=== PATIENT | female | born 1950 | race Caucasian/White ===

== ENCOUNTER 2019-09-25 07:16 | Emergency (ER) | payer MEDICARE, OTHER, SELFPAY ==
[2019-09-25 07:17] VITALS: BP 137/82; PULSE 85; RESP 16; TEMP 36.7; O2SAT 98; BMI 29.0
--- NOTE | 2019-09-25 07:20 | XR_ITS ---
WS: [id number] RIGHT KNEE: 3 VIEW(S) TECHNIQUE: AP, oblique(s) and lateral. HISTORY: injury COMPARISON: 10/19/2010 Severely comminuted fracture involving the metadiaphysis. Bones are osteopenic. There are multiple fr acture fragments in various orientations. 50 degrees angulation between the proximal and distal femur at the fracture site. The distal fragment is posteriorly displaced and oriented. Osteoarthritis at the joint spaces of the knee. Large joint effusion and large amount of soft tissue edema. Vascular calcifications are noted in the distal femoral artery. Femoral artery is being displaced pos teriorly by the fracture. XR/XR knee RT 3V* [id number] IMPRESSION: 1. Severely comminuted, displaced fracture with posterior displacement at the metadiaphysis. 2. Femoral artery is being displaced posteriorly by the fractures.
--- NOTE | 2019-09-25 07:21 | W.ED.EXTPRO ---
HPI - Extremity Problem General: Chief complaint: Extremity Problem,Nontraumatic Stated complaint: POSSIBLE R KNEE DISLOCATION Time Seen by Provider: 09/25/19 07:20 Source: patient and EMS Mode of arrival: EMS History of Present Illness: HPI Narrative: 69-year-old female who has a history of MS and is not ambulatory the nursing staff states this morning her right knee appeared swollen. Very mobile compared to normal. They states it seemed to pop and are worried of dislocation. Patient's had no known injuries. Patient denies any pain. She does have a history dementia as well and is not a great historian. MD Complaint: extremity pain Onset (ago): hour(s) Location: right Relieving factors: nothing Exacerbating factors: nothing Associated symptoms: Deny chest pain, fever(s) or rash Review of Systems Const: Denies: fever, chills, body aches or change in appetite Eyes: Denies: blurry vision or eye discomfort ENMT: Denies: throat pain or dental pain Card: Denies: chest pain Resp: Denies: shortness of breath GI: Denies: abdominal pain, nausea, vomiting or diarrhea : Denies: painful urination Musc: Reports: joint pain; Denies: neck pain or back pain Skin/Breast: Denies: rash Neuro: Denies: headache Psych: Denies: depression Gaston/Lymph: Denies: easy bruising All/Imm: Denies: hives Physical Exam Const: COMMON NORMALS: no apparent distress, oriented x3 and healthy appearing HENMT: COMMON NORMALS: normocephalic and head/scalp atraumatic HEAD & SCALP: normocephalic and atraumatic Eye: COMMON NORMALS: PERRL and EOMs intact bilaterally PUPIL: Yes PERRL Neck/C-Spine: COMMON NORMALS: full ROM and supple Chest: COMMONS NORMALS: inspection of chest normal and palpation of chest normal Resp: COMMON NORMALS: normal respiratory effort, no retractions, no use of accessory muscles and clear to auscultation bilaterally AUSCULTATION: clear to auscultation bilaterally Cardio: COMMON NORMALS: regular rate, regular rhythm and no murmurs RATE: regular rate RHYTHM: regular rhythm GI: COMMON NORMALS: normal to inspection, nondistended, normoactive bowel sounds, soft to palpation, non-tender and no masses PALPATION: Yes soft Extremity: COMMON NORMALS: normal to inspection NARRATIVE EXTREMITY EXAM: Swelling to right knee. Knee joint is very lax on movement with obvious deformity, dp and pt pulses palpable in r foot Neuro: COMMON NORMALS: oriented x3, moves all extremities and no focal motor deficits Psych: COMMON NORMALS: mental status grossly normal, thought process normal and cooperative THOUGHT PROCESS: normal thought process Skin: COMMON NORMALS: no rashes or lesions noted and no wounds GENERAL SKIN EXAM: no rashes or lesions noted Course Vital Signs: Vital signs: Vital Signs Temperature 98.1 F 09/25/19 07:17 Pulse Rate 76 09/25/19 09:39 Respiratory Rate 16 09/25/19 09:39 Blood Pressure 130/78 09/25/19 09:39 Pulse Oximetry 97 09/25/19 09:39 MDM - Extremity (Nontraumatic) MDM Narrative: Medical decision making narrative: Patient presents here with distal femur fracture. Patient has no arterial injury. Patient was placed in a brace along with Tyson wrap. I spoke to Dr. Moore who reviewed the films. He is to follow her up outpatient. She is likely not a surgical candidate as she is nonambulatory. Informed assisted to check her pulse every 8 hours. She is return if worsening. Lab Data: Labs: Lab Results 09/25/19 09/25/19 Range/Units 08:15 08:15 WBC 5.8 (4.0-10.0) 10^3/ uL RBC 3.91 L (4.1-5.3) 10^6/u L Hgb 11.7 (11.5-15.3) g/dL Hct 37.7 (37.0-47.0) % MCV 96.4 (81-99) fL MCH 29.9 (28.0-34.0) pg MCHC 31.0 (30.0-36.0) g/dL RDW 14.8 (12.1-15.1) % Plt Count 295 (130-400) 10^3/c mm MPV 9.0 (7.4-10.4) fL Neut % (Auto) 70.9 % Lymph % (Auto) 22.3 % Carolina % (Auto) 5.3 % Eos % (Auto) 1.0 % Baso % (Auto) 0.3 % Neut # (Auto) 4.1 (1.8-7.7) 10^3/u L Lymph # (Auto) 1.3 (0.8-4.8) 10^3/u L Carolina # (Auto) 0.3 (0.2-0.9) 10^3/u L Eos # (Auto) 0.1 (0.0-0.8) 10^3/u L Baso # (Auto) 0.0 (0.0-0.1) 10^3/u L Nucleated RBC % (a uto) 0 % Nucleated RBCs # 0.0 /100WBC Sodium 139 (136-145) mmol/L Potassium 3.9 (3.5-5.1) mmol/L Chloride 101 (98-107) mmol/L Carbon Dioxide 26 (22-29) mmol/L Anion Gap 15.9 (5-19) BUN 7 L (8-23) mg/dL Creatinine 0.6 (0.5-0.9) mg/dL Glucose 106 (65-115) mg/dL Calculated Osmolal ity 284 L (285-295) mOsm/k g Calcium 9.8 (8.5-10.5) mg/dL Imaging Data^: xr R knee: Radiologist's impression: [address] [address] XRay Report Signed Patient: Kaylynn Calzada Unit #: [id number] : 1950 Age/Sex: 69 / F ADM Date: 09/25/19 Loc: ER Room/Bed: Attending Dr: Ordering Provider/Ordering MD: Tulio Monaco MD Date of Service: 09/25/19 Procedure(s): XR knee RT 3V* [id number] Accession Number(s): [id number] Report Number: [id number] WS: [id number] RIGHT KNEE: 3 VIEW(S) TECHNIQUE: AP, oblique(s) and lateral. HISTORY: injury COMPARISON: 10/19/2010 Severely comminuted fracture involving the metadiaphysis. Bones are osteopenic. There are multiple fracture fragments in various orientations. 50 degrees angulation between the proximal and distal femur at the fracture site. The distal fragment is posteriorly displaced and oriented. Osteoarthritis at the joint spaces of the knee. Large joint effusion and large amount of soft tissue edema. Vascular calcifications are noted in the distal femoral artery. Femoral artery is being displaced posteriorly by the fracture. XR/XR knee RT 3V* [id number] IMPRESSION: 1. Severely comminuted, displaced fracture with posterior displacement at the metadiaphysis. 2. Femoral artery is being displaced posteriorly by the fractures. cta ext: Radiologist's impression: [place] [address] [address] [place] [address] CT Scan Report Signed Patient: Kaylynn Calzada Unit #: [id number] : 1950 Age/Sex: 69 / F ADM Date: 09/25/19 Loc: ER Room/Bed: Attending Dr: Ordering Provider/Ordering MD: Tuloi Monaco MD Date of Service: 09/25/19 Procedure(s): [place] [address] Accession Number(s): [id number] Report Number: [id number] WS: [id number] CT ANGIOGRAPHY WITH RUNOFF TO THE ANKLES HISTORY: right distal femur fx TECHNIQUE: Arterial injection is performed during imaging to evaluate the aorta and runoff vessels to the ankles. MIP and volume rendering imaging has also been performed. All images are reviewed. All CT scans at [facility] use at least one of these dose optimization techniques: automated exposure control; mA and/or kV adjustment per patient size (includes targeted exams where dose is matched to clinical indication); or iterative reconstruction. Contrast: Omnipaque 350; 95 mL IV. DLP: 1409.22 mGy.cm COMPARISON: None available. Distal abdominal aorta is intact. Iliac arteries and femoral arteries and deep profunda are well- opacified. Comminuted fracture in the distal RIGHT femur has several small spicules of bone closely associated with the fracture. There is no active extravasation from the superficial femoral artery. Spicules of bone measures 8 mm from the artery. There is active extravasation noted at the fracture site. Popliteal arteries bilaterally and runoff to the ankles without compromise. No free fluid in the pelvis. Jones catheter present in a nondistended urinary bladder. Markedly comminuted fracture involving the distal femur at the mid diaphysis. This was described radiographically. Large amount of soft tissue edema and joint effusion. Additional plate and screw fixation in the tibia on the RIGHT and fibula on the LEFT. Notified Tulio Monaco MD at 09/25/2019 9:[address]/[place] [id number] IMPRESSION: 1. No RIGHT femoral artery injury or active extravasation at the site of the fracture. 2. There is active extravasation related to the fracture site. Active extravasation is probably due to small muscular branches. The adjacent artery is intact. 3. Markedly comminuted fracture at the RIGHT metadiaphysis. Spicules of bone are within 8mm is at the femoral artery. Discharge Plan Discharge Patient Disposition: Home, Self-Care Clinical Impression: Femoral distal fracture Qualifiers: Encounter type: initial encounter Fracture type: closed Fracture morphology: other fracture Laterality: right Qualified Code(s): S72.491A - Other fracture of lower end of right femur, initial encounter for closed fracture Condition: Stable Prescriptions: No Action furosemide 40 mg Tablet 40 mg PO DAILY RF: 0 acetaminophen 325 mg Tablet 650 mg PO Q6H PRN (Reason: Mild Pain (Scale Score 1-4)) RF: 0 polyethylene glycol 3350 [Miralax] 17 gram Powder In Packet 17 g PO DAILY RF: 0 amitriptyline 75 mg Tablet 75 mg PO DAILY RF: 0 ondansetron HCl [Zofran] 4 mg Tablet 4 mg PO Q4H PRN (Reason: Nausea) RF: 0 hydrocodone-acetaminophen 10-325 mg Tablet 1 tab PO Q4H PRN (Reason: Pain) RF: 0 baclofen 20 mg Tablet 20 mg PO TID PRN (Reason: Muscle Spasm) RF: 0 alprazolam [Xanax] 0.25 mg Tablet 0.25 mg PO BID PRN (Reason: Anxiety) RF: 0 magnesium hydroxide [Milk of Magnesia] 400 mg/5 mL Suspension See Rx Instructions .ROUTE .COMPLEX PRN (Reason: Constipation) RF: 0 bisacodyl [Dulcolax (bisacodyl)] 10 mg Suppository 10 mg [place] DAILY PRN (Reason: Constipation) RF: 0 Fleet Enema 19-7 gram/118 mL Enema 118 ml [place] DAILY PRN (Reason: Constipation) RF: 0 bisacodyl [Dulcolax (bisacodyl)] 5 mg Tablet,Delayed Release (Dr/Ec) 5 mg PO BID RF: 0 albuterol sulfate 90 mcg/actuation Hfa Aerosol Inhaler 1 inh INHALATION Q4H PRN (Reason: Shortness Of Breath) RF: 0 albuterol sulfate [ProAir HFA] 90 mcg/actuation Hfa Aerosol Inhaler 2 inh INHALATION BEDTIME RF: 0 morphine 15 mg Tablet 15 mg PO Q4H PRN (Reason: Pain) RF: 0 Culturelle 10 billion cell Capsule 1 cap PO DAILY RF: 0 Flovent HFA 110 mcg/actuation Hfa Aerosol Inhaler 2 puff INHALATION BEDTIME RF: 0 diazepam 5 mg Tablet 10 mg PO BID PRN (Reason: Agitation) RF: 0 Prilosec OTC 20 mg Tablet,Delayed Release (Dr/Ec) 20 mg PO DAILY RF: 0 kmmwzuhj-znb-HQ-lycopen-lutein 500-300-250 mcg Tablet 1 tab PO DAILY RF: 0 Silver Gel Gel 1 ea TOPICAL DAILY RF: 0 potassium gluconate 600 mg (99 mg) Tablet 600 mg PO DAILY RF: 0 melatonin 10 mg Tablet Extended Release 10 mg PO BEDTIME RF: 0 Renacidin 1,980.6 mg-59.4 mg-980.4mg/30mL Solution 100 ml IRRIGATION DAILY RF: 0 senna 8.6 mg Tablet 17.2 mg PO DAILY RF: 0 Discharge Orders: Discharge Order (Routine); Ordered 09/25/19 Ordered By: Tulio Monaco Referrals: Keshia Claudio MD [Primary Care Provider] - Manny Patel DO [Family Provider] - James Moore DO [Physician] - 1-3 days Discharge Diet: Advance as tolerated Discharge Activity: Resume usual activity Coding Level of Care Code ED Office Helper for Chg Fwd Exam Comprehensive
[2019-09-25 07:42] VITALS: PULSE 80; RESP 18
--- NOTE | 2019-09-25 07:52 | XR_ITS ---
WS: [id number] RIGHT FEMUR: 2 VIEW(S) TECHNIQUE: AP and lateral. HISTORY: injury COMPARISON: None available. Severe osteopenia. No fractures are evident at the RIGHT hip or within the proximal to mid femur. Soft tissues are unremarkable. No foreign body or calcification. XR/XR femur RT min 2V* 15485 Impression: No fracture in the proximal to mid RIGHT femur. Severe osteopenia.
--- NOTE | 2019-09-25 08:05 | CT_ITS ---
WS: [id number] CT ANGIOGRAPHY WITH RUNOFF TO THE ANKLES HISTORY: right distal femur fx TECHNIQUE: Arterial injection is performed during imaging to evaluate the aorta and runoff vessels to the ankles. MIP and volume rendering imaging has also been performed. All images are reviewed. All C T scans at [facility] use at least one of these dose optimization techniques: automated ex posure control; mA and/or kV adjustment per patient size (includes targeted exams where dose is match ed to clinical indication); or iterative reconstruction. Contrast: Omnipaque 350; 95 mL IV. DLP: 1409.22 mGy.cm COMPARISON: None available. Distal abdominal aorta is intact. Iliac arteries and femoral arteries and deep profunda are well-opac ified. Comminuted fracture in the distal RIGHT femur has several small spicules of bone closely asso ciated with the fracture. There is no active extravasation from the superficial femoral artery. Spicu les of bone measures 8 mm from the artery. There is active extravasation noted at the fracture site. Popliteal arteries bilaterally and runoff to the ankles without compromise. No free fluid in the pelvis. Jones catheter present in a nondistended urinary bladder. Markedly comminuted fracture involving the distal femur at the mid diaphysis. This was described radi ographically. Large amount of soft tissue edema and joint effusion. Additional plate and screw fixation in the tibia on the RIGHT and fibula on the LEFT. Notified Tulio Monaco MD at 09/25/2019 9:[address]/CT angio [facility] [address] IMPRESSION: 1. No RIGHT femoral artery injury or active extravasation at the site of the f racture. 2. There is active extravasation related to the fracture site. Active extravas ation is probably due to small muscular branches. The adjacent artery is intact . 3. Markedly comminuted fracture at the RIGHT metadiaphysis. Spicules of bone a re within 8mm is at the femoral artery.
[2019-09-25 08:23] LABS: Basophils % 0.3 %; Eosinophils # 0.1 10^3/uL (0.0-0.8); Hematocrit 37.7 % (37.0-47.0); Hemoglobin 11.7 g/dL (11.5-15.3); Lymphocytes # 1.3 10^3/uL (0.8-4.8); Lymphocytes % 22.3 %; Mean Corpuscular Hemoglobin 29.9 pg (28.0-34.0); Mean Corpuscular Volume 96.4 fL (81-99); Monocytes # 0.3 10^3/uL (0.2-0.9); Monocytes % 5.3 %; Neutrophils # 4.1 10^3/uL (1.8-7.7); Neutrophils % 70.9 %; Nucleated Red Blood Cells % 0 %; Platelet Count 295 10^3/cmm (130-400); Red Blood Count 3.91 10^6/uL (4.1-5.3); Red Cell Distribution Width 14.8 % (12.1-15.1); White Blood Count 5.8 10^3/uL (4.0-10.0)
[2019-09-25 08:39] LABS: Anion Gap 15.9 (5-19); Blood Urea Nitrogen 7 mg/dL (8-23); Calcium 9.8 mg/dL (8.5-10.5); Carbon Dioxide 26 mmol/L (22-29); Chloride 101 mmol/L (98-107); Glucose 106 mg/dL (65-115); Osmolality Calculated 284 mOsm/kg (285-295); Potassium 3.9 mmol/L (3.5-5.1); Sodium 139 mmol/L (136-145)
[2019-09-25] MEDS: iohexol 350 mg/mL 100 mL Btl IV (09:05)
[2019-09-25 09:39] VITALS: BP 130/78; PULSE 76; RESP 16; O2SAT 97
--- NOTE | 2019-09-25 09:49 | PC.NURSE ---
waiting for ride back to alf
--- NOTE | 2019-09-25 13:55 | DCPLANNER ---
manufacturing manager was asked to schedule a follow up appointment for patient with ortho. manufacturing manager called the ortho clinic, spoke with Oriana, gave clinic patients information. manufacturing manager was told that patients information would be printed and reviewed. Clinic will call case folder and patient with appointment information.
--- NOTE | 2019-09-30 15:15 | DCPLANNER ---
Patient has a follow up appointment scheduled for September at 10:[address] Moore. Clinic will call patient with appointment information.
== END 2019-09-25 11:18 | disposition home or self-care (01) ==
PROVIDERS: Emergency Provider Emergency Medicine; Family Provider Family Medicine; PCP Family Medicine
DX: S79.191A Other physeal fracture of lower end of right femur, initial encounter for closed fracture (principal); X58.XXXA Exposure to other specified factors, initial encounter
CPT/HCPCS: 12345; 73552; 73562; 73706; 80048; 85025; 97760; 99281; 99283; L1832; Q9967

== ENCOUNTER → 2019-10-02 10:20 | Outpatient (BNVA) | payer MEDICARE, OTHER, SELFPAY | PROVIDERS: Family Provider Family Medicine; PCP Family Medicine; Referring Provider Emergency Medicine; Visit Provider Orthopaedic Surgery | DX: S72.401A Unspecified fracture of lower end of right femur, initial encounter for closed fracture (principal); X58.XXXA Exposure to other specified factors, initial encounter | CPT/HCPCS: 73560 ==

== ENCOUNTER → 2019-11-02 09:45 | Outpatient (BNVA) | payer MEDICARE, OTHER, SELFPAY | PROVIDERS: Family Provider Family Medicine; PCP Family Medicine; Visit Provider Orthopaedic Surgery | DX: S72.491A Other fracture of lower end of right femur, initial encounter for closed fracture (principal); X58.XXXA Exposure to other specified factors, initial encounter | CPT/HCPCS: 73560 ==

== ENCOUNTER → 2019-12-16 09:54 | Outpatient (BNVA) | payer MEDICARE, OTHER, SELFPAY | PROVIDERS: Family Provider Family Medicine; PCP Family Medicine; Visit Provider Orthopaedic Surgery | DX: S72.491A Other fracture of lower end of right femur, initial encounter for closed fracture (principal); X58.XXXA Exposure to other specified factors, initial encounter; M85.88 Other specified disorders of bone density and structure, other site | CPT/HCPCS: 73560 ==

== ENCOUNTER 2019-12-24 15:13 | Outpatient (CLI) | payer MEDICARE, OTHER, SELFPAY ==
--- NOTE | 2019-12-24 15:20 | XR_ITS ---
WS: [id number] RIGHT KNEE: 3 VIEW(S) TECHNIQUE: AP, oblique(s) and lateral. HISTORY: RIGHT KNEE PAIN PT IN WHEELCHAIR COMPARISON: 12/14/2019 Patient has a known markedly comminuted fracture involving the distal femoral diaphysis. Markedly com minuted fragments. Fracture line is still evident with nonhealing. Severe osteopenia. New since the prior study is mild compression of the lateral tibial plateau suspicious for fracture. These changes could be positional. There is severe osteopenia. Patient was unable to straighten her l eg completely therefore this may cause deformity along the tibial plateau. Small suprapatellar effusion. Extensive soft tissue edema. XR/XR knee RT 3V* [id number] IMPRESSION: 1. Markedly comminuted known fracture with incomplete healing involving the di stal femoral diaphysis. Posterior displacement is similar to the prior study. 2. Indeterminate for minimal depressed fracture involving the lateral tibial p lateau. There is mild depression but this could be related to incomplete straig htening of the knee.
== END 2019-12-24 15:14 | disposition home or self-care (01) ==
LOC: RADWPI 15:16
PROVIDERS: Family Provider Family Medicine; PCP Family Medicine; Visit Provider Family Medicine
DX: M25.561 Pain in right knee (principal); S72.8X1A Other fracture of right femur, initial encounter for closed fracture; X58.XXXA Exposure to other specified factors, initial encounter
CPT/HCPCS: 73562

== ENCOUNTER 2020-04-25 06:41 | Outpatient (CLI) | payer MEDICARE, OTHER, MEDICAID, SELFPAY ==
--- NOTE | 2020-04-25 | US_ITS ---
WS: [id number] ULTRASOUND BLADDER CLINICAL INFORMATION: URINARY INCONTINENCE, MS BLADDER PAIN COMPARISON: None. FINDINGS: Jones catheter in place. Bladder is decompressed. No visualized bladder lesions. Urinary bladder: The urinary bladder appears morphologically normal. No free fluid is seen in the pel vis. / bladder [id number] IMPRESSION: Jones catheter in place. No visualized bladder lesions.
== END 2020-04-25 06:42 | disposition home or self-care (01) ==
PROVIDERS: PCP Family Medicine; Visit Provider Family Medicine
DX: R39.89 Other symptoms and signs involving the genitourinary system (principal); R32 Unspecified urinary incontinence; G35 Multiple sclerosis
CPT/HCPCS: 76857

== ENCOUNTER 2020-09-21 07:56 | Outpatient (CLI) | payer MEDICARE, SELFPAY ==
--- NOTE | 2020-09-21 08:15 | CT_ITS ---
WS: [id number] CT ABDOMEN PELVIS TECHNIQUE: Noncontrast CT of the abdomen and pelvis with coronal and sagittal reformatted images. CLINICAL INFORMATION: NEUROGENIC BLADDER COMPARISON: CT abdomen pelvis 1 26,018 DLP: 1193.[address] scans at [facility] use at least one of these dose optimization techniques: automat ed exposure control; mA and/or kV adjustment per patient size (includes targeted exams where dose is matched to clinical indication); or iterative reconstruction. FINDINGS: Normal adrenal glands. Soft tissue thickening with right renal pelvocaliectasis. Multiple f ragmented clustered calcifications the largest measuring 6.6 mm. Mild right proximal ureterectasis. D istal right ureter is decompressed. No significant hydronephrosis. No obstructing left renal or ureteral calculi. Left ureter is decompressed. Jones catheter in place. Prior hysterectomy. Sigmoid diverticulosis. No evidence of acute diverticulitis. Scattered stool in the colon. Tiny fat-c ontaining umbilical hernia. Fatty atrophy of the pancreas. Normal caliber abdominal aorta. No abdomin al or pelvic lymphadenopathy. No inguinal lymphadenopathy. Grade 1 anterolisthesis L4 on L5. Lumbar s coliosis. Noncontrast liver is unremarkable. Cholecystectomy clips. Mild intrahepatic and common bile duct dila tation is unchanged from previous. Splenic cyst or hemangioma is unchanged. Lung bases are well aerat ed. Subsegmental atelectasis in the lung bases. CT/CT kidney stone [id number] IMPRESSION: 1. Right renal pelvocaliectasis with inflammatory stranding and soft tissue th ickening of the right renal pelvis. Multiple clustered and fragmented calculi i n the right renal pelvis. Soft tissue thickening may be related to calculi but has a suspicious appearance and TCC is an additional consideration. No signific ant hydronephrosis. 2. No hydronephrosis in the left kidney. 3. No abdominal or pelvic lymphadenopathy. 4. Jones catheter. 5. Prior hysterectomy. 6. Prior cholecystectomy with stable intra and extra hepatic biliary duct dila tation.
== END 2020-09-21 07:57 | disposition home or self-care (01) ==
PROVIDERS: PCP Family Medicine; Visit Provider Urology
DX: N31.9 Neuromuscular dysfunction of bladder, unspecified (principal); Z90.49 Acquired absence of other specified parts of digestive tract; Z90.710 Acquired absence of both cervix and uterus; N28.89 Other specified disorders of kidney and ureter
CPT/HCPCS: 74176

== ENCOUNTER → 2020-09-26 08:58 | Outpatient (BNVA) | payer MEDICARE, SELFPAY | PROVIDERS: PCP Family Medicine; Visit Provider Urology | DX: N20.0 Calculus of kidney (principal); Z97.8 Presence of other specified devices; Z11.52 Encounter for screening for COVID-19 | CPT/HCPCS: 87635 ==

== ENCOUNTER 2020-09-29 09:56 | Day surgery (SDC) | payer MEDICARE, SELFPAY ==
[2020-09-27 10:25] VITALS: BMI 27.5
--- NOTE | 2020-09-27 10:41 | ECG_ITS ---
[facility] Test Date: 2020-09-27 Pat Name: Kaylynn Calzada Department: Room: Gender: Female Ase Certified Technician: : 1950 Requested By: Darek Lagos Order Number: [id number] Stephanie MD: Gordon Mcintosh M.D. Measurements Intervals [place] Rate: 65 P: 16 OH: 150 QRS: -28 QRSD: 112 T: 28 QT: 415 QTc: 431 Interpretive Statements SINUS RHYTHM BORDERLINE LEFT AXIS DEVIATION [QRS AXIS < -20] INCOMPLETE RIGHT BUNDLE BRANCH BLOCK [90+ ms QRS DURATION, TERMINAL R IN V1/V2, 40+ ms S IN I/aVL/V4/V5/V6] MINIMAL VOLTAGE CRITERIA FOR LVH, CONSIDER NORMAL VARIANT [MEETS CRITERIA IN ONE OF: R(aVL), S(V1), R(V5), R(V5/V6)+S(V1)] Compared to ECG 11/09/2018 22:41:28 Incomplete right bundle-branch block now present ST (T wave) deviation no longer present Myocardial infarct finding no longer present Electronically Signed On 09-28-2020 10:03:14 CDT by Gordon Mcintosh M.D. [email or web address]
--- NOTE | 2020-09-27 16:06 | ANES.PREANE2 ---
Pre-Anesthetic Assessment Pre-Anesthetic Assessment: Height/Weight: Height 1.73 m Weight 82.1 kg Preop Diagnosis: RIGHT: Renal pelvic stones/mass-effect, neurogenic bladder chronic cath Proposed Procedure: Operation Date: 09/29/20 12:00 Proposed Procedures p Cystoscopy 35046 79853 42157 N20.0 Z97.8(Not Applicable) - Juanjose Virk MD s Poss Laser Lithotripsy(Right) - Juanjose Virk MD s Retrograde Pyelogram(Right) - Juanjose Virk MD s Ureteral Stent Placement(Right) - Juanjose Virk MD Was Beta Kurtis taken within 24 hours: N/A Was Clonidine taken within 24 hours: N/A Social: Social History: No alcohol and No tobacco Exam: Pre-Anes Outpt Exam: alert, oriented x 3, clear to auscultation bilaterally and regular rate & rhythm Airway: Submandibular: WNL Cervical ROM: WNL MP: 2 Dentition: Full Pulmonary: Pulmonary: Asthma : Comments: Neurogenic bladder, acrrera GI: GI: GERD Musc/skel: Musc/skel: Weakness Comments: Severe MS-wheelchair bound, chronic pain/opioid Neuropsych: Neuropsych: Anxiety Anesthetic Plan: ASA status: 3 Anesthesia: General Risk of > 500 ml blood loss (7ml/kg in children): No PFSH Anesthesia PFSH: Medical History (Updated 09/21/20 @ 12:39 by Juanjose Virk MD) Accelerated essential hypertension Anxiety disorder Chronic indwelling Carrera catheter Dementia Dorsalgia H/O fracture of leg rt leg with rods Multiple sclerosis Neurogenic bladder Recurrent kidney stones Surgical History H/O: hysterectomy History of ankle surgery Hx of appendectomy Hx of cholecystectomy Family History Father , at age 87 Cancer cancer behind heart Mother , at age 94 No problems noted. Other Hypertension Denies family history of Diabetes Stroke Social History Smoking and tobacco status: never smoked Alcohol intake: never Marital status: Current occupational status: retired History of recent travel: No Data Anesthesia Cardiac Studies: No Data to Display
[2020-09-29] VITALS (13 sets, daily range): BP systolic 84–151; BP diastolic 60–81; PULSE 69–117; RESP 16–20; TEMP 36.4–37.2; O2SAT 94–100
--- NOTE | 2020-09-29 | SCC_ITS ---
Procedure Done: 1. Cystoscopy, RIGHT: Retrograde, ureteroscopy, laser, stent 2. Percutaneous suprapubic tube placement 54.7 seconds of fluoroscopic guidance, for a cumulative dose of 9.53 mGy, was provided to Dr. Virk by the radiology department. C-arm images of the abdomen were saved for the patient's permanent record. [facility]
--- NOTE | 2020-09-29 10:05 | SC_ITS ---
WS: [id number] C-arm fluoroscopy for right ureteroscopy, 09/29/2020 Clinical Data: Right ureteroscopy and right retrograde urogram. Comparison: KUB, 09/29/2020 Findings: Contrast material fills the right renal pelvis. There are multiple intraluminal filling defects which probably represent ureteral calculi. SC/C-arm FL for Urology Impression: Right retrograde urogram demonstrating multiple right renal calculi..
--- NOTE | 2020-09-29 10:05 | XR_ITS ---
WS: [id number] KUB, AP view, 09/29/2020 Clinical Data: Preop right ureteroscopy Comparison: Flat and upright abdomen, 06/27/2017. CT abdomen and pelvis, 09/21/2020. Findings: No abnormal intraabdominal masses or calcifications are seen. There is no dilatated small bowel or ev idence of obstruction. Fecal material in colon gas obscure detail over both kidneys. There is a dextroscoliosis of the lumba r spine. There are clips in the right upper quadrant from a cholecystectomy. XR/XR KUB [id number] Impression: 1. Large amount of fecal material in the colon which obscures detail over both kidneys. 2. Dextroscoliosis.
--- NOTE | 2020-09-29 10:49 | P.ANESUD_ITS ---
Pre-Anesthetic Update Pre-Anesthetic Assessment: Date of Surgery/Procedure: 09/29/20 Preop Mónica gnosis: RIGHT: Renal pelvic stones/mass-effect, neurogenic bladder chronic cath Proposed Procedure: Operation Date: 09/29/20 12:00 Proposed Procedures p Cystoscopy 90887 19983 07697 N20.0 Z97.8(Not Applicable) - Juanjose Virk MD s Poss Laser Lithotripsy(Right) - Juanjose Virk MD s Retrograde Pyelogram(Right) - MD johny Basurto Ureteral Stent Placement(Right) - Juanjose Virk MD Any changes to Pre-Anesthetic Assessment?: No Last Intake: Intake Last Liquid Date 09/28/20 Last Liquid Time 05:30 Last Solid Date 09/28/20 Last Solid Time 17:30 Vitals: Oxygen Delivery Ms thod 09/29/20 10:41 Exam: Pre-Anes Outpt Exam: alert, oriented x 3, clear to auscultation bilaterally and regular rate & rhythm Cardiac Studies: No Data to Display
[2020-09-29] MEDS: sodium chloride 0.9% 1,000 ML 30 ML IV (10:50)
--- NOTE | 2020-09-29 12:34 | P.HPUD_ITS ---
Surgery/Procedure H&P Update DATE OF PROCEDURE: September 29, 2020 DATE H&P PERFORMED: 09/21/20 H&P UPDATE INFORMATION: I have reviewed H&P completed within last 30 days, I have examined patient prior to procedure, No changes to prior documentation and H&P is in [facility] EMR on date indicated PREOP DIAGNOSIS: RIGHT: Renal pelvic stones/mass-effect, neurogenic bladder chronic cath PLANNED PROCEDURE: Operation Date: 09/29/20 12:00 Proposed Procedures p Cystoscopy [id number] N20.0 Z97.8(Not Applicable) - Juanjose Virk MD s Poss Laser Lithotripsy(Right) - MD johny Basurto Retrograde Pyelogram(Right) - MD johny Basurto Ureteral Stent Placement(Right) - Juanjose Virk MD
[2020-09-29] MEDS: levofloxacin-dextrose 5 % 500 MG/100 ML PREMIX 100 MG IV (12:50)
[2020-09-29] MEDS: iohexol 300 mg/mL 50 mL Btl 30 ML XX (14:08)
--- NOTE | 2020-09-29 14:20 | P.OP_ITS ---
Operative Report Date of procedure: September 29, 2020 Pre-op Diagnosis: RIGHT: Renal pelvic stones/mass-effect, neurogenic bladder chronic cath Post-op diagnosis: same Procedure Done: 1. Cystoscopy, RIGHT: Retrograde, ureteroscopy, laser, stent 2. Percutaneous suprapubic tube placement Surgeon: Sully Anesthesia: General Estimated blood loss: Minimal Urine output: Not measured Complications: None Condition: stable Disposition: PACU Brief History: Mrs. Calzada is a delightful 70-year-old white female with a neurogenic bladder secondary to multiple sclerosis. She developed urinary retention several years ago and tried SCIC but gave up on that due to the difficulty with body habitus and strength. Ultimately she had a Jones catheter placed. Over the years her urethra has become more patulous and leaking around the catheter leading to skin breakdown. Ultimately she has elected to proceed with suprapubic tube. Reviewed the possibility of persistent patulous urethra requiring additional treatment including bulking agent or urethral closure. A preoperative CT scan was performed to evaluate for possible interposing bowel between the bladder and abdominal wall. The right kidney showed some stones and some significant inflammatory changes and possibly thickening of the renal pelvis worrisome for soft tissue mass. She is admitted now for ureteroscopy, examination of the renal pelvis, possible biopsy, laser lithotripsy stent and percutaneous suprapubic tube. Procedure: After routine preoperative evaluation examination and obtaining of informed consent she was taken to the operating suite on 09/29/2020 where general anesthesia was administered without difficulty after appropriate timeout was performed, SCDs confirmed to be functioning, preoperative antibiotics administered, beta-eduardo protocol confirmed. Prepped and draped in usual sterile fashion in dorsolithotomy position paying careful attention to avoiding pressure points. 21 Montserratian cystoscope with 30 degree lens was introduced into the urethra meatus and advanced into the bladder under videoscopy. The right ureteral orifice seemed somewhat patulous. An 8 Montserratian cone-tip catheter was intubated to the right ureteral orifice for RIGHT RETROGRADE URETEROPYELOGRAM: The ureter appeared to be normal throughout. There were some filling defects consistent with stones in the renal pelvis and into the infundibulum to the lower pole as confirmed with CT scan. Flexible tip guidewire was passed without difficulty of the right ureter curling in the area of the upper pole calyx. The distal ureter was dilated with a 15 Montserratian 4 cm balloon and a second guidewire was passed. The first wire was secured to the drapes as a safety wire and the second wire was utilized for a working wire. A 38 cm ureteral access sheath was then advanced over the guidewire to just below the right UPJ utilizing fluoroscopic monitoring. The sheath passage went very well. The inner sheath was removed and the flexible scope was advanced over the guidewire up into the renal pelvis and the guidewire removed. Several stones were identified in the expected position and fragment with a 365 ?m thulium superpulse laser fiber into sand. No large fragments were identified. After completion of the laser lithotripsy inspection revealed no large fragments. There was no active bleeding. The sheath was backloaded onto the hub of the scope and the scope was withdrawn under visualization and the ureter was in good shape. The cystoscope was then backloaded over the safety wire and a 7 Montserratian by 28 cm double-pigtail stent was advanced over the guidewire through the cystoscope into appropriate position as confirmed via fluoroscopy and cystoscopy. A 25 Montserratian continuous-flow resectoscope sheath was then utilized for a cystoscopy of the bladder to help obstruct the urethra to avoid excessive flow around the sheath while the bladder was being filled. The bladder was palpable above the symphysis pubis. About 3 finger breaths above the symphysis pubis a 3 and half inch 22 spinal needle was advanced in the midline toward the bladder into appropriate position as confirmed via cystoscopy. A puncture incision was made at this spot and then a 20 Montserratian Cook suprapubic tube sheath and trocar was advanced in the same tract into the same spot as confirmed via cystoscopy. The trocar was pulled back the sheath further advanced and the trocar removed. A 16 Montserratian Jones catheter was then passed through the sheath and the balloon inflated. The sheath was then withdrawn by peeling it back. Final scope revealed the balloon to be in good position snugged up against the bladder wall loosely. The stent was still in good position and functioning. The Jones catheter in the suprapubic tract was secured with 2 heavy nylon sutures. Sterile dressing was applied. Catheter was placed to dependent drainage and the procedure was completed. She tolerated procedure well without complications and was awakened in the operating room and returned to the cart room in stable condition. PLANS: 1. Follow-up in clinic in about a month with a KUB for the first suprapubic tube change and possibly stent removal. 2. Because of chronic colonization of her bladder I am going to have her take several days of antibiotics to reduce the risk of infection.
[2020-09-29] MEDS: fentaNYL 50 mcg/mL INJ 2mL IVP (14:35)
[2020-09-29] MEDS: HYDROmorphone 1 mg/mL INJ 1 mL 0.5 MG IVP (14:46)
[2020-09-29] MEDS: ondansetron 2 mg/ML SDV 2 mL 4 MG IVP (15:25)
[2020-09-29] MEDS: HYDROcodone-acetaminophen 5-325 mg Tablet 1 TAB PO (15:53)
--- NOTE | 2020-09-29 17:14 | ANE.PACU2 ---
Inpatient post-anesthesia follow up: Airway intact: Yes Vital signs: Temperature 98.3 F Pulse Rate 107 Respiratory Rate 20 Blood Pressure 84/72 Pulse Oximetry 100 Oxygen Delivery Me thod Nasal Cannula Oxygen Flow Rate 2 Fraction of Inspir ed Oxygen Hydration adequate: Yes Nausea and vomiting: No Pain level: 3 Mental status: Baseline
--- NOTE | 2020-09-30 16:52 | PM.CONSULT ---
Providers/Reason For Consult Consulting Physican/Specialty*: Virk/Urology Reason for Consult*: Sepsis/UTI, Malpositioned Right ureteral Stent Attending Physician: Juanjose Virk MD Primary Care Provider: Manny Patel DO History of Present Illness History of Present Illness Kaylynn Calzada is a 70 year old female with debilitating MS, well known to me for chronic neurogenic bladder and recently discovered RIGHT renal pelvic stones and possible soft tissue density in right renal pelvis with differential of inflammatory changes related to stones or possible neoplasia. Yesterday she underwent a right ureterorenoscopy which demonstrated no neoplastic process and confirmed renal pelvic stones with inflammatory changes only. Laser lithotripsy was performed and stent was placed Also had SP tube placed percutaneously uneventfully. SP tube placed to hopefully reduce leakage around carrera and reduce associated problems of wounds. Was covered preoperatively and postoperatively with Levaquin due to concern for chronic bacteriuria associated with chronic carrera cath. This AM noted to be lethargic and unarousable by and HHN found her to be tachycardic and hypotensive. Taken by amublance to [facility] ED. Clinically septic with elevated lactate and WBC (22k+). CT scan performed, I personally reviewed: Showed normally positioned SP tube with no perivesical extravasation or peritoneal process. No free air or fluid It did show however the stent to be malpositioned with the proximal curl extending through the Upper Pole: infundibulum, calyx and parenchyma and just inside the perirenal space. In addition was noted a small Right perirenal hematoma. There was no evidence of urinary extravasation. The renal pelvis appeared to be intact with no renal hilar fluid etc. Obviously the malpositioned stent was unexpected especially with no hint of it intraoperatively being a difficult placement, etc. Based on the lack of local findings associated with stent malposition ( urinoma, hematoma, phlegmon, etc) it appears that the pressing clinical issue is sepsis related to UTI exacerbated by recent instrumentation despite preoperative antibiotics. She has been resusitated and given pressure supportive measures with stabilizing hemodynamic pattern. While the stent does need to be retracted distally back into the collecting system, I would recommending holding until her clinical, infectious picture improves such that her risk under anesthesia is decreased. I do not expect her clinical picture to be negatively impacted by the current stent position in the absence of extravasation. Reviewed with the ED and Hospitalist teams. Will follow closely. Review of Systems General: Reports: ROS unobtainable due to mental status Narrative: stated that she was obtunded this morning. Could not arouse. No other obtainable review of systems Meds/Allergies Home Medications and Allergies Home Medications Medication Instructions Recorded Confirmed Last Taken Type Flovent HFA 2 puff INHALATION BEDTIME 09/25/19 09/30/20 09/29/20 History Silver Gel 1 ea TOPICAL DAILY 09/25/19 09/30/20 09/30/20 History albuterol sulfate 1 inh INHALATION Q4H PRN 09/25/19 09/30/20 09/29/20 History albuterol sulfate [ProAir HFA] 2 inh INHALATION BEDTIME 09/25/19 09/30/20 09/30/20 History alprazolam [Xanax] 0.25 mg PO BID PRN 09/25/19 09/30/20 09/28/20 History baclofen 20 mg PO TID PRN 09/25/19 09/30/20 09/29/20 History bisacodyl [Dulcolax (bisacodyl)] 5 mg PO BID 09/25/19 09/30/20 Unknown History bisacodyl [Dulcolax (bisacodyl)] 10 mg AL DAILY PRN 09/25/19 09/30/20 Unknown History diazepam 10 mg PO BID PRN 09/25/19 09/30/20 09/30/20 History furosemide 40 mg PO DAILY 09/25/19 09/30/20 09/30/20 History hydrocodone-acetaminophen 1 tab PO Q4H PRN 09/25/19 09/30/20 09/30/20 History melatonin 10 mg PO BEDTIME 09/25/19 09/30/20 09/29/20 History morphine 15 mg PO Q4H PRN 09/25/19 09/30/20 09/30/20 History polyethylene glycol 3350 [Miralax] 17 g PO DAILY 09/25/19 09/30/20 09/28/20 History potassium gluconate 600 mg PO DAILY 09/25/19 09/30/20 09/29/20 History albuterol sulfate 90 mcg/actuation 2 puff INHALATION Q6H PRN 09/15/20 09/30/20 09/30/20 History aerosol inhaler amitriptyline 100 mg tablet 100 mg PO DAILY 09/15/20 09/30/20 09/30/20 History levofloxacin 250 mg PO DAILY 5 Days #5 tab 09/29/20 09/30/20 09/29/20 Rx Allergies Allergy/AdvReac Type Severity Reaction Status Date / Time Penicillins Allergy Unknown Verified 09/29/20 10:11 PFSH Acute PFSH: Medical History Accelerated essential hypertension Anxiety disorder Chronic indwelling Carrera catheter Dementia Dorsalgia H/O fracture of leg rt leg with rods Multiple sclerosis Neurogenic bladder Recurrent kidney stones Surgical History H/O: hysterectomy History of ankle surgery Hx of appendectomy Hx of cholecystectomy Family History Father , at age 87 Cancer cancer behind heart Mother , at age 94 No problems noted. Other Hypertension Denies family history of Diabetes Stroke Social History Smoking and tobacco status: never smoked Alcohol intake: never Marital status: Current occupational status: retired History of recent travel: No Vitals/I&O/Wt Last Vital Signs Temp 98.3 F 09/29/20 15:22 Pulse 107 H 09/29/20 15:41 Resp 20 H 09/29/20 15:41 BP 84/72 09/29/20 15:41 Pulse Ox 100 09/29/20 15:41 Physical Exam Const: EXAM LIMITATIONS: altered mental status GENERAL APPEARANCE: lethargic and ill appearing ORIENTATION/CONSCIOUSNESS: Yes patient obtunded and Yes lethargic Lymph: LYMPHATIC: no lymphadenopathy noted Resp: COMMON NORMALS: normal respiratory effort and No use of accessory muscles Cardio: COMMON NORMALS: regular rhythm RATE: tachycardic RHYTHM: regular rhythm GI: COMMON NORMALS: Normal to inspection, nondistended, normoactive bowel sounds present (SP tube site is healthy-appearing. There is no drainage. No evidence of l), Soft to palpation and no masses PALPATION: Yes Soft to palpation Neuro: SENSORIUM/ORIENTATION: Yes lethargic Psych: MEMORY/COGNITION: Yes cognition grossly impaired OTHER: Obtunded Urinary Catheter Management^: Carrera: Cath Placed During This Visit: yes, but has since been removed by the nurse Urinary Catheter Date of Insertion: 09/29/20 Urinary Catheter Time of Insertion: 13:30 Date Urinary Catheter Removed: 08/20/20 Time Urinary Catheter Discontinued: 13:30 Suprapubic: Cath Placed During This Visit: yes Urinary Catheter Date of Insertion: 09/29/20 Urinary Catheter Time of Insertion: 13:45 Data Other Data: Other data: Micro:Microbiology 09/30/20 12:35 Blood Culture - Preliminary Blood SPECIMEN COLLECTED 09/30/20 12:08 Blood Culture - Preliminary Blood SPECIMEN COLLECTED Attestation for Other Data: I personally reviewed and interpreted the following: Other data: Microbiology 09/30/20 12:35 Blood Blood Culture - Preliminary SPECIMEN COLLECTED 09/30/20 12:08 Blood Blood Culture - Preliminary SPECIMEN COLLECTED Laboratory Results WBC 22.8 10^3/uL (4.0-10.0) H 09/30/20 12:35 RBC 3.87 10^6/uL (4.1-5.3) L 09/30/20 12:35 Hgb 11.9 g/dL (11.5-15.3) 09/30/20 12:35 Hct 36.4 % (37.0-47.0) L 09/30/20 12:35 MCV 94.1 fL (81-99) 09/30/20 12:35 MCH 30.7 pg (28.0-34.0) 09/30/20 12:35 MCHC 32.7 g/dL (30.0-36.0) 09/30/20 12:35 RDW 13.1 % (12.1-15.1) 09/30/20 12:35 Plt Count 106 10^3/cmm (130-400) L 09/30/20 12:35 MPV 10.4 fL (7.4-10.4) 09/30/20 12:35 Lymph % (Auto) Not Reportable 09/30/20 12:35 Archer % (Auto) Not Reportable 09/30/20 12:35 Lymph # (Auto) Not Reportable 09/30/20 12:35 Archer # (Auto) Not Reportable 09/30/20 12:35 Total Counted 100 (0-100) 09/30/20 12:35 Atypical Lymphs % 0.0 % (0-5) 09/30/20 12:35 Absolute Neutrophils 22.6 10^3/cmm (1.4-6.5) H 09/30/20 12:35 Segmented Neutrophils 69 % 09/30/20 12:35 Abs Segm Neuts (Man) 15.7 10/cmm (1.6-7.1) H 09/30/20 12:35 Band Neutrophils 30.0 % 09/30/20 12:35 Abs Band Neuts (Man) 6.8 10^3/cmm (0.0-1.2) H 09/30/20 12:35 Absolute Lymphocytes 0.2 10^3/cmm (1.2-3.4) L 09/30/20 12:35 Lymphocytes (Manual) 1 % 09/30/20 12:35 Monocytes (Manual) 0.0 % 09/30/20 12:35 Absolute Monocytes 0.0 10^3/cmm (0.1-0.6) L 09/30/20 12:35 Eosinophils (Manual) 0 % 09/30/20 12:35 Absolute Eosinophils 0.0 10^3/cmm (0.0-0.7) 09/30/20 12:35 Basophils (Manual) 0.0 % 09/30/20 12:35 Absolute Basophils 0.0 10^3/cmm (0.0-0.2) 09/30/20 12:35 Platelet Estimate Decreased (Normal) L 09/30/20 12:35 Specimen Type Arterial 09/30/20 11:18 Sample Site Radial, left 09/30/20 11:18 ABG pH 7.48 (7.35-7.45) H 09/30/20 11:18 ABG pCO2 31.3 mmHg (35-45) L 09/30/20 11:18 ABG pO2 177.0 mmHg (80.0-100.0) H 09/30/20 11:18 ABG HCO3 23.3 mmol/L (22-26) 09/30/20 11:18 ABG O2 Saturation > 100.0 09/30/20 11:18 ABG Base Excess 0.5 mmol/L (-2.0-2.0) 09/30/20 11:18 Addison Test Pos 09/30/20 11:18 A-a O2 Gradient Not Reportable 09/30/20 11:18 Hematocrit 40.4 % (37-47) 09/30/20 11:18 Hgb O2 Saturation 99.4 % (95-100) 09/30/20 11:18 Carboxyhemoglobin 0.4 %THgb (0.4-20.1) 09/30/20 11:18 Methemoglobin 0.2 % (0.4-1.5) L 09/30/20 11:18 Total Hemoglobin 13.2 g/dL (12-16) 09/30/20 11:18 Sodium 140.0 mmol/L (131-143) 09/30/20 11:18 Potassium 3.6 mmol/L (3.5-5.0) 09/30/20 11:18 Glucose 91.0 mg/dL (70-115) 09/30/20 11:18 Ionized Calcium 1.1 mmol/L (1.1-1.4) 09/30/20 11:18 O2 Delivery Device Nrb 09/30/20 11:18 O2 Liters/Min 12.0 % 09/30/20 11:18 Specimen Drawn By Samantha 09/30/20 11:18 Senior Bookkeeper ID [id number] 09/30/20 11:18 Sodium 136 mmol/L (136-145) 09/30/20 12:35 Potassium 3.3 mmol/L (3.5-5.1) L 09/30/20 12:35 Chloride 100 mmol/L (98-107) 09/30/20 12:35 Carbon Dioxide 24 mmol/L (22-29) 09/30/20 12:35 Anion Gap 15.3 (5-19) 09/30/20 12:35 BUN 23 mg/dL (8-23) 09/30/20 12:35 Creatinine 1.2 mg/dL (0.5-0.9) H 09/30/20 12:35 GFR Calculation Not Reportable 09/30/20 12:35 Glucose 81 mg/dL (65-115) 09/30/20 12:35 Calculated Osmolality 285 mOsm/kg (285-295) 09/30/20 12:35 Lactic Acid 3.7 mmol/L (0.5-2.2) H 09/30/20 12:35 Calcium 7.5 mg/dL (8.5-10.5) L 09/30/20 12:35 Total Bilirubin 1.9 mg/dL (0.15-1.2) H 09/30/20 12:35 AST 162 U/L (0-32) H 09/30/20 12:35 ALT 91 U/L (0-33) H 09/30/20 12:35 Alkaline Phosphatase 265 IU/L (35-105) H 09/30/20 12:35 Total Protein 4.8 g/dL (6.6-8.7) L 09/30/20 12:35 Albumin 2.7 g/dL (3.5-5.2) L 09/30/20 12:35 Globulin 2.1 g/dL (1.3-4.6) 09/30/20 12:35 Lipase 10 U/L (13-60) L 09/30/20 12:35 Procalcitonin > 100.00 ng/mL (0-0.5) H 09/30/20 12:35 Impressions Abdomen/Pelvis CT 09/30/20 11:37 IMPRESSION: 1. Moderate-sized RIGHT renal subcapsular hematoma over the superior and mid kidney. Hematoma extends over length of 6.9 cm with a width of 1.6 cm. New since 09/21/2020. 2. Recent placement of a double pigtail RIGHT renal stent. The proximal pigtail is coiled external to the renal pelvis. Pigtail is partially coiled along the superior pole of the RIGHT kidney is most likely the reason for the subcapsular hematoma. 3. There is a very small amount of blood along the RIGHT paracolic gutter. No large hemorrhage. 4. Suprapubic catheter in good position with mild diffuse bladder wall thickening. 5. Continued mild inflammatory changes at the RIGHT renal pelvis and small stone fragments. 6. Marked intrahepatic dilatation, similar to 09/21/2020 with mild progression since 2018. May be age-related due to the cholecystectomy. Common bile duct at the pancreatic head is 11 mm. No obstructing mass or stone identified. 7. Mild ileus. Notified Jay Adamson DO at 09/30/2020 12:51 PM. Chest X-Ray 09/30/20 11:37 Impression: Atherosclerosis. Head CT 09/30/20 11:37 IMPRESSION: 1. No acute intracranial hemorrhage. 2. Mild atrophy with moderate to severe advanced chronic microvascular type changes which are stable. 3. Prior LEFT mastoidectomy. A&P Assessment and plan (1) Septic shock: This appears to be related to instrumentation of a chronically colonized urinary tract with endoscopic laser lithotripsy of right renal calculi and bladder distention for suprapubic tube placement on 09/29/2020. The right ureteral stent has been confirmed to the malpositioned but it there appears to be no local complications related to it currently with no urinary extravasation hematoma etc. Recommend focusing on infectious treatment first for stabilization of hemodynamic status before considering withdrawing the stent slightly for repositioning into the renal pelvis. Consider later in the weekend or early next week ending her clinical status. Status: Acute (2) Ureteral stent displacement: I believe this is a coincidental finding and unexpected. No local complications related to it currently with no evidence of urinary extravasation hematoma etc. associated with it. It appears that it can be repositioned but would require anesthesia and given her hemodynamic status related to sepsis from UTI I think it would make more sense to wait until she is clinically improved given that the stent position does not appear to be contributing currently to her clinical deterioration. Status: Acute Qualifiers: Encounter type: initial encounter Qualified Code(s): T83.122A - Displacement of indwelling ureteral stent, initial encounter (3) Renal hematoma: Subcapsular. Status: Acute Qualifiers: Encounter type: initial encounter Laterality: right Qualified Code(s): S37.011A - Minor contusion of right kidney, initial encounter (4) Pyelonephritis: Status: Acute (5) Neurogenic bladder: Status: Acute (6) Chronic indwelling Carrera catheter: Status: Acute (7) Recurrent kidney stones: Status: Acute Additional A&P Information Malpositioned Right ureteral stent with no urinary extravasation. 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
--- NOTE | 2020-10-01 08:52 | PM.PN ---
Subjective Subjective: Interval history: Urology follow-up: Hospital day #2. Clinically improved. She is now alert and more oriented. Does not appear to be in any distress. Denies any abdominal pain or flank pain. Still having leakage from her patulous urethra. Reviewed with nursing staff recommendations for management and skin protection. Levophed has been weaned down from 10-4 and her blood pressure has improved. White count is still elevated at 25,000. Vitals/I&O/Wt Last Vital Signs Temp 98.3 F 09/29/20 15:22 Pulse 107 H 09/29/20 15:41 Resp 20 H 09/29/20 15:41 BP 84/72 09/29/20 15:41 Pulse Ox 100 09/29/20 15:41 Physical Exam Const: COMMON NORMALS: no acute distress GENERAL APPEARANCE: ill appearing HENMT: COMMON NORMALS: normocephalic and atraumatic HEAD & SCALP: normocephalic and atraumatic Resp: EFFORT & INSPECTION: Yes able to speak in complete sentences, No tachypneic and No respiratory distress GI: COMMON NORMALS: Soft to palpation, non-tender and no masses PALPATION: Yes Soft to palpation OTHER: Suprapubic tube site is healthy. No evidence of cellulitis or drainage. : OTHER: Bladder nondistended. Psych: COMMON NORMALS: cooperative and speech normal ATTITUDE: Yes calm SPEECH: Yes normal speech Urinary Catheter Management^: Jones: Cath Placed During This Visit: yes, but has since been removed by the nurse Urinary Catheter Date of Insertion: 09/29/20 Urinary Catheter Time of Insertion: 13:30 Date Urinary Catheter Removed: 08/20/20 Time Urinary Catheter Discontinued: 13:30 Suprapubic: Cath Placed During This Visit: yes Urinary Catheter Date of Insertion: 09/29/20 Urinary Catheter Time of Insertion: 13:45 A&P Assessment and plan (1) Septic shock: This appears to be related to instrumentation of a chronically colonized urinary tract with endoscopic laser lithotripsy of right renal calculi and bladder distention for suprapubic tube placement on 09/29/2020. The right ureteral stent has been confirmed to the malpositioned but it there appears to be no local complications related to it currently with no urinary extravasation hematoma etc. Appears to have some improvement today regarding being able to reduce her Levophed. Blood pressure is better and her mental status has improved dramatically. White count still elevated though. Status: Acute (2) Ureteral stent displacement: Would continue holding on plans for repositioning waiting for stabilization. Reinstrumentation still runs the risk of further dissemination until infection better control. Status: Acute Qualifiers: Encounter type: initial encounter Qualified Code(s): T83.122A - Displacement of indwelling ureteral stent, initial encounter (3) Renal hematoma: Subcapsular. No treatment required. Status: Acute Qualifiers: Encounter type: initial encounter Laterality: right Qualified Code(s): S37.011A - Minor contusion of right kidney, initial encounter (4) Pyelonephritis: Status: Acute (5) Neurogenic bladder: Status post suprapubic tube placement. Still has patulous urethra which is creating leakage issues which need to be addressed with increased protection. Status: Acute (6) Chronic indwelling Jones catheter: Converted from urethral to suprapubic tube. Status: Acute (7) Recurrent kidney stones: Status post laser lithotripsy. Status: Acute Additional A&P Information Malpositioned Right ureteral stent with no urinary extravasation. Attestations Medical Necessity Statement*: Critically ill. 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
== END 2020-09-29 16:45 | disposition home or self-care (01) ==
PROVIDERS: PCP Family Medicine; Visit Provider Urology
PROC: 0TJB8ZZ Inspection of Bladder, Via Natural or Artificial Opening Endoscopic (ICD-10-PCS; CPT 52000; principal; 2020-09-29 12:00)
PROC: (CPT 74420; 2020-09-29 12:00)
PROC: (CPT 50605; 2020-09-29 12:00)
PROC: (CPT 51102; 2020-09-29 12:00)
DX: N20.0 Calculus of kidney (principal); Z97.8 Presence of other specified devices; A41.9 Sepsis, unspecified organism; R65.21 Severe sepsis with septic shock; T83.122A Displacement of indwelling ureteral stent, initial encounter; S37.011A Minor contusion of right kidney, initial encounter; N12 Tubulo-interstitial nephritis, not specified as acute or chronic; N31.9 Neuromuscular dysfunction of bladder, unspecified; G35 Multiple sclerosis
CPT/HCPCS: 74018; 76000; 93005; 96374; C2625; J1170; J1956; J2370; J2405; J2704; J3010; J7030; Q9967

== ENCOUNTER 2020-09-30 11:26 | Inpatient (IN) | payer MEDICARE, MEDICAID, SELFPAY ==
[2020-09-30] VITALS (26 sets, daily range): BP systolic 78–126; BP diastolic 53–65; PULSE 78–129; RESP 13–25; TEMP 36.6–37.6; O2SAT 94–99; BMI 25.8
--- NOTE | 2020-09-30 11:37 | XR_ITS ---
WS: [id number] Portable AP upright chest, 09/30/2020 Clinical Data: dyspnea/cough Comparison: Portable chest, 02/04/2019. Findings: No nodules, masses or effusions are seen. The heart is normal. The pulmonary vascularity is not increased. No pneumonia or pneumothorax is seen. The aortic arch and descending aorta show tortu osity. There are monitor leads on the chest wall. There is a right ureteral stent. There are clips in the right upper quadrant from a cholecystectomy. XR/XR chest 1V portable [id number] Impression: Atherosclerosis.
--- NOTE | 2020-09-30 11:37 | CT_ITS ---
WS: [id number] CT ABDOMEN AND PELVIS WITH CONTRAST HISTORY: Abdominal pain with hematuria. Suprapubic catheter placed yesterday. TECHNIQUE: Imaging performed of the abdomen and pelvis with IV contrast. Single phase imaging of the abdomen. Coronal and sagittal reformats are submitted. All CT scans at [facility] use at least one of these dose optimization techniques: automated exposure control; mA and/or kV adjustment per patient size (includes targeted exams where dose is matched to clinical indication); or iterativ e reconstruction. IV CONTRAST: Omnipaque 300; 95 mL IV. Oral contrast: No DLP: 1782.4 mGy.cm COMPARISON: 09/21/2020 Lower thorax: Dependent changes at the lung bases bilaterally. Slightly greater atelectasis on the RI GHT. Mild enlargement. Small hiatal hernia. Liver/biliary system: Normal size liver. There is extensive duct dilatation which is been present on prior studies. Present on the study of 06/21/2017 with mild progression. Gallbladder: Status post cholecystectomy. Pancreas: Common bile duct at the pancreatic head is 11 mm, progressed from 9 mm in 2018 but similar to 09/21/2010. Marked atrophy of the pancreas. Spleen: Long-term stability of a low-attenuation mass measuring 2.1 cm in the spleen. Adrenal glands: Normal. Right kidney: Moderate size subcapsular hematoma centered over the upper and mid RIGHT kidney. The di ameter is 1.6 cm in the subcapsular hematoma extends over a length of 6.9 cm. Interval placement of a double pigtail RIGHT ureteral stent. The proximal pigtail is coiled external to the renal parenchyma and in the adjacent subcapsular hematoma. The tip is cold on the superior pole of the kidney. Stent extends along the RIGHT ureter normally and the distal pigtail is cold in the urinary bladder. There is continued mild inflammatory change in the renal pelvis as described on a prior study which is prob ably related to infection. Small residual calcifications are noted in the renal pelvis. Left kidney: Very mild atrophy. Cortical cysts with no obstruction. Aorta: Normal. Lymphadenopathy: None. Free fluid: Small amount of fluid which is probably blood along the RIGHT paracolic gutter.. GI tract: Moderate fluid and air distention of the stomach and small bowel. May be due to mild ileus. Mild fecal retention. There is no obstructive pattern. Prior appendectomy. Abdominal wall: Unremarkable abdominal wall. No hernia. Pelvis: Suprapubic catheter is identified. Balloon is distended in the urinary bladder. There is also a RIGHT pigtail catheter: The RIGHT urinary bladder. Bladder wall appears thickened but this may be exacerbated by nondistention. Bones: Moderate RIGHT curvature lumbar spine. L4 anterolisthesis by 6 mm. Mild anterior wedging of T1 0, T11 and T12. CT/CT abdomen pelvis w con* [id number] IMPRESSION: 1. Moderate-sized RIGHT renal subcapsular hematoma over the superior and mid k idney. Hematoma extends over length of 6.9 cm with a width of 1.6 cm. New since 09/21/2020. 2. Recent placement of a double pigtail RIGHT renal stent. The proximal pigtai l is coiled external to the renal pelvis. Pigtail is partially coiled along the superior pole of the RIGHT kidney is most likely the reason for the subcapsula r hematoma. 3. There is a very small amount of blood along the RIGHT paracolic gutter. No large hemorrhage. 4. Suprapubic catheter in good position with mild diffuse bladder wall thicken ing. 5. Continued mild inflammatory changes at the RIGHT renal pelvis and small sto ne fragments. 6. Marked intrahepatic dilatation, similar to 09/21/2020 with mild progression since 2018. May be age-related due to the cholecystectomy. Common bile duct at the pancreatic head is 11 mm. No obstructing mass or stone identified. 7. Mild ileus. Notified Jay Adamson DO at 09/30/2020 12:51 PM.
--- NOTE | 2020-09-30 11:37 | CT_ITS ---
WS: [id number] CT HEAD NONCONTRAST HISTORY: ams TECHNIQUE: Contiguous axial imaging performed through the brain in 2.5 mm imaging. Bone and soft tiss ue windows. Sagittal and coronal reformats reviewed. All CT scans at [facility] use at le ast one of these dose optimization techniques: automated exposure control; mA and/or kV adjustment pe r patient size (includes targeted exams where dose is matched to clinical indication); or iterative r econstruction. DLP: 902.67 mGy.cm COMPARISON: 12/22/2018 No intracranial hemorrhage or midline shift. There are numerous areas of decreased attenuation noted bilaterally surrounding the ventricles and extending to the subcortical white matter. These lesions a re stable over multiple prior years. No significant progression. Very mild atrophy. Small lacunar infarcts in the medial temporal lobes bilaterally. Ventricles: Normal size with no hydrocephalus. Paranasal sinuses: As visualized are clear. Mastoid air cells: Prior LEFT mastoidectomy. Calvarium and scalp: Skull is intact with no soft tissue edema or swelling. CT/CT head wo con* [id number] IMPRESSION: 1. No acute intracranial hemorrhage. 2. Mild atrophy with moderate to severe advanced chronic microvascular type ch anges which are stable. 3. Prior LEFT mastoidectomy.
--- NOTE | 2020-09-30 11:57 | PC.NURSE ---
pt came in with indwelling catheter already in place. this nurse changed leg bag and will collect urine sample as soon as able.
--- NOTE | 2020-09-30 12:12 | PC.NURSE ---
pt to CT scan by stretcher with tech
[2020-09-30] MEDS: iohexol 300 mg/mL 100 mL Btl IV (12:27)
[2020-09-30] MEDS: sodium chloride 0.9% 2,313.33 ML 2313.3 ML IV (12:37)
[2020-09-30 12:46] LABS: Hematocrit 36.4 % (37.0-47.0); Hemoglobin 11.9 g/dL (11.5-15.3); Mean Corpuscular HGB Conc 32.7 g/dL (30.0-36.0); Mean Corpuscular Hemoglobin 30.7 pg (28.0-34.0); Mean Corpuscular Volume 94.1 fL (81-99); Mean Platelet Volume 10.4 fL (7.4-10.4); Platelet Count 106 10^3/cmm (130-400); Red Blood Count 3.87 10^6/uL (4.1-5.3); Red Cell Distribution Width 13.1 % (12.1-15.1); White Blood Count 22.8 10^3/uL (4.0-10.0)
[2020-09-30 13:00] LABS: Lactic Sepsis W/Reflex 3.7 mmol/L (0.5-2.2)
[2020-09-30 13:21] LABS: Slide Review Slide Review Perform
[2020-09-30 13:22] LABS: Alanine Aminotransferase 91 U/L (0-33); Albumin Level 2.7 g/dL (3.5-5.2); Alkaline Phosphatase 265 IU/L (35-105); Anion Gap 15.3 (5-19); Aspartate Amino Transferase 162 U/L (0-32); Blood Urea Nitrogen 23 mg/dL (8-23); Calcium 7.5 mg/dL (8.5-10.5); Carbon Dioxide 24 mmol/L (22-29); Chloride 100 mmol/L (98-107); Globulin 2.1 g/dL (1.3-4.6); Glucose 81 mg/dL (65-115); Lipase 10 U/L (13-60); Osmolality Calculated 285 mOsm/kg (285-295); Potassium 3.3 mmol/L (3.5-5.1); Sodium 136 mmol/L (136-145); Total Bilirubin 1.9 mg/dL (0.15-1.2); Total Protein 4.8 g/dL (6.6-8.7)
[2020-09-30 13:31] LABS: Procalcitonin > 100.00 ng/mL (0-0.5)
[2020-09-30 13:33] LABS: Absolute Neutrophil 22.6 10^3/cmm (1.4-6.5); Absolute Segmented Neutrophil 15.7 10/cmm (1.6-7.1); Band Neutrophils Absolute 6.8 10^3/cmm (0.0-1.2); Eosinophils 0 %; Lymphocytes 1 %; Lymphocytes Absolute 0.2 10^3/cmm (1.2-3.4); Platelet Estimate Decreased (Normal); Segmented Neutrophils 69 %; Total Cells Counted 100 (0-100)
--- NOTE | 2020-09-30 13:46 | ED_ITS ---
HPI - Altered Mental Status General: Chief Complaint: Altered Mental Status Stated Complaint: LOW BP/ ELEVATED HR/ AMS Time Seen by Provider: 09/30/20 11:37 History of Present Illness: HPI narrative: 70-year-old female presents emergency room with septic appearance altered mental status. Patient had a right renal stent placed in the suprapubic catheter placed yesterday she has been altered since that time. No fever reported. There is no family at the bed side and she was seen initially. Patient is poorly responsive she complains of some abdominal pain she is extremely pale and weak in appearance. Patient has an septic shock on arrival based on clinical exam. Patient has a history of multiple sclerosis. MD complaint: altered mental status Onset (ago): hour(s) Consistency of symptoms: Getting Worse Associated symptoms: Deny auditory hallucinations, visual hallucinations, delusions, depression, homicidal ideation, racing thoughts or suicidal ideation Review of Systems Const: Reports: chills, body aches, change in appetite, fatigue and malaise; Denies: fever(s) ENMT: Denies: throat pain, ear or mastoid pain, nasal discharge or nasal congestion Card: Denies: chest pain, edema, dyspnea on exertion or orthopnea Resp: Reports: dyspnea; Denies: productive cough or non-productive cough GI: Reports: nausea; Denies: abdominal pain, vomiting, hematemesis, coffee ground emesis, diarrhea, constipation, bloating, hematochezia or melena : Reports: flank pain; Denies: difficulty voiding, dysuria, urinary frequency or urinary urgency Skin/Breast: Denies: rash or pruritus Psych: Denies: depression, visual hallucinations, auditory hallucinations, suicidal ideation or homicidal ideation [facility] ED PFSH: Medical History Accelerated essential hypertension Anxiety disorder Chronic indwelling Jones catheter 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 Other Hypertension Denies family history of Diabetes Stroke Social History Smoking and tobacco status: never smoked Alcohol intake: never Marital status: Current occupational status: retired History of recent travel: No Physical Exam Const: GENERAL APPEARANCE: cooperative HENMT: COMMON NORMALS: normocephalic and atraumatic HEAD & SCALP: normocephalic and atraumatic Eye: COMMON NORMALS: Equal, round and reactive pupils present, EOMs intact bilaterally, conjunctivae normal and no scleral icterus CONJUNCTIVA: Yes conjunctivae normal PUPIL: Yes Equal, round and reactive pupils present Neck/C-Spine: COMMON NORMALS: full ROM, no lymphadenopathy, supple and no JVD Resp: COMMON NORMALS: normal respiratory effort, No retractions, No use of accessory muscles and clear to auscultation bilaterally AUSCULTATION: clear to auscultation bilaterally Cardio: COMMON NORMALS: no JVD, regular rate, regular rhythm and No murmurs present (Cardio) RATE: regular rate RHYTHM: regular rhythm GI: COMMON NORMALS: Soft to palpation and No hepatosplenomegaly present AUSCULTATION: Yes normoactive bowel sounds PALPATION: Yes Soft to palpation, No Tenderness to palpation present (GI), No Guarding due to palpation present (GI) and Yes No hepatosplenomegaly present Extremity: COMMON NORMALS: normal to inspection, capillary refill normal, no clubbing, cyanosis or edema, no calf tenderness and no pedal edema Psych: THOUGHT CONTENT: No delusions Skin: COMMON NORMALS: no rashes or lesions noted GENERAL SKIN EXAM: no rashes or lesions noted Course Vital Signs: Vital signs: Vital Signs Temperature 98.0 F 10/04/20 03:19 Pulse Rate 94 10/04/20 03:19 Respiratory Rate 17 10/04/20 03:19 Blood Pressure 144/83 10/04/20 03:19 Pulse Oximetry 100 10/04/20 03:19 MDM - Altered Mental Status MDM Narrative: Medical decision making narrative: Patient acutely septic. Will start on fluid resuscitation started on IV pressors also initiated antibiotics CT shows concern for hematoma in the renal pelvis is a concern that the catheter may have perforated the kidney discussed with Dr. Virk he has been to the ER to see the patient. Discussed Dr. Espino orders written. Lab Data: Labs: Lab Results 09/30/20 09/30/20 09/30/20 Range/Units 11:18 12:35 12:35 WBC 22.8 H (4.0-10.0) 10^3/ uL RBC 3.87 L (4.1-5.3) 10^6/u L Hgb 11.9 (11.5-15.3) g/dL Hct 36.4 L (37.0-47.0) % MCV 94.1 (81-99) fL MCH 30.7 (28.0-34.0) pg MCHC 32.7 (30.0-36.0) g/dL RDW 13.1 (12.1-15.1) % Plt Count 106 L (130-400) 10^3/c mm MPV 10.4 (7.4-10.4) fL Lymph % (Auto) Not Reportable [place] % (Auto) Not Reportable Lymph # (Auto) Not Reportable [place] # (Auto) Not Reportable Total Counted 100 (0-100) Atypical Lymphs % 0.0 (0-5) % Absolute Neutrophi ls 22.6 H (1.4-6.5) 10^3/c mm Segmented Neutroph ils 69 % Abs Segm Neuts (Ma n) 15.7 H (1.6-7.1) 10/cmm Band Neutrophils 30.0 % Abs Band Neuts (Ma n) 6.8 H (0.0-1.2) 10^3/c mm Absolute Lymphocyt es 0.2 L (1.2-3.4) 10^3/c mm Lymphocytes (Manua l) 1 % Monocytes (Manual) 0.0 % Absolute Monocytes 0.0 L (0.1-0.6) 10^3/c mm Eosinophils (Manua l) 0 % Absolute Eosinophi ls 0.0 (0.0-0.7) 10^3/c mm Basophils (Manual) 0.0 % Absolute Basophils 0.0 (0.0-0.2) 10^3/c mm Platelet Estimate Decreased L (Normal) Specimen Type Arterial Sample Site Radial, left ABG pH 7.48 H (7.35-7.45) ABG pCO2 31.3 L (35-45) mmHg ABG pO2 177.0 H (80.0-100.0) mmH g ABG HCO3 23.3 (22-26) mmol/L ABG O2 Saturation Homebirth Midwife ABG Base Excess 0.5 (-2.0-2.0) mmol/ L Addison Test Pos A-a O2 Gradient Not Reportable Hematocrit 40.4 (37-47) % Hgb O2 Saturation 99.4 (95-100) % Carboxyhemoglobin 0.4 (0.4-20.1) %THgb Methemoglobin 0.2 L (0.4-1.5) % Total Hemoglobin 13.2 (12-16) g/dL Sodium 140.0 (131-143) mmol/L Potassium 3.6 (3.5-5.0) mmol/L Glucose 91.0 (70-115) mg/dL Ionized Calcium 1.1 (1.1-1.4) mmol/L O2 Delivery Device Nrb O2 Liters/Min 12.0 % Specimen Drawn By Drupa Certified Nursing Attendant ID Gd Chloride (98-107) mmol/L Carbon Dioxide (22-29) mmol/L Anion Gap (5-19) BUN (8-23) mg/dL Creatinine (0.5-0.9) mg/dL GFR Calculation Calculated Osmolal ity (285-295) mOsm/k g Lactic Acid 3.7 H (0.5-2.2) mmol/L Calcium (8.5-10.5) mg/dL Total Bilirubin (0.15-1.2) mg/dL AST (0-32) U/L ALT (0-33) U/L Alkaline Phosphata se (35-105) IU/L Total Protein (6.6-8.7) g/dL Albumin (3.5-5.2) g/dL Globulin (1.3-4.6) g/dL Lipase (13-60) U/L Procalcitonin (0-0.5) ng/mL 09/30/20 Range/Units 12:35 WBC (4.0-10.0) 10^3/ uL RBC (4.1-5.3) 10^6/u L Hgb (11.5-15.3) g/dL Hct (37.0-47.0) % MCV (81-99) fL MCH (28.0-34.0) pg MCHC (30.0-36.0) g/dL RDW (12.1-15.1) % Plt Count (130-400) 10^3/c mm MPV (7.4-10.4) fL Lymph % (Auto) [place] % (Auto) Lymph # (Auto) [place] # (Auto) Total Counted (0-100) Atypical Lymphs % (0-5) % Absolute Neutrophi ls (1.4-6.5) 10^3/c mm Segmented Neutroph ils % Abs Segm Neuts (Ma n) (1.6-7.1) 10/cmm Band Neutrophils % Abs Band Neuts (Ma n) (0.0-1.2) 10^3/c mm Absolute Lymphocyt es (1.2-3.4) 10^3/c mm Lymphocytes (Manua l) % Monocytes (Manual) % Absolute Monocytes (0.1-0.6) 10^3/c mm Eosinophils (Manua l) % Absolute Eosinophi ls (0.0-0.7) 10^3/c mm Basophils (Manual) % Absolute Basophils (0.0-0.2) 10^3/c mm Platelet Estimate (Normal) Specimen Type Sample Site ABG pH (7.35-7.45) ABG pCO2 (35-45) mmHg ABG pO2 (80.0-100.0) mmH g ABG HCO3 (22-26) mmol/L ABG O2 Saturation ABG Base Excess (-2.0-2.0) mmol/ L Addison Test A-a O2 Gradient Hematocrit (37-47) % Hgb O2 Saturation (95-100) % Carboxyhemoglobin (0.4-20.1) %THgb Methemoglobin (0.4-1.5) % Total Hemoglobin (12-16) g/dL Sodium 136 (131-143) mmol/L Potassium 3.3 L (3.5-5.0) mmol/L Glucose 81 (70-115) mg/dL Ionized Calcium (1.1-1.4) mmol/L O2 Delivery Device O2 Liters/Min % Specimen Drawn By Certified Nursing Attendant ID Chloride 100 (98-107) mmol/L Carbon Dioxide 24 (22-29) mmol/L Anion Gap 15.3 (5-19) BUN 23 (8-23) mg/dL Creatinine 1.2 H (0.5-0.9) mg/dL GFR Calculation Not Reportable Calculated Osmolal ity 285 (285-295) mOsm/k g Lactic Acid (0.5-2.2) mmol/L Calcium 7.5 L (8.5-10.5) mg/dL Total Bilirubin 1.9 H (0.15-1.2) mg/dL AST 162 H (0-32) U/L ALT 91 H (0-33) U/L Alkaline Phosphata se 265 H (35-105) IU/L Total Protein 4.8 L (6.6-8.7) g/dL Albumin 2.7 L (3.5-5.2) g/dL Globulin 2.1 (1.3-4.6) g/dL Lipase 10 L (13-60) U/L Procalcitonin > 100.00 H (0-0.5) ng/mL Critical Care Time Critical Care Time: Critical Care Time: Yes Total Critical Care Time: 60 Attestation: This case had a high probability of a clinically significant, sudden, or life threatening deterioration of this patient's condition which required my full and direct attention, intervention and personal management. Discharge Plan Discharge Patient Disposition: Admitted As Inpatient Admit Provider: Bindu Espino Clinical Impression: Septic shock, Renal hematoma, Suprapubic catheter, History of renal stent, Multiple sclerosis Condition: Stable Coding Level of Care Code ED Dermatology Procedural Physician for Daryl Ansari
--- NOTE | 2020-09-30 13:51 | ECG_ITS ---
[facility] Test Date: 2020-09-30 Pat Name: Kaylynn Calzada Department: Room: Gender: Female [place] Trimmer: : [id number] Requested By: Jay Delarosa Order Number: [id number] Stephanie MD: Lory Jernigan M.D. Measurements Intervals [place] Rate: 130 P: -18 AL: 193 QRS: -54 QRSD: 117 T: 84 QT: 394 QTc: 580 Interpretive Statements SINUS TACHYCARDIA LEFT ANTERIOR FASCICULAR BLOCK [QRS AXIS <= -45, QR IN I, RS IN II] POSSIBLE LATERAL MYOCARDIAL INFARCTION , OF INDETERMINATE AGE MODERATE T-WAVE ABNORMALITY, CONSIDER ANTERIOR ISCHEMIA Compared to ECG 09/27/2020 11:21:12 Left anterior fascicular block now present Myocardial infarct finding now present T-wave abnormality now present Possible ischemia now present Sinus rhythm no longer present Incomplete right bundle-branch block no longer present Electronically Signed On 10-02-2020 12:13:24 CDT by Lory Jernigan M.D. [id number]
[2020-09-30 14:28] LABS: Reflex Lactate Order REFLEX LACTIC ORDERD
[2020-09-30 14:42] LABS: ABG PCO2 31.3 mmHg (35-45); ABG PH Result 7.48 (7.35-7.45); Base Excess ABG 0.5 mmol/L (-2.0-2.0); HCO3 ABG 23.3 mmol/L (22-26)
[2020-09-30 14:43] LABS: Arterial Blood Gas Hematocrit 40.4 % (37-47); Blood Gas Operator Identificat GD; Oxygen Device NRB; Potassium Level - ABG 3.6 mmol/L (3.5-5.0)
[2020-09-30 14:44] LABS: Carboxyhemoglobin 0.4 %THgb (0.4-20.1); HGB O2 Sat 99.4 % (95-100); Methemoglobin 0.2 % (0.4-1.5)
[2020-09-30 15:31] LABS: Blood Gas Allen Test Pos; Blood Gas Sample Site Radial, left; Blood Gas Sample Type Arterial; Ionized Calcium Level - ABG 1.1 mmol/L (1.1-1.4); Total Hemoglobin 13.2 g/dL (12-16)
--- NOTE | 2020-09-30 15:35 | PM.HP ---
Providers/Chief Complaint Admitting Physician: Bindu Espino MD Primary Care Provider: Manny Patel DO Chief Complaint: LOW BP/ ELEVATED HR/ AMS History of Present Illness Kaylynn Calzada is a 70 year old female with past medical history as outlined below who presented to the emergency room today with chief complaint of altered mental status, increasing lethargy. She is status post right-sided cystoscopy with retrograde ureteroscopy laser and stenting yesterday and a percutaneous suprapubic tube placement as a result of neurogenic bladder secondary to multiple sclerosis. Her preop CT scan was performed which had shown the presence of some right renal stones and significant inflammatory changes and thickening of the renal pelvis worrisome for soft tissue mass. Patient is unable to provide much details regarding her history at this time. Upon presentation to the ER she was noted to have sepsis with septic shock, needed to be started on vasopressors, afebrile, saturating 95% on room air, extremely lethargic. Review of Systems General: Reports: ROS unobtainable due to medical condition Medications/Allergies Home Medications Medication Instructions Recorded Confirmed Last Taken Type Flovent HFA 2 puff INHALATION BEDTIME 09/25/19 09/30/20 09/29/20 History Silver Gel 1 ea TOPICAL DAILY 09/25/19 09/30/20 09/30/20 History albuterol sulfate 1 inh INHALATION Q4H PRN 09/25/19 09/30/20 09/29/20 History albuterol sulfate [ProAir HFA] 2 inh INHALATION BEDTIME 09/25/19 09/30/20 09/30/20 History alprazolam [Xanax] 0.25 mg PO BID PRN 09/25/19 09/30/20 09/28/20 History baclofen 20 mg PO TID PRN 09/25/19 09/30/20 09/29/20 History bisacodyl [Dulcolax (bisacodyl)] 5 mg PO BID 09/25/19 09/30/20 Unknown History bisacodyl [Dulcolax (bisacodyl)] 10 mg MD DAILY PRN 09/25/19 09/30/20 Unknown History diazepam 10 mg PO BID PRN 09/25/19 09/30/20 09/30/20 History furosemide 40 mg PO DAILY 09/25/19 09/30/20 09/30/20 History hydrocodone-acetaminophen 1 tab PO Q4H PRN 09/25/19 09/30/20 09/30/20 History melatonin 10 mg PO BEDTIME 09/25/19 09/30/20 09/29/20 History morphine 15 mg PO Q4H PRN 09/25/19 09/30/20 09/30/20 History polyethylene glycol 3350 [Miralax] 17 g PO DAILY 09/25/19 09/30/20 09/28/20 History potassium gluconate 600 mg PO DAILY 09/25/19 09/30/20 09/29/20 History albuterol sulfate 90 mcg/actuation 2 puff INHALATION Q6H PRN 09/15/20 09/30/20 09/30/20 History aerosol inhaler amitriptyline 100 mg tablet 100 mg PO DAILY 09/15/20 09/30/20 09/30/20 History levofloxacin 250 mg PO DAILY 5 Days #5 tab 09/29/20 09/30/20 09/29/20 Rx Allergies Allergy/AdvReac Type Severity Reaction Status Date / Time Penicillins Allergy Unknown Verified 09/29/20 10:11 PFSH Acute PFSH: Medical History Accelerated essential hypertension Anxiety disorder Chronic indwelling Jones catheter Dementia Dorsalgia H/O fracture of leg rt leg with rods Multiple sclerosis Neurogenic bladder Recurrent kidney stones Surgical History H/O: hysterectomy History of ankle surgery Hx of appendectomy Hx of cholecystectomy Family History Father , at age 87 Cancer cancer behind heart Mother , at age 94 No problems noted. Other Hypertension Denies family history of Diabetes Stroke Social History Smoking and tobacco status: never smoked Alcohol intake: never Marital status: Current occupational status: retired History of recent travel: No Vitals/I&O/Wt Last Vital Signs Temp 98.2 F 09/30/20 11:28 Pulse 115 H 09/30/20 15:08 Resp 13 09/30/20 15:08 BP 104/62 09/30/20 15:08 Pulse Ox 95 09/30/20 15:08 09/30/20 09/30/20 09/30/20 06:59 14:59 22:59 Intake Total 28.360 / .360 Balance 28.360 / .360 Weight last 48 hrs Weight 77.111 kg Physical Exam Narrative: EXAM NARRATIVE: GENERAL: Lethargic, wakes up to calling name, answers few simple questions [] HEENT: Normocephalic, atraumatic, PERRLA. [] CHEST: Clear to auscultation bilaterally all areas. [] CVS: S1, S2 normal. No murmur, rubs, gallops. Peripheral pulses palpable. [] ABDOMEN: Soft, nontender. Nondistended. Bowel sounds heard. [] NEUROVASCULAR: Lethargic, wakes up to calling name, follows simple commands but confused as to person, place [] EXTREMITIES: No edema. [] Data : 09/30/20 12:35 09/30/20 12:35 Micro: Microbiology 09/30/20 12:35 Blood Culture - Preliminary Blood SPECIMEN COLLECTED 09/30/20 12:08 Blood Culture - Preliminary Blood SPECIMEN COLLECTED Attestation for Other Data: I personally reviewed and interpreted the following: Other data: Microbiology 09/30/20 12:35 Blood Blood Culture - Preliminary SPECIMEN COLLECTED 09/30/20 12:08 Blood Blood Culture - Preliminary SPECIMEN COLLECTED Laboratory Results WBC 22.8 10^3/uL (4.0-10.0) H 09/30/20 12:35 RBC 3.87 10^6/uL (4.1-5.3) L 09/30/20 12:35 Hgb 11.9 g/dL (11.5-15.3) 09/30/20 12:35 Hct 36.4 % (37.0-47.0) L 09/30/20 12:35 MCV 94.1 fL (81-99) 09/30/20 12:35 MCH 30.7 pg (28.0-34.0) 09/30/20 12:35 MCHC 32.7 g/dL (30.0-36.0) 09/30/20 12:35 RDW 13.1 % (12.1-15.1) 09/30/20 12:35 Plt Count 106 10^3/cmm (130-400) L 09/30/20 12:35 MPV 10.4 fL (7.4-10.4) 09/30/20 12:35 Lymph % (Auto) Not Reportable 09/30/20 12:35 Sabine % (Auto) Not Reportable 09/30/20 12:35 Lymph # (Auto) Not Reportable 09/30/20 12:35 Sabine # (Auto) Not Reportable 09/30/20 12:35 Total Counted 100 (0-100) 09/30/20 12:35 Atypical Lymphs % 0.0 % (0-5) 09/30/20 12:35 Absolute Neutrophils 22.6 10^3/cmm (1.4-6.5) H 09/30/20 12:35 Segmented Neutrophils 69 % 09/30/20 12:35 Abs Segm Neuts (Man) 15.7 10/cmm (1.6-7.1) H 09/30/20 12:35 Band Neutrophils 30.0 % 09/30/20 12:35 Abs Band Neuts (Man) 6.8 10^3/cmm (0.0-1.2) H 09/30/20 12:35 Absolute Lymphocytes 0.2 10^3/cmm (1.2-3.4) L 09/30/20 12:35 Lymphocytes (Manual) 1 % 09/30/20 12:35 Monocytes (Manual) 0.0 % 09/30/20 12:35 Absolute Monocytes 0.0 10^3/cmm (0.1-0.6) L 09/30/20 12:35 Eosinophils (Manual) 0 % 09/30/20 12:35 Absolute Eosinophils 0.0 10^3/cmm (0.0-0.7) 09/30/20 12:35 Basophils (Manual) 0.0 % 09/30/20 12:35 Absolute Basophils 0.0 10^3/cmm (0.0-0.2) 09/30/20 12:35 Platelet Estimate Decreased (Normal) L 09/30/20 12:35 Specimen Type Arterial 09/30/20 11:18 Sample Site Radial, left 09/30/20 11:18 ABG pH 7.48 (7.35-7.45) H 09/30/20 11:18 ABG pCO2 31.3 mmHg (35-45) L 09/30/20 11:18 ABG pO2 177.0 mmHg (80.0-100.0) H 09/30/20 11:18 ABG HCO3 23.3 mmol/L (22-26) 09/30/20 11:18 ABG O2 Saturation > 100.0 09/30/20 11:18 ABG Base Excess 0.5 mmol/L (-2.0-2.0) 09/30/20 11:18 Addison Test Pos 09/30/20 11:18 A-a O2 Gradient Not Reportable 09/30/20 11:18 Hematocrit 40.4 % (37-47) 09/30/20 11:18 Hgb O2 Saturation 99.4 % (95-100) 09/30/20 11:18 Carboxyhemoglobin 0.4 %THgb (0.4-20.1) 09/30/20 11:18 Methemoglobin 0.2 % (0.4-1.5) L 09/30/20 11:18 Total Hemoglobin 13.2 g/dL (12-16) 09/30/20 11:18 Sodium 140.0 mmol/L (131-143) 09/30/20 11:18 Potassium 3.6 mmol/L (3.5-5.0) 09/30/20 11:18 Glucose 91.0 mg/dL (70-115) 09/30/20 11:18 Ionized Calcium 1.1 mmol/L (1.1-1.4) 09/30/20 11:18 O2 Delivery Device Nrb 09/30/20 11:18 O2 Liters/Min 12.0 % 09/30/20 11:18 Specimen Drawn By Samantha 09/30/20 11:18 [employer] ID [id number] 09/30/20 11:18 Sodium 136 mmol/L (136-145) 09/30/20 12:35 Potassium 3.3 mmol/L (3.5-5.1) L 09/30/20 12:35 Chloride 100 mmol/L (98-107) 09/30/20 12:35 Carbon Dioxide 24 mmol/L (22-29) 09/30/20 12:35 Anion Gap 15.3 (5-19) 09/30/20 12:35 BUN 23 mg/dL (8-23) 09/30/20 12:35 Creatinine 1.2 mg/dL (0.5-0.9) H 09/30/20 12:35 GFR Calculation Not Reportable 09/30/20 12:35 Glucose 81 mg/dL (65-115) 09/30/20 12:35 Calculated Osmolality 285 mOsm/kg (285-295) 09/30/20 12:35 Lactic Acid 3.7 mmol/L (0.5-2.2) H 09/30/20 12:35 Calcium 7.5 mg/dL (8.5-10.5) L 09/30/20 12:35 Total Bilirubin 1.9 mg/dL (0.15-1.2) H 09/30/20 12:35 AST 162 U/L (0-32) H 09/30/20 12:35 ALT 91 U/L (0-33) H 09/30/20 12:35 Alkaline Phosphatase 265 IU/L (35-105) H 09/30/20 12:35 Total Protein 4.8 g/dL (6.6-8.7) L 09/30/20 12:35 Albumin 2.7 g/dL (3.5-5.2) L 09/30/20 12:35 Globulin 2.1 g/dL (1.3-4.6) 09/30/20 12:35 Lipase 10 U/L (13-60) L 09/30/20 12:35 Procalcitonin > 100.00 ng/mL (0-0.5) H 09/30/20 12:35 Impressions Abdomen/Pelvis CT 09/30/20 11:37 IMPRESSION: 1. Moderate-sized RIGHT renal subcapsular hematoma over the superior and mid kidney. Hematoma extends over length of 6.9 cm with a width of 1.6 cm. New since 09/21/2020. 2. Recent placement of a double pigtail RIGHT renal stent. The proximal pigtail is coiled external to the renal pelvis. Pigtail is partially coiled along the superior pole of the RIGHT kidney is most likely the reason for the subcapsular hematoma. 3. There is a very small amount of blood along the RIGHT paracolic gutter. No large hemorrhage. 4. Suprapubic catheter in good position with mild diffuse bladder wall thickening. 5. Continued mild inflammatory changes at the RIGHT renal pelvis and small stone fragments. 6. Marked intrahepatic dilatation, similar to 09/21/2020 with mild progression since 2018. May be age-related due to the cholecystectomy. Common bile duct at the pancreatic head is 11 mm. No obstructing mass or stone identified. 7. Mild ileus. Notified Jay Adamson DO at 09/30/2020 12:51 PM. Chest X-Ray 09/30/20 11:37 Impression: Atherosclerosis. Head CT 09/30/20 11:37 IMPRESSION: 1. No acute intracranial hemorrhage. 2. Mild atrophy with moderate to severe advanced chronic microvascular type changes which are stable. 3. Prior LEFT mastoidectomy. A&P Assessment and plan (1) Septic shock: Likely as result of pyelonephritis given recent history, possibly may have bacteremia as well. Empiric imipenem until results of urine culture available IV fluids at 125 cc an hour, started on Levophed, titrate to MAP greater than 65 Status: Acute (2) Pyelonephritis: Status: Acute (3) Renal hematoma: CT of the abdomen with moderate size right renal subcapsular hematoma, pigtail catheter seen partially coiled along the superior pole of the right kidney which may be a result of the subcapsular hematoma. Very small amount of blood along the right paracolic gutter. Status: Acute Qualifiers: Encounter type: initial encounter Laterality: right Qualified Code(s): S37.011A - Minor contusion of right kidney, initial encounter (4) Transaminitis: Likely as result of hypotension, septic shock CT makes note of marked intrahepatic biliary dilatation, however this appears to be unchanged from the recent scan on 09/21/2020 and only with mild progression since 2018. CBD and pancreatic head is 11 mm. No obstructing mass or stone is been identified. Alkaline phosphatase not markedly elevated. Status: Acute Additional A&P Information COPD: Continue duo nebs and budesonide inhalation History of hypertension: Hold antihypertensives currently Anxiety disorder: Ativan as needed for now while patient remains n.p.o. Multiple sclerosis Neurogenic bladder, currently with suprapubic catheter in place. N.p.o. for now, anticipate patient may need surgical intervention during the course of admission. DVT ppx: holf ro now given renal hematoma, SCDs only Attestations Medical Necessity Statement*: greater than 2 midnight is anticipated for the evaluation and management of septic shock, likely as a result of pyelonephritis, need for IV antibiotics, pressor support. 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
[2020-09-30] MEDS: sodium chloride 0.9% 1,000 ML 150 ML IV (17:32)
[2020-09-30 17:48] LABS: Lactic Acid level (Lactate) 2.6 mmol/L (0.5-2.2)
[2020-09-30 17:53] LABS: Add Urine Microscopic? YES; Bilirubin Urine Neg (Negative); Blood Urine 3+ (Negative); Glucose Urine UA Norm (Normal); Ketones Urine Negative (Negative); Leukocyte Esterase Urine Negative (Negative); Nitrate Urine Negative (Negative); Protein Urine 1+ (Negative); RBC Urine >100 /hpf (0-2); Squamous Epithelial Cell Urine 0-4 /hpf (0-5); Urine Appearance Hazy (CLEAR); Urine Color Yellow (Yellow); Urobilinogen Urine 4 mg/dL (Negative); WBC Urine 0-4 /hpf (0-5); pH Urine 5 (5-7)
[2020-09-30 17:54] LABS: Add Urine Culture? Yes; Bacteria Urine 2+ /hpf
[2020-09-30] MEDS: acetaminophen 325 mg Tablet 650 MG PO (19:18)
[2020-10-01] VITALS (51 sets, daily range): BP systolic 80–128; BP diastolic 50–77; PULSE 97–120; RESP 12–25; TEMP 36.6–36.8; O2SAT 90–100
[2020-10-01] MEDS: sodium chloride 0.9% 1,000 ML 125 ML IV ×4 (00:25→23:18)
[2020-10-01] MEDS: acetaminophen 325 mg Tablet 650 MG PO (04:41)
[2020-10-01 04:57] LABS: Basophils # 0.1 10^3/uL (0.0-0.1); Basophils % 0.5 %; Hematocrit 36.7 % (37.0-47.0); Hemoglobin 11.4 g/dL (11.5-15.3); Lymphocytes # 0.6 10^3/uL (0.8-4.8); Lymphocytes % 2.3 %; Mean Corpuscular HGB Conc 31.1 g/dL (30.0-36.0); Mean Corpuscular Hemoglobin 30.8 pg (28.0-34.0); Mean Corpuscular Volume 99.2 fL (81-99); Mean Platelet Volume 10.4 fL (7.4-10.4); Monocytes # 0.7 10^3/uL (0.2-0.9); Monocytes % 2.7 %; Neutrophils # 21.96 10^3/uL (1.8-7.7); Neutrophils % 87.2 %; Nucleated Red Blood Cells % 0 %; Platelet Count 121 10^3/cmm (130-400); Red Cell Distribution Width 13.6 % (12.1-15.1); White Blood Count 25.2 10^3/uL (4.0-10.0)
[2020-10-01 05:10] LABS: Lactic Sepsis W/Reflex 2.3 mmol/L (0.5-2.2)
[2020-10-01 05:30] LABS: Alanine Aminotransferase 69 U/L (0-33); Albumin Level 2.6 g/dL (3.5-5.2); Alkaline Phosphatase 268 IU/L (35-105); Chloride 109 mmol/L (98-107); Potassium 3.8 mmol/L (3.5-5.1); Sodium 140 mmol/L (136-145)
[2020-10-01 05:44] LABS: Anion Gap 15.8 (5-19); Aspartate Amino Transferase 85 U/L (0-32); Blood Urea Nitrogen 23 mg/dL (8-23); Calcium 7.5 mg/dL (8.5-10.5); Carbon Dioxide 19 mmol/L (22-29); Globulin 2.7 g/dL (1.3-4.6); Glucose 75 mg/dL (65-115); Osmolality Calculated 292 mOsm/kg (285-295); Total Bilirubin 1.1 mg/dL (0.15-1.2); Total Protein 5.3 g/dL (6.6-8.7)
[2020-10-01 05:46] LABS: Slide Review Slide Review Perform
[2020-10-01 06:38] LABS: Reflex Lactate Order REFLEX LACTIC ORDERD
--- NOTE | 2020-10-01 08:35 | PC.NURSE ---
buttocks remain macerated and peeling at this time cleaned and ointment applied leaks urine from urethra constant vale pad applied to contain and keep bottom dry
[2020-10-01 10:47] LABS: Lactic Acid level (Lactate) 2.3 mmol/L (0.5-2.2)
[2020-10-01] MEDS: ondansetron 2 mg/ML SDV 2 mL 4 MG IVP (16:39)
--- NOTE | 2020-10-01 16:45 | P.PN_ITS ---
Subjective Subjective: Interval history: Mental status better today, more alert awake, hemodynamically improving, Levophed down to 4 mics today Medications: Reviewed: Yes Vitals/I&O/Wt Last Vital Signs Temp 98.3 F 10/01/20 05:00 Pulse 105 H 10/01/20 14:00 Resp 15 10/01/20 13:30 BP 123/70 10/01/20 13:30 Pulse Ox 98 10/01/20 13:30 10/01/20 10/01/20 10/01/20 06:59 14:59 22:59 Intake Total 950.845 / 4188.416 1302.917 / 9272.631 2490.737 / 2649.654 Balance 950.845 / 4188.416 1302.917 / 2183.716 9055.737 / 2649.654 Weight last 48 hrs Weight 72 kg Weight 77.111 kg Physical Exam Narrative: EXAM NARRATIVE: GENERAL: Awake, alert and oriented [] HEENT: Normocephalic, atraumatic, PERRLA. [] CHEST: Clear to auscultation bilaterally all areas. [] CVS: S1, S2 normal. No murmur, rubs, gallops. Peripheral pulses palpable. [] ABDOMEN: Soft, nontender. Nondistended. Bowel sounds heard. [] EXTREMITIES: No edema. [] Data : 10/01/20 03:59 10/01/20 03:59 Micro: Microbiology 09/30/20 12:35 Blood Culture - Preliminary Blood NEGATIVE TO DATE 09/30/20 12:08 Blood Culture - Preliminary Blood NEGATIVE TO DATE A&P Assessment and plan (1) Septic shock: Likely as result of pyelonephritis given recent history of instrumentation in a chronically colonized bladder Empiric imipenem until results of urine culture available blood cx negative thus far IV fluids at 125 cc an hour, started on Levophed, titrate to MAP greater than 65 currently with improving pressor requirements and improved mentation, clinically appears to b eimproving, leukocytsois persisting, will monitor closely over the next 24 hrs Status: Acute (2) Pyelonephritis: Status: Acute (3) Renal hematoma: CT of the abdomen with moderate size right renal subcapsular hematoma, pigtail catheter seen partially coiled along the superior pole of the right kidney which may be a result of the subcapsular hematoma. Very small amount of blood along the right paracolic gutter. hemoglobin remains stable Status: Acute Qualifiers: Encounter type: initial encounter Laterality: right Qualified Code(s): S37.011A - Minor contusion of right kidney, initial encounter (4) Transaminitis: Likely as result of hypotension, septic shock CT makes note of marked intrahepatic biliary dilatation, however this appears to be unchanged from the recent scan on 09/21/2020 and only with mild progression since 2018. CBD and pancreatic head is 11 mm. No obstructing mass or stone is been identified. Alkaline phosphatase not markedly elevated. Status: Acute Additional A&P Information COPD: Continue duo nebs and budesonide inhalation History of hypertension: Hold antihypertensives currently Multiple sclerosis Neurogenic bladder, currently with suprapubic catheter in place. 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
[2020-10-01] MEDS: HYDROcodone-acetaminophen 10-325 mg Tablet 1 TAB PO (17:52)
[2020-10-01 18:48] LABS: Glucose Point of Care 165 mg/dL (70-110)
[2020-10-01] MEDS: ALPRAZolam 0.25 mg Tablet PO (22:04)
[2020-10-02] VITALS (30 sets, daily range): BP systolic 117–144; BP diastolic 71–93; PULSE 85–108; RESP 13–30; TEMP 36.4–36.6; O2SAT 90–97
[2020-10-02] MEDS: HYDROcodone-acetaminophen 10-325 mg Tablet 1 TAB PO (02:56)
[2020-10-02 04:41] LABS: Basophils # 0.1 10^3/uL (0.0-0.1); Basophils % 0.4 %; Hematocrit 30.8 % (37.0-47.0); Hemoglobin 9.9 g/dL (11.5-15.3); Lymphocytes # 0.6 10^3/uL (0.8-4.8); Lymphocytes % 4.3 %; Mean Corpuscular HGB Conc 32.1 g/dL (30.0-36.0); Mean Corpuscular Hemoglobin 30.7 pg (28.0-34.0); Mean Corpuscular Volume 95.4 fL (81-99); Mean Platelet Volume 11.1 fL (7.4-10.4); Monocytes # 0.4 10^3/uL (0.2-0.9); Monocytes % 2.7 %; Neutrophils # 11.92 10^3/uL (1.8-7.7); Neutrophils % 81.1 %; Nucleated Red Blood Cells % 0 %; Platelet Count 73 10^3/cmm (130-400); Red Blood Count 3.23 10^6/uL (4.1-5.3); Red Cell Distribution Width 13.4 % (12.1-15.1); White Blood Count 14.7 10^3/uL (4.0-10.0)
[2020-10-02] MEDS: baclofen 10 mg Tablet 20 MG PO ×2 (04:50→12:26)
[2020-10-02 05:08] LABS: Alanine Aminotransferase 42 U/L (0-33); Albumin Level 2.3 g/dL (3.5-5.2); Alkaline Phosphatase 253 IU/L (35-105); Aspartate Amino Transferase 39 U/L (0-32); Blood Urea Nitrogen 15 mg/dL (8-23); Calcium 7.7 mg/dL (8.5-10.5); Carbon Dioxide 22 mmol/L (22-29); Chloride 109 mmol/L (98-107); Globulin 2.2 g/dL (1.3-4.6); Glucose 70 mg/dL (65-115); Osmolality Calculated 291 mOsm/kg (285-295); Sodium 141 mmol/L (136-145); Total Bilirubin 0.8 mg/dL (0.15-1.2); Total Protein 4.5 g/dL (6.6-8.7)
[2020-10-02 05:10] LABS: Anion Gap 13.3 (5-19); Potassium 3.3 mmol/L (3.5-5.1)
[2020-10-02 05:52] LABS: Slide Review Slide Review Perform
[2020-10-02] MEDS: sodium chloride 0.9% 1,000 ML 125 ML IV (07:04)
--- NOTE | 2020-10-02 08:23 | P.PN_ITS ---
Subjective Subjective: Interval history: UROLOGY follow-up: Clinically continues to improve. White count is 14.7 today. No fever spikes. Still is having tachycardia intermittently. No respiratory complaints. Requiring no blood pressure support. Denies abdominal pain nausea or vomiting. No flank pain. She is hungry. Physical findings show benign abdomen. Healthy suprapubic site is noted. No flank pain or tenderness. Looks back to normal from a mental status perspective. No labored respirations. Reviewed her options. With her significant improvement today I think it will be safe to consider repositioning the stent tomorrow. Reviewed the procedure with her. We will also speak to her . We will plan on doing that in the afternoon tomorrow if she continues to maintain her current status/improve. Orders written this morning. Medications: Reviewed: Yes Vitals/I&O/Wt Last Vital Signs Temp 98 F 10/02/20 05:00 Pulse 98 10/02/20 07:34 Resp 18 10/02/20 07:34 BP 117/71 10/02/20 05:00 Pulse Ox 95 10/02/20 07:34 10/01/20 10/02/20 10/02/20 22:59 06:59 14:59 Intake Total 1746.737 / 3049.654 975 / 4024.654 970.833 / 970.833 Output Total 1300 / 1300 700 / 2000 Balance 446.737 / 1749.654 275 / 2024.654 970.833 / 970.833 Weight last 48 hrs Weight 163 lb 2.273 oz Weight 158 lb 11.725 oz Weight 170 lb Physical Exam Const: COMMON NORMALS: no acute distress, alert and well nourished GENERAL APPEARANCE: well kempt and well developed ORIENTATION/CONSCIOUSNESS: not confused HENMT: COMMON NORMALS: normocephalic and atraumatic HEAD & SCALP: normocephalic and atraumatic Eye: COMMON NORMALS: conjunctivae normal CONJUNCTIVA: Yes conjunctivae normal Neck/C-Spine: COMMON NORMALS: full ROM Resp: COMMON NORMALS: normal respiratory effort EFFORT & INSPECTION: No labored and No Actively coughing GI: COMMON NORMALS: Soft to palpation PALPATION: Yes Soft to palpation and No Tenderness to palpation present (GI) Neuro: SENSORIUM/ORIENTATION: Yes alert Psych: COMMON NORMALS: mental status grossly normal APPEARANCE: Yes grossly normal and Yes well kempt ATTITUDE: Yes calm and Yes engaged Skin: COMMON NORMALS: no rashes or lesions noted and no jaundice GENERAL SKIN EXAM: no rashes or lesions noted Data : 10/02/20 03:46 10/02/20 03:46 Micro: Microbiology 09/30/20 12:35 Blood Culture - Preliminary Blood NEGATIVE TO DATE 09/30/20 12:08 Blood Culture - Preliminary Blood NEGATIVE TO DATE A&P Assessment and plan (1) Septic shock: Continues significant improvement. Status: Acute (2) Ureteral stent displacement: Tolerating without obvious untoward results. Needs to be repositioned. I think should be safe to do that tomorrow given her significant improvement in septic scenario. Status: Acute Qualifiers: Encounter type: initial encounter Qualified Code(s): T83.122A - Displacement of indwelling ureteral stent, initial encounter (3) Renal hematoma: Subcapsular. No treatment required. Status: Acute Qualifiers: Encounter type: initial encounter Laterality: right Qualified Code(s): S37.011A - Minor contusion of right kidney, initial encounter (4) Pyelonephritis: Continues to improve. Status: Acute (5) Neurogenic bladder: Status post suprapubic tube placement. Catheter functioning well. Status: Acute (6) Chronic indwelling Jones catheter: Converted from urethral to suprapubic tube. Status: Acute (7) Recurrent kidney stones: Status post laser lithotripsy. Status: Acute Additional A&P Information Malpositioned Right ureteral stent with no urinary extravasation. 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
[2020-10-02] MEDS: bisacodyl 5 mg Tablet PO ×2 (08:25→17:29)
[2020-10-02] MEDS: amitriptyline 25 mg Tablet 100 MG PO (08:25)
--- NOTE | 2020-10-02 09:48 | P.PN_ITS ---
Subjective Subjective: Interval history: Leukocytosis is trending down, patient is clinically feeling better dischargeleukocytosis trending down, off pressors, clinically feels better, mental status continues to improve, planned for OR tomorrow Medications: Reviewed: Yes Vitals/I&O/Wt Last Vital Signs Temp 98 F 10/02/20 05:00 Pulse 87 10/02/20 08:00 Resp 15 10/02/20 08:00 BP 137/82 10/02/20 08:00 Pulse Ox 94 10/02/20 08:00 10/01/20 10/02/20 10/02/20 22:59 06:59 14:59 Intake Total 1746.737 / 3049.654 975 / 4024.654 1270.833 / 1270.833 Output Total 1300 / 1300 700 / 2000 Balance 446.737 / 1749.654 275 / 2024.654 1270.833 / 1270.833 Weight last 48 hrs Weight 74 kg Weight 72 kg Weight 77.111 kg Physical Exam Narrative: EXAM NARRATIVE: GENERAL: Awake, alert and oriented [] HEENT: Normocephalic, atraumatic, PERRLA. [] CHEST: Clear to auscultation bilaterally all areas. [] CVS: S1, S2 normal. No murmur, rubs, gallops. Peripheral pulses palpable. [] ABDOMEN: Soft, nontender. Nondistended. Bowel sounds heard. [] EXTREMITIES: LE minimal edema now developing [] Data : 10/02/20 03:46 10/02/20 03:46 Micro: Microbiology 09/30/20 12:35 Blood Culture - Preliminary Blood NEGATIVE TO DATE 09/30/20 12:08 Blood Culture - Preliminary Blood NEGATIVE TO DATE A&P Assessment and plan (1) Septic shock: Likely as result of pyelonephritis given recent history of instrumentation in a chronically colonized bladder Empiric imipenem until results of urine culture available, latter is currently pending blood cx negative thus far Reduce IVF to 50cc an hour, off pressors now, maintaining BP, advanced to regular diet now Status: Acute (2) Pyelonephritis: improving Status: Acute (3) Renal hematoma: CT of the abdomen with moderate size right renal subcapsular hematoma, pigtail catheter seen partially coiled along the superior pole of the right kidney which may be a result of the subcapsular hematoma. Very small amount of blood along the right paracolic gutter. hemoglobin dropped today to 9.9, hemodynamically stable, monitor for now. Plan to got o OR tomorrow to reposition/extract stent Status: Acute Qualifiers: Encounter type: initial encounter Laterality: right Qualified Code(s): S37.011A - Minor contusion of right kidney, initial encounter (4) Transaminitis: Likely as result of hypotension, septic shock Currently improving CT makes note of marked intrahepatic biliary dilatation, however this appears to be unchanged from the recent scan on 09/21/2020 and only with mild progression since 2018. CBD and pancreatic head is 11 mm. No obstructing mass or stone is been identified. Alkaline phosphatase not markedly elevated. Status: Acute (5) Thrombocytopenia: Likely as a result of sepsis Has not received any heparin products this admission, not likely to be HIT Status: Acute (6) Ureteral stent displacement: Status: Acute Qualifiers: Encounter type: initial encounter Qualified Code(s): T83.122A - Displacement of indwelling ureteral stent, initial encounter Additional A&P Information COPD: Continue duo nebs and budesonide inhalation, not currently exacerbated History of hypertension: Hold antihypertensives currently Multiple sclerosis, at baseline Neurogenic bladder, currently with suprapubic catheter, has urinary leaking through urethra additionally Regular diet now, NPO p/MN DVT ppx: hold for now given renal hematoma and dropping Hb and platelets , SCDs only Tranfser out of ICU Attestations Medical Necessity Statement*: Needs ongoing admission for iv abx for sepsis, OR tomorrow for malpositioned stent Coding Level of Care Code Acute Building Certifier for [facility] Fwd Diagnoses Septic shock A41.9; R65.21 Pyelonephritis N12 Renal hematoma S37.011A Encounter type: initial encounter Laterality: right Transaminitis R74.01 Thrombocytopenia D69.6 Ureteral stent displacement T83.122A Encounter type: initial encounter
[2020-10-02] MEDS: potassium chloride oral liq 20 mEq/15 mL UDC 40 MEQ PO (10:44)
--- NOTE | 2020-10-02 12:39 | PC.NURSE ---
report called for transfer to floor at bedside
--- NOTE | 2020-10-02 13:25 | PC.NURSE ---
transfer to floor
[2020-10-03] VITALS (19 sets, daily range): BP systolic 111–147; BP diastolic 66–89; PULSE 80–95; RESP 12–21; TEMP 36.3–36.8; O2SAT 93–100
--- NOTE | 2020-10-03 | SCC_ITS ---
Procedure Done: 1. Cystoscopy, removal right ureteral stent 2. Right retrograde pyelogram 3. Right ureteral stent placement (7 [place] by 26 cm double-pigtail) 54.6 seconds of fluoroscopic guidance, for a cumulative dose of 11.76 mGy, was provided to Dr. Virk by the radiology department. C-arm images of the abdomen were saved for the patient's permanent record. [facility]
[2020-10-03] MEDS: sodium chloride 0.9% 1,000 ML 50 ML IV (00:40)
--- NOTE | 2020-10-03 07:46 | PM.PN ---
Subjective Subjective: Interval history: Moved to the floor yesterday. Some confusion persists No Fever or chills. Denies SOB, chest pain, Nausea or vomiting. Complaining about having blood drawn Pending: CBC, BMP Looks improved enough after sepsis treatment for stent repositioning under anesthesia. Will have consent since she still has some confusion. Decision for surgery today. Vitals/I&O/Wt Last Vital Signs Temp 97.9 F 10/03/20 04:00 Pulse 89 10/03/20 06:00 Resp 18 10/03/20 04:00 BP 146/89 10/03/20 04:00 Pulse Ox 98 10/03/20 04:00 10/02/20 10/03/20 10/03/20 22:59 06:59 14:59 Intake Total 1056.667 / 2760.833 100 / 2860.833 Output Total 700 / 700 750 / 1450 Balance 356.667 / 2060.833 -650 / 1410.833 Weight last 48 hrs Weight 163 lb 2.273 oz Physical Exam Narrative: EXAM NARRATIVE: General: Alert. Slightly more confused today. No acute distress. Neck: Good range of motion Respiratory: No labored respiration audible wheezing Abdomen: Soft nontender no palpable masses. Suprapubic tube site looks fine. Neuro: Severe musculoskeletal deficiency secondary to MS. Data : 10/02/20 03:46 10/02/20 03:46 Micro: Microbiology 09/30/20 17:00 Urine Culture - Final Urine,Clean Catch Other data: Pending CBC CMP A&P Assessment and plan (1) Septic shock: Continues significant improvement. I think she is stable enough to have intervention for stent repositioning today Status: Acute (2) Ureteral stent displacement: Decision for stent repositioning today Status: Acute Qualifiers: Encounter type: initial encounter Qualified Code(s): T83.122A - Displacement of indwelling ureteral stent, initial encounter (3) Renal hematoma: Subcapsular. No treatment required. Status: Acute Qualifiers: Encounter type: initial encounter Laterality: right Qualified Code(s): S37.011A - Minor contusion of right kidney, initial encounter (4) Pyelonephritis: Continues to improve. Status: Acute (5) Neurogenic bladder: Status post suprapubic tube placement. Catheter functioning well. Status: Acute (6) Chronic indwelling Jones catheter: Converted from urethral to suprapubic tube. Status: Acute (7) Recurrent kidney stones: Status post laser lithotripsy. Status: Acute Additional A&P Information Malpositioned Right ureteral stent with no urinary extravasation. 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
[2020-10-03 07:56] LABS: Basophils # 0.1 10^3/uL (0.0-0.1); Basophils % 0.5 %; Eosinophils % 0.1 %; Hemoglobin 11.4 g/dL (11.5-15.3); Lymphocytes # 1.2 10^3/uL (0.8-4.8); Lymphocytes % 8.2 %; Mean Corpuscular HGB Conc 33.5 g/dL (30.0-36.0); Mean Corpuscular Hemoglobin 30.5 pg (28.0-34.0); Mean Corpuscular Volume 90.9 fL (81-99); Mean Platelet Volume 11.3 fL (7.4-10.4); Monocytes # 0.2 10^3/uL (0.2-0.9); Monocytes % 1.6 %; Neutrophils % 89.1 %; Nucleated Red Blood Cells % 0 %; Red Blood Count 3.74 10^6/uL (4.1-5.3); Red Cell Distribution Width 13.2 % (12.1-15.1); White Blood Count 14.1 10^3/uL (4.0-10.0)
[2020-10-03 08:04] LABS: Alanine Aminotransferase 30 U/L (0-33); Albumin Level 2.5 g/dL (3.5-5.2); Alkaline Phosphatase 195 IU/L (35-105); Anion Gap 19.5 (5-19); Aspartate Amino Transferase 22 U/L (0-32); Blood Urea Nitrogen 6 mg/dL (8-23); Calcium 7.7 mg/dL (8.5-10.5); Carbon Dioxide 19 mmol/L (22-29); Chloride 105 mmol/L (98-107); Globulin 2.5 g/dL (1.3-4.6); Glucose 67 mg/dL (65-115); Osmolality Calculated 288 mOsm/kg (285-295); Sodium 141 mmol/L (136-145); Total Bilirubin 0.8 mg/dL (0.15-1.2)
[2020-10-03 08:20] LABS: Potassium 2.5 mmol/L (3.5-5.1)
[2020-10-03 08:25] LABS: Slide Review Slide Review Perform
[2020-10-03 08:26] LABS: Platelet Count 73 10^3/cmm (130-400)
[2020-10-03] MEDS: lidocaine 1% 5 ML in potassium chloride premix 100 ML 25 ML IV (10:06)
--- NOTE | 2020-10-03 12:32 | PM.PN ---
Subjective Subjective: Interval history: No acute event overnight, was seen in the morning as well after stent repositioning.Currently she has improved. Was seen eating dinner, after stent repositioning.She has remained afebrile,has maintained a good MAP and is saturating well on R/A. WBC count is slowly trending down. Medications: Reviewed: Yes Vitals/I&O/Wt Last Vital Signs Temp 98.1 F 10/03/20 11:31 Pulse 80 10/03/20 11:31 Resp 18 10/03/20 11:31 BP 119/72 10/03/20 11:31 Pulse Ox 98 10/03/20 11:31 10/02/20 10/03/20 10/03/20 22:59 06:59 14:59 Intake Total 1056.667 / 2760.833 100 / 2860.833 100 / 100 Output Total 700 / 700 750 / 1450 Balance 356.667 / 2060.833 -650 / 1410.833 100 / 100 Weight last 48 hrs Weight 74 kg Physical Exam Const: COMMON NORMALS: patient oriented x3 HENMT: COMMON NORMALS: normocephalic and atraumatic HEAD & SCALP: normocephalic and atraumatic Chest: CHEST: Yes Symmetrical chest wall rise Resp: COMMON NORMALS: clear to auscultation bilaterally EFFORT & INSPECTION: Yes symmetric chest movement AUSCULTATION: clear to auscultation bilaterally Cardio: COMMON NORMALS: regular rate, regular rhythm, S1 normal heart sound present, S2 normal heart sound present, No gallops present (Cardio), No murmurs present (Cardio), No rub (Cardio) and Peripheral pulses 2+ throughout RATE: regular rate RHYTHM: regular rhythm HEART SOUNDS: S1 normal heart sound present and S2 normal heart sound present PERIPHERAL PULSES: Peripheral pulses 2+ throughout GI: COMMON NORMALS: Normal to inspection, nondistended, normoactive bowel sounds present, Soft to palpation, non-tender, No hepatosplenomegaly present and no masses AUSCULTATION: Yes normoactive bowel sounds PALPATION: Yes Soft to palpation and Yes No hepatosplenomegaly present RECTAL EXAM: deferred Extremity: OTHER: Trace B/L L/E Pitting Edema Neuro: COMMON NORMALS: patient oriented x3 Data : 10/03/20 07:33 10/03/20 14:15 Micro: Microbiology 09/30/20 17:00 Urine Culture - Final Urine,Clean Catch A&P Assessment and plan (1) Septic shock: Likely as result of pyelonephritis given recent history of instrumentation in a chronically colonized bladder Empiric imipenem urine culture:No Growth blood cx negative thus far off IVF , off pressors now, maintaining BP, advanced to regular diet now Status: Acute (2) Pyelonephritis: improving Status: Acute (3) Renal hematoma: CT of the abdomen with moderate size right renal subcapsular hematoma, pigtail catheter seen partially coiled along the superior pole of the right kidney which may be a result of the subcapsular hematoma. Very small amount of blood along the right paracolic gutter. hemoglobin dropped today to 9.9, hemodynamically stable, monitor for now. Plan to got o OR tomorrow to reposition/extract stent Status: Acute Qualifiers: Encounter type: initial encounter Laterality: right Qualified Code(s): S37.011A - Minor contusion of right kidney, initial encounter (4) Transaminitis: Likely as result of hypotension, septic shock Currently improving CT makes note of marked intrahepatic biliary dilatation, however this appears to be unchanged from the recent scan on 09/21/2020 and only with mild progression since 2018. CBD and pancreatic head is 11 mm. No obstructing mass or stone is been identified. Alkaline phosphatase not markedly elevated. Status: Acute (5) Thrombocytopenia: Likely as a result of sepsis Has not received any heparin products this admission, not likely to be HIT Status: Acute (6) Ureteral stent displacement: Status: Acute Qualifiers: Encounter type: initial encounter Qualified Code(s): T83.122A - Displacement of indwelling ureteral stent, initial encounter (7) Anemia: Normocytic Anemia Anemia Panel B12 Folic Acid Status: Acute (8) Hypokalemia: Serum k : 2.5 80 MEQ I.V KCL Tele KCL 40 MEQ PO Daily Monitor BMP Status: Acute (9) Hypoalbuminemia: ENsure 2 Bottle Daily Status: Acute (10) Hypomagnesemia: Status: Acute Additional A&P Information COPD: Continue duo nebs and budesonide inhalation, not currently exacerbated History of hypertension: Hold antihypertensives currently Multiple sclerosis, at baseline Neurogenic bladder, currently with suprapubic catheter, has urinary leaking through urethra additionally Regular diet now, NPO p/MN DVT ppx: hold for now given renal hematoma and dropping Hb and platelets , SCDs only Tranfser out of ICU Attestations Medical Necessity Statement*: Patient needs to be in hospital for the management of sepsis. Coding Level of Care Code Acute Direct Service Professional for [facility] Fwd Diagnoses Septic shock A41.9; R65.21 Pyelonephritis N12 Renal hematoma S37.011A Encounter type: initial encounter Laterality: right Transaminitis R74.01 Thrombocytopenia D69.6 Ureteral stent displacement T83.122A Encounter type: initial encounter Anemia D64.9 Hypokalemia E87.6 Hypoalbuminemia E88.09 Hypomagnesemia E83.42
--- NOTE | 2020-10-03 14:30 | NUR.SHIFT ---
Patient to surgery at this time.
--- NOTE | 2020-10-03 14:30 | ANES.PREANE2 ---
Pre-Anesthetic Assessment Pre-Anesthetic Assessment: Height/Weight: Height 1.73 m Weight 74 kg Temp Pulse Resp BP Pulse Ox 98.1 F 80 18 119/72 98 10/03/20 11:31 10/03/20 11:31 10/03/20 11:31 10/03/20 11:31 10/03/20 11:31 Preop Diagnosis: RIGHT: Renal pelvic stones/mass-effect, neurogenic bladder chronic cath Proposed Procedure: Operation Date: 10/03/20 15:25 Proposed Procedures p Cystoscopy(Not Applicable) - Juanjose Virk MD s Ureteral Stent Exchange(Right) - MD johny Basurto possible(Right) - MD johny Basurto Retrograde Pyelogram(Right) - Juanjose Virk MD Familial anesthetic complications: None Was Beta Kurtis taken within 24 hours: N/A Was Clonidine taken within 24 hours: N/A Last intake: Intake Last Liquid Date 10/02/20 Last Liquid Time 23:00 Last Solid Date 10/02/20 Last Solid Time 18:00 Social: Social History: No alcohol and No tobacco Exam: Pre-Anes Outpt Exam: alert, oriented x 3, clear to auscultation bilaterally and regular rate & rhythm Airway: Cervical ROM: WNL MP: 2 Dentition: Full Pulmonary: Pulmonary: COPD CV/HEM: CV/HEM: HTN : : Chronic renal Insufficiency Comments: neurogenic bladder, stent malposition Musc/skel: Comments: severe MS - wheelchair bound Neuropsych: Neuropsych: Dementia Comments: AMS Anesthetic Plan: ASA status: 4 Anesthesia: General Risk of > 500 ml blood loss (7ml/kg in children): No Meds/Allergies Current Medications: Current Medications Generic Name Dose Route Start Last Admin Trade Name Freq PRN Reason Stop Dose Admin Acetaminophen 650 mg 09/30/20 18:00 10/01/20 04:41 Acetaminophen 32 5 Mg Tablet PO 650 mg Q6H PRN Administration Mild/Mod Pain Or Temp >/= 101 Hydrocodone Bitart /Acetaminophen 1 tab 10/01/20 16:56 10/02/20 02:56 Hydrocodone-Acet aminophen 10-325 M g Tablet PO 1 tab Q8H PRN Administration moderate Pain Alprazolam 0.25 mg 10/01/20 16:56 10/01/20 22:04 Alprazolam 0.25 Mg Tablet PO 0.25 mg BID PRN Administration Anxiety Amitriptyline HCl 100 mg 10/02/20 09:00 10/03/20 10:06 Amitriptyline 25 Mg Tablet PO Not Given DAILY DIANA Baclofen 20 mg 10/01/20 17:34 10/02/20 12:26 Baclofen 10 Mg T ablet PO 20 mg TID PRN Administration Muscle Spasm Bisacodyl 5 mg 10/01/20 18:00 10/03/20 10:06 Bisacodyl 5 Mg T ablet PO Not Given BID DIANA Norepinephrine Bit artrate 4 mg 254 mls @ 0 mls/h r 09/30/20 12:45 10/03/20 00:43 / Dextrose IV Infused .Q0M DIANA Titration Protocol Per Protocol Sodium Chloride 1,000 mls @ 50 ml s/hr 09/30/20 16:29 10/03/20 00:40 Sodium Chloride 0.9% IV 50 mls/hr .Q20H DIANA Administration Imipenem/Cilastati n Sodium 500 100 mls @ 200 mls /hr 10/02/20 20:00 10/03/20 09:12 mg/ Sodium Chlor ricardo IV Infused Q6H DIANA Infusion Protocol Lidocaine HCl 5 ml / Potassium 105 mls @ 25 mls/ hr 10/03/20 10:30 10/03/20 10:06 Chloride IV 10/03/20 14:41 25 mls/hr ONCE ONE Administration Ondansetron HCl 4 mg 09/30/20 16:29 10/01/20 16:39 Ondansetron 2 Mg /Ml Sdv 2 Ml IVP 4 mg Q6H PRN Administration NAUSEA AND VOMITI NG PFSH Anesthesia PFSH: Medical History (Updated 10/02/20 @ 10:15 by Bindu Espino MD) Accelerated essential hypertension Anxiety disorder Chronic indwelling Jones catheter 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 Other Hypertension Denies family history of Diabetes Stroke Social History Smoking and tobacco status: never smoked Alcohol intake: never Marital status: Current occupational status: retired History of recent travel: No Data Anesthesia CBC & Chem 7: 10/03/20 07:33 10/03/20 07:33 Other Labs: Laboratory Results - last 48 hr 10/01/20 10/02/20 10/02/20 18:45 03:46 03:46 WBC 14.7 H RBC 3.23 L Hgb 9.9 L Hct 30.8 L MCV 95.4 MCH 30.7 MCHC 32.1 RDW 13.4 Plt Count 73 L MPV 11.1 H Neut % (Auto) 81.1 Lymph % (Auto) 4.3 [place] % (Auto) 2.7 Eos % (Auto) 0.0 Baso % (Auto) 0.4 Neut # (Auto) 11.92 H Lymph # (Auto) 0.6 L [place] # (Auto) 0.4 Eos # (Auto) 0.0 Baso # (Auto) 0.1 Nucleated RBC % (auto) 0 Nucleated RBCs # 0.0 Sodium 141 Potassium 3.3 L Chloride 109 H Carbon Dioxide 22 Anion Gap 13.3 BUN 15 Creatinine 0.5 GFR Calculation Not Reportable Glucose 70 POC Glucose 165 H Calculated Osmolality 291 Calcium 7.7 L Total Bilirubin 0.8 AST 39 H ALT 42 H Alkaline Phosphatase 253 H Total Protein 4.5 L Albumin 2.3 L Globulin 2.2 10/03/20 10/03/20 07:33 07:33 WBC 14.1 H RBC 3.74 L Hgb 11.4 L Hct 34.0 L MCV 90.9 MCH 30.5 MCHC 33.5 RDW 13.2 Plt Count 73 L MPV 11.3 H Neut % (Auto) 89.1 Lymph % (Auto) 8.2 [place] % (Auto) 1.6 Eos % (Auto) 0.1 Baso % (Auto) 0.5 Neut # (Auto) 12.60 H Lymph # (Auto) 1.2 [place] # (Auto) 0.2 Eos # (Auto) 0.0 Baso # (Auto) 0.1 Nucleated RBC % (auto) 0 Nucleated RBCs # 0.0 Sodium 141 Potassium 2.5 L* Chloride 105 Carbon Dioxide 19 L Anion Gap 19.5 H BUN 6 L Creatinine 0.3 L GFR Calculation Not Reportable Glucose 67 POC Glucose Calculated Osmolality 288 Calcium 7.7 L Total Bilirubin 0.8 AST 22 ALT 30 Alkaline Phosphatase 195 H Total Protein 5.0 L Albumin 2.5 L Globulin 2.5 Micro: Microbiology 09/30/20 17:00 Urine Culture - Final Urine,Clean Catch Cardiac Studies: No Data to Display
[2020-10-03 14:57] LABS: Potassium 2.5 mmol/L (3.5-5.1)
--- NOTE | 2020-10-03 15:01 | PC.NURSE ---
notified Dr Rivero, care nurse Polly and Surgery that patient has critical potassium of 2.5.
[2020-10-03] MEDS: sodium chloride 0.9% 500 ML 999 ML IV (15:09)
--- NOTE | 2020-10-03 15:13 | ECG_ITS ---
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 Measurements Intervals [place] Rate: 97 P: 44 WI: 185 QRS: -48 QRSD: 117 T: -55 QT: 300 QTc: 381 Interpretive Statements SINUS RHYTHM LOW QRS VOLTAGE IN PRECORDIAL LEADS [QRS DEFLECTION < 1.0 mV IN CHEST LEADS] POSSIBLE ANTERIOR MYOCARDIAL INFARCTION [30 ms Q WAVE IN V3/V4, OR R < 0.2 mV IN V4], OF INDETERMINATE AGE Compared to ECG 09/30/2020 11:44:00 Low QRS voltage now present Sinus tachycardia no longer present Left anterior fascicular block no longer present T-wave abnormality no longer present Possible ischemia no longer present Myocardial infarct finding still present Electronically Signed On 10-04-2020 9:25:12 CDT by Lory Jernigan M.D. [email or web address]
[2020-10-03 15:48] LABS: Blood Urea Nitrogen 5 mg/dL (8-23); Calcium 7.5 mg/dL (8.5-10.5); Carbon Dioxide 15 mmol/L (22-29); Chloride 104 mmol/L (98-107); Glucose 65 mg/dL (65-115); Magnesium 1.6 mg/dL (1.7-2.3); Osmolality Calculated 279 mOsm/kg (285-295); Sodium 137 mmol/L (136-145)
[2020-10-03 15:53] LABS: Anion Gap 20.5 (5-19); Potassium 2.5 mmol/L (3.5-5.1)
--- NOTE | 2020-10-03 16:24 | SC_ITS ---
WS: [id number] C-ARM RADIOGRAPHS ABDOMEN; 3 IMAGES HISTORY: stent manipulation right ureter COMPARISON: None available. Manipulation of the RIGHT ureteral stent. There is a pigtail cold over the RIGHT renal pelvis. Increa sed density above the kidney in a branching manner may be extravasation of the injected retrograde co ntrast extravasation from the kidney. SC/C-arm [place] for Urology IMPRESSION: Proximal RIGHT ureteral stent coiled in the location of the renal pelvis.
[2020-10-03] MEDS: iohexol 300 mg/mL 50 mL Btl 20 ML XX (16:37)
--- NOTE | 2020-10-03 16:53 | PC.NURSE ---
upon arrival to the or, after induction of anesthesia and during positioning, noted patient had had a bowel movement. patient was thoroughly cleaned. cm
--- NOTE | 2020-10-03 16:55 | P.PCN_ITS ---
PACU note PACU note: VSS, Good respiratory effort, report to SENIOR CLINICAL PROJECT MANAGER Post-Anesthesia Exam: awake
--- NOTE | 2020-10-03 16:55 | PM.PACU ---
PACU note PACU note: VSS, Good respiratory effort, report to DRUPAL ARCHITECT Post-Anesthesia Exam: awake
--- NOTE | 2020-10-03 16:56 | PM.OP ---
Operative Report Date of procedure: October 03, 2020 Pre-op Diagnosis: Malpositioned right ureteral stent Post-op diagnosis: same Procedure Done: 1. Cystoscopy, removal right ureteral stent 2. Right retrograde pyelogram 3. Right ureteral stent placement (7 Wallisian by 26 cm double-pigtail) Pathology: none sent Surgeon: Sully Anesthesia: General Estimated blood loss: None Urine output: Not measured Complications: None Findings: 1. Stent removed without difficulty. 2. Normal right retrograde pyelogram without extravasation 3. Stent placed without difficulty with fluoroscopic guidance confirming appropriate position and curling of the proximal end. Condition: stable Disposition: PACU Brief History: Ms. Calzada is a delightful 70-year-old white female who recently had a suprapubic tube placement performed which was uneventful intraoperatively. She was also found preoperatively to have some stones in her right renal pelvis and also some possible soft tissue abnormality around the renal pelvis and underwent a flexible ureteroscopy showing no evidence of neoplastic process but did have multiple stones that were treated with laser lithotripsy. She did well initially and was discharged from outpatient surgery but presented the next day with septic picture. CT scan was performed that showed normal SP tube positioning without any evidence of intra-abdominal problems but did demonstrate that the right ureteral stent had perforated the upper pole of the kidney and with the tip just outside of the renal parenchyma. Thankfully there was no evidence of urinary extravasation. She did have a small renal subcapsular hematoma. Clinically it appeared that the septic complication was more related to instrumentation of an infected tract from indwelling chronic urethral catheter. Because there appeared to be no local complications related to the malposition stent it was decided to treat her sepsis aggressively and she was in the ICU for couple days for that and dramatically improved. Her white count decreased from 25,000 down to 14,000. Clinical picture improved on all parameters and she was weaned off of pressure support and was then placed on the floor. This morning after review we felt it was reasonable based on her clinical picture to go ahead and reposition the stent as it had been planned after she recovered from the severe septic complications. In the operating room today for that procedure. Procedure: After routine preoperative evaluation examination and obtaining of informed consent she was taken to the operating suite on 10/03/2020 where general anesthesia was administered without difficulty after appropriate timeout was performed, SCDs confirmed to be functioning, preoperative antibiotics administered, beta-eduardo protocol confirmed. Prepped and draped in the usual sterile fashion in dorsolithotomy position paying careful attention to avoiding pressure points. 21 Wallisian cystoscope with 30 degree lens was introduced into the urethral meatus and advanced into the bladder under videoscopy. The suprapubic tube was confirmed to be in appropriate position and the stent was easily identified. With fluoroscopic monitoring of the kidney the stent was withdrawn to the urethral meatus. There was no tension or difficulty advancing it distally. Once the tip of the stent was felt to be in the renal pelvis area a guidewire was passed through the stent and the stent removed. An open-ended ureteral catheter was then advanced over the guidewire into the area of the presumed renal pelvis and contrast was injected after wire removal showing a normal collecting system with no evidence of extravasation. A flexible tip guidewire was then advanced back through the open-ended ureteral catheter into the midpole calyx and the open ureteral catheter was removed. A 7 Wallisian by 26 cm double-pigtail stent without string attached distally was then advanced over the wire into the renal pelvis and the wire withdrawn with completely normal curling of the stent proximal curl in the renal pelvis. The wire was removed. Position proximally and distally confirmed via cystoscopy and fluoroscopy. The bladder was then drained completely and the procedure completed. The suprapubic tube was left unchanged. She tolerated procedure well without complications and was awakened in the operating room and returned to the recovery in stable condition. Findings were discussed with her family. PLANS: 1. Back to the floor 2. Continue medical management per hospitalist service. 3. I will plan on leaving the stent in for several weeks for healing.
[2020-10-03] MEDS: fentaNYL 50 mcg/mL INJ 2mL IVP ×2 (17:02→17:07)
--- NOTE | 2020-10-03 19:07 | PC.NURSE ---
Report to Ashlie ESCALERA at this time.
[2020-10-03] MEDS: magnesium sulfate premix 2 GM/50 ML PIGGYBACK IV (19:14)
[2020-10-04] VITALS (10 sets, daily range): BP systolic 128–154; BP diastolic 72–85; PULSE 64–110; RESP 17–18; TEMP 36.6–37.1; O2SAT 92–100
[2020-10-04 02:27] LABS: Basophils % 0.4 %; Eosinophils % 0.2 %; Hematocrit 34.1 % (37.0-47.0); Hemoglobin 11.5 g/dL (11.5-15.3); Lymphocytes % 19.1 %; Mean Corpuscular HGB Conc 33.7 g/dL (30.0-36.0); Mean Platelet Volume 11.1 fL (7.4-10.4); Monocytes # 0.3 10^3/uL (0.2-0.9); Monocytes % 3.3 %; Neutrophils # 7.89 10^3/uL (1.8-7.7); Neutrophils % 76.3 %; Nucleated Red Blood Cells % 0 %; Platelet Count 83 10^3/cmm (130-400); Red Blood Count 3.83 10^6/uL (4.1-5.3); Red Cell Distribution Width 13.2 % (12.1-15.1); White Blood Count 10.3 10^3/uL (4.0-10.0)
[2020-10-04 02:43] LABS: Blood Urea Nitrogen 4 mg/dL (8-23); Calcium 7.6 mg/dL (8.5-10.5); Carbon Dioxide 19 mmol/L (22-29); Chloride 105 mmol/L (98-107); Glucose 79 mg/dL (65-115); Magnesium 2.1 mg/dL (1.7-2.3); Osmolality Calculated 286 mOsm/kg (285-295); Sodium 140 mmol/L (136-145)
[2020-10-04 02:47] LABS: Anion Gap 18.5 (5-19); Potassium 2.5 mmol/L (3.5-5.1)
[2020-10-04 02:55] LABS: Ferritin 402 ng/mL (15-150); Iron 111 ug/dL (37-145)
[2020-10-04 03:12] LABS: Folate Level 5.1 ng/mL (4.8-37.3)
[2020-10-04] MEDS: lidocaine 1% 5 ML in potassium chloride premix 100 ML 25 ML IV (03:26)
--- NOTE | 2020-10-04 05:29 | ANE.PACU2 ---
Inpatient post-anesthesia follow up: Airway intact: Yes Vital signs: Temperature 98.0 F Pulse Rate [Monito r] 129 Pulse Rate 94 Respiratory Rate 17 Blood Pressure [Ri ght Arm] 88/63 Blood Pressure 144/83 Pulse Oximetry 100 Oxygen Delivery Me thod Room Air Oxygen Flow Rate 2 Fraction of Inspir ed Oxygen Hydration adequate: Yes Nausea and vomiting: No Pain level: 2 Mental status: Baseline
[2020-10-04 06:06] LABS: Percent Saturation 86.7 % (20-50); Total Iron Binding Capacity 128 mcg/dl; Unsaturated Iron Binding < 17 ug/dL (112-347); Vitamin B12 > 2000 pg/mL (232-1245)
[2020-10-04] MEDS: sodium chloride 0.9% 1,000 ML 50 ML IV (08:09)
[2020-10-04] MEDS: potassium chloride ER 20 mEq Tablet 40 MEQ PO ×2 (08:10→17:42)
[2020-10-04] MEDS: amitriptyline 25 mg Tablet 100 MG PO (08:10)
[2020-10-04] MEDS: bisacodyl 5 mg Tablet PO ×2 (08:10→17:42)
[2020-10-04] MEDS: ondansetron 2 mg/ML SDV 2 mL 4 MG IVP (10:21)
--- NOTE | 2020-10-04 12:12 | P.PN_ITS ---
Subjective Subjective: Interval history: Patient was seen and examined this morning, s/p repositioning of right ureteral stent. Patient tolerated the procedure well, position confirmed with retrograde pyelogram. She has remained afebrile, has maintained a decent MAP, WBC is trending down. She was complaining of significant urethral discharge, suprapubic catheter site is clean and working appropriately. Medications: Reviewed: Yes Vitals/I&O/Wt Last Vital Signs Temp 98.4 F 10/04/20 11:55 Pulse 68 10/04/20 11:55 Resp 18 10/04/20 11:55 BP 148/72 10/04/20 11:55 Pulse Ox 94 10/04/20 11:55 10/03/20 10/04/20 10/04/20 22:59 06:59 14:59 Intake Total 1804.0909 / 1904.0909 200 / 2104.0909 445 / 445 Output Total 0 / 0 100 / 100 500 / 500 Balance 1804.0909 / 1904.0909 100 / 2004.0909 -55 / -55 Weight last 48 hrs Weight 75.977 kg Physical Exam Const: COMMON NORMALS: patient oriented x3 HENMT: COMMON NORMALS: normocephalic and atraumatic HEAD & SCALP: normocephalic and atraumatic Chest: CHEST: Yes Symmetrical chest wall rise Resp: COMMON NORMALS: clear to auscultation bilaterally EFFORT & INSPECTION: Yes symmetric chest movement AUSCULTATION: clear to auscultation bilaterally Cardio: COMMON NORMALS: regular rate, regular rhythm, S1 normal heart sound present, S2 normal heart sound present, No gallops present (Cardio), No murmurs present (Cardio), No rub (Cardio) and Peripheral pulses 2+ throughout RATE: regular rate RHYTHM: regular rhythm HEART SOUNDS: S1 normal heart sound p resent and S2 normal heart sound present PERIPHERAL PULSES: Peripheral pulses 2+ throughout GI: COMMON NORMALS: Normal to inspection, nondistended, normoactive bowel sounds present, Soft to palpation, non-tender, No hepatosplenomegaly present and no masses AUSCULTATION: Yes normoactive bowel sounds PALPATION: Yes Soft to palpation and Yes No hepatosplenomegaly present RECTAL EXAM: deferred Extremity: OTHER: Trace B/L L/E Pitting Edema Neuro: COMMON NORMALS: patient oriented x3 Data : 10/04/20 02:15 10/04/20 02:15 Micro: Microbiology 09/30/20 17:00 Urine Culture - Final Urine,Clean Catch A&P Assessment and plan (1) Septic shock: Likely as result of pyelonephritis given recent history of instrumentation in a chronically colonized bladder Empiric imipenem urine culture:No Growth blood cx negative thus far off IVF , off pressors now, maintaining BP, advanced to regular diet now Status: Resolved (2) Pyelonephritis: improving Status: Acute (3) Renal hematoma: CT of the abdomen with moderate size right renal subcapsular hematoma, pigtail catheter seen partially coiled along the superior pole of the right kidney which may be a result of the subcapsular hematoma. Very small amount of blood along the right paracolic gutter. hemoglobin dropped today to 9.9, hemodynamically stable, monitor for now. Plan to got o OR tomorrow to reposition/extract stent Status: Acute Qualifiers: Encounter type: initial encounter Laterality: right Qualified Code(s): S37.011A - Minor contusion of right kidney, initial encounter (4) Transaminitis: Likely as result of hypotension, septic shock Currently improving CT makes note of marked intrahepatic biliary dilatation, however this appears to be unchanged from the recent scan on 09/21/2020 and only with mild progression since 2018. CBD and pancreatic head is 11 mm. No obstructing mass or stone is been identified. Alkaline phosphatase not markedly elevated. Status: Acute (5) Thrombocytopenia: Likely as a result of sepsis Has not received any heparin products this admission, not likely to be HIT Status: Acute (6) Ureteral stent displacement: Status: Resolved Qualifiers: Encounter type: initial encounter Qualified Code(s): T83.122A - Displacement of indwelling ureteral stent, initial encounter (7) Anemia: Normocytic Anemia: Likely secondary to anemia of chronic disease: Serum iron: 111, TIBC: 128, percent saturation: 86, ferritin:402, vitamin B12:>14802, folate: 5.1 Monitor CBC: Transfuse to maintain hemoglobin greater than 7 Status: Acute (8) Hypokalemia: Chronic Hypokalemia : She is on Pottasium Gluconate 600 mg po daily at home. Monitor and Replace Status: Acute (9) Hypoalbuminemia: ENsure 2 Bottle Daily Status: Acute (10) Hypomagnesemia: Status: Acute Additional A&P Information COPD: Continue duo nebs and budesonide inhalation, not currently exacerbated History of hypertension: Hold antihypertensives currently Multiple sclerosis, at baseline Neurogenic bladder, currently with suprapubic catheter, has urinary leaking through urethra additionally Regular diet now, NPO p/MN DVT ppx: hold for now given renal hematoma and dropping Hb and platelets , SCDs only Tranfser out of ICU Attestations Medical Necessity Statement*: patient needs to be in hospital for management of sepsis. Coding Level of Care Code Acute Dna Sequencing Associate for [facility] Fwd Diagnoses Septic shock A41.9; R65.21 Pyelonephritis N12 Renal hematoma S37.011A Encounter type: initial encounter Laterality: right Transaminitis R74.01 Thrombocytopenia D69.6 Ureteral stent displacement T83.122A Encounter type: initial encounter Anemia D64.9 Hypokalemia E87.6 Hypoalbuminemia E88.09 Hypomagnesemia E83.42
--- NOTE | 2020-10-04 12:30 | P.PN_ITS ---
Subjective Subjective: Interval history: Postoperative day #1 repositioning of right ureteral stent. Intraoperatively the stent was easily replaced with confirmation of normal position via retrograde pyelogram. Postoperatively she has done well. No spiking fever. Vital signs have been stable. She still feels quite weak. Potassiums have been consistently low and she is undergoing active replacement. Still having significant leakage from the urethra which was expected preoperatively after placement of suprapubic tube due to defunctionalization the urethra with patulous structure. Hopefully she will have natural contraction of the urethra over time due to the inflammatory changes that occurred but if not may require bulking agent injection or potentially urethral closure surgically. The suprapubic catheter appears to be working well. Denies abdominal pain. Has had some mild nausea after eating especially yesterday. Vitals/I&O/Wt Last Vital Signs Temp 98.4 F 10/04/20 11:55 Pulse 68 10/04/20 11:55 Resp 18 10/04/20 11:55 BP 148/72 10/04/20 11:55 Pulse Ox 94 10/04/20 11:55 10/03/20 10/04/20 10/04/20 22:59 06:59 14:59 Intake Total 1804.0909 / 1904.0909 200 / 2104.0909 445 / 445 Output Total 0 / 0 100 / 100 500 / 500 Balance 1804.0909 / 1904.0909 100 / 2004.0909 -55 / -55 Weight last 48 hrs Weight 167 lb 8 oz Physical Exam Const: COMMON NORMALS: no acute distress, alert and well nourished GENERAL APPEARANCE: well kempt and well developed ORIENTATION/CONSCIOUSNESS: not confused HENMT: COMMON NORMALS: normocephalic and atraumatic HEAD & SCALP: normocephalic and atraumatic Eye: COMMON NORMALS: conjunctivae normal and no scleral icterus CONJUNCTIVA: Yes conjunctivae normal OTHER: Nystagmus Neck/C-Spine: COMMON NORMALS: full ROM GENERAL: Yes normal visual inspection Resp: COMMON NORMALS: normal respiratory effort EFFORT & INSPECTION: No labored and No Actively coughing GI: COMMON NORMALS: Soft to palpation, non-tender and no masses PALPATION: Yes Soft to palpation Neuro: SENSORIUM/ORIENTATION: Yes alert Psych: APPEARANCE: Yes grossly normal and Yes well kempt ATTITUDE: Yes calm and Yes engaged Data : 10/04/20 02:15 10/04/20 02:15 A&P Assessment and plan (1) Septic shock: Continues significant improvement. I think she is stable enough to have intervention for stent repositioning today Status: Resolved (2) Ureteral stent displacement: Easily repositioned yesterday. Position confirmed with retrograde pyelogram. No evidence of untoward events today. Status: Resolved Qualifiers: Encounter type: initial encounter Qualified Code(s): T83.122A - Displacement of indwelling ureteral stent, initial encounter (3) Renal hematoma: Subcapsular. No treatment required. Status: Acute Qualifiers: Encounter type: initial encounter Laterality: right Qualified Code(s): S37.011A - Minor contusion of right kidney, initial encounter (4) Pyelonephritis: Continues to improve. White count normal Status: Acute (5) Neurogenic bladder: Status post suprapubic tube placement. Catheter functioning well. Status: Chronic (6) Chronic indwelling Jones catheter: Converted from urethral to suprapubic tube. Suprapubic tube is working well. Is having problems from patulous urethra secondary to chronic indwelling urethral Jones catheter historically Status: Acute (7) Recurrent kidney stones: Status post laser lithotripsy. Could not see any obvious stones on retrograde pyelogram during the procedure yesterday. Status: Acute (8) Intrinsic sphincter deficiency: Status: Acute Additional A&P Information Malpositioned Right ureteral stent with no urinary extravasation. Attestations Medical Necessity Statement*: See attending Coding Level of Care Code Acute Bottling Machine Operator for [facility] Fw Diagnoses Septic shock A41.9; R65.21 Ureteral stent displacement T83.122A Encounter type: initial encounter Renal hematoma S37.011A Encounter type: initial encounter Laterality: right Pyelonephritis N12 Neurogenic bladder N31.9 Chronic indwelling Jones catheter Z97.8 Recurrent kidney stones N20.0 Intrinsic sphincter deficiency N36.42
[2020-10-05] VITALS (12 sets, daily range): BP systolic 120–152; BP diastolic 73–90; PULSE 70–126; RESP 16–22; TEMP 36.3–37.1; O2SAT 92–99
[2020-10-05 02:47] LABS: Basophils # 0.1 10^3/uL (0.0-0.1); Basophils % 0.6 %; Eosinophils # 0.1 10^3/uL (0.0-0.8); Hemoglobin 11.1 g/dL (11.5-15.3); Lymphocytes # 2.6 10^3/uL (0.8-4.8); Lymphocytes % 30.8 %; Mean Corpuscular HGB Conc 32.6 g/dL (30.0-36.0); Mean Corpuscular Volume 91.9 fL (81-99); Mean Platelet Volume 10.4 fL (7.4-10.4); Monocytes # 0.7 10^3/uL (0.2-0.9); Monocytes % 8.2 %; Neutrophils # 4.79 10^3/uL (1.8-7.7); Nucleated Red Blood Cells % 0 %; Platelet Count 100 10^3/cmm (130-400); Red Cell Distribution Width 13.4 % (12.1-15.1); White Blood Count 8.4 10^3/uL (4.0-10.0)
[2020-10-05 03:10] LABS: Anion Gap 12.2 (5-19); Blood Urea Nitrogen 3 mg/dL (8-23); Calcium 7.3 mg/dL (8.5-10.5); Carbon Dioxide 22 mmol/L (22-29); Chloride 108 mmol/L (98-107); Glucose 99 mg/dL (65-115); Osmolality Calculated 285 mOsm/kg (285-295); Potassium 3.2 mmol/L (3.5-5.1); Sodium 139 mmol/L (136-145)
[2020-10-05] MEDS: sodium chloride 0.9% 1,000 ML 50 ML IV (05:13)
[2020-10-05] MEDS: potassium chloride ER 20 mEq Tablet 40 MEQ PO ×2 (08:44→17:55)
[2020-10-05] MEDS: bisacodyl 5 mg Tablet PO (08:45)
[2020-10-05] MEDS: amitriptyline 25 mg Tablet 100 MG PO (08:45)
[2020-10-05] MEDS: HYDROcodone-acetaminophen 10-325 mg Tablet 1 TAB PO (08:53)
--- NOTE | 2020-10-05 10:00 | PC.SOCIAL ---
IMM Updated Updated pt on Pg 2 IMM. No questions voiced. Provided pt a copy. Signed, dated, & timed copy in chart.
--- NOTE | 2020-10-05 12:44 | P.PN_ITS ---
Subjective Subjective: Interval history: Postop day #2 repositioning of right ureteral stent. Clinically she is doing very well. Denies any significant complaints this morning other than leakage. No fever or chills. No belly pain or CVA tenderness or back pain. Appetite is returning. She thinks her thinking has improved as well. No change in physical exam. From a urologic perspective I think that she will be able to be discharged at any point that the hospitalist team feels that she is safe to do so. I will plan on seeing her back in a couple weeks and discuss stent removal. Also reviewed urethral treatments available if her intrinsic sphincter deficiency does not improve over time. I spoke with her over the phone to update him. Questions were answered. Vitals/I&O/Wt Last Vital Signs Temp 97.9 F 10/05/20 12:00 Pulse 94 10/05/20 12:00 Resp 16 10/05/20 12:00 BP 120/73 10/05/20 12:00 Pulse Ox 99 10/05/20 12:00 10/04/20 10/05/20 10/05/20 22:59 06:59 14:59 Intake Total 220 / 905 1200 / 2105 460 / 460 Output Total 100 / 600 0 / 600 Balance 120 / 305 1200 / 1505 460 / 460 Weight last 48 hrs Weight 165 lb 4.8 oz Weight 167 lb 8 oz Physical Exam Const: COMMON NORMALS: no acute distress, alert and well nourished GENERAL APPEARANCE: well kempt and well developed ORIENTATION/CONSCIOUSNESS: not confused HENMT: COMMON NORMALS: normocephalic and atraumatic HEAD & SCALP: normocephalic and atraumatic Eye: COMMON NORMALS: conjunctivae normal and no scleral icterus CONJUNCTIVA: Yes conjunctivae normal OTHER: Nystagmus Neck/C-Spine: COMMON NORMALS: full ROM GENERAL: Yes normal visual inspection Resp: COMMON NORMALS: normal respiratory effort EFFORT & INSPECTION: No labored and No Actively coughing GI: COMMON NORMALS: Soft to palpation and non-tender PALPATION: Yes Soft to palpation : COMMON NORMALS: Yes no CVA tenderness BLADDER/KIDNEY EXAM: Yes no CVA tenderness Back/Pelvis: COMMON NORMALS: no CVA tenderness Neuro: SENSORIUM/ORIENTATION: Yes alert Psych: APPEARANCE: Yes grossly normal and Yes well kempt ATTITUDE: Yes calm and Yes engaged Data : 10/05/20 02:36 10/05/20 02:36 Micro: Microbiology 09/30/20 12:35 Blood Culture - Final Blood NO GROWTH AFTER 5 DAYS 09/30/20 12:08 Blood Culture - Final Blood NO GROWTH AFTER 5 DAYS A&P Assessment and plan (1) Ureteral stent displacement: Easily repositioned yesterday. Position confirmed with retrograde pyelogram. No evidence of untoward events today. Continues to do well. No further manipulation of work-up required for this Status: Resolved Qualifiers: Encounter type: initial encounter Qualified Code(s): T83.122A - Displacement of indwelling ureteral stent, initial encounter (2) Intrinsic sphincter deficiency: Patulous urethra from chronic indwelling Jones catheter for many years. Insensate leakage despite functioning suprapubic tube. Status: Acute (3) Renal hematoma: Subcapsular. No treatment required. Status: Acute Qualifiers: Encounter type: initial encounter Laterality: right Qualified Code(s): S37.011A - Minor contusion of right kidney, initial encounter (4) Pyelonephritis: Continues to improve. White count normal Status: Acute (5) Neurogenic bladder: Status post suprapubic tube placement. Catheter functioning well. Status: Chronic (6) Chronic indwelling Jones catheter: Converted from urethral to suprapubic tube. Suprapubic tube is working well. Is having problems from patulous urethra secondary to chronic indwelling urethral Jones catheter historically Status: Acute (7) Recurrent kidney stones: Status post laser lithotripsy. Could not see any obvious stones on retrograde pyelogram during the procedure yesterday. Status: Acute (8) Septic shock: Continues significant improvement. I think she is stable enough to have intervention for stent repositioning today Status: Resolved Additional A&P Information Malpositioned Right ureteral stent with no urinary extravasation. Attestations Medical Necessity Statement*: See attending Coding Level of Care Code Acute Gas Flow Regulator for [facility] Fwd Exam Comprehensive Diagnoses Ureteral stent displacement T83.122A Encounter type: initial encounter Intrinsic sphincter deficiency N36.42 Renal hematoma S37.011A Encounter type: initial encounter Laterality: right Pyelonephritis N12 Neurogenic bladder N31.9 Chronic indwelling Jones catheter Z97.8 Recurrent kidney stones N20.0 Septic shock A41.9; R65.21
--- NOTE | 2020-10-05 13:18 | P.PN_ITS ---
Subjective Subjective: Interval history: Patient was seen and examined this morning, overall she is doing better, WBC count has continued to trend down, she has remained afebrile, has continued to maintain good map. Hypokalemia has improved. She denies any abdominal pain nausea vomiting, postop day 2: After repositioning of the right ureteral stent, has so far been uneventful. Medications: Reviewed: Yes Vitals/I&O/Wt Last Vital Signs Temp 97.9 F 10/05/20 12:00 Pulse 94 10/05/20 12:00 Resp 16 10/05/20 12:00 BP 120/73 10/05/20 12:00 Pulse Ox 99 10/05/20 12:00 10/04/20 10/05/20 10/05/20 22:59 06:59 14:59 Intake Total 220 / 905 1200 / 2105 460 / 460 Output Total 100 / 600 0 / 600 Balance 120 / 305 1200 / 1505 460 / 460 Weight last 48 hrs Weight 74.979 kg Weight 75.977 kg Physical Exam Const: COMMON NORMALS: patient oriented x3 HENMT: COMMON NORMALS: normocephalic and atraumatic HEAD & SCALP: normocephalic and atraumatic Chest: CHEST: Yes Symmetrical chest wall rise Resp: COMMON NORMALS: clear to auscultation bilaterally EFFORT & INSPECTI ON: Yes symmetric chest movement AUSCULTATION: clear to auscultation bilaterally Cardio: COMMON NORMALS: regular rate, regular rhythm, S1 normal heart sound present, S2 normal heart sound present, No gallops present (Cardio), No murmurs present (Cardio), No rub (Cardio) and Peripheral pulses 2+ throughout RATE: regular rate RHYTHM: regular rhythm HEART SOUNDS: S1 normal heart sound present and S2 normal heart sound present PERIPHERAL PULSES: Peripheral pulses 2+ throughout GI: COMMON NORMALS: Normal to inspection, nondistended, normoactive bowel sounds present, Soft to palpation, non-tender, No hepatosplenomegaly present and no masses AUSCULTATION: Yes normoactive bowel sounds PALPATION: Yes Soft to palpation and Yes No hepatosplenomegaly present RECTAL EXAM: deferred Extremity: COMMON NORMALS: no pedal edema Neuro: COMMON NORMALS: patient oriented x3 Data : 10/05/20 02:36 10/05/20 02:36 Micro: Microbiology 09/30/20 12:35 Blood Culture - Final Blood NO GROWTH AFTER 5 DAYS 09/30/20 12:08 Blood Culture - Final Blood NO GROWTH AFTER 5 DAYS A&P Assessment and plan (1) Septic shock: Likely as result of pyelonephritis given recent history of instrumentation in a chronically colonized bladder Empiric imipenem urine culture:No Growth blood cx negative thus far off IVF , off pressors now, maintaining BP, advanced to regular diet now Status: Resolved (2) Pyelonephritis: improving Status: Acute (3) Renal hematoma: CT of the abdomen with moderate size right renal subcapsular hematoma, pigtail catheter seen partially coiled along the superior pole of the right kidney which may be a result of the subcapsular hematoma. Very small amount of blood along the right paracolic gutter. hemoglobin dropped today to 9.9, hemodynamically stable, monitor for now. Plan to got o OR tomorrow to reposition/extract stent Status: Acute Qualifiers: Encounter type: initial encounter Laterality: right Qualified Code(s): S37.011A - Minor contusion of right kidney, initial encounter (4) Transaminitis: Likely as result of hypotension, septic shock Currently improving CT makes note of marked intrahepatic biliary dilatation, however this appears to be unchanged from the recent scan on 09/21/2020 and only with mild progression since 2018. CBD and pancreatic head is 11 mm. No obstructing mass or stone is been identified. Alkaline phosphatase not markedly elevated. Status: Acute (5) Thrombocytopenia: Likely as a result of sepsis : Is improving Has not received any heparin products this admission, not likely to be HIT Status: Acute (6) Ureteral stent displacement: Status: Resolved Qualifiers: Encounter type: initial encounter Qualified Code(s): T83.122A - Displacement of indwelling ureteral stent, initial encounter (7) Anemia: Normocytic Anemia: Likely secondary to anemia of chronic disease: Serum iron: 111, TIBC: 128, percent saturation: 86, ferritin:402, vitamin B12:>67260, folate: 5.1 Monitor CBC: Transfuse to maintain hemoglobin greater than 7 Status: Acute (8) Hypokalemia: Chronic Hypokalemia : She is on Pottasium Gluconate 600 mg po daily at home. Monitor and Replace Status: Acute (9) Hypoalbuminemia: ENsure 2 Bottle Daily Status: Acute (10) Hypomagnesemia: Status: Acute Additional A&P Information COPD: Continue duo nebs and budesonide inhalation, not currently exacerbated History of hypertension: Hold antihypertensives currently Multiple sclerosis, at baseline Neurogenic bladder, currently with suprapubic catheter, has urinary leaking through urethra additionally Regular diet now, NPO p/MN DVT ppx: hold for now given renal hematoma and dropping Hb and platelets , SCDs only Tranfser out of ICU Attestations Medical Necessity Statement*: Patient needs to be in hospital for management of sepsis secondary to right pyelonephritis Coding Level of Care Code Acute Ssrs Report Developer for [facility] Fwd Exam Detailed Diagnoses Septic shock A41.9; R65.21 Pyelonephritis N12 Renal hematoma S37.011A Encounter type: initial encounter Laterality: right Transaminitis R74.01 Thrombocytopenia D69.6 Ureteral stent displacement T83.122A Encounter type: initial encounter Anemia D64.9 Hypokalemia E87.6 Hypoalbuminemia E88.09 Hypomagnesemia E83.42
[2020-10-06] VITALS (7 sets, daily range): BP systolic 134–147; BP diastolic 78–90; PULSE 84–115; RESP 17–22; TEMP 36.8–36.9; O2SAT 94–98
[2020-10-06 02:39] LABS: Basophils % 0.4 %; Eosinophils # 0.2 10^3/uL (0.0-0.8); Eosinophils % 2.7 %; Hematocrit 33.4 % (37.0-47.0); Hemoglobin 11.3 g/dL (11.5-15.3); Lymphocytes # 2.1 10^3/uL (0.8-4.8); Lymphocytes % 27.6 %; Mean Corpuscular HGB Conc 33.8 g/dL (30.0-36.0); Mean Corpuscular Hemoglobin 30.2 pg (28.0-34.0); Mean Corpuscular Volume 89.3 fL (81-99); Mean Platelet Volume 10.2 fL (7.4-10.4); Monocytes # 0.7 10^3/uL (0.2-0.9); Monocytes % 9.2 %; Neutrophils # 4.27 10^3/uL (1.8-7.7); Neutrophils % 55.7 %; Nucleated Red Blood Cells % 0 %; Platelet Count 133 10^3/cmm (130-400); Red Blood Count 3.74 10^6/uL (4.1-5.3); Red Cell Distribution Width 13.4 % (12.1-15.1); White Blood Count 7.7 10^3/uL (4.0-10.0)
[2020-10-06 03:00] LABS: Anion Gap 11.8 (5-19); Blood Urea Nitrogen 3 mg/dL (8-23); Calcium 7.7 mg/dL (8.5-10.5); Carbon Dioxide 22 mmol/L (22-29); Chloride 108 mmol/L (98-107); Glucose 94 mg/dL (65-115); Osmolality Calculated 282 mOsm/kg (285-295); Potassium 3.8 mmol/L (3.5-5.1); Sodium 138 mmol/L (136-145)
[2020-10-06] MEDS: sodium chloride 0.9% 1,000 ML 50 ML IV (03:45)
--- NOTE | 2020-10-06 11:33 | P.DS_ITS ---
Discharge Providers Date of Admission: 09/30/20 14:12 Date of Discharge: October 06, 2020 Attending Provider at Admission: Bindu Espino MD Attending Provider at Discharge: Tin Rivero MD Primary Care Provider: Manny Patel DO Diagnoses at Discharge Discharge Diagnosis (1) Septic shock: Status: Resolved (2) Pyelonephritis: Status: Acute (3) Renal hematoma: Status: Acute Qualifiers: Encounter type: initial encounter Laterality: right Qualified Code(s): S37.011A - Minor contusion of right kidney, initial encounter (4) Transaminitis: Status: Acute (5) Thrombocytopenia: Status: Acute (6) Ureteral stent displacement: Status: Resolved Qualifiers: Encounter type: initial encounter Qualified Code(s): T83.122A - Displacement of indwelling ureteral stent, initial encounter (7) Anemia: Status: Acute (8) Hypokalemia: Status: Acute (9) Hypoalbuminemia: Status: Acute (10) Hypomagnesemia: Status: Acute Reason for Visit Reason for Visit: LOW BP/ ELEVATED HR/ AMS Hospital Course Hospital Course 70 year old female with past medical history of Multiple sclerosis, Accelerated essential hypertension , Anxiety disorder Chronic indwelling Jones catheter, Dementia presented to the emergency room with chief complaint of altered mental status, increasing lethargy. She is status post right-sided cystoscopy with retrograde ureteroscopy laser and stenting yesterday and a percutaneous suprapubic tube placement as a result of neurogenic bladder secondary to multiple sclerosis. Her preop CT scan was performed which had shown the presence of some right renal stones and significant inflammatory changes and thickening of the renal pelvis worrisome for soft tissue mass. She was admitted initially for the management of septic shock secondary to pyelonephritis, she was kept on imipenem, IV fluids, vasopressor support, to which she responded very well at the time of discharge sepsis was resolved, she was afebrile, hemodynamically stable, off pressor support, cultures were negative.During this hospital stay it was found that her right Ureteral stent was displaced s/p repositioning, patient tolerated the procedure very well, post repositioning,No belly pain or CVA tenderness or back pain. 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 Insensate leakage despite functioning suprapubic tube. As per urology Hopefully she will have natural contraction of the urethra over time due to the inflammatory changes that occurred but if not may require bulking agent injection or potentially urethral closure surgically.The suprapubic catheter was working well. Renal hematoma: Which was noted on CT of the abdomen with moderate size right renal subcapsular hematoma, pigtail catheter seen partially coiled along the superior pole of the right kidney which may be a result of the subcapsular hematoma. Very small amount of blood along the right paracolic gutter. Serial CBC monitoring was done, she was kept off anticoagulation. H&H remained stable, no acute intervention was done.Transaminitis: Which was likely secondary to septic shock had significantly improved. Thrombocytopenia likely secondary to sepsis was also improving.There was no concern for HIT based on her low 4T score.For her history of chronic hypokalemia, aggressive potassium supplementation was undertaken, hypomagnesemia was also corrected, at the time of discharge serum potassium was,normal, she was continued on her home potassium gluconate 600 mg po daily dose. Patient has responded well to the above medical management she is being discharged in stable condition.She will follow urology as an outpatient. Physical Exam Const: COMMON NORMALS: patient oriented x3 HENMT: COMMON NORMALS: normocephalic and atraumatic HEAD & SCALP: normocephalic and atraumatic Chest: CHEST: Yes Symmetrical chest wall rise Resp: COMMON NORMALS: clear to auscultation bilaterally EFFORT & INSPECTION: Yes symmetric chest movement AUSCULTATION: clear to auscultation bilaterally Cardio: COMMON NORMALS: regular rate, regular rhythm, S1 normal heart sound present, S2 normal heart sound present, No gallops present (Cardio), No murmurs present (Cardio), No rub (Cardio) and Peripheral pulses 2+ throughout RATE: regular rate RHYTHM: regular rhythm HEART SOUNDS: S1 normal heart sound present and S2 normal heart sound present PERIPHERAL PULSES: Peripheral pulses 2+ throughout GI: COMMON NORMALS: Normal to inspection, nondistended, normoactive bowel sounds present, Soft to palpation, non-tender, No hepatosplenomegaly present and no masses AUSCULTATION: Yes normoactive bowel sounds PALPATION: Yes Soft to palpation and Yes No hepatosplenomegaly present RECTAL EXAM: deferred OTHER: Suprapubic catheter site is clean Extremity: COMMON NORMALS: no pedal edema OTHER: Trace B/L L/E Pitting Edema Neuro: COMMON NORMALS: patient oriented x3 Discharge Data Data Completed and Pending: Completed Studies During Hospitalization Category Date Time Status CT abdomen pelvis w con* [id number] Stat Cat Scan 09/30/20 11:[address] head wo con* [id number] Stat Cat Scan 09/30/20 11:37 Completed XR chest 1V jh ble [id number] Stat Exams 09/30/20 11:37 Completed Labs from last 24 hours 10/06/20 10/06/20 02:23 02:23 WBC 7.7 RBC 3.74 L Hgb 11.3 L Hct 33.4 L MCV 89.3 MCH 30.2 MCHC 33.8 RDW 13.4 Plt Count 133 MPV 10.2 Neut % (Auto) 55.7 Lymph % (Auto) 27.6 [place] % (Auto) 9.2 Eos % (Auto) 2.7 Baso % (Auto) 0.4 Neut # (Auto) 4.27 Lymph # (Auto) 2.1 [place] # (Auto) 0.7 Eos # (Auto) 0.2 Baso # (Auto) 0.0 Nucleated RBC % (a uto) 0 Nucleated RBCs # 0.0 Sodium 138 Potassium 3.8 Chloride 108 H Carbon Dioxide 22 Anion Gap 11.8 BUN 3 L Creatinine 0.3 L GFR Calculation Not Reportable Glucose 94 Calculated Osmolal ity 282 L Calcium 7.7 L Vitals: Last Vital Signs Temp 98.3 F 10/06/20 08:00 Pulse 106 H 10/06/20 09:10 Resp 18 10/06/20 09:10 BP 144/80 10/06/20 08:00 Pulse Ox 95 10/06/20 09:10 Discharge Plan Discharge Patient Disposition: Home Condition: Stable Prescriptions: New levofloxacin 500 mg tablet 500 mg PO DAILY 10 Days RF: 0 Continued amitriptyline 100 mg tablet 100 mg PO DAILY RF: 0 albuterol sulfate [Ventolin HFA] 90 mcg/actuation HFA aerosol inhaler 2 puff inhalation Q6H PRN (Reason: Bronchodilation) RF: 0 polyethylene glycol 3350 [Miralax] 17 gram Powder In Packet 17 g PO DAILY RF: 0 hydrocodone-acetaminophen 10-325 mg Tablet 1 tab PO Q4H PRN (Reason: Pain) RF: 0 baclofen 20 mg Tablet 20 mg PO TID PRN (Reason: Muscle Spasm) RF: 0 alprazolam [Xanax] 0.25 mg Tablet 0.25 mg PO BID PRN (Reason: Anxiety) RF: 0 bisacodyl [Dulcolax (bisacodyl)] 10 mg Suppository 10 mg SC DAILY PRN (Reason: Constipation) RF: 0 bisacodyl [Dulcolax (bisacodyl)] 5 mg Tablet,Delayed Release (Dr/Ec) 5 mg PO BID RF: 0 albuterol sulfate 90 mcg/actuation Hfa Aerosol Inhaler 1 inh INHALATION Q4H PRN (Reason: Shortness Of Breath) RF: 0 albuterol sulfate [ProAir HFA] 90 mcg/actuation Hfa Aerosol Inhaler 2 inh INHALATION BEDTIME RF: 0 morphine 15 mg Tablet 15 mg PO Q4H PRN (Reason: Pain) RF: 0 Flovent HFA 110 mcg/actuation Hfa Aerosol Inhaler 2 puff INHALATION BEDTIME RF: 0 diazepam 5 mg Tablet 10 mg PO BID PRN (Reason: Agitation) RF: 0 Silver Gel Gel 1 ea TOPICAL DAILY RF: 0 potassium gluconate 600 mg (99 mg) Tablet 600 mg PO DAILY RF: 0 melatonin 10 mg Tablet Extended Release 10 mg PO BEDTIME RF: 0 Held furosemide 40 mg Tablet 40 mg PO DAILY RF: 0 Hold Instructions: Resume on 10/13/20. Discontinued levofloxacin 250 mg tablet 250 mg PO DAILY 5 Days Qty: 5 RF: 0 Discharge Orders: Discharge Order (Routine); Ordered 10/06/20 Ordered By: Tin Rivero Referrals: [facility] [Outside] Juanjose Virk MD [Physician] - 11/01/20 (On November 01 please arrive at the hospital for an xray and then go immediately to Dr. Virk's office following the xray.) Discharge Diet: Regular Discharge Activity: Increase activity as tolerated Patient Instructions: Cystoscopy, Levofloxacin (By mouth), How to Care for Your Suprapubic Catheter (GEN), Opioid Safety Discharge Attestations Time Spent in Discharge Care*: less than 30 min Specific Discharge Activities: educating patient, educating and/or supporting family/caregiver, discussing with pcp/other providers, discussing with director of casework/social workers/dc planners, documenting/other paperwork and evaluating patient/reviewing data Status at Discharge: Cognitive status at discharge: cognitively intact , Behavioral status at discharge: cooperative , Functional status at discharge: wheelchair bound Overall status at discharge: patient is back to baseline Quality Metrics Clinical Quality Measures During this hospital stay, did patient experience: None Coding Level of Care Code Acute Chg FW MA note Diagnoses Septic shock A41.9; R65.21 Pyelonephritis N12 Renal hematoma S37.011A Encounter type: initial encounter Laterality: right Transaminitis R74.01 Thrombocytopenia D69.6 Ureteral stent displacement T83.122A Encounter type: initial encounter Anemia D64.9 Hypokalemia E87.6 Hypoalbuminemia E88.09 Hypomagnesemia E83.42
== END 2020-10-06 13:15 | disposition home health service (06) | DRG 853 ==
LOC: ER 11:38 → ICU 14:29 → MEDSURG 10-02 13:15
PROVIDERS: Urology; Admitting Provider Student in an Organized Health Care Education/Training Program; Emergency Provider Family Medicine; PCP Family Medicine; Visit Provider Internal Medicine
PROC: 0TJB8ZZ Inspection of Bladder, Via Natural or Artificial Opening Endoscopic (ICD-10-PCS; CPT 52000; principal; 2020-10-03 15:05)
PROC: 0T768DZ Dilation of Right Ureter with Intraluminal Device, Via Natural or Artificial Opening Endoscopic (ICD-10-PCS; 2020-10-03 15:05)
PROC: 0T768DZ Dilation of Right Ureter with Intraluminal Device, Via Natural or Artificial Opening Endoscopic (ICD-10-PCS; CPT 74420; 2020-10-03 15:05)
DX: A41.9 Sepsis, unspecified organism (principal); R65.21 Severe sepsis with septic shock; N10 Acute pyelonephritis; N99.840 Postprocedural hematoma of a genitourinary system organ or structure following a genitourinary system procedure; T83.122A Displacement of indwelling ureteral stent, initial encounter; I10 Essential (primary) hypertension; Z93.50 Unspecified cystostomy status; N31.9 Neuromuscular dysfunction of bladder, unspecified; G35 Multiple sclerosis; F41.9 Anxiety disorder, unspecified; F03.90 Unspecified dementia, unspecified severity, without behavioral disturbance, psychotic disturbance, mood disturbance, and anxiety; Z87.442 Personal history of urinary calculi; J44.9 Chronic obstructive pulmonary disease, unspecified; Y73.1 Therapeutic (nonsurgical) and rehabilitative gastroenterology and urology devices associated with adverse incidents; D69.59 Other secondary thrombocytopenia; E87.6 Hypokalemia; E83.42 Hypomagnesemia; E88.09 Other disorders of plasma-protein metabolism, not elsewhere classified; N36.42 Intrinsic sphincter deficiency (ISD); I95.9 Hypotension, unspecified; Z79.51 Long term (current) use of inhaled steroids
CPT/HCPCS: 36415; 36416; 36600; 70450; 71045; 74018; 74177; 76000; 80048; 80051; 80053; 81001; 82330; 82607; 82728; 82746; 82805; 82962; 83540; 83550; 83605; 83690; 83735; 84132; 84145; 85007; 85025; 87040; 87086; 93005; 94640; 94664; 96365; 96374; 99291; C2625; J0743; J1170; J1956; J2370; J2405; J2704; J3010; J3475; J3480; J7030; J7040; J7611; Q9967

== ENCOUNTER 2020-11-01 08:12 | Outpatient (CLI) | payer MEDICARE, MEDICAID, SELFPAY ==
--- NOTE | 2020-11-01 08:30 | XRR_ITS ---
PROCEDURE INFORMATION: Exam: XR Abdomen Exam date and time: 11/01/2020 8:31 AM Age: 70 years old Clinical indication: Other: Follow up kidney stones; Prior surgery; Additional info: N28.89 - other specified disorders of kidney and ureter TECHNIQUE: Imaging protocol: XR of the abdomen. Views: Frontal supine view of the abdomen. 1 View. COMPARISON: CT abdomen pelvis w con* [id number] 09/30/2020 12:20 PM FINDINGS: Tubes, catheters and devices: A right ureteral stent is in position. Gastrointestinal tract: Large amount of colonic gas and fecal expansion of the colon. Intraperitoneal space: Surgical clips right upper quadrant. Organs: The renal shadow is not well defined bilaterally. Bones/joints: Degenerative change of the spine. XR/XR KUB [id number] IMPRESSION: Extensive colonic gas and fecal debris does not allow delineation of the renal shadow bilaterally.
== END 2020-11-01 08:13 | disposition home or self-care (01) ==
LOC: RAD 08:18
PROVIDERS: PCP Family Medicine; Visit Provider Urology
DX: N28.89 Other specified disorders of kidney and ureter (principal)
CPT/HCPCS: 74018

== ENCOUNTER 2020-11-25 13:11 | Outpatient (CLI) | payer MEDICARE, MEDICAID, SELFPAY | END 2020-11-25 13:12 | disposition home or self-care (01) | LOC: WOUND 13:12 | PROVIDERS: PCP Family Medicine; Visit Provider Nurse Practitioner Family | DX: I96 Gangrene, not elsewhere classified (principal); L89.152 Pressure ulcer of sacral region, stage 2 | CPT/HCPCS: 11042; G0463 ==

== ENCOUNTER 2020-12-02 14:21 | Outpatient (CLI) | payer MEDICARE, MEDICAID, SELFPAY | END 2020-12-02 14:22 | disposition home or self-care (01) | LOC: WOUND 14:22 | PROVIDERS: PCP Family Medicine; Visit Provider Thoracic Surgery (Cardiothoracic Vascular Surgery) | DX: I96 Gangrene, not elsewhere classified (principal); L89.152 Pressure ulcer of sacral region, stage 2 | CPT/HCPCS: 11042; 11045 ==

== ENCOUNTER 2020-12-09 13:54 | Outpatient (CLI) | payer MEDICARE, MEDICAID, SELFPAY | END 2020-12-09 13:55 | disposition home or self-care (01) | LOC: WOUND 13:55 | PROVIDERS: PCP Family Medicine; Visit Provider Surgery | DX: I96 Gangrene, not elsewhere classified (principal); L89.152 Pressure ulcer of sacral region, stage 2 | CPT/HCPCS: 11042 ==

== ENCOUNTER 2020-12-16 14:58 | Outpatient (CLI) | payer MEDICARE, MEDICAID, SELFPAY | END 2020-12-16 14:59 | disposition home or self-care (01) | LOC: WOUND 14:59 | PROVIDERS: PCP Family Medicine; Visit Provider Surgery | DX: I96 Gangrene, not elsewhere classified (principal); L89.152 Pressure ulcer of sacral region, stage 2 | CPT/HCPCS: 11042 ==

== ENCOUNTER 2020-12-23 14:32 | Outpatient (CLI) | payer MEDICARE, MEDICAID, SELFPAY | END 2020-12-23 14:33 | disposition home or self-care (01) | LOC: WOUND 14:33 | PROVIDERS: PCP Family Medicine; Visit Provider Surgery | DX: I96 Gangrene, not elsewhere classified (principal); L89.153 Pressure ulcer of sacral region, stage 3 | CPT/HCPCS: 11042 ==

== ENCOUNTER 2020-12-30 12:51 | Outpatient (CLI) | payer MEDICARE, MEDICAID, SELFPAY | END 2020-12-30 12:52 | disposition home or self-care (01) | LOC: WOUND 12:52 | PROVIDERS: PCP Family Medicine; Visit Provider Surgery | DX: I96 Gangrene, not elsewhere classified (principal); L89.153 Pressure ulcer of sacral region, stage 3 | CPT/HCPCS: 11042 ==

== ENCOUNTER 2021-01-04 10:55 | Outpatient (CLI) | payer MEDICARE, MEDICAID, SELFPAY ==
[2021-01-04 11:48] LABS: Alanine Aminotransferase 10 U/L (0-33); Albumin Level 3.6 g/dL (3.5-5.2); Alkaline Phosphatase 139 IU/L (35-105); Anion Gap 12.1 (5-19); Aspartate Amino Transferase 15 U/L (0-32); Blood Urea Nitrogen 6 mg/dL (8-23); Calcium 8.4 mg/dL (8.5-10.5); Carbon Dioxide 30 mmol/L (22-29); Chloride 104 mmol/L (98-107); Globulin 2.8 g/dL (1.3-4.6); Glucose 85 mg/dL (65-115); Osmolality Calculated 293 mOsm/kg (285-295); Potassium 3.1 mmol/L (3.5-5.1); Sodium 143 mmol/L (136-145); Total Bilirubin 0.2 mg/dL (0.15-1.2); Total Protein 6.4 g/dL (6.6-8.7)
[2021-01-04 11:58] LABS: Prealbumin 16.1 mg/dL (20-40)
== END 2021-01-04 10:56 | disposition home or self-care (01) ==
LOC: LAB 11:09
PROVIDERS: PCP Family Medicine; Visit Provider Thoracic Surgery (Cardiothoracic Vascular Surgery)
DX: L89.159 Pressure ulcer of sacral region, unspecified stage (principal)
CPT/HCPCS: 80053; 84134

== ENCOUNTER 2021-01-06 13:26 | Outpatient (CLI) | payer MEDICARE, MEDICAID, SELFPAY | END 2021-01-06 13:27 | disposition home or self-care (01) | LOC: WOUND 13:28 | PROVIDERS: PCP Family Medicine; Visit Provider Surgery | DX: I96 Gangrene, not elsewhere classified (principal); L89.153 Pressure ulcer of sacral region, stage 3 | CPT/HCPCS: 11042 ==

== ENCOUNTER 2021-01-13 12:55 | Outpatient (CLI) | payer MEDICARE, MEDICAID, SELFPAY | END 2021-01-13 12:56 | disposition home or self-care (01) | LOC: WOUND 12:56 | PROVIDERS: PCP Family Medicine; Visit Provider Surgery | DX: I96 Gangrene, not elsewhere classified (principal); L89.153 Pressure ulcer of sacral region, stage 3 | CPT/HCPCS: 11042 ==

== ENCOUNTER 2021-01-20 14:14 | Outpatient (CLI) | payer MEDICARE, MEDICAID, SELFPAY | END 2021-01-20 14:15 | disposition home or self-care (01) | LOC: WOUND 14:15 | PROVIDERS: PCP Family Medicine; Visit Provider Surgery | DX: L89.153 Pressure ulcer of sacral region, stage 3 (principal) | CPT/HCPCS: 11042 ==

== ENCOUNTER 2021-01-27 14:16 | Outpatient (CLI) | payer MEDICARE, MEDICAID, SELFPAY | END 2021-01-27 14:17 | disposition home or self-care (01) | LOC: WOUND 14:18 | PROVIDERS: PCP Family Medicine; Visit Provider Surgery | DX: L89.153 Pressure ulcer of sacral region, stage 3 (principal) | CPT/HCPCS: 11042 ==

== ENCOUNTER 2021-02-03 07:48 | Outpatient (CLI) | payer MEDICARE, MEDICAID, SELFPAY | END 2021-02-03 07:49 | disposition home or self-care (01) | LOC: WOUND 07:50 | PROVIDERS: PCP Family Medicine; Visit Provider Surgery | DX: L89.153 Pressure ulcer of sacral region, stage 3 (principal) | CPT/HCPCS: 11042 ==

== ENCOUNTER 2021-02-10 09:21 | Outpatient (CLI) | payer MEDICARE, MEDICAID, SELFPAY | END 2021-02-10 09:22 | disposition home or self-care (01) | LOC: WOUND 09:22 | PROVIDERS: PCP Family Medicine; Visit Provider Surgery | DX: L89.153 Pressure ulcer of sacral region, stage 3 (principal) | CPT/HCPCS: 11042 ==

== ENCOUNTER 2021-03-03 13:08 | Outpatient (CLI) | payer MEDICARE, MEDICAID, SELFPAY | END 2021-03-03 13:09 | disposition home or self-care (01) | LOC: WOUND 13:09 | PROVIDERS: PCP Family Medicine; Visit Provider Surgery | DX: L89.153 Pressure ulcer of sacral region, stage 3 (principal) | CPT/HCPCS: 11042 ==

== ENCOUNTER 2021-03-10 08:21 | Outpatient (CLI) | payer MEDICARE, MEDICAID, SELFPAY | END 2021-03-10 08:22 | disposition home or self-care (01) | LOC: WOUND 08:22 | PROVIDERS: PCP Family Medicine; Visit Provider Nurse Practitioner Family | DX: L89.153 Pressure ulcer of sacral region, stage 3 (principal) | CPT/HCPCS: 11042; 87070 ==

== ENCOUNTER → 2023-06-04 08:43 | Outpatient (BNVA) | payer MEDICARE, MEDICAID, SELFPAY | PROVIDERS: PCP Family Medicine; Visit Provider Nurse Practitioner Family | DX: I96 Gangrene, not elsewhere classified (principal); L89.153 Pressure ulcer of sacral region, stage 3 | CPT/HCPCS: 11042; 11045; 99213; A6446 ==

== ENCOUNTER 2023-06-23 19:54 | Inpatient (IN) | payer OTHER, MEDICAID, SELFPAY ==
[2023-06-23] VITALS (11 sets, daily range): BP systolic 87–128; BP diastolic 60–79; PULSE 105–117; RESP 16–39; TEMP 36.6–37.1; O2SAT 93–100; BMI 27.3
--- NOTE | 2023-06-23 20:08 | XRR_ITS ---
PROCEDURE INFORMATION: Exam: XR Chest Exam date and time: 06/23/2023 8:12 PM Age: 73 years old Clinical indication: Patient HX: Hypoxia; Dyspnea; Possible aspiration TECHNIQUE: Imaging protocol: Radiologic exam of the chest. Views: 1 view. COMPARISON: CR XR chest 1V portable [id number] 09/30/2020 12:22 PM FINDINGS: Lungs: Unremarkable. No consolidation. Pleural spaces: Unremarkable. No pleural effusion. No pneumothorax. Heart/Mediastinum: Unremarkable. No cardiomegaly. Bones/joints: Unremarkable. XR/XR chest 1V portable [id number] IMPRESSION: No acute findings.
--- NOTE | 2023-06-23 20:09 | ECG_ITS ---
[facility] Test Date: 2023-06-23 Pat Name: Kaylynn Calzada Department: Room: Gender: Female Mortgage Funder: : [id number] Requested By: Ron Wayne Order Number: [id number] Stephanie MD: Garry Munoz M.D. Measurements Intervals [place] Rate: 115 P: 4 IL: 196 QRS: 24 QRSD: 178 T: 123 QT: 373 QTc: 517 Interpretive Statements SINUS TACHYCARDIA LEFT ATRIAL ENLARGEMENT [-0.15mV P-WAVE IN V1/V2] LEFT BUNDLE BRANCH BLOCK [120+ ms QRS DURATION, 80+ ms Q/S IN V1/V2, 85+ ms R IN I/aVL/V5/V6] Compared to ECG 10/03/2020 15:33:16 Atrial abnormality now present Left bundle-branch block now present Sinus rhythm no longer present Myocardial infarct finding no longer present Electronically Signed On 06-23-2023 21:37:24 CLOTHING BUSHELER by Garry Munoz M.D. [email or web address]
[2023-06-23 20:24] LABS: Basophils % 0.3 %; Eosinophils # 0.1 10^3/uL (0.0-0.8); Eosinophils % 0.9 %; Hematocrit 31.7 % (36-47); Lymphocytes # 2.1 10^3/uL (0.8-4.8); Lymphocytes % 16.1 %; Mean Corpuscular HGB Conc 32.2 g/dL (30-55); Mean Corpuscular Hemoglobin 28.3 pg (27-33); Mean Corpuscular Volume 87.8 fl (85-98); Mean Platelet Volume 10.3 fL (7.4-10.4); Monocytes # 0.8 10^3/uL (0.2-0.9); Monocytes % 6.1 %; Neutrophils # 9.77 10^3/uL (1.8-7.7); Neutrophils % 76.1 %; Nucleated Red Blood Cells % 0 %; Platelet Count 430 10^3/cmm (157-399); Red Blood Count 3.61 10^6/uL (3.85-5.65); Red Cell Distribution Width 15.2 % (12.1-15.1); White Blood Count 12.85 10^3/uL (3.29-11.43)
--- NOTE | 2023-06-23 20:26 | ED_ITS ---
HPI - SOB/Dyspnea 2 General: Chief Complaint: Shortness of Breath/Dyspnea Stated Complaint: AMS Time Seen by Provider: 06/23/23 19:57 History of Present Illness: HPI Narrative: Patient presents to the ER via [facility] with complaints of shortness of breath, altered mental status, possible aspiration at 5 PM dinnertime. Patient is responsive to verbal stimuli only however will not answer questions appropriately. Patient does have apneic episodes witnessed by the nurse. Patient normally does not wear oxygen but she is requiring 3 L of oxygen per nasal cannula to keep her saturations above 93%. Patient has a known decubitus sacral ulcer that is being followed by wound care. Upon arrival patient's heart rate approximate 116 bpm. She is breathing about 16 times a minute. Patient's was seen in the ER last night and diagnosed with pneumonia. Patient's been battling EMS for many years. Patient has had sacral decub for many years. 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 May require bulking agent injection or urethral closure after placement of SP tube. 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 Other Hypertension Denies family history of Diabetes Stroke Social History Alcohol intake: never Substance/Drug Use: never Lives independently: No Housing: Care Home Marital status: Current occupational status: retired Physical Exam 2 Const: COMMON NORMALS: no acute distress and alert (To verbal stimuli); negative for patient oriented x3 HENMT: COMMON NORMALS: normocephalic, hearing grossly normal bilaterally, external ears normal, Normal external nose present, moist oral mucous membranes and oropharynx normal HEAD & SCALP: normocephalic NOSE: Normal external nose present EXTERNAL EAR: Yes external ears normal Eye: COMMON NORMALS: Equal, round and reactive pupils present, EOMs intact bilaterally and no scleral icterus PUPIL: Yes Equal, round and reactive pupils present Neck/C-Spine: COMMON NORMALS: no JVD Chest: COMMONS NORMALS: normal inspection of the chest and normal palpation of entire chest wall Resp: COMMON NORMALS: normal respiratory effort, No retractions and No use of accessory muscles; negative for clear to auscultation bilaterally (Decreased breath sounds on the right side) AUSCULTATION: not clear to auscultation bilaterally (Decreased breath sounds on the right side) Cardio: COMMON NORMALS: no JVD, regular rhythm, S1 normal heart sound present, S2 normal heart sound present, No clicks present (Cardio) and No murmurs present (Cardio); negative for regular rate (Tachycardic) RATE: abnormal rate (Tachycardic) RHYTHM: regular rhythm HEART SOUNDS: S1 normal heart sound present and S2 normal heart sound present GI: COMMON NORMALS: Normal to inspection, nondistended, normoactive bowel sounds present, Soft to palpation, non-tender, No hepatosplenomegaly present and no masses PALPATION: Yes Soft to palpation and Yes No hepatosplenomegaly present Neuro: COMMON NORMALS: negative for patient oriented x3 S ENSORIUM/ORIENTATION: Yes alert (To verbal stimuli) Course 2 Vital Signs: Vital signs: Vital Signs Temperature 98.7 F 06/23/23 20:06 Pulse Rate 109 H 06/23/23 21:33 Respiratory Rate 28 H 06/23/23 21:33 Blood Pressure 96/64 06/23/23 21:33 Pulse Oximetry 96 06/23/23 21:33 Oxygen Delivery Me thod Nasal Cannula 06/23/23 21:33 Oxygen Flow Rate 2 06/23/23 21:33 MDM - SOB/Dyspnea Medical Decision Making Patient had extensive lab work performed that showed a white count of 12.85 slightly elevated liver enzymes of AST 38 ALT 44 alk phos of 138, lactic acid and procalcitonin were normal, CRP was elevated 153, BNP 1324, urine did show positive signs of urinary tract infection chest x-ray did not not show any acute findings. Blood cultures were obtained patient was given a 500 mL bolus of normal saline and 400 mg Cipro IV. Family was informed of the labs and talk to patient's condition in detail. Dr. Chávez was consulted who agreed to come and see the patient for evaluation and treatment. Differential Diagnosis Unlikely acute exacerbation of chronic obstructive airways disease, congestive heart failure, community acquired pneumonia, asthma with exacerbation or pulmonary embolism Medical Records I reviewed the patient's medical records. Lab Data I reviewed the patient's lab results. 06/23/23 19:41 06/23/23 20:40 Labs/Radiology: Radiology Impressions Chest X-Ray 06/23/23 20:08 IMPRESSION: No acute findings. Laboratory Results WBC 12.85 10^3/uL (3.29-11.43) H 06/23/23 19:41 RBC 3.61 10^6/uL (3.85-5.65) L 06/23/23 19:41 Hgb 10.20 g/dL (11.27-16.99) L 06/23/23 19:41 Hct 31.7 % (36-47) L 06/23/23 19:41 MCV 87.8 fl (85-98) 06/23/23 19:41 MCH 28.3 pg (27-33) 06/23/23 19:41 MCHC 32.2 g/dL (30-55) 06/23/23 19:41 RDW 15.2 % (12.1-15.1) H 06/23/23 19:41 Plt Count 430 10^3/cmm (157-399) H 06/23/23 19:41 MPV 10.3 fL (7.4-10.4) 06/23/23 19:41 Neut % (Auto) 76.1 % 06/23/23 19:41 Lymph % (Auto) 16.1 % 06/23/23 19:41 [place] % (Auto) 6.1 % 06/23/23 19:41 Eos % (Auto) 0.9 % 06/23/23 19:41 Baso % (Auto) 0.3 % 06/23/23 19:41 Neut # (Auto) 9.77 10^3/uL (1.8-7.7) H 06/23/23 19:41 Lymph # (Auto) 2.1 10^3/uL (0.8-4.8) 06/23/23 19:41 [place] # (Auto) 0.8 10^3/uL (0.2-0.9) 06/23/23 19:41 Eos # (Auto) 0.1 10^3/uL (0.0-0.8) 06/23/23 19:41 Baso # (Auto) 0.0 10^3/uL (0.0-0.1) 06/23/23 19:41 Nucleated RBC % (auto) 0 % 06/23/23 19:41 Nucleated RBCs # 0.0 /100WBC 06/23/23 19:41 PT 24.10 SECONDS (12.1-14.9) H 06/23/23 20:40 INR 2.08 (0.8-1.2) H 06/23/23 20:40 Specimen Type Arterial 06/23/23 20:36 Sample Site Radial, right 06/23/23 20:36 ABG pH 7.45 (7.35-7.45) 06/23/23 20:36 ABG pCO2 38.7 mmHg (35-45) 06/23/23 20:36 ABG pO2 74.0 mmHg (80.0-100.0) L 06/23/23 20:36 ABG PO2/FiO2 Ratio 0 06/23/23 20:36 ABG HCO3 27.0 mmol/L (22-26) H 06/23/23 20:36 ABG O2 Saturation 96.3 06/23/23 20:36 ABG Base Excess 2.9 mmol/L (-2.0-2.0) H 06/23/23 20:36 [place]ison Test Pos 06/23/23 20:36 A-a O2 Gradient 10.3 mmHg (5-10) H 06/23/23 20:36 Hematocrit 31.5 % (37-47) L 06/23/23 20:36 Hgb O2 Saturation 94.9 % (95-100) L 06/23/23 20:36 Carboxyhemoglobin 1.1 %THgb (0.4-20.1) 06/23/23 20:36 Methemoglobin 0.4 % (0.4-1.5) 06/23/23 20:36 Total Hemoglobin 10.3 g/dL (12-16) L 06/23/23 20:36 Sodium 138.0 mmol/L (131-143) 06/23/23 20:36 Potassium 3.5 mmol/L (3.5-5.0) 06/23/23 20:36 Glucose 125.0 mg/dL (70-115) H 06/23/23 20:36 Ionized Calcium 1.2 mmol/L (1.1-1.4) 06/23/23 20:36 O2 Delivery Device Nc 06/23/23 20:36 FiO2 28.0 % 06/23/23 20:36 Management Trainee ID Ed 06/23/23 20:36 Sodium 137 mmol/L (136-145) 06/23/23 20:40 Potassium 4.0 mmol/L (3.5-5.1) 06/23/23 20:40 Chloride 102 mmol/L (98-107) 06/23/23 20:40 Carbon Dioxide 24 mmol/L (22-29) 06/23/23 20:40 Anion Gap 14.8 (5-19) 06/23/23 20:40 BUN 13 mg/dL (8-23) 06/23/23 20:40 Creatinine 0.5 mg/dL (0.5-0.9) 06/23/23 20:40 GFR Calculation Not Reportable 06/23/23 20:40 Glucose 126 mg/dL (65-115) H 06/23/23 20:40 Calculated Osmolality 284 mOsm/kg (285-295) L 06/23/23 20:40 Lactic Acid 0.8 mmol/L (0.5-2.2) 06/23/23 20:40 Calcium 8.7 mg/dL (8.5-10.5) 06/23/23 20:40 Magnesium 2.1 mg/dL (1.7-2.3) 06/23/23 20:40 Total Bilirubin 0.3 mg/dL (0.15-1.2) 06/23/23 20:40 AST 38 U/L (0-32) H 06/23/23 20:40 ALT 44 U/L (0-33) H 06/23/23 20:40 Alkaline Phosphatase 138 U/L (35-105) H 06/23/23 20:40 Troponin T Baseline 54 ng/L (0-10) H 06/23/23 20:40 C-Reactive Protein 153.9 mg/L (0.0-4.9) H 06/23/23 20:40 NT-Pro-B Natriuret Pep 1324 pg/mL (0-450) H 06/23/23 20:40 Total Protein 6.0 g/dL (6.6-8.7) L 06/23/23 20:40 Albumin 2.9 g/dL (3.5-5.2) L 06/23/23 20:40 Globulin 3.2 g/dL (1.3-4.6) 06/23/23 20:40 Procalcitonin 0.20 ng/mL (0-0.5) 06/23/23 20:40 Urine Color Yellow (Yellow) 06/23/23 20:16 Urine Appearance Cloudy (CLEAR) A 06/23/23 20:16 Urine pH 6 (5-7) 06/23/23 20:16 Ur Specific [place] 1.020 (1.005-1.030) 06/23/23 20:16 Urine Protein 1+ (Negative) H 06/23/23 20:16 Urine Glucose (UA) Norm (Normal) 06/23/23 20:16 Urine Ketones 1+ (Negative) H 06/23/23 20:16 Urine Blood 3+ (Negative) H 06/23/23 20:16 Urine Nitrate Positive (Negative) H 06/23/23 20:16 Urine Bilirubin 1+ (Negative) H 06/23/23 20:16 Urine Urobilinogen 1 mg/dL (Negative) H 06/23/23 20:16 Ur Leukocyte Esterase 2+ (Negative) H 06/23/23 20:16 Urine RBC 5-10 /hpf (0-2) H 06/23/23 20:16 Urine WBC 25-40 /hpf (0-5) H 06/23/23 20:16 Ur Squamous Epith Cells 0-4 /hpf (0-5) H 06/23/23 20:16 Amorphous Sediment 1+ /hpf 06/23/23 20:16 Urine Bacteria 3+ /hpf (NONE) H 06/23/23 20:16 Urine Mucus 2+ /hpf 06/23/23 20:16 Influenza Type A Ag negative (Negative) 06/23/23 20:16 Influenza Type B Ag negative (Negative) 06/23/23 20:16 SARS-CoV-2 Ag (Rapid) negative (Negative) 06/23/23 20:16 All radiology interpretation(s) finalized by discharge EKG Data EKG 1: I personally reviewed and interpreted this EKG as follows: EKG Interpretation Date: 06/23/23 EKG interpretation time: 20:21 Prior EKG tracings: not available for review Interpretation: EKG shows ventricular rate 115 bpm, VA interval 196, QRS duration 178, QTc of 441, sinus tachycardia, left atrial lodgment, left bundle branch block Discharge Plan Discharge Patient Disposition: Admitted As Inpatient Clinical Impression: Acute alteration in mental status, Urinary tract infection, Dementia, Sacral pressure ulcer, Elevated troponin Condition: Stable Coding Level of Care Code ED Frame Trimmer for Daryl Ansari
[2023-06-23 20:45] LABS: Add Urine Microscopic? YES
[2023-06-23 20:46] LABS: ABG PCO2 38.7 mmHg (35-45); ABG PH Result 7.45 (7.35-7.45); Arterial Blood Gas Hematocrit 31.5 % (37-47); Base Excess ABG 2.9 mmol/L (-2.0-2.0); Blood Gas Allen Test Pos; Blood Gas Sample Type Arterial; Carboxyhemoglobin 1.1 %THgb (0.4-20.1); HGB O2 Sat 94.9 % (95-100); Ionized Calcium Level - ABG 1.2 mmol/L (1.1-1.4); Methemoglobin 0.4 % (0.4-1.5); Oxygen Saturation ABG 96.3; Potassium Level - ABG 3.5 mmol/L (3.5-5.0); Total Hemoglobin 10.3 g/dL (12-16)
[2023-06-23 20:46] LABS: Blood Urine 3+ (Negative); Glucose Urine UA Norm (Normal); Ketones Urine 1+ (Negative); Protein Urine 1+ (Negative); Urine Appearance Cloudy (CLEAR); Urine Color Yellow (Yellow); pH Urine 6 (5-7)
[2023-06-23 20:47] LABS: Alveolar-Arterial Oxygen Gradi 10.3 mmHg (5-10); Blood Gas Operator Identificat ED; Blood Gas Sample Site Radial, right; Oxygen Device NC; PO2 FiO2 Ratio Arterial Blood 0
[2023-06-23 20:47] LABS: Amorphous Sediment Urine 1+ /hpf; Bacteria Urine 3+ /hpf; Bilirubin Urine 1+ (Negative); Leukocyte Esterase Urine 2+ (Negative); Mucus Urine 2+ /hpf; Nitrate Urine Positive (Negative); Squamous Epithelial Cell Urine 0-4 /hpf (0-5); Urobilinogen Urine 1 mg/dL (Negative); WBC Urine 25-40 /hpf (0-5)
[2023-06-23 20:48] LABS: Add Urine Culture? Yes; Influenza A by IFA negative (Negative); Influenza B by IFA negative (Negative); SARS Covid-2 Antigen negative (Negative)
[2023-06-23 21:00] LABS: INR 2.08 (0.8-1.2)
[2023-06-23 21:04] LABS: Lactic Sepsis W/Reflex 0.8 mmol/L (0.5-2.2)
[2023-06-23 21:06] LABS: Troponin(5th) Baseline 54 ng/L (0-10)
[2023-06-23] MEDS: ciprofloxacin 400 MG/200 ML PREMIX 200 MG IV (21:10)
[2023-06-23] MEDS: sodium chloride 0.9% 500 ML 999 ML IV (21:17)
[2023-06-23 21:28] LABS: NT Pro B Type Natriuretic Pept 1324 pg/mL (0-450)
[2023-06-23 21:39] LABS: Alanine Aminotransferase 44 U/L (0-33); Albumin Level 2.9 g/dL (3.5-5.2); Alkaline Phosphatase 138 U/L (35-105); C Reactive Protein 153.9 mg/L (0.0-4.9); Chloride 102 mmol/L (98-107); Sodium 137 mmol/L (136-145)
[2023-06-23 21:45] LABS: Anion Gap 14.8 (5-19); Aspartate Amino Transferase 38 U/L (0-32); Blood Urea Nitrogen 13 mg/dL (8-23); Calcium 8.7 mg/dL (8.5-10.5); Carbon Dioxide 24 mmol/L (22-29); Globulin 3.2 g/dL (1.3-4.6); Glucose 126 mg/dL (65-115); Magnesium 2.1 mg/dL (1.7-2.3); Osmolality Calculated 284 mOsm/kg (285-295); Total Bilirubin 0.3 mg/dL (0.15-1.2)
--- NOTE | 2023-06-23 22:05 | ECG_ITS ---
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 Measurements Intervals [place] Rate: 105 P: -1 [place]: 148 QRS: 11 QRSD: 177 T: 77 QT: 403 QTc: 534 Interpretive Statements SINUS TACHYCARDIA LEFT BUNDLE BRANCH BLOCK [120+ ms QRS DURATION, 80+ ms Q/S IN V1/V2, 85+ ms R IN I/aVL/V5/V6] Compared to ECG 06/23/2023 20:21:12 Atrial abnormality no longer present Electronically Signed On 06-24-2023 19:30:58 RIB BUILDER by Garry Munoz M.D. [id number]
[2023-06-23 22:09] LABS: Troponin 5 2HR 55.79 ng/L (0-10); Troponin 5 2HR Delta 1.79 ABS# (0-10)
[2023-06-23 22:20] LABS: Erythrocyte Sedimentation Rate 63 mm/hr (0-15)
--- NOTE | 2023-06-23 22:40 | CTR_ITS ---
PROCEDURE INFORMATION: Exam: CTA Chest With Contrast Exam date and time: 06/23/2023 10:52 PM Age: 73 years old Clinical indication: Abnormal findings; Abnormal lab test; Elevated liver enzymes and elevated wbc; Other: Sacral ulcer; Other: N/a; Prior surgery; Surgery date: 6+ months; Surgery type: Gb. Renal stent. Appy. Hysterectomy. Suprapubic catheter. Patient HX: EMS arrival for possible aspiration during dinner at 1700. Patient having dyspnea with hypoxia. Large sacral uler. Wbc 14k. Nitrate positive on ua. ; Additional info: Sob/sacral ulcer TECHNIQUE: Imaging protocol: Computed tomographic angiography of the chest with contrast. Exam focused on the arteries. 3D rendering (Not supervised by radiologist): MIP and/or 3D reconstructed images were created by the technologist. Radiation optimization: All CT scans at this facility use at least one of these dose optimization techniques: automated exposure control; mA and/or kV adjustment per patient size (includes targeted exams where dose is matched to clinical indication); or iterative reconstruction. Contrast material: OMNI 350; Contrast volume: 100 ml; Contrast route: INTRAVENOUS (IV); COMPARISON: CR (CHEST, ) 06/23/2023 8:12 PM RADIATION DOSE METRICS: Total DLP (mGy-cm): 1832.18 FINDINGS: Pulmonary arteries: No pulmonary emboli. Aorta: Unremarkable. No aortic aneurysm. No aortic dissection. Lungs: Mucous plugging in the bronchi of the right lower lobe posteriorly. No focal consolidation. Atelectatic changes right lung base and right upper lobe posteriorly. Pleural spaces: Unremarkable. No pneumothorax. No pleural effusion. Heart: Unremarkable. No cardiomegaly. No pericardial effusion. Lymph nodes: Unremarkable. No enlarged lymph nodes. Bones/joints: Unremarkable. No acute fracture. Soft tissues: Unremarkable. PROCEDURE INFORMATION: Exam: CT Abdomen And Pelvis With Contrast Exam date and time: 06/23/2023 10:52 PM Age: 73 years old Clinical indication: Abnormal findings; Abnormal lab test; Elevated liver enzymes and elevated wbc; Other: Sacral ulcer; Other: N/a; Prior surgery; Surgery date: 6+ months; Surgery type: Gb. Renal stent. Appy. Hysterectomy. Suprapubic catheter. Patient HX: EMS arrival for possible aspiration during dinner at 1700. Patient having dyspnea with hypoxia. Large sacral uler. Wbc 14k. Nitrate positive on ua. ; Additional info: Sob/sacral ulcer TECHNIQUE: Imaging protocol: Computed tomography of the abdomen and pelvis with contrast. Radiation optimization: All CT scans at this facility use at least one of these dose optimization techniques: automated exposure control; mA and/or kV adjustment per patient size (includes targeted exams where dose is matched to clinical indication); or iterative reconstruction. Contrast material: OMNI 350; Contrast volume: 100 ml; Contrast route: INTRAVENOUS (IV); COMPARISON: CT abdomen pelvis w con* [id number] 09/30/2020 12:20 PM RADIATION DOSE METRICS: Total DLP (mGy-cm): 1832.18 FINDINGS: Liver: Normal. No mass. Gallbladder and bile ducts: Click gallbladder intrahepatic and extrahepatic biliary ductal dilatation. Pancreas: Normal. No ductal dilation. Spleen: Normal. No splenomegaly. Adrenal glands: Normal. No mass. Kidneys and ureters: Normal. No hydronephrosis. Stomach and bowel: Unremarkable. No obstruction. No mucosal thickening. Appendix: The appendix is not visualized but there are no secondary signs of acute appendicitis. Intraperitoneal space: Unremarkable. No free air. No significant fluid collection. Vasculature: Unremarkable. No abdominal aortic aneurysm. Lymph nodes: Unremarkable. No enlarged lymph nodes. Urinary bladder: There is a Jones catheter in the bladder. The bladder is decompressed. Reproductive: Unremarkable as visualized. Bones/joints: Dextroscoliosis of the lumbar spine. Moderate anterior wedging of the L1 vertebral body. Soft tissues: There is a decubitus ulcer along the distal sacrum and coccyx which extends down to the level of the bone and osteomyelitis can not be excluded. There is an associated abscess extending from this decubitus ulcer laterally within the right gluteus jesse muscle measuring at least 6.7 x 5[address]/CT angio chest w abd pel w con IMPRESSION: 1. Mucous plugging in the bronchi of the right lower lobe posteriorly. 2. No focal consolidation. 3. No pulmonary emboli. IMPRESSION: 1. There is a decubitus ulcer along the distal sacrum and coccyx which extends down to the level of the bone and osteomyelitis can not be excluded. There is an associated abscess extending from this decubitus ulcer laterally within the right gluteus jesse muscle measuring at least 6.7 x 5.9 x 2.3 cm. 2. No bowel obstruction or inflammatory process associated with the bowel no free air or fluid in the abdomen or pelvis
--- NOTE | 2023-06-23 22:53 | P.HP_ITS ---
Providers/Chief Complaint 2 Admitting Physician: Gilbert Dale MD Primary Care Provider: Manny Patel DO Chief Complaint: AMS History of Present Illness Kaylynn Calzada is a 73 year old female with a past medical history of multiple sclerosis, remains bedbound, suprapubic catheter in place, has a stage III sacral decubitus ulcer, normally alert oriented x 3, requires assistance activities of daily living, currently at detention facility who presents to [facility] due to complaints of shortness of breath, and altered mental status. Currently patient is alert oriented x 0, she does withdraw from pain, but does not follow commands, she is DNR/DNI according to family numbers at bedside, family members tell me that they think that she aspirated, her has been feeding her, he has been battling pneumonia, and they think that maybe she aspirated after her feeds, she looks increasingly short of breath they tell me, she does not use oxygen at the halfway she is currently on 3 to 4 L, tachypneic, tachycardic, and she is significantly confused. No recent falls, she does have a sacral decubitus ulcer which is managed by wound care, daughter at bedside tells me that it has been looking more worse recently. Review of Systems 2 General: Reports: ROS unobtainable due to mental status Medications/Allergies Home Medications Medication Instructions Recorded Confirmed Last Taken Type bisacodyl 10 mg rectal suppository 10 mg W[place] DAILY PRN Constipation 09/25/19 06/19/23 Unknown History (Dulcolax (bisacodyl)) bisacodyl 5 mg tablet,delayed 5 mg PO BID 09/25/19 06/19/23 Unknown History release (Dulcolax (bisacodyl)) melatonin 10 mg tablet,extended 10 mg PO BEDTIME 09/25/19 06/19/23 09/29/20 History release potassium gluconate 600 mg (99 mg) 600 mg PO DAILY 09/25/19 06/19/23 09/29/20 History tablet amitriptyline 100 mg tablet 100 mg PO DAILY #90 tabs 09/03/22 06/19/23 Unknown Rx fluticasone propionate 110 2 puff inhalation BEDTIME #12 grams 11/08/22 06/19/23 Unknown Rx mcg/actuation HFA aerosol inhaler (Flovent HFA) acetaminophen 325 mg capsule 650 mg PO Q4H PRN 06/12/23 06/19/23 Unknown History (Tylenol) albuterol sulfate 90 mcg/actuation 2 puff inhalation Q4H PRN 06/12/23 06/19/23 Unknown History aerosol inhaler (Ventolin HFA) Bronchodilation apixaban 5 mg tablet (Eliquis) 5 mg PO BID 06/12/23 06/19/23 Unknown History baclofen 20 mg tablet 10 mg PO TID Muscle Spasm 06/12/23 06/19/23 Unknown History buspirone 5 mg tablet 5 mg PO BID 06/12/23 06/19/23 Unknown History calcium carbonate 500 mg-vitamin 1 tab PO DAILY 06/12/23 06/19/23 Unknown History D3 5 mcg (200 unit) tablet (Calcium 500 + D) cholecalciferol (vitamin D3) 125 125 mcg PO DAILY 06/12/23 06/19/23 Unknown History mcg (5,000 unit) capsule cranberry fruit 450 mg tablet 450 mg PO DAILY 06/12/23 06/19/23 Unknown History cyanocobalamin (vitamin B-12) 500 500 mcg PO DAILY 06/12/23 06/19/23 Unknown History mcg tablet docusate sodium 100 mg capsule 100 mg PO BID 06/12/23 06/19/23 Unknown History (Colace) furosemide 20 mg tablet (Lasix) 20 mg PO DAILY 06/12/23 06/19/23 Unknown History gabapentin 100 mg capsule 100 mg PO BID 06/12/23 06/19/23 Unknown History magnesium hydroxide 400 mg/5 mL 30 ml PO DAILY PRN 06/12/23 06/19/23 Unknown History oral suspension (Milk of Magnesia) multivitamin with minerals 1 cap PO DAILY 06/12/23 06/19/23 Unknown History nystatin 100,000 unit/gram topical 1 applic topical BID PRN 06/12/23 06/19/23 Unknown History cream omeprazole 20 mg capsule,delayed 20 mg PO DAILY 06/12/23 06/19/23 Unknown History release ondansetron 4 mg disintegrating 4 mg PO Q4H PRN 06/12/23 06/19/23 Unknown History tablet polysaccharide iron complex 150 mg 150 mg PO DAILY 06/12/23 06/19/23 Unknown History iron capsule prostat 30 ml PO BID 06/12/23 06/19/23 Unknown History Allergies Allergy/AdvReac Type Severity Reaction Status Date / Time Penicillins Allergy Unknown Verified 06/23/23 20:05 PFSH Acute 2 PFSH: Medical History Constipation Vitamin B12 deficiency anemia Unspecified protein-calorie malnutrition Polyneuropathy, unspecified Vitamin D deficiency Insomnia Depression Unspecified convulsions 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 May require bulking agent injection or urethral closure after placement of SP tube. 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 Other Hypertension Denies family history of Diabetes Stroke Social History Alcohol intake: never Substance/Drug Use: never Lives independently: No Housing: Snf Marital status: Current occupational status: retired Vitals/I&O/Wt Last Vital Signs Temp 98.7 F 06/23/23 20:06 Pulse 114 H 06/23/23 22:39 Resp 28 H 06/23/23 22:39 BP 128/79 06/23/23 22:39 Pulse Ox 98 06/23/23 22:39 O2 Del Method Nasal Cannula 06/23/23 22:32 O2 Flow Rate 2 06/23/23 22:32 06/23/23 06/23/23 06/23/23 06:59 14:59 22:59 Intake Total 500 / 500 Balance 500 / 500 Weight last 48 hrs Weight 81.647 kg Physical Exam 2 Const: COMMON NORMALS: no acute distress EXAM LIMITATIONS: altered mental status GENERAL APPEARANCE: ill appearing and frail appearing O RIENTATION/CONSCIOUSNESS: not awake, not oriented to person, not oriented to place and not oriented to time HENMT: COMMON NORMALS: normocephalic HEAD & SCALP: normocephalic Eye: COMMON NORMALS: Equal, round and reactive pupils present Neck/C-Spine: COMMON NORMALS: no lymphadenopathy Resp: EFFORT & INSPECTION: Yes abnormal respiratory pattern, Yes tachypneic, Yes respiratory distress and Yes retractions AUSCULTATION: crackles and wheezes Cardio: COMMON NORMALS: regular rate, regular rhythm, S1 normal heart sound present and S2 normal heart sound present RATE: tachycardic RHYTHM: r egular rhythm HEART SOUNDS: S1 normal heart sound present and S2 normal heart sound present GI: COMMON NORMALS: Normal to inspection, nondistended, normoactive bowel sounds present, Soft to palpation and non-tender : OTHER: Suprapubic catheter in place Extremity: NARRATIVE EXTREMITY EXAM: 1+ pitting edema Neuro: OTHER: Does not follow neurologic testing Sepsis: Is patient septic: Yes Focused sepsis exam performed: Yes F ocused sepsis exam: Cap refill greater than 3 seconds, no significant mottling, but does have bluish hue to bilateral extremities, DP PT pulses diminished Date exam was performed: 06/23/23 Time exam was performed: 22:00 Data 06/23/23 19:41 06/23/23 20:40 A&P Assessment and plan (1) New onset left bundle branch block (LBBB): (2) Pressure ulcer of sacral region, stage 3: (3) Cellulitis: (4) Urinary tract infection: Qualifiers: Encounter type: initial encounter Indwelling urinary catheter type: u nspecified Urinary tract infection type: catheter-associated UTI Qualified Code(s): T83.511A - Infection and inflammatory reaction due to indwelling urethral catheter, initial encounter; N39.0 - Urinary tract infection, site not specified (5) Aspiration pneumonia: (6) Aspiration pneumonitis: (7) Acute hypoxic respiratory failure: (8) Altered mental status: Plan Altered mental status -Multifactorial -UTI, aspiration pneumonia, aspiration pneumonitis, sacral decubitus ulcer, sepsis Sepsis criteria met -Source of infection is UTI, aspiration pneumonia, sacral decubitus ulcer, leukocytosis, elevated CRP, tachycardia, tachypnea, -Urine cultures, blood cultures, wound cultures, sputum cultures Acute hypoxic respiratory failure -Aspiration pneumonia, aspiration pneumonitis -Mild to moderate respiratory distress, tachypnea, tachycardia, intercostal retractions, suprasternal retractions, nasal flaring, at times labored breathing, on 3 L -Confirmed with family at bedside, patient is DNR/DNI -Plan -Monitor respiratory status closely -BiPAP if needed -Does appear fluid overloaded, has 1+ pitting edema crackles on exam, elevated BNP will consider Lasix based on clinical progress -Broad-spectrum antibiotic therapy, vancomycin, meropenem -Aspiration precautions -Keep n.p.o. -Speech therapy eval -Does have bilateral lower extremity edema, remains bedbound, order CT angiogram of the chest for PE, venous ultrasound UTI -Has a history of complicated UTIs in the past, nephrolithiasis, requiring stenting -Currently suprapubic catheter in place -Follow urine cultures -CT scan abdomen pelvis with IV contrast to be ordered in the ER, advised ER to keep in the emergency room until results come back, if there is no significant evidence of obstructive nephrolithiasis can moved to [facility] -Broad-spectrum antibiotic therapy vancomycin, meropenem Stage IV 5 sacral decubitus ulcer -On examination decubitus ulcer measures 5 x 5 cm, oval in shape, with about 4 cm deep, appears to have bone exposed -Does have foul smell, appears to have necrotic tissue inside decubitus ulcer -CT scan abdomen pelvis as above -Vancomycin, meropenem -Cultures -Wound care -Based on clinical progress, will discuss with surgery about consideration of surgical debridement while here in the hospital Multiple sclerosis, suprapubic catheter in place, bedbound, Is on Eliquis, cannot take oral medication, switch to therapeutic Lovenox New onset left bundle branch block -Serial EKGs, serial troponins, telemetry monitoring -Further clinical intervention progress based on progress DNR/DNI Lovenox for DVT prophylaxis Attestations 2 Medical Necessity Statement*: Patient requires hospitalization for altered mental status, sepsis, acute epoxy respiratory failure, UTI, stage V sacral decubitus ulcer Diagnoses New onset left bundle branch block (LBBB) I44.7 Pressure ulcer of sacral region, stage 3 L89.153 Cellulitis L03.90 Urinary tract infection T83.511A; N39.0 Encounter type: initial encounter Indwelling urinary catheter type: unspecified Urinary tract infection type: catheter-associated UTI Aspiration pneumonia J69.0 Aspiration pneumonitis J69.0 Acute hypoxic respiratory failure J96.01 Altered mental status R41.82
[2023-06-23] MEDS: iohexol 350 mg/mL 500 mL Btl (per mL) IV (22:55)
--- NOTE | 2023-06-23 23:58 | PC.NURSE ---
securities underwriter transferred pt to med surg after CT ok by provider at [id number].
[2023-06-24] VITALS (26 sets, daily range): BP systolic 93–116; BP diastolic 54–71; PULSE 69–107; RESP 14–25; TEMP 36.3–36.9; O2SAT 90–100; BMI 27.3
--- NOTE | 2023-06-24 | XR_ITS ---
WS: [id number] CHEST XRAY TECHNIQUE: Portable chest. CLINICAL INFORMATION: PICC LINE REVISION COMPARISON: None. FINDINGS: Heart: Cardiomegaly. Tortuous thoracic aorta. Lungs: Subsegmental atelectasis RIGHT midlung. Chronic emphysematous changes. Bones: Osteopenia. Cholecystectomy clips. Thoracic scoliosis. IMPRESSION: RIGHT PICC line in good position with tip in the distal SVC. No pneumothorax.
[2023-06-24] MEDS: sodium chloride 0.9% 1,000 ML 50 ML IV ×2 (00:22→22:55)
[2023-06-24 00:29] LABS: Estmated Average Glucose 100; Hemoglobin A1C 5.1 % (4.0-6.0)
[2023-06-24] MEDS: pantoprazole 40 mg SDV IVP (00:39)
[2023-06-24] MEDS: enoxaparin 100 mg/mL Syringe 80 MG SUBCUT (00:39)
[2023-06-24] MEDS: meropenem 1,000 MG in sodium chloride 0.9% (plus) 50 ML 100 MG IV ×2 (00:39→08:51)
[2023-06-24 00:40] LABS: Chol HDL Ratio 4.71 mg/dL (0.0-4.40); Cholesterol 132 mg/dL (0-200); HDL Cholesterol 28 mg/dL (60-100); LDL Cholesterol Calculated 88 mg/dL (50-129); LDL HDL Ratio 3.14 RATIO (0.00-3.22); Triglycerides 79 mg/dL (0-150)
[2023-06-24 00:47] LABS: Thyroid Stimulating Hormone 6.54 uIU/mL (0.27-4.20)
[2023-06-24] MEDS: vancomycin 1,500 MG/300 ML PIGGYBACK 200 MG IV (01:31)
[2023-06-24] MEDS: ipratropium-albuterol 3 mL Neb INHALATION ×4 (02:13→20:17)
[2023-06-24 02:34] LABS: Basophils % 0.1 %; Eosinophils % 0.2 %; Hematocrit 26.2 % (36-47); Lymphocytes # 0.9 10^3/uL (0.8-4.8); Lymphocytes % 6.6 %; Mean Corpuscular HGB Conc 32.1 g/dL (30-55); Mean Corpuscular Volume 87.3 fl (85-98); Mean Platelet Volume 9.2 fL (7.4-10.4); Monocytes # 0.8 10^3/uL (0.2-0.9); Monocytes % 5.9 %; Neutrophils # 11.61 10^3/uL (1.8-7.7); Neutrophils % 86.6 %; Nucleated Red Blood Cells % 0 %; Platelet Count 407 10^3/cmm (157-399); Red Cell Distribution Width 15.3 % (12.1-15.1)
[2023-06-24 02:59] LABS: Alanine Aminotransferase 36 U/L (0-33); Albumin Level 2.6 g/dL (3.5-5.2); Alkaline Phosphatase 122 U/L (35-105); Aspartate Amino Transferase 29 U/L (0-32); Blood Urea Nitrogen 12 mg/dL (8-23); Calcium 8.3 mg/dL (8.5-10.5); Carbon Dioxide 23 mmol/L (22-29); Chloride 102 mmol/L (98-107); Globulin 2.5 g/dL (1.3-4.6); Glucose 123 mg/dL (65-115); Osmolality Calculated 285 mOsm/kg (285-295); Phosphorus 3.7 mg/dL (2.5-4.5); Sodium 137 mmol/L (136-145); Total Bilirubin 0.3 mg/dL (0.15-1.2); Total Protein 5.1 g/dL (6.6-8.7)
[2023-06-24 03:02] LABS: Anion Gap 15.8 (5-19); Potassium 3.8 mmol/L (3.5-5.1)
--- NOTE | 2023-06-24 07:08 | PC.PHAR ---
Addendum entered by Miranda Reed 06/24/23 08:21: medications entered are from the [facility] that was faxed from [facility] Original Note: [facility] [phone] will fax [facility]
--- NOTE | 2023-06-24 10:35 | P.PN_ITS ---
Subjective 2 Subjective: H&P reviewed Detailed family meeting today We did talk about speech evaluation, possibility for colostomy/diverting route for her stool considering bleed wound healing of sacral area ulcer with abscess and osteomyelitis She will need 6 weeks of IV antibiotics and a PICC line She mild also need PEG tube placement Patient is DNR/DNI, medical DPOA is her Daughter is at the bedside Patient not complaining of any active pain Vitals/I&O/Wt Last Vital Signs Temp 98.3 F 06/24/23 08:42 Pulse 94 06/24/23 08:42 Resp 16 06/24/23 08:42 BP 104/68 06/24/23 08:42 Pulse Ox 95 06/24/23 08:42 O2 Del Method Room Air 06/24/23 08:42 O2 Flow Rate 2 06/24/23 08:00 FiO2 2 06/24/23 02:49 06/23/23 06/24/23 06/24/23 22:59 06:59 14:59 Intake Total 700 / 700 350 / 1050 50 / 50 Output Total 250 / 250 250 / 250 Balance 700 / 700 100 / 800 -200 / -200 Weight last 48 hrs Weight 81.647 kg Weight 81.647 kg Weight 81.647 kg Physical Exam 2 Narrative: Wound was examined with the help of her daughter She does have a deep wound which is probing all the way down to her bowel Suprapubic catheter in place Patient is awake and alert able to answer my questions Currently on 2 L GCS 15 No new focal deficit as per the family She is able to communicate with her family without any difficulties Data 06/24/23 02:13 06/24/23 02:13 A&P Assessment and plan (1) New onset left bundle branch block (LBBB): (2) Urinary tract infection: Qualifiers: Encounter type: initial encounter Indwelling urinary catheter type: u nspecified Urinary tract infection type: catheter-associated UTI Qualified Code(s): T83.511A - Infection and inflammatory reaction due to indwelling urethral catheter, initial encounter; N39.0 - Urinary tract infection, site not specified (3) Sacral pressure ulcer: Qualifiers: Pressure injury stage: stage 3 Qualified Code(s): L89.153 - Pressure ulcer of sacral region, stage 3 (4) Dementia: Qualifiers: Dementia behavioral or psychological symptom: without behavioral, psychotic, or mood disturbance or anxiety Dementia severity: moderate Dementia type: unspecified type Qualified Code(s): F03.B0 - Unspecified dementia, moderate, without behavioral disturbance, psychotic disturbance, mood disturbance, and anxiety (5) Aspiration pneumonia: (6) Acute hypoxic respiratory failure: (7) Hypoalbuminemia due to protein-calorie malnutrition: (8) Mucus plugging of bronchi: (9) Abscess of sacrum: (10) Osteomyelitis: (11) Dysphagia: Plan Sepsis: Multifactorial aspiration pneumonia, UTI, sacral ulcer, sacral abscess, osteomyelitis Currently afebrile, hemodynamically stable No active encephalopathy Stage IV sacral ulcer Although with probing down to bone Sacral abscess Plan for abscess I&D Asked Dr. Smith for bone biopsy as well to choose antibiotics she will need 6 weeks of IV antibiotics and a PICC line at the time of discharge We also initiated discussion of diverting colostomy, Dr. Smith will discuss if they would opt for PEG tube placement in case she had severe dysphagia Patient has a mucous plug, will request chest physiotherapy, [facility] As per the family patient has no ability to clear her secretions she is on softer diet at the facility As per the family they have been dealing with this for last 12 years, they were surprised when I asked him if someone recommended diverting colostomy Suprapubic catheter in place, concern for Cauti Will asked nursing staff to see if we can change catheter DNR/DNI Troponin without significant delta, hypoalbuminemia, TSH is 6.5, check free T4 Patient is bedbound due to MS Attestations 2 Medical Necessity Statement*: Patient will need prolonged hospitalization Diagnoses New onset left bundle branch block (LBBB) I44.7 Urinary tract infection T83.511A; N39.0 Encounter type: initial encounter Indwelling urinary catheter type: unspecified Urinary tract infection type: catheter-associated UTI Sacral pressure ulcer L89.153 Pressure injury stage: stage 3 Dementia F03.B0 Dementia behavioral or psychological symptom: without behavioral, psychotic, or mood disturbance or anxiety Dementia severity: moderate Dementia type: unspecified type Aspiration pneumonia J69.0 Acute hypoxic respiratory failure J96.01 Hypoalbuminemia due to protein-calorie malnutrition E88.09; E46 Mucus plugging of bronchi T17.500A Abscess of sacrum M46.28 Osteomyelitis M86.9 Dysphagia R13.10
[2023-06-24] MEDS: vancomycin 1,250 MG/250 ML PIGGYBACK 250 MG IV (12:33)
--- NOTE | 2023-06-24 13:43 | XR_ITS ---
WS: [id number] CHEST XRAY TECHNIQUE: Portable chest. CLINICAL INFORMATION: picc line placement COMPARISON: None. FINDINGS: Heart: Cardiomegaly. Tortuous thoracic aorta. Lungs: Chronic emphysematous changes. Subsegmental atelectasis RIGHT midlung. No acute pulmonary infi ltrates. Bones: Osteopenia. Cholecystectomy clips. IMPRESSION: RIGHT PICC line with tip in the RIGHT atrium. Recommend retraction approximately 4 cm for optimal dis ca SVC placement
--- NOTE | 2023-06-24 14:10 | SUR.PREOP ---
TIME OUT FOR PICC LINE INSERTION
[2023-06-24] MEDS: acetylcysteine 200 mg/mL SDV 4 mL 100 MG INHALATION ×2 (15:18→20:18)
--- NOTE | 2023-06-24 16:13 | P.ANESASSM_ITS ---
Pre-Anesthetic Assessment Height/Weight: Height 1.73 m Weight 81.647 kg Temp Pulse Resp BP Pulse Ox O2 Del Method O2 Flow Rate 97.5 F L 69 20 H 104/65 97 Room Air 2 06/24/23 12:51 06/24/23 15:18 06/24/23 15:18 06/24/23 12:51 06/24/23 15:18 06/24/23 15:18 06/24/23 08:00 FiO2 2 06/24/23 02:49 Operation Date: 06/24/23 16:55 Proposed Procedures p Debridement of sacral decubitus ulcer(Not Applicable) - Tony Smith DO Familial anesthetic complications: none Was Beta Kurtis taken within 24 hours: N/A Was Clonidine taken within 24 hours: N/A Last intake: > 8 hrs Social No alcohol and No tobacco Airway Mallampati: Class II Dentition: chipped and other (poor dention) History/ROS Other (hx obtained from chart and patient's ) Pulmonary Hx aspiration pneumonia,resp failure CV/HEM LBBB, increased troponin Neuropsych Dementia MS Anesthetic Plan ASA status: 4 Anesthesia: General Risk of > 500 ml blood loss (7ml/kg in children): No Medications/Allergies Home Medications Medication Instructions Recorded Confirmed Last Taken Type bisacodyl 10 mg rectal suppository 10 mg TN DAILY PRN Constipation 09/25/19 06/24/23 Unknown History (Dulcolax (bisacodyl)) bisacodyl 5 mg tablet,delayed 5 mg PO BID 09/25/19 06/24/23 Unknown History release (Dulcolax (bisacodyl)) albuterol sulfate 90 mcg/actuation 2 puff inhalation Q4H PRN 06/12/23 06/24/23 Unknown History aerosol inhaler (Ventolin HFA) Shortness Of Breath apixaban 5 mg tablet (Eliquis) 5 mg PO BID 06/12/23 06/24/23 Unknown History buspirone 5 mg tablet 5 mg PO BID 06/12/23 06/24/23 Unknown History calcium carbonate 500 mg-vitamin 1 tab PO DAILY 06/12/23 06/24/23 Unknown History D3 5 mcg (200 unit) tablet (Calcium 500 + D) cholecalciferol (vitamin D3) 125 125 mcg PO DAILY@08 06/12/23 06/24/23 Unknown History mcg (5,000 unit) capsule cranberry fruit 450 mg tablet 450 mg PO DAILY@06/12/23 06/24/23 Unknown History cyanocobalamin (vitamin B-12) 500 500 mcg PO DAILY@06/12/23 06/24/23 Unknown History mcg tablet docusate sodium 100 mg capsule 100 mg PO BID 06/12/23 06/24/23 Unknown History (Colace) furosemide 20 mg tablet (Lasix) 20 mg PO DAILY@06/12/23 06/24/23 Unknown History gabapentin 100 mg capsule 100 mg PO BID 06/12/23 06/24/23 Unknown History magnesium hydroxide 400 mg/5 mL 30 ml PO DAILY PRN Constipation 06/12/23 06/24/23 Unknown History oral suspension (Milk of Magnesia) nystatin 100,000 unit/gram topical See Rx Instructions .Route .COMPLEX 06/12/23 06/24/23 Unknown History cream omeprazole 20 mg capsule,delayed 20 mg PO DAILY@0530 06/12/23 06/24/23 Unknown History release ondansetron 4 mg disintegrating 4 mg PO Q4H PRN Nausea 06/12/23 06/24/23 Unknown History tablet polysaccharide iron complex 150 mg 150 mg PO DAILY@06/12/23 06/24/23 Unknown History iron capsule prostat 30 ml PO BID 06/12/23 06/24/23 Unknown History acetaminophen 325 mg tablet 650 mg PO Q4H PRN Pain, Mild 06/24/23 06/24/23 Unknown History (Tylenol) amitriptyline 100 mg tablet 100 mg PO BEDTIME 06/24/23 06/24/23 Unknown History baclofen 10 mg tablet 10 mg PO TID 06/24/23 06/24/23 Unknown History fluticasone propionate 110 2 puff inhalation BID 06/24/23 06/24/23 Unknown History mcg/actuation HFA aerosol inhaler melatonin 10 mg tablet 10 mg PO BEDTIME 06/24/23 06/24/23 Unknown History multivitamin with minerals 1 tab PO DAILY@06/24/23 06/24/23 Unknown History (Multiple Vitamin-Minerals tablet) naloxone 4 mg/actuation nasal 1 spray intranasal Q2M PRN Opioid 06/24/23 06/24/23 Unknown History spray (Narcan) Overdose oxycodone 5 mg tablet 5 mg PO Q4H PRN Pain 06/24/23 06/24/23 Unknown History potassium gluconate 595 mg (99 mg) 595 mg PO DAILY@08 06/24/23 06/24/23 Unknown History tablet sodium phosphates 19 gram-7 118 ml TN DAILY PRN Constipation 06/24/23 06/24/23 Unknown History gram/118 mL enema (Fleet Enema) Allergies Allergy/AdvReac Type Severity Reaction Status Date / Time Penicillins Allergy Unknown Verified 06/24/23 07:54 Current Medications Generic Name Dose Route Start Last Admin Trade Name Freq PRN Reason Stop Dose Admin Albuterol/Ipratropium 3 ml 06/24/23 08:00 06/24/23 15:18 Ipratropium-Albuterol 3 Ml Neb INHALATION 3 ml Q6H.RESP DIANA Administration Baclofen 10 mg 06/24/23 15:00 06/24/23 15:13 Baclofen 10 Mg Tablet PO Not Given TID DIANA Enoxaparin Sodium 80 mg 06/23/23 23:55 06/24/23 00:39 Enoxaparin 100 Mg/Ml Syringe 1 mg/kg (80 mg) 80 mg SUBCUT Administration Q12H DIANA Meropenem 1,000 mg/ Sodium 50 mls @ 100 mls/hr 06/23/23 23:55 06/24/23 09:23 Chloride IV Infused Q8H DIANA Infusion Protocol Sodium Chloride 1,000 mls @ 50 mls/hr 06/23/23 23:55 06/24/23 00:22 Sodium Chloride 0.9% IV 50 mls/hr .Q20H DIANA Administration Vancomycin/PEG/NADA/Lysine/Water 1,250 mg in 250 mls @ 250 mls/hr 06/24/23 13:00 06/24/23 13:58 Vancocin IV Infused Q12H DIANA Infusion Pantoprazole Sodium 40 mg 06/23/23 23:55 06/24/23 00:39 Pantoprazole 40 Mg Sdv IVP 40 mg Q24H DIANA Administration PFSH Anesthesia Medical History Constipation Vitamin B12 deficiency anemia Unspecified protein-calorie malnutrition Polyneuropathy, unspecified Vitamin D deficiency Insomnia Depression Unspecified convulsions 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 May require bulking agent injection or urethral closure after placement of SP tube. 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 Other Hypertension Denies family history of Diabetes Stroke Social History Alcohol intake: never Substance/Drug Use: never Lives independently: No Housing: [facility] Marital status: Current occupational status: retired Data Anesthesia 06/24/23 02:13 06/24/23 02:13 Short CBC 06/23/23 06/24/23 Range/Units 19:41 02:13 WBC 12.85 H 13.40 H (3.29-11.43) 10^3/uL Hgb 10.20 L 8.40 L (11.27-16.99) g/dL Hct 31.7 L 26.2 L (36-47) % MCV 87.8 87.3 (85-98) fl Plt Count 430 H 407 H (157-399) 10^3/cmm Neut % (Auto) 76.1 86.6 % Neut # (Auto) 9.77 H 11.61 H (1.8-7.7) 10^3/uL BMP 06/23/23 06/23/23 06/24/23 19:41 20:40 02:13 Sodium Cancelled 137 137 Potassium Cancelled 4.0 3.8 Chloride Cancelled 102 102 Carbon Dioxide Cancelled 24 23 BUN Cancelled 13 12 Creatinine Cancelled 0.5 0.3 L Glucose Cancelled 126 H 123 H Calcium Cancelled 8.7 8.3 L Cardiac Enzymes 06/23/23 06/23/23 06/23/23 Range/Units 19:41 20:40 21:37 Troponin T Baseline Cancelled 54 H Troponin T 120 Minute 55.79 H (0-10) ng/L Delta Troponin T 1.79 (0-10) ABS# Troponin T Hi Sens 6Hr (0-10) ng/L Troponin T Hi Sens 6Hr Delta (0-12) ng/L NT-Pro-B Natriuret Pep Cancelled 1324 H 06/24/23 Range/Units 02:13 Troponin T Baseline Troponin T 120 Minute (0-10) ng/L Delta Troponin T (0-10) ABS# Troponin T Hi Sens 6Hr 48.90 H (0-10) ng/L Troponin T Hi Sens 6Hr Delta -5.10 L (0-12) ng/L NT-Pro-B Natriuret Pep Liver Function 06/23/23 06/23/23 06/24/23 Range/Units 19:41 20:40 02:13 Total Bilirubin Cancelled 0.3 0.3 AST Cancelled 38 H 29 ALT Cancelled 44 H 36 H Alkaline Phosphatase Cancelled 138 H 122 H Albumin Cancelled 2.9 L 2.6 L Urine 06/23/23 Range/Units 20:16 Urine Color Yellow (Yellow) Urine Appearance Cloudy A (CLEAR) Urine pH 6 (5-7) Ur Specific [place] 1.020 (1.005-1.030) Urine Protein 1+ H (Negative) Urine Glucose (UA) Norm (Normal) Urine Ketones 1+ H (Negative) Urine Nitrate Positive H (Negative) Urine Bilirubin 1+ H (Negative) Ur Leukocyte Esterase 2+ H (Negative) Urine RBC 5-10 H (0-2) /hpf Urine WBC 25-40 H (0-5) /hpf COVID Results 06/23/23 20:16 SARS-CoV-2 Ag (Rapid) negative Coags 06/23/23 06/23/23 19:41 20:40 ESR 63 H PT Cancelled 24.10 H INR Cancelled 2.08 H C-Reactive Protein Cancelled 153.9 H ABG 06/23/23 20:36 Specimen Type Arterial Sample Site Radial, right ABG pH 7.45 ABG pCO2 38.7 ABG pO2 74.0 L ABG PO2/FiO2 Ratio 0 ABG HCO3 27.0 H ABG O2 Saturation 96.3 ABG Base Excess 2.9 H A-a O2 Gradient 10.3 H O2 Delivery Device Nc FiO2 28.0 Cardiac Studies: 2 No Data to Display
[2023-06-24] MEDS: sodium chloride 0.9% 1,000 ML 30 ML IV (16:25)
--- NOTE | 2023-06-24 16:30 | P.CONIM_ITS ---
Providers/Reason For Consult 2 Consulting Physician/Specialty*: Dr. Tony Smith, /General surgery Reason for Consult*: Sacral decubitus ulcer Attending Physician: Brenden Ho MD Primary Care Provider: Manny Patel DO History of Present Illness History of Present Illness Kaylynn Calzada is a 73 year old female, with advanced multiple sclerosis, who presents to the hospital with an infected stage III sacral decubitus ulcer. This ulcer has been present for approximately 12 years. She is mostly bedbound due to her MS. She oftentimes has problems soiling herself and getting stool in the wound. She denies any significant pain, nausea, emesis, diarrhea, constipation, hematochezia and/or melena. Review of Systems 2 General: Reports: 10 or more systems reviewed and unremarkable except in HPI and below Medications/Allergies Home Medications Medication Instructions Recorded Confirmed Last Taken Type bisacodyl 10 mg rectal suppository 10 mg UT DAILY PRN Constipation 09/25/19 06/24/23 Unknown History (Dulcolax (bisacodyl)) bisacodyl 5 mg tablet,delayed 5 mg PO BID 09/25/19 06/24/23 Unknown History release (Dulcolax (bisacodyl)) albuterol sulfate 90 mcg/actuation 2 puff inhalation Q4H PRN 06/12/23 06/24/23 Unknown History aerosol inhaler (Ventolin HFA) Shortness Of Breath apixaban 5 mg tablet (Eliquis) 5 mg PO BID 06/12/23 06/24/23 Unknown History buspirone 5 mg tablet 5 mg PO BID 06/12/23 06/24/23 Unknown History calcium carbonate 500 mg-vitamin 1 tab PO DAILY 06/12/23 06/24/23 Unknown History D3 5 mcg (200 unit) tablet (Calcium 500 + D) cholecalciferol (vitamin D3) 125 125 mcg PO DAILY@06/12/23 06/24/23 Unknown History mcg (5,000 unit) capsule cranberry fruit 450 mg tablet 450 mg PO DAILY@06/12/23 06/24/23 Unknown History cyanocobalamin (vitamin B-12) 500 500 mcg PO DAILY@06/12/23 06/24/23 Unknown History mcg tablet docusate sodium 100 mg capsule 100 mg PO BID 06/12/23 06/24/23 Unknown History (Colace) furosemide 20 mg tablet (Lasix) 20 mg PO DAILY@06/12/23 06/24/23 Unknown History gabapentin 100 mg capsule 100 mg PO BID 06/12/23 06/24/23 Unknown History magnesium hydroxide 400 mg/5 mL 30 ml PO DAILY PRN Constipation 06/12/23 06/24/23 Unknown History oral suspension (Milk of Magnesia) nystatin 100,000 unit/gram topical See Rx Instructions .Route .COMPLEX 06/12/23 06/24/23 Unknown History cream omeprazole 20 mg capsule,delayed 20 mg PO DAILY@0530 06/12/23 06/24/23 Unknown History release ondansetron 4 mg disintegrating 4 mg PO Q4H PRN Nausea 06/12/23 06/24/23 Unknown History tablet polysaccharide iron complex 150 mg 150 mg PO DAILY@06/12/23 06/24/23 Unknown History iron capsule prostat 30 ml PO BID 06/12/23 06/24/23 Unknown History acetaminophen 325 mg tablet 650 mg PO Q4H PRN Pain, Mild 06/24/23 06/24/23 Unknown History (Tylenol) amitriptyline 100 mg tablet 100 mg PO BEDTIME 06/24/23 06/24/23 Unknown History baclofen 10 mg tablet 10 mg PO TID 06/24/23 06/24/23 Unknown History fluticasone propionate 110 2 puff inhalation BID 06/24/23 06/24/23 Unknown History mcg/actuation HFA aerosol inhaler melatonin 10 mg tablet 10 mg PO BEDTIME 06/24/23 06/24/23 Unknown History multivitamin with minerals 1 tab PO DAILY@06/24/23 06/24/23 Unknown History (Multiple Vitamin-Minerals tablet) naloxone 4 mg/actuation nasal 1 spray intranasal Q2M PRN Opioid 06/24/23 06/24/23 Unknown History spray (Narcan) Overdose oxycodone 5 mg tablet 5 mg PO Q4H PRN Pain 06/24/23 06/24/23 Unknown History potassium gluconate 595 mg (99 mg) 595 mg PO DAILY@06/24/23 06/24/23 Unknown History tablet sodium phosphates 19 gram-7 118 ml UT DAILY PRN Constipation 06/24/23 06/24/23 Unknown History gram/118 mL enema (Fleet Enema) Allergies Allergy/AdvReac Type Severity Reaction Status Date / Time Penicillins Allergy Unknown Verified 06/24/23 07:54 Current Medications Generic Name Dose Route Start Last Admin Trade Name Duglasq PRN Reason Stop Dose Admin Albuterol/Ipratropium 3 ml 06/24/23 08:00 06/24/23 15:18 Ipratropium-Albuterol 3 Ml Neb INHALATION 3 ml Q6H.RESP DIANA Administration Baclofen 10 mg 06/24/23 15:00 06/24/23 15:13 Baclofen 10 Mg Tablet PO Not Given TID DIANA Enoxaparin Sodium 80 mg 06/23/23 23:55 06/24/23 00:39 Enoxaparin 100 Mg/Ml Syringe 1 mg/kg (80 mg) 80 mg SUBCUT Administration Q12H DIANA Meropenem 1,000 mg/ Sodium 50 mls @ 100 mls/hr 06/23/23 23:55 06/24/23 09:23 Chloride IV Infused Q8H DIANA Infusion Protocol Sodium Chloride 1,000 mls @ 50 mls/hr 06/23/23 23:55 06/24/23 00:22 Sodium Chloride 0.9% IV 50 mls/hr .Q20H DIANA Administration Vancomycin/PEG/NADA/Lysine/Water 1,250 mg in 250 mls @ 250 mls/hr 06/24/23 13:00 06/24/23 13:58 Vancocin IV Infused Q12H DIANA Infusion Sodium Chloride 1,000 mls @ 30 mls/hr 06/24/23 16:15 06/24/23 16:25 Sodium Chloride 0.9% IV 06/25/23 16:14 30 mls/hr .Q24H DIANA Administration Pantoprazole Sodium 40 mg 06/23/23 23:55 06/24/23 00:39 Pantoprazole 40 Mg Sdv IVP 40 mg Q24H DIANA Administration PFSH Acute 2 PFSH: Medical History Constipation Vitamin B12 deficiency anemia Unspecified protein-calorie malnutrition Polyneuropathy, unspecified Vitamin D deficiency Insomnia Depression Unspecified convulsions 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 May require bulking agent injection or urethral closure after placement of SP tube. 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 Other Hypertension Denies family history of Diabetes Stroke Social History Alcohol intake: never Substance/Drug Use: never Lives independently: No Housing: Long Term Marital status: Current occupational status: retired Vitals/I&O/Wt Last Vital Signs Temp 97.5 F L 06/24/23 12:51 Pulse 69 06/24/23 15:18 Resp 20 H 06/24/23 15:18 BP 104/65 06/24/23 12:51 Pulse Ox 97 06/24/23 15:18 O2 Del Method Room Air 06/24/23 15:18 O2 Flow Rate 2 06/24/23 08:00 FiO2 2 06/24/23 02:49 06/24/23 06/24/23 06/24/23 06:59 14:59 22:59 Intake Total 350 / 1050 300 / 300 Output Total 250 / 250 250 / 250 Balance 100 / 800 50 / 50 Weight last 48 hrs Weight 180 lb Weight 180 lb Weight 180 lb Physical Exam 2 Narrative: General : Patient is well developed , no acute distress, oriented x3 Head : Normal cephalic, a-traumatic. Ears : Pinnae and external canal are normal. Hearing is normal. Eyes : PERRLA, Sclera and injection are normal. No conjunctival discharge. Nose : Mucous membranes are without erythema. Throat : buccal mucosa is normal, gums are without significant recession or hypertrophy. Lungs : Equal chest rise bilaterally, no use of accessory muscles, trachea is midline. Cor : Rate and rhythm are normal. Abdomen : Soft, ND, NT, no g/r/m Extremities : No edema, no cyanosis or clubbing, dorsalis pedis pulses are present bilaterally, non-tender to palpation of calves. Upper extremities are normal bilaterally. Back : non-tender to palpation, no CVA tenderness. Neuro : Patient has advanced multiple sclerosis Data 06/24/23 02:13 06/24/23 02:13 A&P Assessment and plan (1) Pressure ulcer of sacral region, stage 3: Plan Sharp excisional debridement of sacral decubitus ulcer with bone biopsy The risks and benefits of the procedure, including but not limited to, bleeding, infection, recurrence, scar, numbness, pain, damage to surrounding structures, were explained to the patient. They are understanding of the risks and wish to proceed. Coding Level of Care Code 10630 Diagnoses Pressure ulcer of sacral region, stage 3 L89.153
--- NOTE | 2023-06-24 17:57 | P.OP_ITS ---
Operative Report Date of procedure: June 24, 2023 Pre-op diagnosis: Stage III sacral decubitus ulcer Post-op diagnosis: other Post-op diagnosis: Stage IV sacral decubitus ulcer Procedure done: Sharp excisional debridement of stage IV sacral decubitus ulcer Bone biopsy Implants: None Specimens removed/disposition: tissue for culture Bone biopsy for culture Bone biopsy for permanents Surgeon: Tony Smith DO Anesthesia: General Estimated blood loss (mL): 20 Complications: None apparent Brief History: This very pleasant 73-year-old female with multiple sclerosis who presented to the hospital due to an infected sacral decubitus ulcer. She desired debridem ent. The risk and benefits were explained and documented. Procedure: Patient was wheeled into the operative room and remained in the hospital bed in the supine position. General endotracheal intubation was achieved by the department of anesthesia. A timeout was performed. All present were in agreement. The patient was then placed into the left lateral decubitus position. The sacrum and the decubitus ulcer was inspected prepped and draped in usual sterile fashion. Electrocautery was used and cut mode and coag to excise necrotic skin and subcutaneous fat muscle and fascia. Sacrum was exposed. 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 A bone biopsy was taken of the sacrum with a rongeur. Part of the bone biopsy was sent to the lab for culture and another part was sent to pathology for permanents. The wound measured 7 cm x 5 cm x 2.5 cm deep. The wound tunneled in the 3 o'clock position 7 cm. Betadine soaked Kerlix was placed into the wound. Sterile bandage was applied. Patient tolerated procedure well.
--- NOTE | 2023-06-24 18:45 | ANE.PACU2 ---
Inpatient post-anesthesia follow up: Airway intact: Yes Vital signs: Temperature 97.6 F Pulse Rate 83 Respiratory Rate 16 Blood Pressure 96/50 Pulse Oximetry 98 Oxygen Delivery Me thod Room Air Oxygen Flow Rate 2 Fraction of Inspir ed Oxygen 2 Hydration adequate: Yes Nausea and vomiting: No Pain level: 1 Mental status: Baseline
[2023-06-24] MEDS: oxyCODONE 5 mg IR Tab/Cap PO (22:54)
[2023-06-24] MEDS: baclofen 10 mg Tablet PO (22:54)
--- NOTE | 2023-06-24 23:55 | USCV_ITS ---
Kaylynn Calzada Age: 73 Gender: F : 1950 Exam Date: 06/24/2023 10:33 Ordering Phys: Gilbert Dale MD Technologist: CT Exam Location: [facility] [place] Indication: ankle pain PROCEDURES: Venous duplex imaging was performed in bilateral lower extremities. In addition, the posterior tibial and peroneal trunk were evaluated. FINDINGS: Normal 2-D Doppler and augmentation and compressibility throughout the lower extremity venous structures. Additional imaging through the proximal calf veins also reveals no thrombus. Limited evaluation of the greater saphenous vein is patent with no thrombus. CONCLUSIONS No DVT bilateral lower extremities. Dr. Avani El DO (Electronically Signed) Final Date: 24 June 2023 12:19 S
[2023-06-25] VITALS (21 sets, daily range): BP systolic 92–105; BP diastolic 50–66; PULSE 71–101; RESP 16–20; TEMP 36.4–37.2; O2SAT 93–98
[2023-06-25] MEDS: pantoprazole 40 mg SDV IVP ×2 (00:50→23:53)
[2023-06-25] MEDS: meropenem 1,000 MG in sodium chloride 0.9% (plus) 50 ML 100 MG IV ×3 (00:51→19:50)
[2023-06-25] MEDS: vancomycin 1,250 MG/250 ML PIGGYBACK 250 MG IV ×3 (00:58→23:59)
[2023-06-25] MEDS: ipratropium-albuterol 3 mL Neb INHALATION ×4 (02:02→19:28)
[2023-06-25] MEDS: acetylcysteine 200 mg/mL SDV 4 mL 100 MG INHALATION ×4 (02:03→19:31)
[2023-06-25 04:18] LABS: Basophils % 0.1 %; Hematocrit 25.2 % (36-47); Lymphocytes # 0.7 10^3/uL (0.8-4.8); Lymphocytes % 6.4 %; Mean Corpuscular Hemoglobin 27.7 pg (27-33); Mean Corpuscular Volume 89.4 fl (85-98); Mean Platelet Volume 8.9 fL (7.4-10.4); Monocytes # 0.3 10^3/uL (0.2-0.9); Monocytes % 2.9 %; Neutrophils # 9.97 10^3/uL (1.8-7.7); Nucleated Red Blood Cells % 0 %; Platelet Count 400 10^3/cmm (157-399); Red Blood Count 2.82 10^6/uL (3.85-5.65); Red Cell Distribution Width 15.3 % (12.1-15.1); White Blood Count 11.08 10^3/uL (3.29-11.43)
[2023-06-25 04:36] LABS: Anion Gap 13.7 (5-19); Blood Urea Nitrogen 10 mg/dL (8-23); Calcium 8.4 mg/dL (8.5-10.5); Carbon Dioxide 24 mmol/L (22-29); Chloride 106 mmol/L (98-107); Glucose 111 mg/dL (65-115); Osmolality Calculated 290 mOsm/kg (285-295); Potassium 3.7 mmol/L (3.5-5.1); Sodium 140 mmol/L (136-145)
[2023-06-25] MEDS: pantoprazole DR 40 mg Tablet PO (06:27)
[2023-06-25] MEDS: baclofen 10 mg Tablet PO ×3 (09:43→21:06)
[2023-06-25] MEDS: gabapentin 100 mg Capsule PO ×2 (09:43→17:42)
[2023-06-25] MEDS: oxyCODONE 5 mg IR Tab/Cap PO ×2 (09:50→17:41)
[2023-06-25] MEDS: HYDROmorphone 1 mg/mL INJ 1 mL IVP (11:34)
--- NOTE | 2023-06-25 11:34 | PM.PN ---
Subjective Subjective: Patient seen and examined. Pain controlled. She reportedly became very agitated after surgery yesterday. Vitals/I&O/Wt Last Vital Signs Temp 97.4 F L 06/26/23 04:00 Pulse 81 06/26/23 04:00 Resp 12 06/26/23 04:00 BP 100/59 06/26/23 04:00 Pulse Ox 97 06/26/23 04:00 O2 Del Method Nasal Cannula 06/26/23 04:00 O2 Flow Rate 2 06/26/23 04:00 FiO2 2 06/24/23 02:49 06/25/23 06/25/23 06/26/23 14:59 22:59 06:59 Intake Total 411 / 411 300 / 711 300 / 1011 Output Total 320 / 320 Balance 411 / 411 -20 / 391 300 / 691 Weight last 48 hrs Weight 176 lb 14.4 oz Physical Exam Narrative: General: No acute distress Skin: Stage IV sacral decubitus ulcer status post sharp excisional debridement is without exudate and minimal surrounding erythema Data 06/26/23 04:25 06/26/23 04:25 Micro: Microbiology 06/24/23 17:06 Gram Stain - Final Other Source 06/24/23 17:06 Gram Stain - Final Bone 06/23/23 20:16 Urine Culture - Preliminary Urine,Clean Catch Gram Negative Rods A&P Assessment and plan (1) Sacral decubitus ulcer, stage IV: Plan Postoperative day #1 status post sharp excisional debridement of stage IV sacral decubitus ulcer This ulcer has been present for approximately 12 years despite multiple surgical interventions and wound vacs. She has advanced MS and has had issues with stool contamination of the wound. I talked extensively with the patient and her daughter about the option of a diverting colostomy. They would like to pursue this. I have her scheduled for 1229 afternoon for an open colostomy formation. She has had issues with constipation, and resection of some of her sigmoid colon with an end colostomy but certainly address this. N.p.o. after midnight tomorrow for open colostomy formation with possible bowel resection The risks and benefits of the procedure, including but not limited to, bleeding, infection, scar, numbness, pain, damage to surrounding structures, ostomy malfunction/retraction, need for further surgery, were explained to the patient and her daughter. They are understanding the risks and wished to proceed. Twice daily wet-to-dry dressings to stage IV sacral decubitus ulcer Medical management per hospitalist Attestations Medical Necessity Statement*: Per primary Coding Level of Care Code Acute Code for [facility] Diagnoses Sacral decubitus ulcer, stage IV L89.154
--- NOTE | 2023-06-25 11:35 | P.PN_ITS ---
Subjective 2 Subjective: Hemoglobin 7.8 Will give her 1 unit PRBC for her colostomy which will be a staged procedure Patient is oriented to herself Has significant sundowning . Patient's daughter requesting sleep a id for tonight Patient currently is on level 6 dysphagia diet Vitals/I&O/Wt Last Vital Signs Temp 97.8 F 06/25/23 11:23 Pulse 88 06/25/23 11:23 Resp 17 06/25/23 11:34 BP 99/58 06/25/23 11:23 Pulse Ox 98 06/25/23 11:23 O2 Del Method Room Air 06/25/23 11:23 O2 Flow Rate 2 06/25/23 02:04 FiO2 2 06/24/23 02:49 06/24/23 06/25/23 06/25/23 22:59 06:59 14:59 Intake Total 1220 / 1520 300 / 1820 410 / 410 Output Total 420 / 670 300 / 970 Balance 800 / 850 0 / 850 410 / 410 Weight last 48 hrs Weight 80.24 kg Weight 81.647 kg Weight 81.647 kg Weight 81.647 kg Physical Exam 2 Narrative: Patient is oriented to herself Suprapubic catheter in place Abdomen soft Currently on room air Able to communicate with her daughter Short attention span No active headache No signs of meningitis Today on room air Data 06/25/23 04:01 06/25/23 04:01 Micro: Microbiology 06/23/23 20:16 Urine Culture - Preliminary Urine,Clean Catch Gram Negative Rods A&P Assessment and plan (1) New onset left bundle branch block (LBBB): (2) Dysphagia: (3) Urinary tract infection: Qualifiers: Encounter type: initial encounter Indwelling urinary catheter type: u nspecified Urinary tract infection type: catheter-associated UTI Qualified Code(s): T83.511A - Infection and inflammatory reaction due to indwelling urethral catheter, initial encounter; N39.0 - Urinary tract infection, site not specified (4) Flaccid neurogenic bladder: (5) Abscess of sacrum: (6) Osteomyelitis: (7) Sacral pressure ulcer: Qualifiers: Pressure injury stage: stage 3 Qualified Code(s): L89.153 - Pressure ulcer of sacral region, stage 3 (8) Acute alteration in mental status: (9) Dementia: Qualifiers: Dementia behavioral or psychological symptom: without behavioral, psychotic, or mood disturbance or anxiety Dementia severity: moderate Dementia type: unspecified type Qualified Code(s): F03.B0 - Unspecified dementia, moderate, without behavioral disturbance, psychotic disturbance, mood disturbance, and anxiety (10) Aspiration pneumonia: (11) Mucus plugging of bronchi: (12) Acute hypoxic respiratory failure: (13) Hypoalbuminemia due to protein-calorie malnutrition: Plan Will wait for bone biopsy result before deciding long-term antibiotic course which will be at least 6 weeks in duration Continue antibiotics Currently patient is on dysphagia diet Dr. Smith is planning for staged diverting colostomy Family is not ready for PEG tube placement yet patient has significant dysphagia causing aspiration and mucous plugging Continue chest vest Today she is not on oxygen Requiring room air saturating well We may discontinue chest vest Spoke with the daughter who is at the bedside I will add Oscar for tonight Attestations 2 Medical Necessity Statement*: Continue medical management Diagnoses New onset left bundle branch block (LBBB) I44.7 Dysphagia R13.10 Urinary tract infection T83.511A; N39.0 Encounter type: initial encounter Indwelling urinary catheter type: unspecified Urinary tract infection type: catheter-associated UTI Flaccid neurogenic bladder N31.2 Abscess of sacrum M46.28 Osteomyelitis M86.9 Sacral pressure ulcer L89.153 Pressure injury stage: stage 3 Acute alteration in mental status R41.82 Dementia F03.B0 Dementia behavioral or psychological symptom: without behavioral, psychotic, or mood disturbance or anxiety Dementia severity: moderate Dementia type: unspecified type Aspiration pneumonia J69.0 Mucus plugging of bronchi T17.500A Acute hypoxic respiratory failure J96.01 Hypoalbuminemia due to protein-calorie malnutrition E88.09; E46
[2023-06-25] MEDS: heparin 5,000 unit/mL INJ 1 mL 5000 UNIT SUBCUT ×2 (14:28→23:53)
[2023-06-25] MEDS: quetiapine 25 mg Tablet PO (21:06)
[2023-06-25] MEDS: zolpidem 5 mg Tablet PO (21:06)
[2023-06-26] VITALS (15 sets, daily range): BP systolic 90–116; BP diastolic 52–73; PULSE 77–95; RESP 12–19; TEMP 36.3–37.2; O2SAT 90–99
[2023-06-26] MEDS: acetylcysteine 200 mg/mL SDV 4 mL 100 MG INHALATION ×4 (00:05→14:20)
[2023-06-26] MEDS: ipratropium-albuterol 3 mL Neb INHALATION ×3 (01:41→14:20)
[2023-06-26] MEDS: meropenem 1,000 MG in sodium chloride 0.9% (plus) 50 ML 100 MG IV ×3 (04:25→21:13)
[2023-06-26 05:03] LABS: Basophils % 0.5 %; Eosinophils # 0.2 10^3/uL (0.0-0.8); Eosinophils % 1.9 %; Hematocrit 28.6 % (36-47); Lymphocytes # 2.5 10^3/uL (0.8-4.8); Lymphocytes % 31.2 %; Mean Corpuscular HGB Conc 31.1 g/dL (30-55); Mean Corpuscular Hemoglobin 27.8 pg (27-33); Mean Corpuscular Volume 89.4 fl (85-98); Mean Platelet Volume 8.8 fL (7.4-10.4); Monocytes # 0.4 10^3/uL (0.2-0.9); Neutrophils # 4.82 10^3/uL (1.8-7.7); Nucleated Red Blood Cells % 0 %; Platelet Count 388 10^3/cmm (157-399); Red Cell Distribution Width 15.3 % (12.1-15.1); White Blood Count 8.02 10^3/uL (3.29-11.43)
[2023-06-26 05:19] LABS: Anion Gap 13.6 (5-19); Blood Urea Nitrogen 10 mg/dL (8-23); Calcium 8.5 mg/dL (8.5-10.5); Carbon Dioxide 25 mmol/L (22-29); Chloride 104 mmol/L (98-107); Glucose 88 mg/dL (65-115); Osmolality Calculated 286 mOsm/kg (285-295); Potassium 3.6 mmol/L (3.5-5.1); Sodium 139 mmol/L (136-145)
[2023-06-26] MEDS: baclofen 10 mg Tablet PO ×3 (09:33→21:12)
[2023-06-26] MEDS: gabapentin 100 mg Capsule PO ×2 (09:33→18:11)
[2023-06-26] MEDS: acetaminophen 325 mg Tablet 650 MG PO ×2 (09:51→15:56)
--- NOTE | 2023-06-26 10:02 | P.PN_ITS ---
Subjective 2 Subjective: This morning patient was eating breakfast however she will constantly cough throughout her food intake I discussed indication of PEG tube with the patient and her who is at the bedside They understood that this might be needed in near future and she will require another surgery after much contemplation and discussion patient and her both agreed with PEG tube placement with plan for colostomy tomorrow, Dr. Smith notified She will be kept n.p.o. after midnight I will hold her heparin for tonight Vitals/I&O/Wt Last Vital Signs Temp 97.4 F L 06/26/23 08:08 Pulse 79 06/26/23 09:21 Resp 18 06/26/23 09:15 BP 94/56 06/26/23 08:08 Pulse Ox 98 06/26/23 09:15 O2 Del Method Nasal Cannula 06/26/23 09:15 O2 Flow Rate 2 06/26/23 09:15 FiO2 2 06/24/23 02:49 06/25/23 06/26/23 06/26/23 22:59 06:59 14:59 Intake Total 300 / 711 300 / 1011 480 / 480 Output Total 320 / 320 Balance -20 / 391 300 / 691 480 / 480 Weight last 48 hrs Weight 80.24 kg Physical Exam 2 Narrative: Patient is eating breakfast Signs of aspiration present Can clear her throat Chest congestion Currently on room air Pleasant Able to understand questions Abdomen soft is at the bedside Data 06/26/23 04:25 06/26/23 04:25 Micro: Microbiology 06/24/23 17:06 Gram Stain - Final Other Source 06/24/23 17:06 Gram Stain - Final Bone 06/23/23 20:16 Urine Culture - Preliminary Urine,Clean Catch Gram Negative Rods A&P Assessment and plan (1) Abscess of sacrum: (2) Osteomyelitis: (3) Sacral pressure ulcer: Qualifiers: Pressure injury stage: stage 3 Qualified Code(s): L89.153 - Pressure ulcer of sacral region, stage 3 (4) Sacral decubitus ulcer, stage IV: (5) Dementia: Qualifiers: Dementia behavioral or psychological symptom: without behavioral, psychotic, or mood disturbance or anxiety Dementia severity: moderate Dementia type: unspecified type Qualified Code(s): F03.B0 - Unspecified dementia, moderate, without behavioral disturbance, psychotic disturbance, mood disturbance, and anxiety (6) Aspiration pneumonitis: (7) Acute hypoxic respiratory failure: (8) Mucus plugging of bronchi: (9) Hypoalbuminemia due to protein-calorie malnutrition: Plan Sacral osteomyelitis Surgical abscess drainage, bone biopsy taken Will wait for bone cultures before deciding on long-term 6 weeks antibiotic regimen at discharge Acute on chronic anemia, Eliquis on hold No active bleeding Patient was given 1 PRBC for her procedure of colostomy and PEG tube placement tomorrow Patient is going for waiting colostomy and PEG tube placement by tomorrow she does have significant aspiration, not requiring oxygen today, aspiration pneumonitis, currently she is on broad-spectrum antibiotics Insomnia: Improved She can get Zyprexa on as-needed basis DNR/DNI N.p.o. after midnight Hold DVT prophylaxis for tonight Had another family meeting to discuss indication of PEG tube, both patient and her are agreeable Patient wants to keep eating through her mouth until she has no ability to eat or taste her food then she would start using her PEG tube this PEG tube is being placed in order to avoid another surgery in future Attestations 2 Medical Necessity Statement*: Continue medical management Diagnoses Abscess of sacrum M46.28 Osteomyelitis M86.9 Sacral pressure ulcer L89.153 Pressure injury stage: stage 3 Sacral decubitus ulcer, stage IV L89.154 Dementia F03.B0 Dementia behavioral or psychological symptom: without behavioral, psychotic, or mood disturbance or anxiety Dementia severity: moderate Dementia type: unspecified type Aspiration pneumonitis J69.0 Acute hypoxic respiratory failure J96.01 Mucus plugging of bronchi T17.500A Hypoalbuminemia due to protein-calorie malnutrition E88.09; E46
--- NOTE | 2023-06-26 12:03 | PC.SOCIAL ---
Pg 2 IMM Explained to pt & her , Pg 2 IMM. No questions voiced. Provided pt a copy. Initialed, dated, & timed a copy & placed in chart.
[2023-06-26] MEDS: sodium chloride 0.9% 500 ML IV (18:11)
[2023-06-26] MEDS: vancomycin 1,250 MG/250 ML PIGGYBACK 250 MG IV (18:12)
[2023-06-26] MEDS: oxyCODONE 5 mg IR Tab/Cap PO (18:28)
[2023-06-26] MEDS: zolpidem 5 mg Tablet PO (21:12)
[2023-06-26] MEDS: quetiapine 25 mg Tablet PO (21:12)
[2023-06-27] VITALS (26 sets, daily range): BP systolic 109–163; BP diastolic 66–99; PULSE 84–129; RESP 14–24; TEMP 35.7–37.1; O2SAT 91–99
[2023-06-27] MEDS: pantoprazole 40 mg SDV IVP (00:18)
[2023-06-27] MEDS: meropenem 1,000 MG in sodium chloride 0.9% (plus) 50 ML 100 MG IV ×2 (05:09→21:52)
[2023-06-27] MEDS: HYDROmorphone 1 mg/mL INJ 1 mL IVP ×2 (05:13→18:12)
[2023-06-27 05:38] LABS: Basophils # 0.1 10^3/uL (0.0-0.1); Basophils % 0.6 %; Eosinophils # 0.3 10^3/uL (0.0-0.8); Eosinophils % 3.8 %; Hematocrit 31.8 % (36-47); Lymphocytes # 2.1 10^3/uL (0.8-4.8); Lymphocytes % 25.8 %; Mean Corpuscular HGB Conc 31.4 g/dL (30-55); Mean Corpuscular Hemoglobin 27.6 pg (27-33); Mean Corpuscular Volume 87.8 fl (85-98); Mean Platelet Volume 8.5 fL (7.4-10.4); Monocytes # 0.4 10^3/uL (0.2-0.9); Monocytes % 4.8 %; Neutrophils # 5.28 10^3/uL (1.8-7.7); Neutrophils % 63.9 %; Nucleated Red Blood Cells % 0 %; Platelet Count 482 10^3/cmm (157-399); Red Blood Count 3.62 10^6/uL (3.85-5.65); Red Cell Distribution Width 15.3 % (12.1-15.1); White Blood Count 8.26 10^3/uL (3.29-11.43)
[2023-06-27 07:13] LABS: Anion Gap 11.4 (5-19); Blood Urea Nitrogen 8 mg/dL (8-23); Calcium 8.4 mg/dL (8.5-10.5); Carbon Dioxide 27 mmol/L (22-29); Chloride 108 mmol/L (98-107); Glucose 88 mg/dL (65-115); Osmolality Calculated 294 mOsm/kg (285-295); Potassium 3.4 mmol/L (3.5-5.1); Sodium 143 mmol/L (136-145)
[2023-06-27] MEDS: ipratropium-albuterol 3 mL Neb INHALATION ×2 (08:31→19:57)
--- NOTE | 2023-06-27 10:38 | P.PN_ITS ---
Subjective 2 Subjective: Patient is going for PEG tube placement and diverting colostomy Dr. Smith No overnight events Hemoglobin stable No leukocytosis, afebrile, hypokalemia noted We will replenish Currently on antibiotics Bone culture showing gram-negative josiah Blood pressure stable she required 500 mL bolus last night Vitals/I&O/Wt Last Vital Signs Temp 96.3 F L 06/27/23 07:40 Pulse 84 06/27/23 08:37 Resp 16 06/27/23 08:31 BP 109/69 06/27/23 07:40 Pulse Ox 99 06/27/23 08:31 O2 Del Method Room Air 06/27/23 08:31 O2 Flow Rate 2 06/27/23 07:40 FiO2 2 06/24/23 02:49 06/26/23 06/27/23 06/27/23 22:59 06:59 14:59 Intake Total 1160 / 2170 50 / 2220 Output Total 1300 / 1300 1000 / 2300 300 / 300 Balance -140 / 870 -950 / -80 -300 / -300 Weight last 48 hrs Weight 71.532 kg Weight 71.532 kg Physical Exam 2 Narrative: Awake and alert No new focal deficit Complaining of chest congestion Currently on room air Afebrile Hemodynamically stable Suprapubic catheter in place Data 06/27/23 05:08 06/27/23 05:08 Micro: Microbiology 06/24/23 17:06 Anaerobic Culture - Preliminary Bone 06/24/23 17:06 Gram Stain - Final Other Source Anaerobic Culture - Preliminary Wound Culture - Preliminary Gram Negative Rods 06/23/23 20:40 Blood Culture - Preliminary Blood 06/23/23 20:35 Blood Culture - Preliminary Blood 06/24/23 17:06 Gram Stain - Final Bone Tissue Culture - Preliminary Gram Negative Rods 06/23/23 20:16 Urine Culture - Final Urine,Clean Catch Escherichia coli Proteus mirabilis A&P Assessment and plan (1) Dysphagia: (2) Flaccid neurogenic bladder: (3) Urinary tract infection: Qualifiers: Encounter type: initial encounter Indwelling urinary catheter type: u nspecified Urinary tract infection type: catheter-associated UTI Qualified Code(s): T83.511A - Infection and inflammatory reaction due to indwelling urethral catheter, initial encounter; N39.0 - Urinary tract infection, site not specified (4) Abscess of sacrum: (5) Osteomyelitis: (6) Sacral decubitus ulcer, stage IV: (7) Dementia: Qualifiers: Dementia behavioral or psychological symptom: without behavioral, psychotic, or mood disturbance or anxiety Dementia severity: moderate Dementia type: unspecified type Qualified Code(s): F03.B0 - Unspecified dementia, moderate, without behavioral disturbance, psychotic disturbance, mood disturbance, and anxiety (8) Aspiration pneumonitis: (9) Acute hypoxic respiratory failure: (10) Mucus plugging of bronchi: (11) Hypoalbuminemia due to protein-calorie malnutrition: (12) New onset left bundle branch block (LBBB): Plan No active chest pain Bundle branch block evident on EKG Hemodynamically stable Osteomyelitis sacral area status post debridement wound culture showing gram- negative rods will need 6 weeks of IV antibiotics at discharge Significant dysphagia with chronic aspiration, patient is going for diverting colostomy and PEG tube placement today with Dr. Smith She did receive chest physiotherapy for mucous plug, currently on room air Hypoxia has improved she is still struggling to clear her phlegm I do believe she is chronically aspirating her own upper airway secretions Multiple sclerosis status post neurogenic bladder Bedbound Attestations 2 Medical Necessity Statement*: Plan to discharge her on IV antibiotics once surgery is completed Diagnoses Dysphagia R13.10 Flaccid neurogenic bladder N31.2 Urinary tract infection T83.511A; N39.0 Encounter type: initial encounter Indwelling urinary catheter type: unspecified Urinary tract infection type: catheter-associated UTI Abscess of sacrum M46.28 Osteomyelitis M86.9 Sacral decubitus ulcer, stage IV L89.154 Dementia F03.B0 Dementia behavioral or psychological symptom: without behavioral, psychotic, or mood disturbance or anxiety Dementia severity: moderate Dementia type: unspecified type Aspiration pneumonitis J69.0 Acute hypoxic respiratory failure J96.01 Mucus plugging of bronchi T17.500A Hypoalbuminemia due to protein-calorie malnutrition E88.09; E46 New onset left bundle branch block (LBBB) I44.7
[2023-06-27] MEDS: lidocaine 1% 5 ML in potassium chloride premix 100 ML 25 ML IV (11:24)
--- NOTE | 2023-06-27 11:41 | SUR.PREOP ---
PICC line to right upper arm. Dressing clean dry and intact. Flushed with 10ml NS, blood return good as noted prior to flush.
[2023-06-27] MEDS: sodium chloride 0.9% 1,000 ML 30 ML IV (11:45)
--- NOTE | 2023-06-27 11:46 | ANES.PAUD2 ---
Pre-Anesthetic Update Pre-Anesthetic Assessment: Date of Surgery/Procedure: 06/27/23 Proposed Procedure: Operation Date: 06/24/23 16:55 Proposed Procedures p Debridement of sacral decubitus ulcer(Not Applicable) - Tony Smith, DO Operation Date: 06/27/23 12:30 Proposed Procedures p Colostomy(Not Applicable) - Tony Smith, DO Any changes to Pre-Anesthetic Assessment?: No Last Intake: Intake Last Liquid Date 06/26/23 Last Liquid Time 23:45 Last Solid Date 06/26/23 Last Solid Time 18:30 Labs Last 48hrs: Short CBC 06/26/23 06/27/23 Range/Units 04:25 05:08 WBC 8.02 8.26 (3.29-11.43) 10^ 3/uL Hgb 8.90 L 10.00 L (11.27-16.99) g/ dL Hct 28.6 L 31.8 L (36-47) % MCV 89.4 87.8 (85-98) fl Plt Count 388 482 H (157-399) 10^3/c mm Neut % (Auto) 60.0 63.9 % Neut # (Auto) 4.82 5.28 (1.8-7.7) 10^3/u L BMP 06/26/23 06/27/23 04:25 05:08 Sodium 139 143 Potassium 3.6 3.4 L Chloride 104 108 H Carbon Dioxide 25 27 BUN 10 8 Creatinine 0.3 L 0.3 L Glucose 88 88 Calcium 8.5 8.4 L Blood Bank 06/25/23 12:06 Blood Type A Positive Rho(D) Type Rh positive Antibody Screen Negative COVID Results 06/23/23 20:16 SARS-CoV-2 Ag (Rap id) negative Vitals: Temperature 97.4 F L 06/27/23 11:32 Temperature Source Oral 06/27/23 11:32 Pulse Rate 99 06/27/23 11:32 Pulse Rhythm Regular 06/25/23 16:25 Pulse Strength 3+ Normal 06/23/23 23:58 Respiratory Rate 16 06/27/23 11:32 Respiratory Effort Spontaneous, Non- Labored 06/27/23 05:13 Respiratory Depth Normal 06/27/23 05:13 Respiratory Patter n Normal 06/27/23 05:13 Blood Pressure 122/78 06/27/23 11:32 Blood Pressure Radha n 92 06/27/23 11:32 Blood Pressure Pos ition Semi Fowlers 06/27/23 03:36 Pulse Oximetry 96 06/27/23 11:32 Oxygen Delivery Me thod Room Air 06/27/23 11:32 Oxygen Flow Rate 2 06/27/23 07:40 Fraction of Inspir ed Oxygen 2 06/24/23 02:49 Sepsis Recent Feve r Within 48 Hours No 06/23/23 20:06 Exam: Pre-Anes Outpt Exam: alert, oriented x 3, clear to auscultation bilaterally and regular rate & rhythm Cardiac Studies: No Data to Display
--- NOTE | 2023-06-27 12:27 | P.PN_ITS ---
Vitals/I&O/Wt Last Vital Signs Temp 97.4 F L 06/27/23 11:32 Pulse 99 06/27/23 11:32 Resp 16 06/27/23 11:32 BP 122/78 06/27/23 11:32 Pulse Ox 96 06/27/23 11:32 O2 Del Method Room Air 06/27/23 11:32 O2 Flow Rate 2 06/27/23 07:40 FiO2 2 06/24/23 02:49 06/26/23 06/27/23 06/27/23 22:59 06:59 14:59 Intake Total 1160 / 2170 50 / 2220 0.417 / 0.417 Output Total 1300 / 1300 1000 / 2300 300 / 300 Balance -140 / 870 -950 / -80 -299.583 / -299.583 Weight last 48 hrs Weight 157 lb 11.2 oz Weight 157 lb 11.2 oz Data 06/27/23 05:08 06/27/23 05:08 Micro: Microbiology 06/24/23 17:06 Anaerobic Culture - Preliminary Bone 06/24/23 17:06 Gram Stain - Final Other Source Anaerobic Culture - Preliminary Wound Culture - Preliminary Gram Negative Rods 06/23/23 20:40 Blood Culture - Preliminary Blood 06/23/23 20:35 Blood Culture - Preliminary Blood 06/24/23 17:06 Gram Stain - Final Bone Tissue Culture - Preliminary Gram Negative Rods 06/23/23 20:16 Urine Culture - Final Urine,Clean Catch Escherichia coli Proteus mirabilis A&P Assessment and plan (1) Sacral decubitus ulcer, stage IV: Plan Postoperative day #3 status post sharp excisional debridement of stage IV sacral decubitus ulcer This ulcer has been present for approximately 12 years despite multiple surgical interventions and wound vacs. She has advanced MS and has had issues with stool contamination of the wound. I talked extensively with the patient and her daughter about the option of a diverting colostomy. They would like to pursue this. I have her scheduled for 1229 afternoon for an open colostomy formation. She has had issues with constipation, and resection of some of her sigmoid colon with an end colostomy but certainly address this. To OR for open sigmoidectomy with colostomy formation and PEG tube placement The risks and benefits of the procedure, including but not limited to, bleeding, infection, scar, numbness, pain, damage to surrounding structures, ostomy malfunction/retraction, need for further surgery, were explained to the patient and her daughter. They are understanding the risks and wished to proceed. Twice daily wet-to-dry dressings to stage IV sacral decubitus ulcer Medical management per hospitalist Attestations 2 Medical Necessity Statement*: per primary Coding Level of Care Code Acute Code for [facility] Diagnoses Sacral decubitus ulcer, stage IV L89.154
--- NOTE | 2023-06-27 14:25 | P.OP_ITS ---
Operative Report Date of procedure: June 27, 2023 Pre-op diagnosis: Sclerosis Chronic constipation Stage IV sacral decubitus ulcer present for the last 12 years and not healing due to stool contamination Dysphagia and aspiration Post-op diagnosis: same Procedure done: Open sigmoidectomy End colostomy formation Percutaneous endoscopic gastrostomy tube placement Implants: 20 Vietnamese percutaneous endoscopic gastrostomy tube Specimens removed/disposition: Sigmoid colon Surgeon: Tony Smith DO Anesthesia: General Estimated blood loss (mL): 20 Complications: None apparent Brief History: This is a very pleasant 73-year-old female with advanced multiple sclerosis who has been living for the past 12 years with a nonhealing sacral decubitus ulcer that is now stage IV. She has had multiple contaminations of stool, preventing healing. She also has developed dysphagia with frequent aspirations due to her multiple sclerosis. Sigmoid colectomy with end colostomy formation and percutaneous endoscopic gastrostomy tube formation is indicated. The risk benefits were explained and documented. Procedure: Patient was wheeled out room placed on the OR table in supine position. The abdomen was inspected prepped and draped usual sterile fashion. A timeout was performed. All present were in agreement. A 10 blade scalpel was then used to make a midline laparotomy incision periumbilically. Electrocautery was then used to dissect down through the fascia. The fascia was entered bluntly and then carried up cephalad and caudad. The sigmoid colon was identified and was full of rockhard stool. A window was made in the mesentery at the rectosigmoid junction. A contour with a blue load was then used to transect the colon at the rectosigmoid junction. An area proximal to this on the sigmoid colon was then transected similarly. LigaSure was then used to transect the mesentery. The specimen was passed off. I then used the LigaSure to free up more of the sigmoid colon. The contour stapler with a blue load was then used to transect the colon at the junction of the sigmoid colon and descending colon. The LigaSure was then used to ligate the mesentery of the remaining sigmoid colon. Specimen was passed off. A site was chosen preoperatively for ostomy placement. Electrocautery was used and cut mode to cut out the [place] for the ostomy site. The majority of the subcutaneous fat down to the fascia was then excised with electrocautery. The anterior rectus sheath was then opened in a cruciate fashion with electrocautery. The rectus muscles worse let and the posterior rectus sheath was opened linearly with electrocautery. This was dilated to 2 fingerbreadths. The descending colon was then brought up through the future colostomy site. The abdomen was inspected and hemostasis was noted. The laparotomy incision was then closed at the fascia with looped PDS x 2 in a running fashion. Skin was closed with joanne. The ostomy was then matured in the typical fashion. Ostomy appliance was placed. Attention was then brought to the percutaneous endoscopic gastrostomy tube. The endoscope was then advanced into the mouth and down the esophagus into the stomach. The abdominal wall was trans gastrically eliminated and a 6 mm inc ision was made with an 11 blade scalpel over this area. A needle was placed into the stomach and then a wire was placed in the stomach. The wire was then sewed and pulled out through the mouth. The gastrostomy tube was then attached to wire. The gastrostomy tube was lubricated and pulled back through the mouth and stomach, exiting the anterior abdominal wall. Attachments were placed to the gastrostomy tube. Patient tolerated procedure well.
[2023-06-27] MEDS: sodium chlor 0.45% +KCl 20 mEq 20 MEQ/1,000 ML BAG 125 MEQ IV ×2 (15:33→23:50)
--- NOTE | 2023-06-27 17:05 | ANE.PACU2 ---
Inpatient post-anesthesia follow up: Airway intact: Yes Vital signs: Temperature 97.5 F Pulse Rate 119 Respiratory Rate 16 Blood Pressure 132/77 Pulse Oximetry 95 Oxygen Delivery Me thod Nasal Cannula Oxygen Flow Rate 4 Fraction of Inspir ed Oxygen 2 Hydration adequate: Yes Nausea and vomiting: No Pain level: 1 Mental status: Baseline
[2023-06-27] MEDS: gabapentin 100 mg Capsule PO (18:12)
--- NOTE | 2023-06-27 18:18 | XRR_ITS ---
PROCEDURE INFORMATION: Exam: XR Chest Exam date and time: 06/27/2023 7:10 PM Age: 73 years old Clinical indication: Other: Hypoxia; Additional info: Decreased oxygen TECHNIQUE: Imaging protocol: Radiologic exam of the chest. Views: 1 view. COMPARISON: CR XR chest 1V portable [id number] 06/24/2023 2:38 PM FINDINGS: Tubes, catheters and devices: Right-sided PICC catheter tip reaches the right atrial level, unchanged from 06/24/2023. Lungs: Low lung volumes. Interval development of clro-zr-aqblises bandlike atelectasis in the left perihilar region. Blunting of the left costophrenic angle is new suggestive of trace effusion. Increased retrocardiac density. Pleural spaces: See Lungs finding. Heart/Mediastinum: Unremarkable. No cardiomegaly. Vasculature: Tortuous appearance of the thoracic aorta is again noted. Bones/joints: Unremarkable. XR/XR chest 1V portable [id number] IMPRESSION: 1. Interval development of trace left pleural effusion and increased retrocardiac left base opacity suggestive of atelectasis, pneumonia or aspiration. 2. Avox-ie-hmjitson bandlike atelectasis in the left perihilar region is also new from 06/24/2023.
[2023-06-27] MEDS: scopolamine 1.5 Patch 1 PATCH TRANSDERMA (18:39)
[2023-06-27] MEDS: zolpidem 5 mg Tablet PO (21:51)
[2023-06-27] MEDS: quetiapine 25 mg Tablet PO (21:51)
[2023-06-27] MEDS: baclofen 10 mg Tablet PO (21:51)
[2023-06-27 22:12] LABS: Glucose Point of Care 117 mg/dL (70-110)
[2023-06-28] VITALS (15 sets, daily range): BP systolic 115–132; BP diastolic 64–83; PULSE 102–120; RESP 16–21; TEMP 36.4–37.3; O2SAT 92–99
[2023-06-28] MEDS: pantoprazole 40 mg SDV IVP ×2 (00:24→23:36)
[2023-06-28] MEDS: enoxaparin 80 mg/0.8 mL Syringe 70 MG SUBCUT ×2 (05:53→17:51)
[2023-06-28] MEDS: meropenem 1,000 MG in sodium chloride 0.9% (plus) 50 ML 100 MG IV ×3 (05:53→22:01)
[2023-06-28 05:59] LABS: Basophils % 0.3 %; Eosinophils % 0.1 %; Hematocrit 33.3 % (36-47); Lymphocytes # 1.7 10^3/uL (0.8-4.8); Mean Corpuscular HGB Conc 31.2 g/dL (30-55); Mean Corpuscular Hemoglobin 27.7 pg (27-33); Mean Corpuscular Volume 88.8 fl (85-98); Mean Platelet Volume 8.5 fL (7.4-10.4); Monocytes # 0.6 10^3/uL (0.2-0.9); Monocytes % 3.8 %; Neutrophils # 12.85 10^3/uL (1.8-7.7); Neutrophils % 83.9 %; Nucleated Red Blood Cells % 0 %; Platelet Count 482 10^3/cmm (157-399); Red Blood Count 3.75 10^6/uL (3.85-5.65); Red Cell Distribution Width 15.3 % (12.1-15.1); White Blood Count 15.29 10^3/uL (3.29-11.43)
[2023-06-28 06:23] LABS: Anion Gap 10.4 (5-19); Blood Urea Nitrogen 5 mg/dL (8-23); Calcium 8.5 mg/dL (8.5-10.5); Carbon Dioxide 28 mmol/L (22-29); Chloride 104 mmol/L (98-107); Glucose 113 mg/dL (65-115); Osmolality Calculated 284 mOsm/kg (285-295); Potassium 4.4 mmol/L (3.5-5.1); Sodium 138 mmol/L (136-145)
[2023-06-28] MEDS: baclofen 10 mg Tablet PO ×3 (08:23→20:51)
[2023-06-28] MEDS: gabapentin 100 mg Capsule PO ×2 (08:23→17:50)
[2023-06-28] MEDS: vancomycin 1,250 MG/250 ML PIGGYBACK 250 MG IV (08:23)
[2023-06-28] MEDS: sodium chlor 0.45% +KCl 20 mEq 20 MEQ/1,000 ML BAG 125 MEQ IV (08:25)
[2023-06-28] MEDS: ipratropium-albuterol 3 mL Neb INHALATION ×2 (10:05→15:25)
--- NOTE | 2023-06-28 11:26 | P.PN_ITS ---
Subjective 2 Subjective: Patient seen and examined. Pain controlled. Vitals/I&O/Wt Last Vital Signs Temp 98.0 F 06/28/23 08:00 Pulse 112 H 06/28/23 08:00 Resp 18 06/28/23 08:00 BP 124/77 06/28/23 08:00 Pulse Ox 95 06/28/23 08:00 O2 Del Method Nasal Cannula 06/28/23 08:00 O2 Flow Rate 2 06/28/23 08:00 FiO2 2 06/24/23 02:49 06/27/23 06/28/23 06/28/23 22:59 06:59 14:59 Intake Total 154.583 / 540.097 5724 / 4928.664 1649 / 1000 Balance 154.583 / -857.619 7160 / 697.124 1855 / 1000 Weight last 48 hrs Weight 164 lb 11.2 oz Weight 157 lb 11.2 oz Weight 157 lb 11.2 oz Physical Exam 2 Narrative: General: No acute distress, oriented to person and place Abdomen: Soft, nondistended, appropriately tender, no guarding or rebound Ostomy: [place] and patent with some flatus in the bag Data 06/28/23 05:20 06/28/23 05:20 Micro: Microbiology 06/24/23 17:06 Gram Stain - Final Bone Tissue Culture - Preliminary Escherichia coli Gram Negative Rods#2 Strep agalactiae - (group b) Strep species, gamma-hemolytic 06/24/23 17:06 Gram Stain - Final Other Source Anaerobic Culture - Preliminary Wound Culture - Preliminary Escherichia coli Proteus mirabilis Strep agalactiae - (group b) Strep species, gamma-hemolytic 06/24/23 17:06 Anaerobic Culture - Preliminary Bone A&P Assessment and plan (1) Sacral decubitus ulcer, stage IV: Plan Postoperative day #4 status post sharp excisional debridement of stage IV sacral decubitus ulcer Postoperative day #1 status post open sigmoidectomy with colostomy formation and PEG tube placement Twice daily wet-to-dry dressings to stage IV sacral decubitus ulcer Remain n.p.o. for now. She does not have an NG tube as there was minimal bowel manipulation. Will consider starting clear liquids and trickle feeds tomorrow. Medical management per hospitalist Attestations 2 Medical Necessity Statement*: Per primary Coding Level of Care Code Acute Code for [facility] Diagnoses Sacral decubitus ulcer, stage IV L89.154
[2023-06-28] MEDS: oxyCODONE 5 mg IR Tab/Cap PO ×2 (12:01→22:12)
--- NOTE | 2023-06-28 12:50 | P.PN_ITS ---
Subjective 2 Subjective: Leukocytosis worsening Concern for atelectasis and pneumonia Low-grade fever I did had a very kamila discussion with her to watch her closely because she is at risk of aspiration, hypoxia and cardiac arrest, stating that they are well aware of all potential complications were very thankful for all the services and help that we provided during hospitalization so far Vitals/I&O/Wt Last Vital Signs Temp 98.9 F 06/28/23 12:00 Pulse 102 H 06/28/23 12:00 Resp 20 H 06/28/23 12:01 BP 127/83 06/28/23 12:00 Pulse Ox 99 06/28/23 12:00 O2 Del Method Nasal Cannula 06/28/23 08:00 O2 Flow Rate 2 06/28/23 08:00 FiO2 2 06/24/23 02:49 06/27/23 06/28/23 06/28/23 22:59 06:59 14:59 Intake Total 154.583 / 352.741 5068 / 7474.737 0434 / 1250 Balance 154.583 / -955.728 5066 / 874.764 4860 / 1250 Weight last 48 hrs Weight 74.707 kg Weight 71.532 kg Weight 71.532 kg Physical Exam 2 Narrative: Suprapubic catheter in place draining dilute urine Dressing in place, PEG tube status post diverting colostomy Serosanguineous fluid in the bag Currently patient is on 2 L nasal cannula I do appreciate that patient is constantly aspirating on her own secretions Oriented to herself She is able to move her extremities, oriented to herself calm and cooperative S1, S2 tachycardia Low-grade fever Data 06/28/23 05:20 06/28/23 05:20 Micro: Microbiology 06/24/23 17:06 Gram Stain - Final Bone Tissue Culture - Preliminary Escherichia coli Gram Negative Rods#2 Strep agalactiae - (group b) Strep species, gamma-hemolytic 06/24/23 17:06 Gram Stain - Final Other Source Anaerobic Culture - Preliminary Wound Culture - Preliminary Escherichia coli Proteus mirabilis Strep agalactiae - (group b) Strep species, gamma-hemolytic 06/24/23 17:06 Anaerobic Culture - Preliminary Bone A&P Assessment and plan (1) New onset left bundle branch block (LBBB): (2) Dysphagia: (3) Flaccid neurogenic bladder: (4) Urinary tract infection: Qualifiers: Encounter type: initial encounter Indwelling urinary catheter type: u nspecified Urinary tract infection type: catheter-associated UTI Qualified Code(s): T83.511A - Infection and inflammatory reaction due to indwelling urethral catheter, initial encounter; N39.0 - Urinary tract infection, site not specified (5) Abscess of sacrum: (6) Osteomyelitis: (7) Sacral pressure ulcer: Qualifiers: Pressure injury stage: stage 3 Qualified Code(s): L89.153 - Pressure ulcer of sacral region, stage 3 (8) Sacral decubitus ulcer, stage IV: (9) Dementia: Qualifiers: Dementia behavioral or psychological symptom: without behavioral, psychotic, or mood disturbance or anxiety Dementia severity: moderate Dementia type: unspecified type Qualified Code(s): F03.B0 - Unspecified dementia, moderate, without behavioral disturbance, psychotic disturbance, mood disturbance, and anxiety (10) Aspiration pneumonitis: (11) Acute hypoxic respiratory failure: (12) Mucus plugging of bronchi: (13) Hypoalbuminemia due to protein-calorie malnutrition: Plan Discussed frankly with the regarding guarded prognosis considering significant risk of aspiration Patient did get PEG tube and diverting colostomy, sacral abscess was drained Multiple bacterial growth noted on bone scan, sensitive to cephalosporin I am inquiring towards using ceftriaxone 2 g daily for at least 6 weeks I do not see any signs of MRSA Patient will stay here until Saturday New development of aspiration pneumonia, currently requiring 2 L which is acute hypoxia Suprapubic catheter W urine noted Continue antibiotics and IV fluids Family were receptive of guarded prognosis DNR/DNI Attestations 2 Medical Necessity Statement*: Continue medical management Diagnoses New onset left bundle branch block (LBBB) I44.7 Dysphagia R13.10 Flaccid neurogenic bladder N31.2 Urinary tract infection T83.511A; N39.0 Encounter type: initial encounter Indwelling urinary catheter type: unspecified Urinary tract infection type: catheter-associated UTI Abscess of sacrum M46.28 Osteomyelitis M86.9 Sacral pressure ulcer L89.153 Pressure injury stage: stage 3 Sacral decubitus ulcer, stage IV L89.154 Dementia F03.B0 Dementia behavioral or psychological symptom: without behavioral, psychotic, or mood disturbance or anxiety Dementia severity: moderate Dementia type: unspecified type Aspiration pneumonitis J69.0 Acute hypoxic respiratory failure J96.01 Mucus plugging of bronchi T17.500A Hypoalbuminemia due to protein-calorie malnutrition E88.09; E46
--- NOTE | 2023-06-28 14:03 | PC.SOCIAL ---
IMM Updated Updated pt & spouse on IMM. No questions voiced. Provided pt a copy. Initialed, dated, & timed copy in chart.
[2023-06-28] MEDS: HYDROmorphone 1 mg/mL INJ 1 mL IVP ×2 (14:04→17:49)
[2023-06-28] MEDS: lanolin oint 7 gm 1 APPLIC TOPICAL (19:42)
[2023-06-28] MEDS: quetiapine 25 mg Tablet PO (20:51)
[2023-06-28] MEDS: zolpidem 5 mg Tablet PO (20:51)
[2023-06-28] MEDS: vancomycin 1,000 MG in sodium chloride 0.9% 250 ML 250 MG IV (20:51)
[2023-06-28] MEDS: LORazepam 2 mg/mL INJ 10 mL MDV 0.5 MG IVP (22:38)
[2023-06-29] VITALS (17 sets, daily range): BP systolic 87–111; BP diastolic 48–69; PULSE 87–108; RESP 15–20; TEMP 36–37.1; O2SAT 91–98
[2023-06-29] MEDS: HYDROmorphone 1 mg/mL INJ 1 mL IVP ×2 (01:30→18:11)
[2023-06-29] MEDS: HYDROmorphone 1 mg/mL INJ 1 mL 0.5 MG IVP (02:53)
[2023-06-29] MEDS: meropenem 1,000 MG in sodium chloride 0.9% (plus) 50 ML 100 MG IV ×3 (04:56→22:05)
[2023-06-29 05:14] LABS: Basophils % 0.2 %; Eosinophils % 0.1 %; Hematocrit 30.7 % (36-47); Lymphocytes # 0.9 10^3/uL (0.8-4.8); Lymphocytes % 6.6 %; Mean Corpuscular HGB Conc 30.6 g/dL (30-55); Mean Corpuscular Hemoglobin 28.1 pg (27-33); Mean Corpuscular Volume 91.9 fl (85-98); Mean Platelet Volume 8.4 fL (7.4-10.4); Monocytes # 0.5 10^3/uL (0.2-0.9); Monocytes % 3.8 %; Neutrophils # 11.46 10^3/uL (1.8-7.7); Neutrophils % 88.5 %; Nucleated Red Blood Cells % 0 %; Platelet Count 423 10^3/cmm (157-399); Red Blood Count 3.34 10^6/uL (3.85-5.65); Red Cell Distribution Width 15.6 % (12.1-15.1); White Blood Count 12.93 10^3/uL (3.29-11.43)
[2023-06-29] MEDS: enoxaparin 80 mg/0.8 mL Syringe 70 MG SUBCUT ×2 (05:29→17:33)
[2023-06-29 05:42] LABS: Blood Urea Nitrogen 6 mg/dL (8-23); Calcium 8.4 mg/dL (8.5-10.5); Carbon Dioxide 26 mmol/L (22-29); Chloride 103 mmol/L (98-107); Glucose 94 mg/dL (65-115); Osmolality Calculated 285 mOsm/kg (285-295); Sodium 139 mmol/L (136-145)
[2023-06-29] MEDS: vancomycin 1,000 MG in sodium chloride 0.9% 250 ML 250 MG IV ×2 (07:57→21:01)
--- NOTE | 2023-06-29 11:26 | P.PN_ITS ---
Subjective 2 Subjective: Patient does not want to use her PEG tube for now she wants to try eating through her mouth until she is not able to Added level 6 dysphagia diet with extremely thick liquid White count slightly better as compared to yesterday No fever today stating that she had a restful night last night Vitals/I&O/Wt Last Vital Signs Temp 97.6 F 06/29/23 11:08 Pulse 106 H 06/29/23 11:08 Resp 16 06/29/23 11:08 BP 98/58 06/29/23 11:08 Pulse Ox 93 06/29/23 11:08 O2 Del Method Room Air 06/29/23 11:08 O2 Flow Rate 2 06/29/23 07:27 FiO2 2 06/24/23 02:49 06/28/23 06/29/23 06/29/23 22:59 06:59 14:59 Intake Total 2200 / 3450 50 / 3500 250 / 250 Output Total 525 / 1825 Balance 1675 / 1625 50 / 1675 250 / 250 Weight last 48 hrs Weight 73.028 kg Weight 74.707 kg Physical Exam 2 Narrative: Patient resting comfortably Jones catheter in place Abdomen covered with dressing colostomy bag PEG tube in place Currently on room air is at the bedside No new focal deficit Data 06/29/23 04:56 06/29/23 04:56 Micro: Microbiology 06/24/23 17:06 Gram Stain - Final Bone Tissue Culture - Preliminary Escherichia coli Gram Negative Rods#2 Strep agalactiae - (group b) Enterococcus faecalis 06/24/23 17:06 Gram Stain - Final Other Source Anaerobic Culture - Preliminary Wound Culture - Preliminary Escherichia coli Proteus mirabilis Strep agalactiae - (group b) Strep species, gamma-hemolytic 06/24/23 17:06 Anaerobic Culture - Preliminary Bone A&P Assessment and plan (1) New onset left bundle branch block (LBBB): (2) Dysphagia: (3) Flaccid neurogenic bladder: (4) Urinary tract infection: Qualifiers: Encounter type: initial encounter Indwelling urinary catheter type: u nspecified Urinary tract infection type: catheter-associated UTI Qualified Code(s): T83.511A - Infection and inflammatory reaction due to indwelling urethral catheter, initial encounter; N39.0 - Urinary tract infection, site not specified (5) Abscess of sacrum: (6) Osteomyelitis: (7) Sacral decubitus ulcer, stage IV: (8) Dementia: Qualifiers: Dementia behavioral or psychological symptom: without behavioral, psychotic, or mood disturbance or anxiety Dementia severity: moderate Dementia type: unspecified type Qualified Code(s): F03.B0 - Unspecified dementia, moderate, without behavioral disturbance, psychotic disturbance, mood disturbance, and anxiety (9) Aspiration pneumonitis: (10) Acute hypoxic respiratory failure: (11) Hypoalbuminemia due to protein-calorie malnutrition: Plan I will continue her antimicrobials Will add IV fluids for her dehydration Patient wants to eat through her mouth she is not interested in using her feeding tube as of now Leukocytosis trending down Aspiration pneumonia currently on room air No fever today Blood pressure on softer side related to dehydration Polymicrobial infection which she will need ceftriaxone for polymicrobial infection no signs of MRSA DNR/DNI at the bedside Attestations 2 Medical Necessity Statement*: Plan to discharge on Saturday Diagnoses New onset left bundle branch block (LBBB) I44.7 Dysphagia R13.10 Flaccid neurogenic bladder N31.2 Urinary tract infection T83.511A; N39.0 Encounter type: initial encounter Indwelling urinary catheter type: unspecified Urinary tract infection type: catheter-associated UTI Abscess of sacrum M46.28 Osteomyelitis M86.9 Sacral decubitus ulcer, stage IV L89.154 Dementia F03.B0 Dementia behavioral or psychological symptom: without behavioral, psychotic, or mood disturbance or anxiety Dementia severity: moderate Dementia type: unspecified type Aspiration pneumonitis J69.0 Acute hypoxic respiratory failure J96.01 Hypoalbuminemia due to protein-calorie malnutrition E88.09; E46
[2023-06-29] MEDS: sodium chloride 0.9% 1,000 ML 75 ML IV (12:08)
--- NOTE | 2023-06-29 13:17 | PM.PN ---
Subjective Subjective: This is a 73-year-old female with multiple medical comorbidities who was admitted to the hospital for management of a sacral decubitus ulcer, during hospital stay she underwent PEG tube placement and diverting sigmoid colostomy. She is now spars operative day 2. I have been requested to see the patient as my colleague Dr. Smith is out of town for the weekend. Patient has been doing well, she was confused overnight but overall she is feeling fine no significant abdominal distention reports significant amount of gas in the ostomy bag but no stool yet. Vitals/I&O/Wt Last Vital Signs Temp 97.6 F 06/29/23 11:08 Pulse 106 H 06/29/23 11:08 Resp 16 06/29/23 11:08 BP 98/58 06/29/23 11:08 Pulse Ox 93 06/29/23 11:08 O2 Del Method Room Air 06/29/23 11:08 O2 Flow Rate 2 06/29/23 07:27 FiO2 2 06/24/23 02:49 06/28/23 06/29/23 06/29/23 22:59 06:59 14:59 Intake Total 2200 / 3450 50 / 3500 250 / 250 Output Total 525 / 1825 Balance 1675 / 1625 50 / 1675 250 / 250 Weight last 48 hrs Weight 161 lb Weight 164 lb 11.2 oz Physical Exam GI: OTHER: Abdomen is soft, nontender, nondistended, surgical incision with appropriate healing, PEG tube site is intact with no evidence of drainage or redness. There is an ostomy on the left lower quadrant, ostomy appears to be viable with no evidence of necrosis, there is good amount of gas in the bag but no stool. Data 06/29/23 04:56 06/29/23 04:56 Micro: Microbiology 06/24/23 17:06 Gram Stain - Final Other Source Anaerobic Culture - Preliminary Wound Culture - Preliminary Escherichia coli Proteus mirabilis Strep agalactiae - (group b) Enterococcus faecalis 06/24/23 17:06 Gram Stain - Final Bone Tissue Culture - Preliminary Escherichia coli Gram Negative Rods#2 Strep agalactiae - (group b) Enterococcus faecalis 06/24/23 17:06 Anaerobic Culture - Preliminary Bone A&P Assessment and plan (1) Dysphagia: (2) Sacral pressure ulcer: Qualifiers: Pressure injury stage: stage 3 Qualified Code(s): L89.153 - Pressure ulcer of sacral region, stage 3 (3) Sacral decubitus ulcer, stage IV: (4) Dementia: Qualifiers: Dementia behavioral or psychological symptom: without behavioral, psychotic, or mood disturbance or anxiety Dementia severity: moderate Dementia type: unspecified type Qualified Code(s): F03.B0 - Unspecified dementia, moderate, without behavioral disturbance, psychotic disturbance, mood disturbance, and anxiety Plan Patient has been stable, showing good progression after debridement of sacral decubitus ulcer and creation of PEG tube diverting sigmoid colostomy. Abdominal exam is benign, there is gas but no stool in the bag. After interview with the patient it has been brought to my attention that she has been started on diet by medical team, she was able to tolerate about two thirds of soft bite-size diet without significant complaint or abdominal distention. If patient is tolerating diet we can continue on the same diet and use the PEG tube as needed. Patient should be okay to start trickle feeds if needed by the medical team. If there is any nausea, reports of abdominal distention or any other significant changes in the abdominal exam I will recommend to switch back to n.p.o. until there is stool production in the ostomy bag. Once there is stool in the bag patient could be cleared from the general surgery for discharge. If there is no significant stool output from the ostomy in the next 24 to 48 hours will consider irrigation of the ostomy site and laxative as patient had significant amount of hard stool during index procedure. Attestations Medical Necessity Statement*: Per hospitalist team Coding Level of Care Code Acute Code for [facility] Fwd Diagnoses Dysphagia R13.10 Sacral pressure ulcer L89.153 Pressure injury stage: stage 3 Sacral decubitus ulcer, stage IV L89.154 Dementia F03.B0 Dementia behavioral or psychological symptom: without behavioral, psychotic, or mood disturbance or anxiety Dementia severity: moderate Dementia type: unspecified type
[2023-06-29] MEDS: ipratropium-albuterol 3 mL Neb INHALATION (13:28)
[2023-06-29] MEDS: oxyCODONE 5 mg IR Tab/Cap PO (17:33)
[2023-06-29] MEDS: gabapentin 100 mg Capsule PO (17:33)
--- NOTE | 2023-06-29 20:57 | PC.NURSE ---
Patient asking for her last shot. When this nurse asked about what shot the patient was referring to, patient stated, The shot that makes you say goodbye. I'm ready to say goodbye.
[2023-06-29] MEDS: quetiapine 25 mg Tablet PO (21:02)
[2023-06-29] MEDS: baclofen 10 mg Tablet PO (21:02)
[2023-06-29] MEDS: zolpidem 5 mg Tablet PO (21:03)
[2023-06-30] VITALS (13 sets, daily range): BP systolic 145–161; BP diastolic 72–95; PULSE 64–111; RESP 16–17; TEMP 36.3–36.4; O2SAT 92–95
[2023-06-30] MEDS: pantoprazole 40 mg SDV IVP ×2 (00:11→23:20)
[2023-06-30] MEDS: sodium chloride 0.9% 1,000 ML 75 ML IV (01:24)
[2023-06-30] MEDS: HYDROmorphone 1 mg/mL INJ 1 mL IVP ×5 (01:51→23:20)
[2023-06-30] MEDS: LORazepam 2 mg/mL INJ 10 mL MDV 0.5 MG IVP (04:00)
[2023-06-30] MEDS: meropenem 1,000 MG in sodium chloride 0.9% (plus) 50 ML 100 MG IV ×3 (04:51→22:18)
[2023-06-30] MEDS: enoxaparin 80 mg/0.8 mL Syringe 70 MG SUBCUT ×2 (05:53→17:47)
[2023-06-30 06:06] LABS: Basophils % 0.3 %; Eosinophils # 0.1 10^3/uL (0.0-0.8); Eosinophils % 0.7 %; Hematocrit 32.6 % (36-47); Lymphocytes # 0.8 10^3/uL (0.8-4.8); Lymphocytes % 7.1 %; Mean Corpuscular HGB Conc 30.4 g/dL (30-55); Mean Corpuscular Hemoglobin 27.7 pg (27-33); Mean Corpuscular Volume 91.3 fl (85-98); Mean Platelet Volume 8.8 fL (7.4-10.4); Monocytes # 0.5 10^3/uL (0.2-0.9); Monocytes % 3.9 %; Neutrophils % 87.4 %; Nucleated Red Blood Cells % 0 %; Platelet Count 456 10^3/cmm (157-399); Red Blood Count 3.57 10^6/uL (3.85-5.65); Red Cell Distribution Width 15.9 % (12.1-15.1); White Blood Count 11.45 10^3/uL (3.29-11.43)
[2023-06-30 06:22] LABS: Anion Gap 12.6 (5-19); Blood Urea Nitrogen 7 mg/dL (8-23); Calcium 8.2 mg/dL (8.5-10.5); Carbon Dioxide 27 mmol/L (22-29); Chloride 105 mmol/L (98-107); Glucose 129 mg/dL (65-115); Osmolality Calculated 292 mOsm/kg (285-295); Potassium 3.6 mmol/L (3.5-5.1); Sodium 141 mmol/L (136-145)
[2023-06-30] MEDS: ipratropium-albuterol 3 mL Neb INHALATION (08:44)
[2023-06-30] MEDS: vancomycin 1,000 MG in sodium chloride 0.9% 250 ML 250 MG IV ×2 (08:59→20:38)
[2023-06-30] MEDS: gabapentin 100 mg Capsule PO ×2 (08:59→17:47)
[2023-06-30] MEDS: baclofen 10 mg Tablet PO ×2 (08:59→20:41)
--- NOTE | 2023-06-30 10:28 | P.PN_ITS ---
Subjective 2 Subjective: Patient has remained stable from the surgical standpoint, has been able to tolerate a small amount of food, without significant abdominal pain or distention, ostomy continues to be productive of gas but no stool yet. Per report at the bedside patient has been doing okay, he was informed by the medical team that she also has pneumonia and there is increased risk for respiratory decompensation due to this. Vitals/I&O/Wt Last Vital Signs Temp 97.5 F L 06/30/23 08:00 Pulse 106 H 06/30/23 08:54 Resp 16 06/30/23 09:07 BP 156/95 06/30/23 08:00 Pulse Ox 94 06/30/23 09:07 O2 Del Method Room Air 06/30/23 08:54 O2 Flow Rate 2 06/29/23 13:30 FiO2 2 06/24/23 02:49 06/29/23 06/30/23 06/30/23 22:59 06:59 14:59 Intake Total 420 / 720 1045 / 1765 370 / 370 Output Total 1000 / 1000 Balance 420 / 720 45 / 765 370 / 370 Weight last 48 hrs Weight 163 lb 4 oz Weight 161 lb Physical Exam 2 GI: OTHER: PEG tube in place, abdomen is soft, nontender, nondistended, surgical incision is healing well, covered with the joanne. Ostomy in the left lower quadrant is pink and viable and has gas and a small amount of weeping in the ostomy bag. Data 06/30/23 05:28 06/30/23 05:28 Micro: Microbiology 06/24/23 17:06 Gram Stain - Final Other Source Anaerobic Culture - Preliminary Wound Culture - Preliminary Escherichia coli Proteus mirabilis Strep agalactiae - (group b) Enterococcus faecalis 06/24/23 17:06 Gram Stain - Final Bone Tissue Culture - Preliminary Escherichia coli Gram Negative Rods#2 Strep agalactiae - (group b) Enterococcus faecalis A&P Assessment and plan (1) Abscess of sacrum: (2) Dysphagia: Plan Good progression after PEG tube creation and diverting sigmoid colostomy. Patient has been able to tolerate diet, there is gas in the bag and some weeping, abdominal exam remains benign. If no significant stool output in the next 24 hours we will consider laxative versus irrigation of the ostomy. All other management per medical team is appreciated. Per my discussion with the family member at the bedside, in the case of respiratory compensation they do not plan to pursue any additional treatment. Attestations 2 Medical Necessity Statement*: Per medical team Coding Level of Care Code Acute Code for [facility] Fwd Diagnoses Abscess of sacrum M46.28 Dysphagia R13.10
--- NOTE | 2023-06-30 12:21 | P.PN_ITS ---
Subjective 2 Subjective: White count improving Hemoglobin stable Patient tolerated her diet No aspiration as per the Currently she is on room air Pleasant and cooperative Happy with the progress Creatinine normal Vitals/I&O/Wt Last Vital Signs Temp 97.4 F L 06/30/23 11:30 Pulse 97 06/30/23 11:30 Resp 16 06/30/23 11:30 BP 145/75 06/30/23 11:30 Pulse Ox 92 06/30/23 11:30 O2 Del Method Nasal Cannula 06/30/23 11:30 O2 Flow Rate 2 06/29/23 13:30 FiO2 2 06/24/23 02:49 06/29/23 06/30/23 06/30/23 22:59 06:59 14:59 Intake Total 420 / 720 1045 / 1765 370 / 370 Output Total 1000 / 1000 Balance 420 / 720 45 / 765 370 / 370 Weight last 48 hrs Weight 74.049 kg Weight 73.028 kg Physical Exam 2 Narrative: Awake and alert GCS 15 Nonfocal neuroexam Mild fluid in the colostomy bag Dilute urine Pleasant cooperative Currently room air Nonfocal neuroexam S2 improved Data 06/30/23 05:28 06/30/23 05:28 Micro: Microbiology 06/24/23 17:06 Gram Stain - Final Other Source Anaerobic Culture - Preliminary Wound Culture - Preliminary Escherichia coli Proteus mirabilis Strep agalactiae - (group b) Enterococcus faecalis 06/24/23 17:06 Gram Stain - Final Bone Tissue Culture - Preliminary Escherichia coli Gram Negative Rods#2 Strep agalactiae - (group b) Enterococcus faecalis A&P Assessment and plan (1) Dysphagia: (2) Hypoalbuminemia due to protein-calorie malnutrition: (3) Mucus plugging of bronchi: (4) Acute hypoxic respiratory failure: (5) Sacral decubitus ulcer, stage IV: (6) Dementia: Qualifiers: Dementia behavioral or psychological symptom: without behavioral, psychotic, or mood disturbance or anxiety Dementia severity: moderate Dementia type: unspecified type Qualified Code(s): F03.B0 - Unspecified dementia, moderate, without behavioral disturbance, psychotic disturbance, mood disturbance, and anxiety (7) Urinary tract infection: Qualifiers: Encounter type: initial encounter Indwelling urinary catheter type: u nspecified Urinary tract infection type: catheter-associated UTI Qualified Code(s): T83.511A - Infection and inflammatory reaction due to indwelling urethral catheter, initial encounter; N39.0 - Urinary tract infection, site not specified (8) Flaccid neurogenic bladder: (9) Abscess of sacrum: (10) Osteomyelitis: Plan Status post debridement Status post PEG tube placement and colostomy bag Afebrile No worsening aspiration pneumonia Plan to discharge on Saturday likely with ceftriaxone and vancomycin DNR/DNI Acute hypoxia resolved Sinus tachycardia improved discontinue IV fluids Attestations 2 Medical Necessity Statement*: Hopefully will be able to discharge by Saturday Diagnoses Dysphagia R13.10 Hypoalbuminemia due to protein-calorie malnutrition E88.09; E46 Mucus plugging of bronchi T17.500A Acute hypoxic respiratory failure J96.01 Sacral decubitus ulcer, stage IV L89.154 Dementia F03.B0 Dementia behavioral or psychological symptom: without behavioral, psychotic, or mood disturbance or anxiety Dementia severity: moderate Dementia type: unspecified type Urinary tract infection T83.511A; N39.0 Encounter type: initial encounter Indwelling urinary catheter type: unspecified Urinary tract infection type: catheter-associated UTI Flaccid neurogenic bladder N31.2 Abscess of sacrum M46.28 Osteomyelitis M86.9
[2023-06-30] MEDS: zolpidem 5 mg Tablet PO (20:41)
[2023-06-30] MEDS: quetiapine 25 mg Tablet PO (20:41)
[2023-07-01] VITALS (13 sets, daily range): BP systolic 101–137; BP diastolic 62–73; PULSE 71–103; RESP 16–19; TEMP 36.5–37; O2SAT 90–96
[2023-07-01] MEDS: HYDROmorphone 1 mg/mL INJ 1 mL IVP (04:30)
[2023-07-01] MEDS: enoxaparin 80 mg/0.8 mL Syringe 70 MG SUBCUT (05:39)
[2023-07-01] MEDS: meropenem 1,000 MG in sodium chloride 0.9% (plus) 50 ML 100 MG IV ×3 (05:39→21:53)
[2023-07-01] MEDS: gabapentin 100 mg Capsule PO ×2 (08:20→17:30)
[2023-07-01] MEDS: vancomycin 1,000 MG in sodium chloride 0.9% 250 ML 250 MG IV ×2 (08:20→20:02)
[2023-07-01] MEDS: baclofen 10 mg Tablet PO ×3 (08:20→21:54)
[2023-07-01] MEDS: methylnaltrexone 12 /0.6 mL INJ 12 MG SUBCUT (09:36)
[2023-07-01] MEDS: oxyCODONE 5 mg IR Tab/Cap PO ×2 (09:38→13:49)
--- NOTE | 2023-07-01 12:45 | P.PN_ITS ---
Subjective 2 Subjective: No significant output from her colostomy bag Hard stool identified by the general surgeon Patient was given Relistor today She is not complain of any active Tevin pain Tolerating diet Currently on room air Afebrile Polymicrobial infection we will use vancomycin 1 g daily along ceftriaxone 2 g daily for 6 weeks with weekly CBC and BMP plate put in worker/telehealth case manager personal financial planner is aware Vitals/I&O/Wt Last Vital Signs Temp 97.7 F 07/01/23 11:57 Pulse 89 07/01/23 11:57 Resp 17 07/01/23 11:57 BP 121/70 07/01/23 11:57 Pulse Ox 95 07/01/23 11:57 O2 Del Method Nasal Cannula 07/01/23 11:57 O2 Flow Rate 2 06/29/23 13:30 FiO2 2 06/24/23 02:49 06/30/23 07/01/23 07/01/23 22:59 06:59 14:59 Intake Total 370 / 1790 50 / 1840 900 / 900 Output Total 2175 / 2175 300 / 2475 Balance -1805 / -385 -250 / -635 900 / 900 Weight last 48 hrs Weight 74.389 kg Weight 74.049 kg Physical Exam 2 Narrative: Signs of dehydration present but improving Currently on room air Colostomy bag has a lot of air no solid stool Clear fluid in the bag noted as well No active bleeding Abdomen soft Pleasant cooperative Patient is slightly lethargic after waking up Data 06/30/23 05:28 06/30/23 05:28 Micro: Microbiology 06/24/23 17:06 Gram Stain - Final Other Source Anaerobic Culture - Preliminary Anaerobic gram negative rods Wound Culture - Final Escherichia coli Proteus mirabilis Strep agalactiae - (group b) Enterococcus faecalis 06/24/23 17:06 Anaerobic Culture - Preliminary Bone Anaerobic gram negative rods 06/23/23 20:40 Blood Culture - Final Blood 06/23/23 20:35 Blood Culture - Final Blood 06/24/23 17:06 Gram Stain - Final Bone Tissue Culture - Preliminary Escherichia coli Gram Negative Rods#2 Strep agalactiae - (group b) Enterococcus faecalis A&P Assessment and plan (1) Dysphagia: (2) Flaccid neurogenic bladder: (3) Urinary tract infection: Qualifiers: Encounter type: initial encounter Indwelling urinary catheter type: u nspecified Urinary tract infection type: catheter-associated UTI Qualified Code(s): T83.511A - Infection and inflammatory reaction due to indwelling urethral catheter, initial encounter; N39.0 - Urinary tract infection, site not specified (4) Abscess of sacrum: (5) Osteomyelitis: (6) Sacral pressure ulcer: Qualifiers: Pressure injury stage: stage 3 Qualified Code(s): L89.153 - Pressure ulcer of sacral region, stage 3 (7) Sacral decubitus ulcer, stage IV: (8) Dementia: Qualifiers: Dementia behavioral or psychological symptom: without behavioral, psychotic, or mood disturbance or anxiety Dementia severity: moderate Dementia type: unspecified type Qualified Code(s): F03.B0 - Unspecified dementia, moderate, without behavioral disturbance, psychotic disturbance, mood disturbance, and anxiety (9) Aspiration pneumonitis: (10) Mucus plugging of bronchi: (11) Acute hypoxic respiratory failure: (12) Hypoalbuminemia due to protein-calorie malnutrition: (13) Constipation due to pain medication: Plan We will discharge her with 1 g vancomycin and 2 g ceftriaxone for 6 weeks regimen for sacral osteomyelitis Currently she is suffering from opioid-induced constipation given Relistor Once she gets good output from her bag we will discharge her from the hospital Continue muscle relaxant for multiple sclerosis Suprapubic catheter in place Signs of dehydration improving Coordination of care with Dr. Smith Attestations 2 Medical Necessity Statement*: Discharge in next 24 to 48 hours Diagnoses Dysphagia R13.10 Flaccid neurogenic bladder N31.2 Urinary tract infection T83.511A; N39.0 Encounter type: initial encounter Indwelling urinary catheter type: unspecified Urinary tract infection type: catheter-associated UTI Abscess of sacrum M46.28 Osteomyelitis M86.9 Sacral pressure ulcer L89.153 Pressure injury stage: stage 3 Sacral decubitus ulcer, stage IV L89.154 Dementia F03.B0 Dementia behavioral or psychological symptom: without behavioral, psychotic, or mood disturbance or anxiety Dementia severity: moderate Dementia type: unspecified type Aspiration pneumonitis J69.0 Mucus plugging of bronchi T17.500A Acute hypoxic respiratory failure J96.01 Hypoalbuminemia due to protein-calorie malnutrition E88.09; E46 Constipation due to pain medication K59.03
--- NOTE | 2023-07-01 13:08 | PC.SOCIAL ---
IMM Update pg 2 of IMM updated and reviewed w/ patient. Copy provided and copy dated, initialed and placed in chart.
[2023-07-01] MEDS: apixaban 5 mg Tablet PO (17:30)
[2023-07-01] MEDS: quetiapine 25 mg Tablet PO (21:54)
[2023-07-01] MEDS: magnesium hydroxide 30 mL UDC PEG-TUBE (21:54)
[2023-07-02] VITALS (10 sets, daily range): BP systolic 100–126; BP diastolic 64–78; PULSE 87–118; RESP 16–18; TEMP 36.4–37.5; O2SAT 93–98; BMI 24.2
[2023-07-02] MEDS: pantoprazole 40 mg SDV IVP ×2 (01:22→22:56)
[2023-07-02 05:31] LABS: Basophils % 0.4 %; Eosinophils # 0.3 10^3/uL (0.0-0.8); Eosinophils % 2.9 %; Hematocrit 30.5 % (36-47); Lymphocytes % 20.3 %; Mean Corpuscular HGB Conc 31.8 g/dL (30-55); Mean Corpuscular Hemoglobin 28.3 pg (27-33); Mean Corpuscular Volume 88.9 fl (85-98); Mean Platelet Volume 8.7 fL (7.4-10.4); Monocytes # 0.7 10^3/uL (0.2-0.9); Monocytes % 7.1 %; Neutrophils # 6.73 10^3/uL (1.8-7.7); Neutrophils % 68.8 %; Nucleated Red Blood Cells % 0 %; Platelet Count 408 10^3/cmm (157-399); Red Blood Count 3.43 10^6/uL (3.85-5.65); White Blood Count 9.78 10^3/uL (3.29-11.43)
[2023-07-02] MEDS: meropenem 1,000 MG in sodium chloride 0.9% (plus) 50 ML 100 MG IV (06:03)
[2023-07-02 06:22] LABS: Glucose Point of Care 114 mg/dL (70-110)
[2023-07-02 06:27] LABS: Anion Gap 10.2 (5-19); Blood Urea Nitrogen 5 mg/dL (8-23); Calcium 8.4 mg/dL (8.5-10.5); Carbon Dioxide 33 mmol/L (22-29); Chloride 103 mmol/L (98-107); Glucose 96 mg/dL (65-115); Osmolality Calculated 293 mOsm/kg (285-295); Potassium 3.2 mmol/L (3.5-5.1); Sodium 143 mmol/L (136-145)
[2023-07-02] MEDS: baclofen 10 mg Tablet PO ×3 (07:23→21:36)
[2023-07-02] MEDS: gabapentin 100 mg Capsule PO ×2 (07:23→18:35)
[2023-07-02] MEDS: vancomycin 1,000 MG in sodium chloride 0.9% 250 ML 250 MG IV ×2 (07:24→20:17)
[2023-07-02] MEDS: apixaban 5 mg Tablet PO (07:24)
--- NOTE | 2023-07-02 08:08 | XR_ITS ---
WS: [id number] XR KUB portable [id number] REASON FOR EXAM: constipation FINDINGS: Gastrostomy tube in place. Several mildly dilated segments of small bowel in the central abdomen, nonspecific. Moderate to large volume of retained fecal material in the right colon with a large volume contained in the left colon approaching the ostomy. IMPRESSION: Nonspecific small bowel dilatation. Moderate to large retained stool volume proximal to the ostomy site.
[2023-07-02] MEDS: potassium chloride ER 20 mEq Tablet 40 MEQ PO (10:19)
--- NOTE | 2023-07-02 10:46 | P.PN_ITS ---
Subjective 2 Subjective: Patient is constipated, will touch with Dr. Smith with he would prefer lactulose via PEG tube Otherwise patient is ready to be discharged to a group home was concerned that nursing I will not be take care of his and was requesting to keep her here in the hospital I did tell him that he has a right to appeal discharge but we cannot keep her in the hospital until her sacral wound improves Sacral ulcer was present for last few years she will need frequent group home and IV antibiotics, once she get a bowel movement and output from her colostomy bag we should be able to discharge her Vitals/I&O/Wt Last Vital Signs Temp 98.5 F 07/02/23 07:52 Pulse 92 07/02/23 08:08 Resp 18 07/02/23 08:08 BP 117/70 07/02/23 07:52 Pulse Ox 98 07/02/23 08:08 O2 Del Method Nasal Cannula 07/02/23 08:08 O2 Flow Rate 2 07/02/23 08:08 FiO2 2 06/24/23 02:49 07/01/23 07/02/23 07/02/23 22:59 06:59 14:59 Intake Total 940 / 1840 50 / 1890 250 / 250 Output Total 1800 / 1800 950 / 2750 Balance -860 / 40 -900 / -860 250 / 250 Weight last 48 hrs Weight 72.206 kg Weight 74.389 kg Physical Exam 2 Narrative: Patient is awake and alert Lethargic and fatigued Currently on 2 L Abdomen soft Colostomy bag with air with mild fluid drainage otherwise no active output Abdomen soft PEG tube in place Sacral stage IV ulcer covered with dressing Currently patient is not in any distress 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 S1, S2 Afebrile Nonfocal neuroexam Data 07/02/23 05:13 07/02/23 05:13 Micro: Microbiology 06/24/23 17:06 Anaerobic Culture - Preliminary Bone Bacteroides thetaiotaomicron 06/24/23 17:06 Gram Stain - Final Other Source Anaerobic Culture - Preliminary Anaerobic gram negative rods Wound Culture - Final Escherichia coli Proteus mirabilis Strep agalactiae - (group b) Enterococcus faecalis 06/24/23 17:06 Gram Stain - Final Bone Tissue Culture - Final Escherichia coli Strep agalactiae - (group b) Enterococcus faecalis A&P Assessment and plan (1) New onset left bundle branch block (LBBB): (2) Dysphagia: (3) Constipation due to pain medication: (4) Flaccid neurogenic bladder: (5) Urinary tract infection: Qualifiers: Encounter type: initial encounter Indwelling urinary catheter type: u nspecified Urinary tract infection type: catheter-associated UTI Qualified Code(s): T83.511A - Infection and inflammatory reaction due to indwelling urethral catheter, initial encounter; N39.0 - Urinary tract infection, site not specified (6) Abscess of sacrum: (7) Osteomyelitis: (8) Sacral decubitus ulcer, stage IV: (9) Dementia: Qualifiers: Dementia behavioral or psychological symptom: without behavioral, psychotic, or mood disturbance or anxiety Dementia severity: moderate Dementia type: unspecified type Qualified Code(s): F03.B0 - Unspecified dementia, moderate, without behavioral disturbance, psychotic disturbance, mood disturbance, and anxiety (10) Aspiration pneumonitis: (11) Acute hypoxic respiratory failure: (12) Mucus plugging of bronchi: (13) Hypoalbuminemia due to protein-calorie malnutrition: Plan 73-year female who was admitted for management evaluation of sacral ulcer worsening, she was diagnosed with osteomyelitis, there was a sacral abscess, Dr. Smith was consulted, bone biopsy is showing polymicrobial infection for which she will require outpatient ceftriaxone 2 g daily along vancomycin 1 g daily for next 6 weeks, after discussing with the family we went ahead for PEG tube placement because of her significant dysphagia and diverting colostomy because of sacral ulcer, she has had no output since her surgery from colostomy until today when she was given mag citrate, there is plan for wound VAC placement by Dr. Smith today Sacral osteomyelitis stage IV ulcer Wound VAC placement planned for today Polymicrobial infection bone marrow biopsy reviewed Outpatient antibiotics already in place she will get 6-week treatment Status post PEG tube placement and diverting colostomy Starting having bowel movement today 2/6 after getting mag citrate KUB showed constipation on colostomy site Multiple sclerosis neurogenic bladder suprapubic catheter Patient has been adequately treated for UTI as well Most likely she will be able to go to group home tomorrow versus Saturday DNR/DNI Patient currently does not want to use PEG tube, she wants to eat through her mouth she does know that she is at risk of recurrent aspiration, I have removed scopolamine patch which was causing constipation however it helps her to dry her upper airway secretions DVT prophylaxis covered with Eliquis Aspiration pneumonia: Improved Patient is requiring 1 to 2 L at baseline Sinus tachycardia improved as well after using IV fluid hydration Attestations 2 Medical Necessity Statement*: Discharge in next 48 hours Diagnoses New onset left bundle branch block (LBBB) I44.7 Dysphagia R13.10 Constipation due to pain medication K59.03 Flaccid neurogenic bladder N31.2 Urinary tract infection T83.511A; N39.0 Encounter type: initial encounter Indwelling urinary catheter type: unspecified Urinary tract infection type: catheter-associated UTI Abscess of sacrum M46.28 Osteomyelitis M86.9 Sacral decubitus ulcer, stage IV L89.154 Dementia F03.B0 Dementia behavioral or psychological symptom: without behavioral, psychotic, or mood disturbance or anxiety Dementia severity: moderate Dementia type: unspecified type Aspiration pneumonitis J69.0 Acute hypoxic respiratory failure J96.01 Mucus plugging of bronchi T17.500A Hypoalbuminemia due to protein-calorie malnutrition E88.09; E46
[2023-07-02] MEDS: cefTRIAXone 2,000 MG in sodium chloride 0.9% (plus) 50 ML 100 MG IV (12:12)
[2023-07-02] MEDS: magnesium citrate Btl 296 mL 150 ML PEG-TUBE (12:22)
--- NOTE | 2023-07-02 13:02 | PC.NUTR ---
If po intakes inadequate, initiate EN via PEG following RD recs below: continuous: Jevity 1.2 @ 50 ml/hr x24 hrs (1200ml daily total). bolus: 5 cans Jevity 1.2 daily. (B: 480ml, L: 240 ml, D: 480ml) 1 can:240ml This provides 1440 kcals and 67 g/protein a day (100% of needs). If po intakes average 50%, use only 50% of regimen. See most recent RD assessment for details.
--- NOTE | 2023-07-02 18:39 | PC.NURSE ---
Wound vac placed by Dr. Smith at bedside. Called [facility] to have charged to patient. conf#[id number]. Wound vac #[id number]
[2023-07-02] MEDS: quetiapine 25 mg Tablet PO (21:36)
[2023-07-02] MEDS: magnesium hydroxide 30 mL UDC PEG-TUBE (21:36)
[2023-07-03 00:56] VITALS: BP 111/72; PULSE 116; RESP 16; TEMP 36.3; O2SAT 94
[2023-07-03 05:20] LABS: Basophils % 0.3 %; Eosinophils # 0.2 10^3/uL (0.0-0.8); Eosinophils % 1.7 %; Hematocrit 32.6 % (36-47); Lymphocytes # 2.1 10^3/uL (0.8-4.8); Lymphocytes % 18.5 %; Mean Corpuscular HGB Conc 31.3 g/dL (30-55); Mean Corpuscular Hemoglobin 27.9 pg (27-33); Mean Corpuscular Volume 89.3 fl (85-98); Monocytes # 0.7 10^3/uL (0.2-0.9); Monocytes % 5.9 %; Neutrophils # 8.39 10^3/uL (1.8-7.7); Nucleated Red Blood Cells % 0 %; Platelet Count 395 10^3/cmm (157-399); Red Blood Count 3.65 10^6/uL (3.85-5.65); Red Cell Distribution Width 16.5 % (12.1-15.1)
[2023-07-03 05:38] VITALS: BP 138/60; PULSE 97; RESP 18; TEMP 36.5; O2SAT 98
[2023-07-03 05:46] LABS: Anion Gap 11.2 (5-19); Blood Urea Nitrogen 6 mg/dL (8-23); Calcium 8.1 mg/dL (8.5-10.5); Carbon Dioxide 28 mmol/L (22-29); Chloride 106 mmol/L (98-107); Glucose 97 mg/dL (65-115); Osmolality Calculated 290 mOsm/kg (285-295); Potassium 4.2 mmol/L (3.5-5.1); Sodium 141 mmol/L (136-145)
[2023-07-03] MEDS: acetaminophen 325 mg Tablet 650 MG PO (06:49)
[2023-07-03 08:00] VITALS: BP 110/68; PULSE 95; RESP 17; TEMP 36.7; O2SAT 96
[2023-07-03] MEDS: vancomycin 1,000 MG in sodium chloride 0.9% 250 ML 250 MG IV (08:17)
[2023-07-03] MEDS: baclofen 10 mg Tablet PO (08:18)
[2023-07-03] MEDS: gabapentin 100 mg Capsule PO (08:18)
[2023-07-03 08:43] VITALS: PULSE 93; RESP 18; O2SAT 94
[2023-07-03] MEDS: cefTRIAXone 2,000 MG in sodium chloride 0.9% (plus) 50 ML 100 MG IV (10:19)
[2023-07-03 12:00] VITALS: BP 101/67; PULSE 85; RESP 18; TEMP 36.3; O2SAT 96
--- NOTE | 2023-07-03 12:43 | PM.DCS ---
Discharge Providers Date of Admission: 06/23/23 22:06 Date of Discharge: July 03, 2023 Attending Provider at Admission: Gilbert Dale MD Attending Provider at Discharge: Amado Jones MD Primary Care Provider: Manny Patel DO Diagnoses at Discharge Discharge Diagnosis (1) New onset left bundle branch block (LBBB): Status: Acute (2) Dysphagia: Status: Acute (3) Constipation due to pain medication: Status: Acute (4) Flaccid neurogenic bladder: Status: Acute Permanent problem details: SP Tube placed after failed urethral cath (5) Urinary tract infection: Status: Acute Qualifiers: Encounter type: initial encounter Indwelling urinary catheter type: unspecified Urinary tract infection type: catheter-associated UTI Qualified Code(s): T83.511A - Infection and inflammatory reaction due to indwelling urethral catheter, initial encounter; N39.0 - Urinary tract infection, site not specified (6) Abscess of sacrum: Status: Acute (7) Osteomyelitis: Status: Acute (8) Sacral decubitus ulcer, stage IV: Status: Acute (9) Dementia: Status: Acute Qualifiers: Dementia behavioral or psychological symptom: without behavioral, psychotic, or mood disturbance or anxiety Dementia severity: moderate Dementia type: unspecified type Qualified Code(s): F03.B0 - Unspecified dementia, moderate, without behavioral disturbance, psychotic disturbance, mood disturbance, and anxiety (10) Aspiration pneumonitis: Status: Acute (11) Acute hypoxic respiratory failure: Status: Acute (12) Mucus plugging of bronchi: Status: Acute (13) Hypoalbuminemia due to protein-calorie malnutrition: Status: Acute Reason for Visit Reason for Visit: AMS Hospital Course Hospital Course 73-year female who was admitted for management evaluation of sacral ulcer worsening, she was diagnosed with osteomyelitis, there was a sacral abscess, Dr. Smith was consulted, bone biopsy is showing polymicrobial infection for which she will require outpatient ceftriaxone 2 g daily along vancomycin 1 g daily for next 6 weeks, after discussing with the family we went ahead for PEG tube placement because of her significant dysphagia and diverting colostomy because of sacral ulcer, she has had good recent output from her colostomy over the past couple days after mag citrate. Wound vac has been placed by Dr. Smith and wound care team. will administer lactulose through PEG tube. [facility] has accepted patient. will send with Jevity, wound vac, IV Abx have already been organized. 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 S1, S2 Afebrile Nonfocal neuroexam Discharge Data Studies Completed and Pending Completed Studies During Hospitalization Category Date Time Status CT angio chest w abd pel w con Stat Cat Scan 06/23/23 22:40 Completed CXRP [XR chest 1V portable [id number]] Routine Exams 06/24/23 13:43 Completed CXRP [XR chest 1V portable [id number]] Stat Exams 06/27/23 18:18 Completed XR KUB portable [id number] Routine Exams 07/02/23 08:08 Completed XR chest 1V portable [id number] Routine Exams 06/24/23 Completed XR chest 1V portable [id number] Stat Exams 06/23/23 20:08 Completed Blood Cultures ([facility]) Routine Lab 06/23/23 20:35 Completed Blood Cultures ([facility]) Routine Lab 06/23/23 20:40 Completed Pathology: Surgical [PTH] Routine Pth 06/24/23 17:57 Completed Pathology: Surgical [PTH] Routine Pth 06/27/23 14:26 [place] [id number] Routine Ultrasound 06/24/23 23:55 Completed Pending at discharge Category Date Time Status Anaerobic Culture Stat Lab 06/23/23 22:52 Uncollected Body Fluid Culture & GS Stat Lab 06/23/23 22:52 Uncollected COVID [SARS Covid-2 Antigen] Routine Lab 07/03/23 12:20 Received Vancomycin Trough Timed Lab 07/03/23 19:00 Ordered Radiology Impressions Chest/Abdomen/Pelvis CT 06/23/23 22:40 IMPRESSION: 1. Mucous plugging in the bronchi of the right lower lobe posteriorly. 2. No focal consolidation. 3. No pulmonary emboli. IMPRESSION: 1. There is a decubitus ulcer along the distal sacrum and coccyx which extends down to the level of the bone and osteomyelitis can not be excluded. There is an associated abscess extending from this decubitus ulcer laterally within the right gluteus jesse muscle measuring at least 6.7 x 5.9 x 2.3 cm. 2. No bowel obstruction or inflammatory process associated with the bowel no free air or fluid in the abdomen or pelvis Chest X-Ray 06/27/23 18:18 IMPRESSION: 1. Interval development of trace left pleural effusion and increased retrocardiac left base opacity suggestive of atelectasis, pneumonia or aspiration. 2. Lktj-ie-[id number] bandlike atelectasis in the left perihilar region is also new from 06/24/2023. Laboratory Results WBC 11.50 10^3/uL (3.29-11.43) H 07/03/23 04:52 RBC 3.65 10^6/uL (3.85-5.65) L 07/03/23 04:52 Hgb 10.20 g/dL (11.27-16.99) L 07/03/23 04:52 Hct 32.6 % (36-47) L 07/03/23 04:52 MCV 89.3 fl (85-98) 07/03/23 04:52 MCH 27.9 pg (27-33) 07/03/23 04:52 MCHC 31.3 g/dL (30-55) 07/03/23 04:52 RDW 16.5 % (12.1-15.1) H 07/03/23 04:52 Plt Count 395 10^3/cmm (157-399) 07/03/23 04:52 MPV 9.0 fL (7.4-10.4) 07/03/23 04:52 Neut % (Auto) 73.0 % 07/03/23 04:52 Lymph % (Auto) 18.5 % 07/03/23 04:52 Chambers % (Auto) 5.9 % 07/03/23 04:52 Eos % (Auto) 1.7 % 07/03/23 04:52 Baso % (Auto) 0.3 % 07/03/23 04:52 Neut # (Auto) 8.39 10^3/uL (1.8-7.7) H 07/03/23 04:52 Lymph # (Auto) 2.1 10^3/uL (0.8-4.8) 07/03/23 04:52 Chambers # (Auto) 0.7 10^3/uL (0.2-0.9) 07/03/23 04:52 Eos # (Auto) 0.2 10^3/uL (0.0-0.8) 07/03/23 04:52 Baso # (Auto) 0.0 10^3/uL (0.0-0.1) 07/03/23 04:52 Nucleated RBC % (auto) 0 % 07/03/23 04:52 Nucleated RBCs # 0.0 /100WBC 07/03/23 04:52 ESR 63 mm/hr (0-15) H 06/23/23 20:40 PT 24.10 SECONDS (12.1-14.9) H 06/23/23 20:40 INR 2.08 (0.8-1.2) H 06/23/23 20:40 Specimen Type Arterial 06/23/23 20:36 Sample Site Radial, right 06/23/23 20:36 ABG pH 7.45 (7.35-7.45) 06/23/23 20:36 ABG pCO2 38.7 mmHg (35-45) 06/23/23 20:36 ABG pO2 74.0 mmHg (80.0-100.0) L 06/23/23 20:36 ABG PO2/FiO2 Ratio 0 06/23/23 20:36 ABG HCO3 27.0 mmol/L (22-26) H 06/23/23 20:36 ABG O2 Saturation 96.3 06/23/23 20:36 ABG Base Excess 2.9 mmol/L (-2.0-2.0) H 06/23/23 20:36 Addison Test Pos 06/23/23 20:36 A-a O2 Gradient 10.3 mmHg (5-10) H 06/23/23 20:36 Hematocrit 31.5 % (37-47) L 06/23/23 20:36 Hgb O2 Saturation 94.9 % (95-100) L 06/23/23 20:36 Carboxyhemoglobin 1.1 %THgb (0.4-20.1) 06/23/23 20:36 Methemoglobin 0.4 % (0.4-1.5) 06/23/23 20:36 Total Hemoglobin 10.3 g/dL (12-16) L 06/23/23 20:36 Sodium 138.0 mmol/L (131-143) 06/23/23 20:36 Potassium 3.5 mmol/L (3.5-5.0) 06/23/23 20:36 Glucose 125.0 mg/dL (70-115) H 06/23/23 20:36 Ionized Calcium 1.2 mmol/L (1.1-1.4) 06/23/23 20:36 O2 Delivery Device Nc 06/23/23 20:36 FiO2 28.0 % 06/23/23 20:36 Foam Fabricator ID Ed 06/23/23 20:36 Sodium 141 mmol/L (136-145) 07/03/23 04:52 Potassium 4.2 mmol/L (3.5-5.1) 07/03/23 04:52 Chloride 106 mmol/L (98-107) 07/03/23 04:52 Carbon Dioxide 28 mmol/L (22-29) 07/03/23 04:52 Anion Gap 11.2 (5-19) 07/03/23 04:52 BUN 6 mg/dL (8-23) L 07/03/23 04:52 Creatinine 0.2 mg/dL (0.5-0.9) L 07/03/23 04:52 GFR Calculation Not Reportable 07/03/23 04:52 Glucose 97 mg/dL (65-115) 07/03/23 04:52 POC Glucose 114 mg/dL (70-110) H 07/02/23 06:09 Estimat Average Glucose 100 06/24/23 00:00 Hemoglobin A1c 5.1 % (4.0-6.0) 06/24/23 00:00 Calculated Osmolality 290 mOsm/kg (285-295) 07/03/23 04:52 Lactic Acid 0.8 mmol/L (0.5-2.2) 06/23/23 20:40 Calcium 8.1 mg/dL (8.5-10.5) L 07/03/23 04:52 Phosphorus 3.7 mg/dL (2.5-4.5) 06/24/23 02:13 Magnesium 2.0 mg/dL (1.7-2.3) 06/24/23 02:13 Total Bilirubin 0.3 mg/dL (0.15-1.2) 06/24/23 02:13 AST 29 U/L (0-32) 06/24/23 02:13 ALT 36 U/L (0-33) H 06/24/23 02:13 Alkaline Phosphatase 122 U/L (35-105) H 06/24/23 02:13 Troponin T Baseline 54 ng/L (0-10) H 06/23/23 20:40 Troponin T 120 Minute 55.79 ng/L (0-10) H 06/23/23 21:37 Delta Troponin T 1.79 ABS# (0-10) 06/23/23 21:37 Troponin T Hi Sens 6Hr 48.90 ng/L (0-10) H 06/24/23 02:13 Troponin T Hi Sens 6Hr Delta -5.10 ng/L (0-12) L 06/24/23 02:13 C-Reactive Protein 153.9 mg/L (0.0-4.9) H 06/23/23 20:40 NT-Pro-B Natriuret Pep 1324 pg/mL (0-450) H 06/23/23 20:40 Total Protein 5.1 g/dL (6.6-8.7) L 06/24/23 02:13 Albumin 2.6 g/dL (3.5-5.2) L 06/24/23 02:13 Globulin 2.5 g/dL (1.3-4.6) 06/24/23 02:13 Triglycerides 79 mg/dL (0-150) 06/24/23 00:00 Cholesterol 132 mg/dL (0-200) 06/24/23 00:00 LDL Cholesterol, Calc 88 mg/dL (50-129) 06/24/23 00:00 HDL Cholesterol 28 mg/dL (60-100) L 06/24/23 00:00 LDL/HDL Ratio 3.14 RATIO (0.00-3.22) 06/24/23 00:00 Cholesterol/HDL Ratio 4.71 mg/dL (0.0-4.40) H 06/24/23 00:00 Procalcitonin 0.20 ng/mL (0-0.5) 06/23/23 20:40 TSH 6.54 uIU/mL (0.27-4.20) H 06/24/23 00:00 Free T4 1.30 ng/dL (0.82-1.77) 06/24/23 02:13 Urine Color Yellow (Yellow) 06/23/23 20:16 Urine Appearance Cloudy (CLEAR) A 06/23/23 20:16 Urine pH 6 (5-7) 06/23/23 20:16 Ur Specific [place] 1.020 (1.005-1.030) 06/23/23 20:16 Urine Protein 1+ (Negative) H 06/23/23 20:16 Urine Glucose (UA) Norm (Normal) 06/23/23 20:16 Urine Ketones 1+ (Negative) H 06/23/23 20:16 Urine Blood 3+ (Negative) H 06/23/23 20:16 Urine Nitrate Positive (Negative) H 06/23/23 20:16 Urine Bilirubin 1+ (Negative) H 06/23/23 20:16 Urine Urobilinogen 1 mg/dL (Negative) H 06/23/23 20:16 Ur Leukocyte Esterase 2+ (Negative) H 06/23/23 20:16 Urine RBC 5-10 /hpf (0-2) H 06/23/23 20:16 Urine WBC 25-40 /hpf (0-5) H 06/23/23 20:16 Ur Squamous Epith Cells 0-4 /hpf (0-5) H 06/23/23 20:16 Amorphous Sediment 1+ /hpf 06/23/23 20:16 Urine Bacteria 3+ /hpf (NONE) H 06/23/23 20:16 Urine Mucus 2+ /hpf 06/23/23 20:16 Vancomycin Trough 17.0 ug/mL (10-15) H 06/30/23 07:24 Influenza Type A Ag negative (Negative) 06/23/23 20:16 Influenza Type B Ag negative (Negative) 06/23/23 20:16 SARS-CoV-2 Ag (Rapid) negative (Negative) 06/23/23 20:16 Blood Type A Positive 06/25/23 12:06 Rho(D) Type Rh positive 06/25/23 12:06 Antibody Screen Negative 06/25/23 12:06 Crossmatch See Detail 06/25/23 12:06 Vitals Last Vital Signs Temp 97.4 F L 07/03/23 12:00 Pulse 85 07/03/23 12:00 Resp 18 07/03/23 12:00 BP 101/67 07/03/23 12:00 Pulse Ox 96 07/03/23 12:00 O2 Del Method Room Air 07/03/23 08:43 O2 Flow Rate 2 07/02/23 08:08 FiO2 2 06/24/23 02:49 Discharge Plan Discharge Patient Disposition: Xfer SNF Condition: Stable Prescriptions: New magnesium hydroxide [Milk of Magnesia] 400 mg/5 mL Suspension 30 ml peg-tube BEDTIME PRN (Reason: Constipation) 5 Days Qty: 150 0RF Continued albuterol sulfate [Ventolin HFA] 90 mcg/actuation HFA aerosol inhaler 2 puff inhalation Q4H PRN (Reason: Shortness Of Breath) buspirone 5 mg tablet 5 mg PO BID polysaccharide iron complex 150 mg iron capsule 150 mg PO DAILY@08 magnesium hydroxide [Milk of Magnesia] 400 mg/5 mL suspension 30 ml PO DAILY PRN (Reason: Constipation) cyanocobalamin (vitamin B-12) 500 mcg tablet 500 mcg PO DAILY@08 docusate sodium [Colace] 100 mg capsule 100 mg PO BID omeprazole 20 mg capsule,delayed release(DR/EC) 20 mg PO DAILY@0530 furosemide [Lasix] 20 mg tablet 20 mg PO DAILY@08 gabapentin 100 mg capsule 100 mg PO BID ondansetron 4 mg tablet,disintegrating 4 mg PO Q4H PRN (Reason: Nausea) cholecalciferol (vitamin D3) 125 mcg (5,000 unit) capsule 125 mcg PO DAILY@08 calcium carbonate-vitamin D3 [Calcium 500 + D] 500 mg-5 mcg (200 unit) tablet 1 tab PO DAILY cranberry fruit 450 mg tablet 450 mg PO DAILY@08 Rx Instructions: administer with a meal Eliquis 5 mg tablet 5 mg PO BID prostat liquid 30 ml PO BID nystatin 100,000 unit/gram cream See Rx Instructions .ROUTE .COMPLEX Rx Instructions: apply to buttock and vale-area(aviod open areas for rash) bisacodyl [Dulcolax (bisacodyl)] 10 mg Suppository 10 mg CA DAILY PRN (Reason: Constipation) bisacodyl [Dulcolax (bisacodyl)] 5 mg Tablet,Delayed Release (Dr/Ec) 5 mg PO BID Tylenol 325 mg Tablet 650 mg PO Q4H PRN (Reason: Pain, Mild) baclofen 10 mg tablet 10 mg PO TID [place] Enema 19-7 gram/118 mL Enema 118 ml CA DAILY PRN (Reason: Constipation) Multiple Vitamin-Minerals Tablet 1 tab PO DAILY@08 amitriptyline 100 mg tablet 100 mg PO BEDTIME fluticasone propionate 110 mcg/actuation HFA aerosol inhaler 2 puff INHALATION BID oxycodone 5 mg tablet 5 mg PO Q4H PRN (Reason: Pain) potassium gluconate 595 mg (99 mg) Tablet 595 mg PO DAILY@08 Narcan 4 mg/actuation [place],Non-Aerosol 1 spray INTRANASAL Q2M PRN (Reason: Opioid Overdose) Rx Instructions: spray 1 dose into ONE nostril; alternate nostrils w each dose until help arrives melatonin 10 mg Tablet 10 mg PO BEDTIME Discharge Orders: Discharge Order (Routine); Ordered 07/03/23 Ordered By: Amado Jones Referrals: [facility] [Outside] Tony Smith DO [Physician] - 07/08/23 9:15 am Manny Patel DO [Primary Care Provider] - Discharge Diet: GI Soft Discharge Activity: Limit activity as instructed and As per PT/OT instructions Patient Instructions: Opioid Safety, Pain Management Discharge Attestations Time Spent in Discharge Care*: less than 30 min Status at Discharge: Cognitive status at discharge: cognitively intact, Behavioral status at discharge: cooperative, Quality Metrics Clinical Quality Measures [ No reported AMI, CVA or VTE this stay] Coding Level of Care Code 21131 Diagnoses New onset left bundle branch block (LBBB) I44.7 Dysphagia R13.10 Constipation due to pain medication K59.03 Flaccid neurogenic bladder N31.2 Urinary tract infection T83.511A; N39.0 Encounter type: initial encounter Indwelling urinary catheter type: unspecified Urinary tract infection type: catheter-associated UTI Abscess of sacrum M46.28 Osteomyelitis M86.9 Sacral decubitus ulcer, stage IV L89.154 Dementia F03.B0 Dementia behavioral or psychological symptom: without behavioral, psychotic, or mood disturbance or anxiety Dementia severity: moderate Dementia type: unspecified type Aspiration pneumonitis J69.0 Acute hypoxic respiratory failure J96.01 Mucus plugging of bronchi T17.500A Hypoalbuminemia due to protein-calorie malnutrition E88.09; E46
[2023-07-03 12:52] LABS: SARS Covid-2 Antigen negative (Negative)
--- NOTE | 2023-07-03 13:47 | PC.SOCIAL ---
IMM Update pg 2 of [facility] udpated and reviewed w/ patient and her . Copy provided and copy dated, initialed and placed in chart.
--- NOTE | 2023-07-03 13:57 | PC.NURSE ---
Report called to Jinny ESCALERA at [facility]
[2023-07-03 14:01] VITALS: BP 101/67; PULSE 85; RESP 18; TEMP 36.3; O2SAT 96
--- NOTE | 2023-07-03 14:19 | PC.NURSE ---
Claudy Albert here to knot picker cloth pt. Wound vac disconnected from hospital pump. at bedside with belongings.
== END 2023-07-03 14:20 | disposition skilled nursing facility (03) | DRG 853 ==
LOC: ER 22:18 → MEDSURG 22:36
PROVIDERS: Internal Medicine; Surgery; Admitting Provider Family Medicine; Emergency Provider Emergency Medicine; PCP Family Medicine; Visit Provider Family Medicine
PROC: 0QB10ZZ Excision of Sacrum, Open Approach (ICD-10-PCS; principal; 2023-06-24 16:45)
PROC: 0D1N0Z4 Bypass Sigmoid Colon to Cutaneous, Open Approach (ICD-10-PCS; CPT 44320; principal; 2023-06-27 12:30)
PROC: 0DH63UZ Insertion of Feeding Device into Stomach, Percutaneous Approach (ICD-10-PCS; CPT 43246; 2023-06-27 12:30)
DX: A41.9 Sepsis, unspecified organism (principal); J69.0 Pneumonitis due to inhalation of food and vomit; L89.154 Pressure ulcer of sacral region, stage 4; J96.01 Acute respiratory failure with hypoxia; T83.518A Infection and inflammatory reaction due to other urinary catheter, initial encounter; M86.8X8 Other osteomyelitis, other site; E46 Unspecified protein-calorie malnutrition; I44.7 Left bundle-branch block, unspecified; Z66 Do not resuscitate; G35 Multiple sclerosis; Y73.8 Miscellaneous gastroenterology and urology devices associated with adverse incidents, not elsewhere classified; E87.70 Fluid overload, unspecified; F03.B0 Unspecified dementia, moderate, without behavioral disturbance, psychotic disturbance, mood disturbance, and anxiety; B96.20 Unspecified Escherichia coli [E. coli] as the cause of diseases classified elsewhere; B95.1 Streptococcus, group B, as the cause of diseases classified elsewhere; B95.2 Enterococcus as the cause of diseases classified elsewhere; K59.03 Drug induced constipation; T40.605A Adverse effect of unspecified narcotics, initial encounter; G47.00 Insomnia, unspecified; D64.9 Anemia, unspecified; N31.2 Flaccid neuropathic bladder, not elsewhere classified; R13.10 Dysphagia, unspecified; T17.990A Other foreign object in respiratory tract, part unspecified in causing asphyxiation, initial encounter; E88.09 Other disorders of plasma-protein metabolism, not elsewhere classified; Z74.01 Bed confinement status; Z11.52 Encounter for screening for COVID-19; Z79.01 Long term (current) use of anticoagulants; Z68.24 Body mass index [BMI] 24.0-24.9, adult
CPT/HCPCS: 36415; 36416; 36430; 36573; 36592; 36600; 71045; 71275; 74018; 74177; 80048; 80051; 80053; 80061; 80202; 81001; 82330; 82805; 82962; 83036; 83605; 83735; 83880; 84100; 84145; 84439; 84443; 84484; 85025; 85610; 85651; 86140; 86850; 86900; 86920; 87040; 87070; 87075; 87077; 87086; 87176; 87186; 87205; 87426; 87804; 88304; 88309; 92523; 92526; 92610; 93005; 93970; 94640; 94664; 94669; 96365; 96372; 99285; C9113; J0696; J0744; J1100; J1170; J1644; J1650; J2060; J2185; J2212; J2250; J2371; J2405; J2704; J3010; J3370; J3480; J3490; J7030; J7040; J7050; J7608; P9016; Q9967

== ENCOUNTER 2023-07-04 22:31 | Emergency (ER) | payer MEDICARE, MEDICAID, SELFPAY ==
[2023-07-04 22:32] VITALS: BP 117/76; PULSE 103; RESP 23; TEMP 36.7; O2SAT 93; BMI 20.9
[2023-07-04 22:53] VITALS: RESP 18; O2SAT 94
[2023-07-04] MEDS: oxyCODONE-APAP 5-325 mg Tablet 1 TAB PO (22:53)
--- NOTE | 2023-07-04 22:55 | ED_ITS ---
HPI - General Adult General: Chief complaint: General Medical Stated complaint: Pain all over Time Seen by Provider: 07/04/23 22:36 History of Present Illness: Patient arrives to the ER via EMS with complaints of pain all over. Patient was recently discharged yesterday from the hospital for decubitus ulcer on her sacrum was surgery biopsy and wound VAC. Patient was discharged on long-term antibiotics and pain medicine. When asked the patient where the pain is patient says her bottom where the surgery was. When asked if she had pain medicine that she could take she said yes but when she takes it it just takes so long for them to get it for her but she starts hurting very badly. Patient denies any other complaints at this time. Discharge summary including lab work from yesterday was reviewed. 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 May require bulking agent injection or urethral closure after placement of SP tube. 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 Other Hypertension Denies family history of Diabetes Stroke Social History Alcohol intake: never Substance/Drug Use: never Lives independently: No Housing: Detention Marital status: Current occupational status: retired Physical Exam Const: COMMON NORMALS: no acute distress, average body habitus, no limitations, healthy appearing, alert and well nourished Neck/C-Spine: COMMON NORMALS: no JVD Chest: COMMONS NORMALS: normal inspection of the chest and normal palpation of entire chest wall Resp: COMMON NORMALS: normal respiratory effort, No retractions, No use of accessory muscles and clear to auscultation bilaterally AUSCULTATION: clear to auscultation bilaterally Cardio: COMMON NORMALS: no JVD, regular rate, regular rhythm, S1 normal heart sound present, S2 normal heart sound present, No gallops present (Cardio), No clicks present (Cardio), No murmurs present (Cardio) and No rub (Cardio) RATE: regular rate RHYTHM: regular rhythm HEART SOUNDS: S1 normal heart so und present and S2 normal heart sound present GI: COMMON NORMALS: Normal to inspection, nondistended, normoactive bowel sounds present, Soft to palpation, non-tender, No hepatosplenomegaly present and no masses PALPATION: Yes Soft to palpation and Yes No hepatosplenomegaly present Neuro: SENSORIUM/ORIENTATION: Yes alert Course Vital Signs: Vital signs: Vital Signs Temperature 98.1 F 07/04/23 22:32 Pulse Rate 89 07/05/23 00:18 Respiratory Rate 18 07/05/23 00:16 Blood Pressure 119/71 07/05/23 00:18 Pulse Oximetry 93 07/05/23 00:18 Oxygen Delivery Me thod Room Air 07/05/23 00:18 MDM - General Adult Medical Decision Making Patient presented to the ER with complaints of pain in her buttocks region. Patient just had recent surgery, bone biopsy and wound VAC placed there. Patient was discharged home on oxycodone 5 mg. Patient states the nurses just take too long for her to get her her pain pills when she asks and therefore she is in a significant amount of pain. Patient was given a total of 10 mg of oxycodone in ER and it decreased her pain from a 9 to a 3. Patient be discharged back home. Differential Diagnosis Postop pain Medical Records I reviewed the patient's medical records. Lab Data I reviewed the patient's lab results. All radiology interpretation(s) finalized by discharge Discharge Plan Discharge Patient Disposition: Home Clinical Impression: Postoperative pain, Sacral decubitus ulcer, stage IV Condition: Stable Prescriptions: No Action albuterol sulfate [Ventolin HFA] 90 mcg/actuation HFA aerosol inhaler 2 puff inhalation Q4H PRN (Reason: Shortness Of Breath) buspirone 5 mg tablet 5 mg PO BID polysaccharide iron complex 150 mg iron capsule 150 mg PO DAILY@08 magnesium hydroxide [Milk of Magnesia] 400 mg/5 mL suspension 30 ml PO DAILY PRN (Reason: Constipation) cyanocobalamin (vitamin B-12) 500 mcg tablet 500 mcg PO DAILY@08 docusate sodium [Colace] 100 mg capsule 100 mg PO BID omeprazole 20 mg capsule,delayed release(DR/EC) 20 mg PO DAILY@0530 furosemide [Lasix] 20 mg tablet 20 mg PO DAILY@08 gabapentin 100 mg capsule 100 mg PO BID ondansetron 4 mg tablet,disintegrating 4 mg PO Q4H PRN (Reason: Nausea) cholecalciferol (vitamin D3) 125 mcg (5,000 unit) capsule 125 mcg PO DAILY@08 calcium carbonate-vitamin D3 [Calcium 500 + D] 500 mg-5 mcg (200 unit) tablet 1 tab PO DAILY cranberry fruit 450 mg tablet 450 mg PO DAILY@08 Rx Instructions: administer with a meal Eliquis 5 mg tablet 5 mg PO BID prostat liquid 30 ml PO BID nystatin 100,000 unit/gram cream See Rx Instructions .ROUTE .COMPLEX Rx Instructions: apply to buttock and vale-area(aviod open areas for rash) bisacodyl [Dulcolax (bisacodyl)] 10 mg Suppository 10 mg [place] DAILY PRN (Reason: Constipation) bisacodyl [Dulcolax (bisacodyl)] 5 mg Tablet,Delayed Release (Dr/Ec) 5 mg PO BID Tylenol 325 mg Tablet 650 mg PO Q4H PRN (Reason: Pain, Mild) baclofen 10 mg tablet 10 mg PO TID Fleet Enema 19-7 gram/118 mL Enema 118 ml [place] DAILY PRN (Reason: Constipation) Multiple Vitamin-Minerals Tablet 1 tab PO DAILY@08 amitriptyline 100 mg tablet 100 mg PO BEDTIME fluticasone propionate 110 mcg/actuation HFA aerosol inhaler 2 puff INHALATION BID oxycodone 5 mg tablet 5 mg PO Q4H PRN (Reason: Pain) potassium gluconate 595 mg (99 mg) Tablet 595 mg PO DAILY@08 Narcan 4 mg/actuation [place],Non-Aerosol 1 spray INTRANASAL Q2M PRN (Reason: Opioid Overdose) Rx Instructions: spray 1 dose into ONE nostril; alternate nostrils w each dose until help arrives melatonin 10 mg Tablet 10 mg PO BEDTIME Milk of Magnesia 400 mg/5 mL Suspension 30 ml peg-tube BEDTIME PRN (Reason: Constipation) 5 Days Qty: 150 0RF Discharge Orders: Discharge ED (Routine); Ordered 07/05/23 Ordered By: Ron Wayne Referrals: Manny Patel, [Primary Care Provider] - 1 week Patient Instructions: Opioid Safety, Pain Management Activity Restrictions/Additional Instructions: Please continue to ask the nursing staff if your pain medicine every 4 hours as needed. Please stay on top of your pain as it is harder to control if you let the pain get out of control. Please make sure the nursing staff gives your medicine in a timely manner after you ask. If your pain becomes unbearable again please return to the ER for Coding Level of Care Code ED Gauge Machine Operator for Daryl Ansari
--- NOTE | 2023-07-04 22:58 | PC.NURSE ---
Patient asked this nurse to call , Jay, to come in and see patient; this nurse attempted to call but only got voicemail. Left voicemail to call back to ER. Patient was informed that this nurse was unable to get ahold of .
[2023-07-05 00:16] VITALS: RESP 18; O2SAT 93
[2023-07-05] MEDS: oxyCODONE-APAP 5-325 mg Tablet 1 TAB PO (00:16)
[2023-07-05 00:18] VITALS: BP 119/71; PULSE 89; O2SAT 93
[2023-07-05 02:34] VITALS: BP 129/71; PULSE 80; RESP 18; O2SAT 96
--- NOTE | 2023-07-05 02:34 | PC.NURSE ---
Report called to [facility]. Receiving nurse had no questions or concerns at time of discharge back to [facility].
== END 2023-07-05 02:38 | disposition home or self-care (01) ==
PROVIDERS: Emergency Provider Emergency Medicine; PCP Family Medicine
DX: G89.18 Other acute postprocedural pain (principal); L89.154 Pressure ulcer of sacral region, stage 4; Z79.01 Long term (current) use of anticoagulants; G35 Multiple sclerosis; F03.90 Unspecified dementia, unspecified severity, without behavioral disturbance, psychotic disturbance, mood disturbance, and anxiety; I10 Essential (primary) hypertension
CPT/HCPCS: 99283

== ENCOUNTER → 2023-07-08 08:47 | Outpatient (BNVA) | payer MEDICARE, MEDICAID, SELFPAY | PROVIDERS: PCP Family Medicine; Visit Provider Surgery | DX: Z98.890 Other specified postprocedural states (principal); Z90.49 Acquired absence of other specified parts of digestive tract; L89.154 Pressure ulcer of sacral region, stage 4; M86.9 Osteomyelitis, unspecified | CPT/HCPCS: 99024 ==

== ENCOUNTER 2023-08-03 06:53 | Emergency (ER) | payer OTHER, SELFPAY ==
[2023-08-03 06:53] VITALS: BP 127/83; PULSE 101; RESP 16; TEMP 36.8; O2SAT 95; BMI 22.0
--- NOTE | 2023-08-03 07:14 | W.ED.GENADLT ---
HPI - General Adult General: Chief complaint: General Medical Stated complaint: PICC LINE PROBLEM Time Seen by Provider: 08/03/23 07:02 Source: patient and other ([facility]) Mode of arrival: EMS Limitations: no limitations History of Present Illness: This patient was sent to the emergency department from [facility] because there was a issue with her PICC line. Apparently with the nursing staff at the [facility] broke off part of the In the hub of the most distal introducer of the PICC line. The patient has no medical complaints. She is receiving antibiotics through the PICC line. Associated symptoms: Deny rash Review of Systems Const: Denies: fever(s) or chills Skin/Breast: Denies: rash or pruritus PFSH ED PFSH: Medical History History of open sigmoidectomy Dr Smith 06/27/23 - Open sigmoidectomy End colostomy formation Percutaneous endoscopic gastrostomy tube placement Altered mental status Aspiration pneumonia Cellulitis Elevated troponin Acute alteration in mental status Pressure ulcer of sacral region, stage 3 Encounter for care or replacement of suprapubic tube Thrombocytopenia Constipation Vitamin B12 deficiency anemia Unspecified protein-calorie malnutrition Polyneuropathy, unspecified Vitamin D deficiency Insomnia Depression Unspecified convulsions 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 May require bulking agent injection or urethral closure after placement of SP tube. 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 Other Hypertension Denies family history of Diabetes Stroke Social History Alcohol intake: never Substance/Drug Use: never Lives independently: No Housing: [facility] Marital status: Current occupational status: retired Physical Exam Narrative: EXAM NARRATIVE: The patient is alert and in no acute distress and cooperative. Const: COMMON NORMALS: no acute distress and alert GENERAL APPEARANCE: cooperative and comfortable Eye: COMMON NORMALS: Equal, round and reactive pupils present PUPIL: Yes Equal, round and reactive pupils present Resp: COMMON NORMALS: normal respiratory effort and No use of accessory muscles EFFORT & INSPECTION: Yes able to speak in complete sentences Cardio: COMMON NORMALS: regular rate and Peripheral pulses 2+ throughout RATE: regular rate PERIPHERAL PULSES: Peripheral pulses 2+ throughout Extremity: COMMON NORMALS: full ROM and capillary refill normal OTHER: Examination of right upper extremity reveals a midline catheter just proximal to the antecubital fossa. There is no erythema or drainage and there is an appropriate dressing on the line. The most distal portion of the line has a small portion of the introducer Broken off within the hub of the line. Neuro: COMMON NORMALS: moves all extremities SENSORIUM/ORIENTATION: Yes alert Psych: COMMON NORMALS: mental status grossly normal Skin: COMMON NORMALS: no rashes or lesions noted GENERAL SKIN EXAM: no rashes or lesions noted Course Reevaluation(s): Reevaluation #1: I attempted to remove the broken off portion of the From the hub of the PICC line however is lodged too tightly into deeply within that hub to remove safely. The patient's apparently receiving antibiotics on a daily basis for treatment of osteomyelitis. We contacted the [facility] and advised them that this current PICC line is not usable. We will place a regular IV catheter that they may utilize for the remainder of the weekend to administer her antibiotics and they can schedule a PICC reinsertion with the PICC team. She is stable and placing a PICC line on the weekend is not an emergency in this situation and does not necessitate calling in a special team to perform this function they can do it on a routine scheduled time on Saturday. This was explained to the [facility] staff who are comfortable with this plan. PICC line removed without difficulty. Dressing applied. Time: 07:48 Vital Signs: Vital signs: Vital Signs Temperature 98.2 F 08/03/23 06:53 Pulse Rate 101 H 08/03/23 06:53 Respiratory Rate 16 08/03/23 06:53 Blood Pressure 127/83 08/03/23 06:53 Pulse Oximetry 95 08/03/23 06:53 Oxygen Delivery Me thod Room Air 08/03/23 06:53 MDM - General Adult Medical Decision Making This patient was sent to the emergency department from [facility] because of a problem with her PICC line. PICC line is being used to administer daily antibiotics because of osteomyelitis. On arrival the patient was stable and alert. Examination of her right upper extremity PICC line revealed a portion of the introducer Broken off and the anterior diameter of the hub. Attempts were made to dislodge this but it was too tightly into deeply lodged within the hub and therefore it could not be removed. Given that this is the weekend there is no PICC team readily available we contacted [facility] and advised him that we could place a IV catheter for the to administer antibiotics and they can schedule a PICC reinsertion this coming Saturday. That was amenable to the staff and appropriate for the patient this point. She is being discharged back to [facility] in stable condition. No radiology studies performed this visit Discharge Plan Discharge Patient Disposition: er [facility] Clinical Impression: Occlusion of peripherally inserted central catheter (PICC) line Condition: Stable Prescriptions: No Action albuterol sulfate [Ventolin HFA] 90 mcg/actuation HFA aerosol inhaler 2 puff inhalation Q4H PRN (Reason: Shortness Of Breath) buspirone 5 mg tablet 5 mg PO BID polysaccharide iron complex 150 mg iron capsule 150 mg PO DAILY@08 magnesium hydroxide [Milk of Magnesia] 400 mg/5 mL suspension 30 ml PO DAILY PRN (Reason: Constipation) cyanocobalamin (vitamin B-12) 500 mcg tablet 500 mcg PO DAILY@08 docusate sodium [Colace] 100 mg capsule 100 mg PO BID omeprazole 20 mg capsule,delayed release(DR/EC) 20 mg PO DAILY@0530 furosemide [Lasix] 20 mg tablet 20 mg PO DAILY@08 gabapentin 100 mg capsule 100 mg PO BID ondansetron 4 mg tablet,disintegrating 4 mg PO Q4H PRN (Reason: Nausea) cholecalciferol (vitamin D3) 125 mcg (5,000 unit) capsule 125 mcg PO DAILY@08 cranberry fruit 450 mg tablet 450 mg PO DAILY@08 Rx Instructions: administer with a meal Eliquis 5 mg tablet 5 mg PO BID prostat liquid 30 ml PO BID nystatin 100,000 unit/gram cream See Rx Instructions .ROUTE .COMPLEX Rx Instructions: apply to buttock and vale-area(aviod open areas for rash) vancomycin 1,000 mg recon soln 1.5 g IV DAILY ceftriaxone 2 gram recon soln 2 g IV DAILY bisacodyl [Dulcolax (bisacodyl)] 10 mg Suppository 10 mg [place] DAILY PRN (Reason: Constipation) bisacodyl [Dulcolax (bisacodyl)] 5 mg Tablet,Delayed Release (Dr/Ec) 5 mg PO BID Miralax 17 gram/dose Powder 4 g PO DAILY melatonin 1 mg Tablet 1 mg PO BEDTIME acetaminophen [Tylenol] 325 mg Tablet 650 mg PO Q4H PRN (Reason: Pain, Mild) baclofen 10 mg tablet 10 mg PO TID Fleet Enema 19-7 gram/118 mL Enema 118 ml [place] DAILY PRN (Reason: Constipation) Multiple Vitamin-Minerals Tablet 1 tab PO DAILY@08 amitriptyline 100 mg tablet 100 mg PO BEDTIME fluticasone propionate 110 mcg/actuation HFA aerosol inhaler 2 puff INHALATION BID oxycodone 5 mg tablet 5 mg PO Q4H PRN (Reason: Pain) potassium gluconate 595 mg (99 mg) Tablet 595 mg PO DAILY@08 naloxone [Narcan] 4 mg/actuation [place],Non-Aerosol 1 spray INTRANASAL Q2M PRN (Reason: Opioid Overdose) Rx Instructions: spray 1 dose into ONE nostril; alternate nostrils w each dose until help arrives Referrals: Manny Patel, DO [Primary Care Provider] - Discharge Diet: Usual diet Discharge Activity: Increase activity as tolerated Activity Restrictions/Additional Instructions: The PICC line was removed. We have placed a regular Angiocath to allow administration of IV antibiotics. Contact the PICC team on Saturday to schedule a reinsertion of a new PICC line. For any other concerns or questions contact the attending physician but you are welcome to contact the emergency department for further advice and/or care. Coding Level of Care Code ED Greenkeeper for Daryl Ansari
--- NOTE | 2023-08-03 08:35 | PC.NURSE ---
picc line in right upper arm removed by dr crowley, pressure dressing applied. 20G IV placed in right upper forearm for IV antibiotic use at [facility]TC facility. spoke with facility nurse, will follow up with outpatient to have new picc line placed on saturday.
[2023-08-03 08:38] VITALS: PULSE 100; O2SAT 92
[2023-08-03 13:53] VITALS: BP 131/76; PULSE 109; RESP 20; O2SAT 94
== END 2023-08-03 13:38 ==
PROVIDERS: Emergency Provider Emergency Medicine; PCP Family Medicine
DX: T82.594A Other mechanical complication of infusion catheter, initial encounter (principal); Y73.1 Therapeutic (nonsurgical) and rehabilitative gastroenterology and urology devices associated with adverse incidents; Z79.01 Long term (current) use of anticoagulants; G35 Multiple sclerosis; I10 Essential (primary) hypertension
CPT/HCPCS: 99282

== ENCOUNTER → 2023-08-06 07:28 | Day surgery (SDC) | payer OTHER, SELFPAY ==
--- NOTE | 2023-08-06 07:31 | XR_ITS ---
WS: [id number] PORTABLE CHEST HISTORY: PICC placement COMPARISON: 06/27/2023 Right-sided PICC line terminates near the caval atrial junction. No complications. Slight elevation of the LEFT hemidiaphragm is similar to the prior study. No pleural effusion or pneu mothorax. Cardiac size: Normal. Mediastinum/Aorta: Mild atherosclerosis aorta. No osseous abnormality seen. IMPRESSION: Satisfactory placement RIGHT PICC line.
[2023-08-06 07:35] VITALS: BP 110/77; PULSE 102; RESP 18; TEMP 36.4; O2SAT 96
== END ==
PROVIDERS: PCP Family Medicine; Visit Provider Family Medicine
DX: M86.9 Osteomyelitis, unspecified (principal)
CPT/HCPCS: 36573; 71045

== ENCOUNTER 2023-11-11 11:43 | Observation (INO) | payer MEDICARE, MEDICAID, SELFPAY ==
[2023-11-11] VITALS (12 sets, daily range): BP systolic 70–103; BP diastolic 41–67; PULSE 110–138; RESP 16–35; TEMP 37.3–39.3; O2SAT 95–99; BMI 19.2
--- NOTE | 2023-11-11 11:52 | XRR_ITS ---
PROCEDURE INFORMATION: Exam: XR Chest Exam date and time: 11/11/2023 12:00 PM Age: 73 years old Clinical indication: Shortness of breath TECHNIQUE: Imaging protocol: Radiologic exam of the chest. Views: 1 view. COMPARISON: CR XR chest 1V portable [id number] 08/06/2023 7:54 AM FINDINGS: Lungs: Considerably increased atelectasis and/or pneumonitis left mid and lower lung. Otherwise, unremarkable. Pleural spaces: New [id number] left pleural effusion. No right pleural effusion or pneumothorax. Otherwise, unremarkable. Heart/Mediastinum: Unremarkable. No cardiomegaly. Bones/joints: Unchanged scoliosis and spondylosis. XR/XR chest 1V portable [id number] IMPRESSION: 1. Considerably increased atelectasis and/or pneumonitis in the left mid and lower lung. 2. New moderate-large left pleural effusion.
--- NOTE | 2023-11-11 11:53 | ECG_ITS ---
[facility] Test Date: 2023-11-11 Pat Name: Kaylynn Calzada Department: Room: Gender: Female Assessment Specialist: : [id number] Requested By: Tameka Delarosa Order Number: [id number] Brown MD: Gordon Mcintosh M.D. Measurements Intervals [place] Rate: 135 P: 45 NH: 191 QRS: 55 QRSD: 166 T: -60 QT: 335 QTc: 503 Interpretive Statements SINUS TACHYCARDIA LEFT BUNDLE BRANCH BLOCK [120+ ms QRS DURATION, 80+ ms Q/S IN V1/V2, 85+ ms R IN I/aVL/V5/V6] Compared to ECG 06/23/2023 22:05:41 No significant changes Electronically Signed On 11-11-2023 12:53:27 CDT by Gordon Mcintosh M.D. [email or web address]
[2023-11-11 12:03] LABS: ABG PH Result 7.52 (7.35-7.45); Alveolar-Arterial Oxygen Gradi 2.7 mmHg (5-10); Arterial Blood Gas Hematocrit 31.1 % (37-47); Base Excess ABG 5.5 mmol/L (-2.0-2.0); Blood Gas Allen Test Pos; Blood Gas Operator Identificat WALCI; Blood Gas Sample Site Radial, right; Blood Gas Sample Type Arterial; Carboxyhemoglobin 1.6 %THgb (0.4-20.1); HCO3 ABG 28.5 mmol/L (22-26); HGB O2 Sat 95.8 % (95-100); Ionized Calcium Level - ABG 1.2 mmol/L (1.1-1.4); Methemoglobin 0.5 % (0.4-1.5); Oxygen Device NC; Oxygen Saturation ABG 97.8; PO2 ABG 84.3 mmHg (80.0-100.0); Potassium Level - ABG 4.2 mmol/L (3.5-5.0); Total Hemoglobin 10.1 g/dL (12-16)
--- NOTE | 2023-11-11 12:08 | ED_ITS ---
HPI - SOB/Dyspnea 2 General: Chief Complaint: Shortness of Breath/Dyspnea Stated Complaint: sob Time Seen by Provider: 11/11/23 11:47 History of Present Illness: HPI Narrative: 73-year-old female with history of sever e multiple sclerosis and dementia with suprapubic catheter and a feeding tube who presents to the emergency room by ambulance from the detention with decreased oxygen saturations. She is breathing but does not speak or answer questions. I believe this is her baseline. No other history able to be obtained at this time. Review of Systems 2 General: Reports: ROS unobtainable due to medical condition and ROS unobtainable due to mental status PFSH ED 2 PFSH: Medical History Anxiety History of open sigmoidectomy Dr Smith 06/27/23 - Open sigmoidectomy End colostomy formation Percutaneous endoscopic gastrostomy tube placement Altered mental status Aspiration pneumonia Cellulitis Elevated troponin Acute alteration in mental status Pressure ulcer of sacral region, stage 3 Encounter for care or replacement of suprapubic tube Thrombocytopenia Constipation Vitamin B12 deficiency anemia Unspecified protein-calorie malnutrition Polyneuropathy, unspecified Vitamin D deficiency Insomnia Depression Unspecified convulsions 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 May require bulking agent injection or urethral closure after placement of SP tube. 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 Other Hypertension Denies family history of Diabetes Stroke Social History Alcohol intake: never Substance/Drug Use: never Lives independently: No Housing: Detention Marital status: Current occupational status: retired Physical Exam 2 Narrative: EXAM NARRATIVE: General: Patient has her eyes open but does not respond to any commands does not speak. Skin: Warm, dry Head: Normocephalic, atraumatic. Neck: Supple, trachea midline. Eye: Extraocular movements are intact. Ears, nose, mouth and throat: Dry oral mucosa. Cardiovascular: Regular rate and rhythm, Normal peripheral perfusion. Respiratory: Lungs are clear to auscultation, respirations are non-labored, breath sounds are equal, Symmetrical chest wall expansion. Gastrointestinal: Soft, Nontender, Non distended, Normal bowel sounds. Musculoskeletal: no deformity. Neurological: Not Alert and oriented, No obvious focal neurological deficit observed. Psychiatric: unable to assess. Course 2 Vital Signs: Vital signs: Vital Signs Pulse Rate 132 H 11/11/23 16:07 Respiratory Rate 16 11/11/23 16:07 Blood Pressure 90/48 11/11/23 16:07 Pulse Oximetry 97 11/11/23 16:07 Oxygen Delivery Me thod Nasal Cannula 11/11/23 16:07 Oxygen Flow Rate 2 11/11/23 16:07 MDM - SOB/Dyspnea Medical Decision Making Differential diagnosis for patient with shortness of breath includes but is not limited to and based on the above HPI, review of systems and physical exam: Pneumonia. Bronchitis. Asthma or COPD with acute exacerbation. Acute coronary syndrome / ID. Pulmonary embolism. Anxiety. Congestive heart failure. Viral infections including influenza and Covid-19. Atrial fibrillation. Anxiety. Pleural effusion. Pneumothorax. Workup: Lab work, chest X-ray and EKG ordered to evaluate, rule in and rule out above pathologies EKG: Time 11:53 AM. Rate 135. Sinus tachycardia, No ST-T changes, no ectopy, left bundle branch block, This was reviewed and interpreted by myself the ER physician at 11:55 AM. Patient had very similar EKG recently. Left bundle branch block was present and she was tachycardic Lab Review: Laboratory results were reviewed and interpreted by myself the emergency room physician. Patient has significant leukocytosis with a white count 23,000. Anemia stable at 10. BUN and creatinine are 15 and 0.3. Her proBNP is more elevated than previous at 5000. Given that she is hypotensive and tachycardic I have still given her 2 L of fluid. 12:30 PM: (45 minutes since presentation) first liter fluid given. Broad- spectrum antibiotics were given. Blood pressure was reported low patient was tachycardic. And at this time I reviewed the x-ray which appears to have an infiltrate on the left side. CT of the chest abdomen and pelvis without contrast: This was reviewed and interpreted by myself the emergency room physician. I also reviewed the radiology report. Radiology report is listed below. 1. No renal obstruction or hydronephrosis. 2. Patient has a large known sacral decubitus ulcer contacting the sacrum with changes of acute on chronic osteomyelitis. There is superior extension of the ulceration in the subcutaneous soft tissues. 3. Bilateral pleural effusions, LEFT greater than RIGHT. 4. Prior cholecystectomy. 5. No GI tract obstruction. 6. Suprapubic catheter. 7. PEG tube. I reviewed the patient's medical record. Reexamination: Patient remains relatively unchanged. Heart rate is still tachycardic. She is still basically unresponsive. Blood pressure still marginal with a mean of 62 and a blood pressure of 90/47. Just prior to me admitting the patient has arrived in the room. I went and spoke with him at length. He says that his has been praying to for years now. She has been bedbound in a detention and has swallowing problems and she would not want aggressive treatment and would want to go naturally. He request comfort measures only. He believes this would be her wishes. Assessment and plan: Sepsis Urinary tract infection Large pleural effusion Advanced dementia Comfort measures -2 L normal saline bolus. Fluid volumes based on ideal body weight. Patient has a large pleural effusion and an elevated proBNP but fluids still given given that she is tachycardic and hypotensive. -Broad-spectrum antibiotics were administered. Meropenem and linezolid at 12:30 PM. -Sepsis quality measures. -Lactic acid with a reflex was ordered. -Blood cultures were ordered. -Changing direction of care to comfort measures. No further antibiotics or fluids. No aggressive treatments. Just comfort measures only. -I discussed the patient with the hospitalist on-call who is admitting the patient. - Discussed findings and plan with family. Answered any questions. - All laboratory values were reviewed and interpreted personally by myself, the ER physician - All imaging was reviewed and interpreted personally by myself, the ER physician. - Evaluation and treatment of this problem were appropriate in the emergency setting -I spent a total of >35 minutes of critical care time managing the patient, independent of any other practitioner. -The time involved in the performance of separately reportable procedures was not counted towards critical care time. Lab Data 11/11/23 14:54 11/11/23 14:54 Labs/Radiology: Radiology Impressions Chest X-Ray 11/11/23 11:52 IMPRESSION: 1. Considerably increased atelectasis and/or pneumonitis in the left mid and lower lung. 2. New moderate-large left pleural effusion. Chest/Abdomen/Pelvis CT 11/11/23 12:29 IMPRESSION: 1. No renal obstruction or hydronephrosis. 2. Patient has a large known sacral decubitus ulcer contacting the sacrum with changes of acute on chronic osteomyelitis. There is superior extension of the ulceration in the subcutaneous soft tissues. 3. Bilateral pleural effusions, LEFT greater than RIGHT. 4. Prior cholecystectomy. 5. No GI tract obstruction. 6. Suprapubic catheter. 7. PEG tube. Laboratory Results WBC 22.63 10^3/uL (3.29-11.43) H 11/11/23 14:54 RBC 3.94 10^6/uL (3.85-5.65) 11/11/23 14:54 Hgb 10.00 g/dL (11.27-16.99) L 11/11/23 14:54 Hct 33.4 % (36-47) L 11/11/23 14:54 MCV 84.8 fl (85-98) L 11/11/23 14:54 MCH 25.4 pg (27-33) L 11/11/23 14:54 MCHC 29.9 g/dL (30-55) L 11/11/23 14:54 RDW 22.4 % (12.1-15.1) H 11/11/23 14:54 Plt Count 422 10^3/cmm (157-399) H 11/11/23 14:54 MPV 9.2 fL (7.4-10.4) 11/11/23 14:54 Neut % (Auto) 94.6 % 11/11/23 14:54 Lymph % (Auto) 2.3 % 11/11/23 14:54 Atkinson % (Auto) 2.4 % 11/11/23 14:54 Eos % (Auto) 0.0 % 11/11/23 14:54 Baso % (Auto) 0.1 % 11/11/23 14:54 Neut # (Auto) 21.39 10^3/uL (1.8-7.7) H 11/11/23 14:54 Lymph # (Auto) 0.5 10^3/uL (0.8-4.8) L 11/11/23 14:54 Atkinson # (Auto) 0.6 10^3/uL (0.2-0.9) 11/11/23 14:54 Eos # (Auto) 0.0 10^3/uL (0.0-0.8) 11/11/23 14:54 Baso # (Auto) 0.0 10^3/uL (0.0-0.1) 11/11/23 14:54 Nucleated RBC % (auto) 0 % 11/11/23 14:54 Nucleated RBCs # 0.0 /100WBC 11/11/23 14:54 Specimen Type Arterial 11/11/23 11:52 Sample Site Radial, right 11/11/23 11:52 ABG pH 7.52 (7.35-7.45) H 11/11/23 11:52 ABG pCO2 35.0 mmHg (35-45) 11/11/23 11:52 ABG pO2 84.3 mmHg (80.0-100.0) 11/11/23 11:52 ABG HCO3 28.5 mmol/L (22-26) H 11/11/23 11:52 ABG O2 Saturation 97.8 11/11/23 11:52 ABG Base Excess 5.5 mmol/L (-2.0-2.0) H 11/11/23 11:52 Addison Test Pos 11/11/23 11:52 A-a O2 Gradient 2.7 mmHg (5-10) L 11/11/23 11:52 Hematocrit 31.1 % (37-47) L 11/11/23 11:52 Hgb O2 Saturation 95.8 % (95-100) 11/11/23 11:52 Carboxyhemoglobin 1.6 %THgb (0.4-20.1) 11/11/23 11:52 Methemoglobin 0.5 % (0.4-1.5) 11/11/23 11:52 Total Hemoglobin 10.1 g/dL (12-16) L 11/11/23 11:52 Sodium 143.0 mmol/L (131-143) 11/11/23 11:52 Potassium 4.2 mmol/L (3.5-5.0) 11/11/23 11:52 Glucose 134.0 mg/dL (70-115) H 11/11/23 11:52 Ionized Calcium 1.2 mmol/L (1.1-1.4) 11/11/23 11:52 O2 Delivery Device Nc 11/11/23 11:52 O2 Liters/Min 2.0 % 11/11/23 11:52 Internal Controls Specialist ID [place] 11/11/23 11:52 Sodium 142 mmol/L (136-145) 11/11/23 14:54 Potassium 4.1 mmol/L (3.5-5.1) 11/11/23 14:54 Chloride 105 mmol/L (98-107) 11/11/23 14:54 Carbon Dioxide 27 mmol/L (22-29) 11/11/23 14:54 Anion Gap 14.1 (5-19) 11/11/23 14:54 BUN 15 mg/dL (8-23) 11/11/23 14:54 Creatinine 0.3 mg/dL (0.5-0.9) L 11/11/23 14:54 GFR Calculation Not Reportable 11/11/23 14:54 Glucose 136 mg/dL (65-115) H 11/11/23 14:54 Calculated Osmolality 297 mOsm/kg (285-295) H 11/11/23 14:54 Lactic Acid 2.4 mmol/L (0.5-2.2) H 11/11/23 14:54 Calcium 8.1 mg/dL (8.5-10.5) L 11/11/23 14:54 Total Bilirubin 0.3 mg/dL (0.15-1.2) 11/11/23 14:54 AST 11 U/L (0-32) 11/11/23 14:54 ALT 8 U/L (0-33) 11/11/23 14:54 Alkaline Phosphatase 124 U/L (35-105) H 11/11/23 14:54 C-Reactive Protein 62.8 mg/L (0.0-4.9) H 11/11/23 14:54 NT-Pro-B Natriuret Pep 9509 pg/mL (0-450) H 11/11/23 14:54 Total Protein 5.8 g/dL (6.6-8.7) L 11/11/23 14:54 Albumin 2.7 g/dL (3.5-5.2) L 11/11/23 14:54 Globulin 3.1 g/dL (1.3-4.6) 11/11/23 14:54 Urine Color Yellow (Yellow) 11/11/23 12:58 Urine Appearance Cloudy (CLEAR) A 11/11/23 12:58 Urine pH 9 (5-7) H 11/11/23 12:58 Ur Specific [place] 1.030 (1.005-1.030) 11/11/23 12:58 Urine Protein Trace (Negative) 11/11/23 12:58 Urine Glucose (UA) Norm (Normal) 11/11/23 12:58 Urine Ketones 1+ (Negative) H 11/11/23 12:58 Urine Blood 3+ (Negative) H 11/11/23 12:58 Urine Nitrate Positive (Negative) H 11/11/23 12:58 Urine Bilirubin Neg (Negative) 11/11/23 12:58 Prot Sulfosalicylic Acd Negative (Negative) 11/11/23 12:58 Urine Urobilinogen Neg mg/dL (Negative) 11/11/23 12:58 Ur Leukocyte Esterase 2+ (Negative) H 11/11/23 12:58 Urine RBC 0-4 /hpf (0-2) H 11/11/23 12:58 Urine WBC 0-4 /hpf (0-5) H 11/11/23 12:58 Ur Squamous Epith Cells 5-10 /hpf (0-5) H 11/11/23 12:58 Triple Phos Crystals Too numerous to cnt /hpf H 11/11/23 12:58 Amorphous Sediment 1+ /hpf 11/11/23 12:58 Urine Bacteria 3+ /hpf (NONE) H 11/11/23 12:58 Urine Mucus Trace /hpf 11/11/23 12:58 Adenovirus (PCR) Not detected (NOT DETECT) 11/11/23 13:45 C. pneumoniae DNA (PCR) Not detected (NOT DETECT) 11/11/23 13:45 Coronavirus 229E (PCR) Not detected (NOT DETECT) 11/11/23 13:45 Human Metapneumovir PCR Not detected (NOT DETECT) 11/11/23 13:45 Influenza A (H1) PCR Not detected (NOT DETECT) 11/11/23 13:45 Influ A (H1/09) PCR Not detected (NOT DETECT) 11/11/23 13:45 Influenza A (H3) PCR Not detected (NOT DETECT) 11/11/23 13:45 Influenza Type A (PCR) Not detected (NOT DETECT) 11/11/23 13:45 Influenza Type B (PCR) Not detected (NOT DETECT) 11/11/23 13:45 M. pneumoniae (PCR) Not detected (NOT DETECT) 11/11/23 13:45 Parainfluenza 1 (PCR) Not detected (NOT DETECT) 11/11/23 13:45 Parainfluenza 2 (PCR) Not detected (NOT DETECT) 11/11/23 13:45 Parainfluenza 3 (PCR) Not detected (NOT DETECT) 11/11/23 13:45 Parainfluenza 4 (PCR) Not detected (NOT DETECT) 11/11/23 13:45 RSV Type A (PCR) Not detected (NOT DETECT) 11/11/23 13:45 RSV Type B (PCR) Not detected (NOT DETECT) 11/11/23 13:45 Entero/Rhino (PCR) Not detected (NOT DETECT) 11/11/23 13:45 SARS-CoV-2 (PCR) Not detected (NOT DETECT) 11/11/23 13:45 All radiology interpretation(s) finalized by discharge Discharge Plan Discharge Patient Disposition: Admitted As Inpatient Clinical Impression: Comfort measures only status, Dementia, Sepsis, Pleural effusion Condition: Stable Coding Level of Care Code ED Quality Assurance Project Manager for Daryl Ansari
--- NOTE | 2023-11-11 12:29 | CT_ITS ---
WS: [id number] CT CHEST, ABDOMEN AND PELVIS WITHOUT CONTRAST HISTORY: abdnormal chest, history of ureterolithiasis. dementia TECHNIQUE: Contiguous 5 mm axial imaging performed through the chest, abdomen and pelvis without IV c ontrast, oral contrast has 9 been provided. Coronal and sagittal reformats chest. Coronal and sagitta l reformats through the abdomen and pelvis. All CT scans at [facility] use at least one of th andrew dose optimization techniques: automated exposure control; mA and/or kV adjustment per patient siz e (includes targeted exams where dose is matched to clinical indication); or iterative reconstruction . CONTRAST: Omnipaque 350; 100 mL IV. DLP: 606.92 mGy.cm Quality of this examination is compromised without IV contrast and patient position. COMPARISON: 06/23/[address]: Small layering bilateral pleural effusions, LEFT greater than RIGHT. Compressive atelectasi s and mild hazy attenuation. Motion artifact. Compressive atelectasis at the LEFT lung base. No defin ite pneumonia. Mild atherosclerosis aorta. Heart size is normal. No adenopathy. No pneumothorax. Abdomen CT: Prior cholecystectomy. Negative liver and spleen. Pancreatic atrophy. Otherwise poorly vi sualized. No renal obstruction. Hyperdense cortical nodule LEFT kidney is 8 mm. No adrenal mass. No G I tract obstruction. Mild soft tissue anasarca. No ascites or adenopathy. PEG tube in the stomach. Pelvic CT: There is a large, known decubitus ulcer extending through the soft tissues posterior to th e sacrum. This is an air-containing tract extending to abut the sacrum. There is additional subcutane ous air tracking more superiorly from the decubitus ulcer tract. Destruction of the sacrum from chron ic osteomyelitis. Most likely there is an acute component due to the extensive air extending along th e decubitus ulcer track. Suprapubic catheter present in the urinary bladder. Bones are osteopenic. Moderate RIGHT scoliosis and curvature. L1 compression fracture, unchanged. [place] [id number] IMPRESSION: 1. No renal obstruction or hydronephrosis. 2. Patient has a large known sacral decubitus ulcer contacting the sacrum with changes of acute on chronic osteomyelitis. There is superior extension of the ulceration in the subcutaneous soft tissues. 3. Bilateral pleural effusions, LEFT greater than RIGHT. 4. Prior cholecystectomy. 5. No GI tract obstruction. 6. Suprapubic catheter. 7. PEG tube.
[2023-11-11] MEDS: meropenem 500 MG in sodium chloride 0.9% (plus) 50 ML 100 MG IV (13:26)
[2023-11-11] MEDS: linezolid premix 600 MG/300 ML PREMIX 300 MG IV (13:26)
[2023-11-11] MEDS: sodium chloride 0.9% 1,000 ML 999 ML IV (13:26)
--- NOTE | 2023-11-11 13:44 | PC.PHAR ---
PT IS FROM [place] [id number]
[2023-11-11 14:06] LABS: Urine Appearance Cloudy (CLEAR); Urine Color Yellow (Yellow); pH Urine 9 (5-7)
[2023-11-11 14:07] LABS: Bilirubin Urine Neg (Negative); Blood Urine 3+ (Negative); Glucose Urine UA Norm (Normal); Ketones Urine 1+ (Negative); Leukocyte Esterase Urine 2+ (Negative); Nitrate Urine Positive (Negative); Protein Urine Trace (Negative); RBC Urine 0-4 /hpf (0-2); Sulfosalicylic Acid Urine Negative (Negative); Urobilinogen Urine Neg (Negative)
[2023-11-11 14:08] LABS: Bacteria Urine 3+ /hpf; Mucus Urine TRACE /hpf; WBC Urine 0-4 /hpf (0-5)
[2023-11-11 14:09] LABS: Add Urine Culture? Yes; Amorphous Sediment Urine 1+ /hpf; Triple Phosphate Crystal Urine TOO NUMEROUS TO CNT /hpf
[2023-11-11 15:01] LABS: Basophils % 0.1 %; Hematocrit 33.4 % (36-47); Lymphocytes # 0.5 10^3/uL (0.8-4.8); Lymphocytes % 2.3 %; Mean Corpuscular HGB Conc 29.9 g/dL (30-55); Mean Corpuscular Hemoglobin 25.4 pg (27-33); Mean Corpuscular Volume 84.8 fl (85-98); Mean Platelet Volume 9.2 fL (7.4-10.4); Monocytes # 0.6 10^3/uL (0.2-0.9); Monocytes % 2.4 %; Neutrophils # 21.39 10^3/uL (1.8-7.7); Neutrophils % 94.6 %; Nucleated Red Blood Cells % 0 %; Platelet Count 422 10^3/cmm (157-399); Red Blood Count 3.94 10^6/uL (3.85-5.65); Red Cell Distribution Width 22.4 % (12.1-15.1); White Blood Count 22.63 10^3/uL (3.29-11.43)
[2023-11-11 15:22] LABS: Slide Review Slide Review Perform
[2023-11-11 15:30] LABS: Lactic Sepsis W/Reflex 2.4 mmol/L (0.5-2.2)
[2023-11-11 15:40] LABS: Alanine Aminotransferase 8 U/L (0-33); Albumin Level 2.7 g/dL (3.5-5.2); Alkaline Phosphatase 124 U/L (35-105); Anion Gap 14.1 (5-19); Aspartate Amino Transferase 11 U/L (0-32); Blood Urea Nitrogen 15 mg/dL (8-23); C Reactive Protein 62.8 mg/L (0.0-4.9); Calcium 8.1 mg/dL (8.5-10.5); Carbon Dioxide 27 mmol/L (22-29); Chloride 105 mmol/L (98-107); Globulin 3.1 g/dL (1.3-4.6); Glucose 136 mg/dL (65-115); NT Pro B Type Natriuretic Pept 9509 pg/mL (0-450); Osmolality Calculated 297 mOsm/kg (285-295); Potassium 4.1 mmol/L (3.5-5.1); Sodium 142 mmol/L (136-145); Total Bilirubin 0.3 mg/dL (0.15-1.2); Total Protein 5.8 g/dL (6.6-8.7)
[2023-11-11] MEDS: cefepime 2,000 MG in sodium chloride 0.9% (plus) 50 ML 100 MG IV (15:43)
[2023-11-11 15:51] LABS: Adenovirus Not Detected (NOT DETECT); Chlamydia Pneumoniae Not Detected (NOT DETECT); Coronavirus 229E,HKU1,NL63,OC4 Not Detected (NOT DETECT); Human Metapneumovirus Not Detected (NOT DETECT); Human Rhinovirus/Enterovirus Not Detected (NOT DETECT); Influenza A Not Detected (NOT DETECT); Influenza A H1 Not Detected (NOT DETECT); Influenza A H1-2009 Not Detected (NOT DETECT); Influenza A H3 Not Detected (NOT DETECT); Influenza B Not Detected (NOT DETECT); Mycoplasma Pneumoniae Not Detected (NOT DETECT); Parainfluenza Virus Type 1 Not Detected (NOT DETECT); Parainfluenza Virus Type 2 Not Detected (NOT DETECT); Parainfluenza Virus Type 3 Not Detected (NOT DETECT); Parainfluenza Virus Type 4 Not Detected (NOT DETECT); Respiratory Syncytial Virus A Not Detected (NOT DETECT); Respiratory Syncytial Virus B Not Detected (NOT DETECT); SARS-COV-2 Not Detected (NOT DETECT)
[2023-11-11 16:44] LABS: Reflex Lactate Order REFLEX LACTIC ORDERD
--- NOTE | 2023-11-11 16:57 | P.HP_ITS ---
Providers/Chief Complaint 2 Primary Care Provider: Manny Patel DO Chief Complaint: sob History of Present Illness Kaylynn Calzada is a 73 year old female with history of acoustic neuroma status post surgical intervention 1999 [facility] since then patient has been getting worse developed MS, neurogenic bladder, suprapubic catheter placed, became wheelchair-bound, bedbound, spent some time in [place] for wound care however came back to [place] to skilled nursing, skilled nursing has been changing her suprapubic catheter, patient was eating through her mouth despite having a PEG tube, PEG tube has not been used but it is being flushed at the skilled nursing. is at the bedside stating that he cannot see his visiting and pain anymore. She has stopped eating, she had become obtunded. She seems to be septic secondary to catheter induced UTI. does not want to pursue any aggressive treatment including antibiotics or aggressive IV fluid hydration however she had received fluids and antibiotics in the ER. He wants to pursue hospice care Review of Systems 2 General: Reports: ROS unobtainable due to medical condition Medications/Allergies Home Medications Medication Instructions Recorded Confirmed Last Taken Type bisacodyl 10 mg rectal suppository 10 mg VA DAILY PRN Constipation 09/25/19 11/11/23 Unknown History (Dulcolax (bisacodyl)) bisacodyl 5 mg tablet,delayed 5 mg PO BID 09/25/19 11/11/23 11/11/23 History release (Dulcolax (bisacodyl)) albuterol sulfate 90 mcg/actuation 2 puff inhalation Q4H PRN 06/12/23 11/11/23 Unknown History aerosol inhaler (Ventolin HFA) Shortness Of Breath apixaban 5 mg tablet (Eliquis) 5 mg PO BID 06/12/23 11/11/23 11/11/23 History buspirone 5 mg tablet 5 mg PO BID 06/12/23 11/11/23 11/11/23 History cholecalciferol (vitamin D3) 125 125 mcg PO DAILY@06/12/23 11/11/23 11/11/23 History mcg (5,000 unit) capsule cranberry fruit 450 mg tablet 450 mg PO DAILY@06/12/23 11/11/23 11/11/23 History cyanocobalamin (vitamin B-12) 500 500 mcg PO DAILY@08 06/12/23 11/11/23 11/11/23 History mcg tablet docusate sodium 100 mg capsule 100 mg PO BID 06/12/23 11/11/23 11/11/23 History (Colace) furosemide 20 mg tablet (Lasix) 20 mg PO DAILY@08 06/12/23 11/11/23 11/11/23 History gabapentin 100 mg capsule 100 mg PO BID 06/12/23 11/11/23 11/11/23 History magnesium hydroxide 400 mg/5 mL 30 ml PO DAILY PRN Constipation 06/12/23 11/11/23 10/17/23 History oral suspension (Milk of Magnesia) nystatin 100,000 unit/gram topical See Rx Instructions .Route .COMPLEX 06/12/23 11/11/23 11/11/23 History cream omeprazole 20 mg capsule,delayed 20 mg PO DAILY@0530 06/12/23 11/11/23 11/11/23 History release ondansetron 4 mg disintegrating 4 mg PO Q4H PRN Nausea 06/12/23 11/11/23 Unknown History tablet polysaccharide iron complex 150 mg 150 mg PO DAILY@06/12/23 11/11/23 11/11/23 History iron capsule prostat 30 ml PO BID 06/12/23 11/11/23 11/11/23 History acetaminophen 325 mg tablet 650 mg PO Q4H PRN Pain, Mild 06/24/23 11/11/23 Unknown History (Tylenol) amitriptyline 100 mg tablet 100 mg PO BEDTIME 06/24/23 11/11/23 11/10/23 History baclofen 10 mg tablet 10 mg PO TID 06/24/23 11/11/23 11/11/23 History fluticasone propionate 110 2 puff inhalation BID 06/24/23 11/11/23 11/11/23 History mcg/actuation HFA aerosol inhaler multivitamin with minerals 1 tab PO DAILY@08 06/24/23 11/11/23 11/11/23 History (Multiple Vitamin-Minerals tablet) naloxone 4 mg/actuation nasal 1 spray intranasal Q2M PRN Opioid 06/24/23 11/11/23 Unknown History spray (Narcan) Overdose oxycodone 5 mg tablet 5 mg PO Q4H PRN Pain 06/24/23 11/11/23 11/09/23 History potassium gluconate 595 mg (99 mg) 595 mg PO DAILY@08 06/24/23 11/11/23 11/11/23 History tablet sodium phosphates 19 gram-7 118 ml VA DAILY PRN Constipation 06/24/23 11/11/23 Unknown History gram/118 mL enema (Fleet Enema) melatonin 1 mg tablet 1 mg PO BEDTIME 08/03/23 11/11/23 11/10/23 History polyethylene glycol 3350 17 4 g PO DAILY 08/03/23 11/11/23 11/11/23 History gram/dose oral powder (Miralax) lactobacillus combination no.4 3 3,000 mmu cells PO DAILY PRN WHEN 11/11/23 11/11/23 Unknown History billion cell capsule (Probiotic) ON ANTIBIOTICS Allergies Allergy/AdvReac Type Severity Reaction Status Date / Time Penicillins Allergy Unknown Verified 11/05/23 14:47 PFSH Acute 2 PFSH: Medical History Anxiety History of open sigmoidectomy Dr Smith 06/27/23 - Open sigmoidectomy End colostomy formation Percutaneous endoscopic gastrostomy tube placement Altered mental status Aspiration pneumonia Cellulitis Elevated troponin Acute alteration in mental status Pressure ulcer of sacral region, stage 3 Encounter for care or replacement of suprapubic tube Thrombocytopenia Constipation Vitamin B12 deficiency anemia Unspecified protein-calorie malnutrition Polyneuropathy, unspecified Vitamin D deficiency Insomnia Depression Unspecified convulsions 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 May require bulking agent injection or urethral closure after placement of SP tube. 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 Other Hypertension Denies family history of Diabetes Stroke Social History Alcohol intake: never Substance/Drug Use: never Lives independently: No Housing: Skilled Nursing Marital status: Current occupational status: retired Vitals/I&O/Wt Last Vital Signs Pulse 132 H 11/11/23 16:07 Resp 16 11/11/23 16:07 BP 90/48 11/11/23 16:07 Pulse Ox 97 11/11/23 16:07 O2 Del Method Nasal Cannula 11/11/23 16:07 O2 Flow Rate 2 11/11/23 16:07 Physical Exam 2 Narrative: Patient is obtunded Not responsive at all Tachycardic Sinus tachycardia Currently on 2 L Neuroexam is limited Suprapubic catheter in place, PEG tube in place Stage IV sacral ulcer Data 11/11/23 14:54 11/11/23 14:54 Micro: Microbiology 11/11/23 14:08 Blood Culture - Preliminary Blood SPECIMEN COLLECTED 11/11/23 14:01 Blood Culture - Preliminary Blood SPECIMEN COLLECTED A&P Assessment and plan (1) Comfort measures only status: Plan Start inpatient hospice care Patient has received septic bolus, antibiotics in the ER blood culture, urine culture taken already I will start hospice orders in the hospital She is from [facility] Poor prognosis She was following up with wound care clinic when I saw her we was checking on her on every Saturday for stage IV sacral ulcer Attestations 2 Medical Necessity Statement*: Guarded prognosis, admit on hospice order Diagnoses Comfort measures only status Z51.5
--- NOTE | 2023-11-11 17:35 | PC.NURSE ---
pts family refused any further blood draws at this time.
[2023-11-11] MEDS: acetaminophen 325 mg Tablet 650 MG PO (21:51)
[2023-11-11] MEDS: LORazepam 2 mg/mL INJ 10 mL MDV IVP (22:54)
[2023-11-11] MEDS: morphine 4 mg/mL SDV 1 mL IVP (23:53)
[2023-11-12 03:33] VITALS: RESP 14
[2023-11-12] MEDS: morphine 4 mg/mL SDV 1 mL IVP ×6 (03:33→23:35)
[2023-11-12] MEDS: atropine 1% op soln 2 mL Btl 3 DROP SUBLINGUAL (03:36)
[2023-11-12 07:15] VITALS: BP 77/46; PULSE 117; RESP 16; TEMP 37.3; O2SAT 95
--- NOTE | 2023-11-12 09:57 | PC.CHAP ---
Pastoral Care Encounter/Spiritual Assessment Type of Contact [] Declined control systems specialist visit [] Patient/Family/Request visit [] Outpatient visit [] Follow-up visit [] Physician referral [] Code/Alert [] Routine visit [] Staff referral [] Actively dying [x] Patient sleeping [] Family support [] [] Out of room [] Palliative care [] [] Receiving care in room [] Pre-surgical visit [] Trauma [] Long length of stay [] ICU visit [] Other: Relational/Emotional Strength [] Patient feels connected with others/family/visitors/staff [] Distress [] Loneliness/isolation [] Abandonment Spirituality of Patient [] Person of Maris [] Attends Mandaen of their Maris [] Believes in Prayer [] Reads Bible or Holiness materials [] There are Spiritual issues to be addressed [employer] Supervisor Interventions [] Prayer [] Active listening [] Non-anxious presence [] Spiritual/emotional support [] Crisis/trauma care [] Spiritual counseling [] Bereavement support [] Provided bereavement packet [] Provided Bible/devotional materials [] Provided toy/stuffed animal, coloring book to patient or family member [] Provided Communion [] Anointing/Aristes [] Salvation [] Completed spiritual assessment [] Other: Impact on Illness or Injury [] Angry [] Fearful [] Anxious [] Often cries [] Exhaustion [] Unable to work [] Unable to attend orthodoxy [] Unable to walk/stand [] Unable to read [] Unable to drive [] Unable to eat/drink [] Unable to sleep [] Unable to be with family [] Patient intubated [] Other: Summary Time spent with patient
[2023-11-12 10:39] VITALS: RESP 17
--- NOTE | 2023-11-12 13:06 | P.PN_ITS ---
Subjective 2 Subjective: Patient is obtunded No acute distress has not asked me to increase her opioids dosage Vitals/I&O/Wt Last Vital Signs Temp 99.1 F 11/12/23 07:15 Pulse 117 H 11/12/23 07:15 Resp 17 11/12/23 10:39 BP 77/46 11/12/23 07:15 Pulse Ox 95 11/12/23 07:15 O2 Del Method Nasal Cannula 11/12/23 07:15 O2 Flow Rate 2 11/11/23 23:24 11/11/23 11/12/23 11/12/23 22:59 06:59 14:59 Intake Total 1400 / 1400 Output Total 550 / 550 25 / 575 Balance 850 / 850 -25 / 825 Weight last 48 hrs Weight 57.153 kg Weight 57.425 kg Weight 57.334 kg Physical Exam 2 Narrative: Patient is obtunded Not able to respond Currently on 2 L nasal cannula Tachycardia Extremity contractures Suprapubic cath Urinary Catheter Management: Suprapubic: Cath Placed During This Visit: no Reason for Continuing Indwelling Catheter: Hospice/Comfort/Palliative Care Data 11/11/23 14:54 11/11/23 14:54 Micro: Microbiology 11/11/23 14:08 Blood Culture - Preliminary Blood SPECIMEN COLLECTED 11/11/23 14:01 Blood Culture - Preliminary Blood SPECIMEN COLLECTED A&P Assessment and plan (1) Comfort measures only status: Plan Patient likely will be admitted to inpatient hospice service I will continue current comfort measures for now is at the bedside diabetes manager updated Attestations 2 Medical Necessity Statement*: Inpatient hospice Diagnoses Comfort measures only status Z51.5
[2023-11-12 13:44] VITALS: RESP 17
[2023-11-12 15:17] VITALS: RESP 16
[2023-11-12 23:35] VITALS: RESP 16
[2023-11-13 00:34] VITALS: RESP 14
[2023-11-13] MEDS: morphine 4 mg/mL SDV 1 mL IVP ×4 (00:34→10:59)
[2023-11-13 05:12] VITALS: RESP 14
[2023-11-13] MEDS: artificial tears Op Soln 15 mL Btl 2 DROP EYE-BOTH (05:21)
[2023-11-13 09:46] VITALS: RESP 22
[2023-11-13 10:59] VITALS: RESP 12
== END 2023-11-12 14:04 | disposition admitted as inpatient to this hospital (09) ==
LOC: ER 17:04 → MEDSURG 19:34
PROVIDERS: Admitting Provider Internal Medicine; Emergency Provider Emergency Medicine; PCP Family Medicine; Visit Provider Internal Medicine
DX: Z51.5 Encounter for palliative care (principal); G35 Multiple sclerosis; N31.9 Neuromuscular dysfunction of bladder, unspecified; Z99.3 Dependence on wheelchair; F41.9 Anxiety disorder, unspecified; F03.90 Unspecified dementia, unspecified severity, without behavioral disturbance, psychotic disturbance, mood disturbance, and anxiety
CPT/HCPCS: 36600; 71045; 71250; 74176; 80051; 80053; 81001; 82330; 82805; 83605; 83880; 85025; 86140; 87040; 87077; 87086; 87186; 87486; 87581; 87633; 93005; 96365; 96367; 99285; G0378; J0692; J2020; J2060; J2185; J2270; J7030

== ENCOUNTER 2023-11-12 14:05 | Inpatient (IN) | payer OTHER, MEDICARE, MEDICAID, SELFPAY ==
--- OUTSIDE RECORDS SUMMARY | 2023-11-13 12:51 | XMS_ITS | Patient Health Record ---
Author Name Unknown Organization [facility] Address [address] [place], [place] [id number] Care Team Providers Care Director Of Clinical Applications Name Role Phone Manny Patel DO Primary Care Provider Mariam Baumann MD, Luis Fernando Kaleb [phone] ALLERGIES Allergen (clinical drug ingredient) Drug/Non Drug Allergy documented on EMR Reaction Allergy Type Onset Date Status prednisone prednisone (uncoded) Unknown Allergy Active penicillin rash Drug Allergy Active REASON FOR REFERRAL No Information MEDICATIONS Medication SIG (Take, Route, Frequency, Duration) Notes Start Date End Date Status acetaminophen-hydrocodo ne 325 mg-10 mg 1 tab po orally Q4-6H prn pain (max 3/day; hold within 4H of planned sleep) for 30 day(s) ICD-10: M47.816 11/29/2021 Active Flovent HFA CFC free 110 mcg/inh 1 puff inhaled as directed Active morphine 15 mg 1 tab po orally Q4-6H prn severe pain (max 3/day; hold within 4H of planned sleep) for 30 day(s) Do not fill prior to 01/28/22. ICD-10: M47.816 11/29/2021 Active acetaminophen-hydrocodo ne 325 mg-10 mg 1 tab po orally Q4-6H prn pain (max 3/day; hold within 4H of planned sleep) for 30 day(s) Do not fill prior to 01/28/22. ICD-10: M47.816 11/29/2021 Active acetaminophen-hydrocodo ne 325 mg-10 mg 1 tab po orally Q4-6H prn pain (max 3/day; hold within 4H of planned sleep) for 30 day(s) Do not fill prior to 12/29/21. ICD-10: M47.816 11/29/2021 Active diazePAM 5 mg 1 tab po orally Q12H prn spasm Active morphine 15 mg 1 tab po orally Q4-6H prn severe pain (max 3/day; hold within 4H of planned sleep) for 30 day(s) Do not fill prior to 12/29/21. ICD-10: M47.816 11/29/2021 Active amitriptyline 100 mg 1 tab orally once a day (at bedtime) Active morphine 15 mg 1 tab po orally Q4-6H prn severe pain (max 3/day; hold within 4H of planned sleep) for 30 day(s) ICD-10: M47.816 11/29/2021 Active albuterol 90 mcg/inh 2 puffs inhaled as directed Active SOCIAL HISTORY Tobacco Use: Social History Observation Description Date Details (start date - stop date) Never Smoker NA - NA Sex Assigned At : Social History Observation Description Sex Assigned At Unknown alcohol Question Answer Notes Did you have a drink containing alcohol in the p ast year? No Points 0 Interpretation Negative Tobacco use: Question Answer Notes : nonsmoker PROBLEMS Problem Type ICD Code Onset Dates Problem Status W/U Status Risk SNOMED Code Notes Problem Lumbosacral spondylosis without myelopathy (721.3) Active confirmed Lumbosacr al spondylosis without myelopathy (95295077) Problem Lumbosacral radiculitis NOS (724.4) Active confirmed Lumbosacral radiculitis (38747695) Problem Low back pain (724.2) Active confirmed Low back pain (791235835) Problem Lumbar (w/out myelopathy) intervertebral disc disorder (722.10) Active confirmed Displaceme nt of lumbar intervertebral disc without myelopathy (71262517) Problem Spondylolisthesis (756.12) Active confirmed Spondylolisthes is (215919500) Problem LONG-TERM USE MEDS NEC (V58.69) Active confirmed Long-term drug therapy (834180356) R/O substance abuse Problem Sacroiliitis (720.2) Active confirmed Solitary sacroiliitis (094158518) Problem Sacroiliitis, not elsewhere classified (M46.1) Active confirmed Solitary sacroiliitis (898893755) Problem Low back pain (M54.5) Active confirmed Low back pain (772084797) Problem Spondylosis without myelopathy or radiculopathy, lumbar region (M47.816) Active confirmed Lumbosacral spondylosis without myelopathy (40887814) Problem manager utilization (current) use of opiate analgesic (Z79.891) Active confirmed High ris k drug monitoring status (938741823) Problem Other sleep disorders (G47.8) Active confirmed Sleep diso rder (53885573) Problem Spondylolisthesis, lumbar region (M43.16) Active confirmed Acquired spondylolisthesis (457439620) Problem Intervertebral disc disorders with radiculopathy, lumbar region (M51.16) Active confirmed Radiculopathy d ue to lumbar intervertebral disc disorder (795376266966309) Problem Radiculopathy, lumbosacral region (M54.17) Active confirmed Lumbosacral radiculopathy (7566549) Problem Vertebrogenic low back pain (M54.51) Active confirmed Pain in l umbar spine (314353208) PLAN OF TREATMENT No Information Insurance Providers Payer Name Payer Address Payer Phone Subscriber Number Group Number Insured Name Patient Relationship to Insured Coverage Start Date Coverage End Date [facility] [address] [address] [place] [address] [phone] [id number] Kaylynn Calzada Self - patient is the insured [place] [employer] [address] [place] [address] [phone] [id number] CalzadaKaylynn Self - patient is the insured MEDICAL (GENERAL) HISTORY Medical History History ICD Code Multiple sclerosis Chronic pain Depression Anxiety disorder Constipation Edema Right leg fracture Dementia Fractured right leg, 09/24/19 Kidney issues Surgical History Surgery Date(Month/Year) Tonsillectomy, 1966 Hysterectomy, 1986 Left inner ear surgery; acoustic neuroma removed, 1999 Appendectomy Back surgery, L4-L5, 2001 Arthroscopy, left knee, 2004 Fracture repair, left ankle, 05/12/07 Cholecystectomy, 01/2008 Right leg surgery, 03/30/10 Catheter placement, 03/2013 Cataract surgeries, bilateral, 10/2014, 11/2014 Placement of catheter and st ents, performed at [facility] by Dr. Basil Virk, 10/06/20 Hospitalization History Reason Date(Month/Year) MS testing, multiple admissions Fractured right leg, 03/2010-05/2010 Severe urinary tract infection (4 day ad mission), 08/2012 Kidney problems, low potasss ium, pressure sore on bottom of left foot, 06/2015 Staph infection, treated at [facility], 1
--- NOTE | 2023-11-13 13:11 | PM.PN ---
Subjective Subjective: Patient has been transition to inpatient hospice Physical Exam Narrative: Patient is obtunded Not responsive Currently on 1 to 2 L nasal cannula No signs of agonal breathing during my evaluation Signs of dehydration present A&P Assessment and plan (1) Comfort measures only status: Plan Currently on inpatient hospice Attestations Medical Necessity Statement*: inPatient hospice Coding Level of Care Code Acute Code for Chg Fwd Diagnoses Comfort measures only status Z51.5
[2023-11-13 13:21] VITALS: RESP 8
[2023-11-13] MEDS: morphine 4 mg/mL SDV 1 mL IVP ×4 (13:21→18:18)
[2023-11-13 16:29] VITALS: RESP 10
[2023-11-13 17:33] VITALS: RESP 18
[2023-11-13 18:18] VITALS: RESP 7
[2023-11-13] MEDS: LORazepam 2 mg/mL INJ 10 mL MDV IVP (18:20)
--- NOTE | 2023-11-13 19:32 | PC.NURSE ---
family requested patient be given medication for pain due to gasping and groaning 1818 morphine administered per order 1820 lorazepam administered per order 182 patient noted to have no respirations and no pulse, second nurse verify by VIDA Medina Dr. notified, family at bedside
--- NOTE | 2023-11-13 20:12 | PC.NURSE ---
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 All patient belongings sent with family members. Pt left floor at 2014.
--- NOTE | 2023-11-14 12:36 | P.DES_ITS ---
Discharge Providers DDS Date of Admission: 11/12/23 14:05 Date Summary Completed: 11/14/23 Attending Provider at Admission: Brenden Ho MD Attending Provider at Discharge: Brenden Ho MD Primary Care Provider: DO OSMAR Hdez Diagnoses Hospital Diagnoses (1) Comfort measures only status: Reason for Visit Reason for Visit HOSPICE CARE/COMFORT MEASURES Summary Summary Summary: Kaylynn Calzada is a 73 year old female with history of acoustic neuroma status post surgical intervention [facility] since then patient has been getting worse developed MS, neurogenic bladder, suprapubic catheter placed, became wheelchair-bound, bedbound, spent some time in [place] for wound care however came back to [place] to alf, alf has been changing her suprapubic catheter, patient was eating through her mouth despite having a PEG tube, PEG tube has not been used but it is being flushed at the alf. is at the bedside stating that he cannot see his visiting and pain anymore. She has stopped eating, she had become obtunded. She seems to be septic secondary to catheter induced UTI. does not want to pursue any aggressive treatment including antibiotics or aggressive IV fluid hydration however she had received fluids and antibiotics in the ER. He wants to pursue hospice care During hospitalization patient was kept on hospice care, she was transition to inpatient hospice, family meetings were conducted on daily basis, patient on 11/12 Cause of septic shock secondary to pneumonia and UTI, advanced dementia Additional Data Confirmation of as documented by pronouncing clinician: no respirations, no heart sounds and pupils fixed and dilated Additional persons at bedside: nursing staff Attending/PCP notified?: I am attending Was code activated?: No Autopsy requested?: No Advance directives?: Yes Hospice patient?: Yes Discharge Plan Discharge Patient Disposition: Prescriptions: No Action albuterol sulfate [Ventolin HFA] 90 mcg/actuation HFA aerosol inhaler 2 puff inhalation Q4H PRN (Reason: Shortness Of Breath) buspirone 5 mg tablet 5 mg PO BID polysaccharide iron complex 150 mg iron capsule 150 mg PO DAILY@08 magnesium hydroxide [Milk of Magnesia] 400 mg/5 mL suspension 30 ml PO DAILY PRN (Reason: Constipation) cyanocobalamin (vitamin B-12) 500 mcg tablet 500 mcg PO DAILY@08 docusate sodium [Colace] 100 mg capsule 100 mg PO BID omeprazole 20 mg capsule,delayed release(DR/EC) 20 mg PO DAILY@0530 furosemide [Lasix] 20 mg tablet 20 mg PO DAILY@08 gabapentin 100 mg capsule 100 mg PO BID ondansetron 4 mg tablet,disintegrating 4 mg PO Q4H PRN (Reason: Nausea) cholecalciferol (vitamin D3) 125 mcg (5,000 unit) capsule 125 mcg PO DAILY@08 cranberry fruit 450 mg tablet 450 mg PO DAILY@08 Rx Instructions: administer with a meal Eliquis 5 mg tablet 5 mg PO BID prostat liquid 30 ml PO BID nystatin 100,000 unit/gram cream See Rx Instructions .ROUTE .COMPLEX Rx Instructions: apply to buttock and vale-area(aviod open areas for rash) lidocaine HCl [Lidocaine Viscous] 2 % solution 1 applic topical ONCE Qty: 1 0RF bisacodyl [Dulcolax (bisacodyl)] 10 mg Suppository 10 mg MD DAILY PRN (Reason: Constipation) bisacodyl [Dulcolax (bisacodyl)] 5 mg Tablet,Delayed Release (Dr/Ec) 5 mg PO BID polyethylene glycol 3350 [Miralax] 17 gram/dose Powder 4 g PO DAILY melatonin 1 mg Tablet 1 mg PO BEDTIME acetaminophen [Tylenol] 325 mg Tablet 650 mg PO Q4H PRN (Reason: Pain, Mild) baclofen 10 mg tablet 10 mg PO TID Fleet Enema 19-7 gram/118 mL Enema 118 ml MD DAILY PRN (Reason: Constipation) Multiple Vitamin-Minerals Tablet 1 tab PO DAILY@08 amitriptyline 100 mg tablet 100 mg PO BEDTIME fluticasone propionate 110 mcg/actuation HFA aerosol inhaler 2 puff INHALATION BID oxycodone 5 mg tablet 5 mg PO Q4H PRN (Reason: Pain) potassium gluconate 595 mg (99 mg) Tablet 595 mg PO DAILY@08 naloxone [Narcan] 4 mg/actuation [place],Non-Aerosol 1 spray INTRANASAL Q2M PRN (Reason: Opioid Overdose) Rx Instructions: spray 1 dose into ONE nostril; alternate nostrils w each dose until help a rrives Probiotic 3 billion cell Capsule 3,000 mmu cells PO DAILY PRN (Reason: WHEN ON ANTIBIOTICS) Rx Instructions: administer with a meal DS Attestations Time Spent in /Discharge Care*: less than 30 min Quality - AMI: AMI present?: No Quality - Stroke: CVA present?: No Quality - VTE: VTE present?: No Coding Level of Care Code Acute Code for Chg Fwd Diagnoses Comfort measures only status Z51.5
== END 2023-11-13 20:10 | disposition expired | DRG 698 ==
PROVIDERS: Admitting Provider Internal Medicine; PCP Family Medicine; Visit Provider Internal Medicine
DX: T83.511A Infection and inflammatory reaction due to indwelling urethral catheter, initial encounter (principal); A41.9 Sepsis, unspecified organism; R65.21 Severe sepsis with septic shock; J18.9 Pneumonia, unspecified organism; Y84.6 Urinary catheterization as the cause of abnormal reaction of the patient, or of later complication, without mention of misadventure at the time of the procedure; Y92.9 Unspecified place or not applicable; Z51.5 Encounter for palliative care; E86.0 Dehydration; N31.9 Neuromuscular dysfunction of bladder, unspecified; Z96.0 Presence of urogenital implants; Z93.1 Gastrostomy status; Z99.3 Dependence on wheelchair; Z74.01 Bed confinement status; F03.90 Unspecified dementia, unspecified severity, without behavioral disturbance, psychotic disturbance, mood disturbance, and anxiety; Z86.018 Personal history of other benign neoplasm; N39.0 Urinary tract infection, site not specified
CPT/HCPCS: J2060; J2270